=== PATIENT | female | born 1945 | race Asian ===

== ENCOUNTER 2017-06-27 14:05 | Inpatient (IN) | payer MEDICARE, OTHER ==
[~2017-06-27] VITALS: Ht 154.9 cm; Wt 59.0 kg
[2017-06-27] MEDS ORDERED: NKM (14:45)
[2017-06-27] MEDS ORDERED: PAXIL10 MG ORAL (15:28)
[2017-06-27] MEDS ORDERED: LOSARTAN-HCTZ1 EACH ORAL (15:28)
[2017-06-27] MEDS ORDERED: LOVASTATIN20 MG ORAL (15:28)
[2017-06-27] MEDS ORDERED: ZANTAC150 MG ORAL (15:28)
[2017-06-27] MEDS ORDERED: Fluorescein Strips LEFT EYE ONE (15:30)
[2017-06-27] MEDS ORDERED: Morphine Sulfate 4mg/ml Inj IVP ONE (15:30)
[2017-06-27] MEDS ORDERED: Tetracaine 0.5% Opth Soln LEFT EYE ONE (15:30)
--- NOTE | 2017-06-27 15:39 | Diagnostic Imaging Report ---
Indication: Headache Technique: Contiguous 5 mm thick transaxial imaging of the head obtained in a Siemens Sensation [address] scanner. Soft tissue and bone windows generated. Total Dose length Product (DLP): [address] Dose Index Volume (CTDIvol): 70.38, 0.15 mGy Comparison: none Findings: The size and configuration of the cortical sulci, basal cisterns, and ventricles are within normal limits for age. There is no mass effect, midline shift, or edema identified. There is no evidence of acute hemorrhage or abnormal intra-axial or extra-axial fluid collections. The bones and soft tissues are unremarkable. Impression: No mass effect, edema or acute bleed. The CT scanner at [facility] is accredited by the [employer] and the scans are performed using dose optimization techniques as appropriate to a performed exam including Automatic Exposure control.
[2017-06-27 16:02] VITALS: BP 137/83
[2017-06-27 16:03] LABS: BASOPHILS % (AUTO) 0.7 % (0.0-2.0); EOSINOPHILS % (AUTO) 0.3 % (0.0-3.0); MEAN CORPUSCULAR HEMOGLOBIN 34.2 PG (27.0-31.0); MEAN CORPUSCULAR HGB CONC 35.2 G/DL (32.0-36.0); MEAN CORPUSCULAR VOLUME 97 FL (80-99); MEAN PLATELET VOLUME 6.7 FL (6.5-10.1); MONOCYTES % (AUTO) 3.8 % (1.0-10.0); NEUTROPHILS % (AUTO) 73.3 % (45.0-75.0); PLATELET COUNT 141 K/UL (150-450); WHITE BLOOD COUNT 3.7 K/UL (4.8-10.8)
[2017-06-27 16:15] LABS: TROPONIN I < 0.30 ng/mL (<=0.30)
[2017-06-27] MEDS ORDERED: Acyclovir 750 MG in NS 110 ML IVPB ONE (16:15)
[2017-06-27 16:17] LABS: ALANINE AMINOTRANSFERASE 7 U/L (3-33); ALBUMIN/GLOBULIN RATIO 1.5 (1.0-2.7); ANION GAP 11 (5-15); ASPARTATE AMINO TRANSFERASE 18 U/L (5-40); CALCIUM 9.2 mg/dL (8.6-10.2); CARBON DIOXIDE 26 mEQ/L (20-30); CHLORIDE 100 mEQ/L (98-107); CREATININE 0.8 mg/dL (0.5-0.9); GLOMERULAR FILTRATION RATE > 60 mL/min (>60); HEMOLYSIS 8; POTASSIUM 3.9 mEQ/L (3.4-4.9); SODIUM 137 mEQ/L (135-145); TOTAL PROTEIN 6.9 g/dL (6.6-8.7)
[2017-06-27 16:27] LABS: CKMB < 1.5 ng/mL (< 3.8)
[2017-06-27] MEDS ORDERED: Acyclovir 500mg Vial IV ONE (16:38)
[2017-06-27] MEDS ORDERED: ACYCLOVIR IV ONE (17:30)
[2017-06-27] MEDS ORDERED: D5W IV ONE (17:30)
[2017-06-27] MEDS ORDERED: LORazepam Inj 2mg/ml 1ml IV PRN (17:30)
[2017-06-27] MEDS ORDERED: Miralax 17gm pkt ORAL PRN (17:30)
[2017-06-27] MEDS ORDERED: Mylanta II UD 30ml ORAL PRN (17:30)
[2017-06-27] MEDS ORDERED: Zolpidem 5mg tab ORAL PRN (17:30)
[2017-06-27] MEDS ORDERED: Morphine Sulfate 2mg/ml Inj IVP PRN (17:30)
[2017-06-27 17:54] VITALS: BP 119/73
--- NOTE | 2017-06-27 18:10 | Emergency Room Report ---
History of Present Illness General Chief Complaint: Headache Source: Patient Present Illness HPI 71-year-old female presents ED for evaluation. Patient sent in by PMD for evaluation. Patient notes to have lesion over her left eyebrow with a headache for the last 3 days. Headache as throbbing, 7/10, nonradiating. Denies any blurry vision. Denies photophobia. Denies neck stiffness. Denies fevers or chills. No other aggravating relieving factors. Denies any other associated symptoms Allergies: Coded Allergies: No Known Allergies (Unverified , 06/27/17) Patient History Past Medical History: none Past Surgical History: none Pertinent Family History: none Social History: Denies: smoking, alcohol use, drug use Now: No Immunizations: UTD Reviewed Nursing Documentation: PMH: Agreed, PSxH: Agreed Nursing Documentation-PMH Past Medical History: No Stated History Review of Systems All Other Systems: negative except mentioned in HPI Physical Exam Vital Signs Date Time Temp Pulse Resp B/P (MAP) Pulse Ox O2 Delivery O2 Flow Rate FiO2 06/27/17 14:40 97.7 56 16 120/78 96 Room Air Sp02 EP Interpretation: reviewed, normal General Appearance: no apparent distress, alert, GCS 15, non-toxic Head: normocephalic, atraumatic Eyes: left eye fluoroscene uptake - no chang sign. no dendritic lesions, bilateral eye normal inspection, bilateral eye PERRL, bilateral eye EOMI ENT: hearing grossly normal, normal pharynx, no angioedema, normal voice Neck: full range of motion, supple, no meningismus, supple/symm/no masses Respiratory: chest non-tender, lungs clear, normal breath sounds, speaking full sentences Cardiovascular #1: regular rate, rhythm, no edema Cardiovascular #2: 2+ carotid (R), 2+ carotid (L), 2+ radial (R), 2+ radial (L) , 2+ dorsalis pedis (R), 2+ dorsalis pedis (L) Gastrointestinal: normal bowel sounds, non tender, soft, non-distended, no guarding, no rebound Rectal: deferred Genitourinary: normal inspection, no CVA tenderness Musculoskeletal: back normal, gait/station normal, normal range of motion, non- tender Neurologic: alert, oriented x3, responsive, 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 tested, motor strength/tone normal, sensory intact, speech normal Psychiatric: judgement/insight normal, memory normal, mood/affect normal, no suicidal/homicidal ideation Reflexes: 3+ bicep (R), 3+ bicep (L), 3+ tricep (R), 3+ tricep (L), 3+ knee (R) , 3+ knee (L) Skin: normal color, no rash, warm/dry, well hydrated Lymphatic: no adenopathy Medical Decision Making Diagnostic Impression: Primary Impression: Zoster Qualified Codes: B02.8 - Zoster with other complications Additional Impression: Headache Qualified Codes: R51 - Headache ER Course Hospital Course 71-year-old female presents ED complaining of headache with rash over left eye Differential diagnoses include: zoster, shingles, encephalitis Clinical course Patient placed on stretcher. on playground monitor. After initial history and physical I ordered labs, EKG, IVFs, CT Brain labs reviewed- no leukocytosis, hemoglobin/hematocrit ok, electrolytes okay, troponins negative EKG-sinus bradycardia, no acute changes interpreted by me CT brain-unremarkable Patient has no fever, no leukocytosis, no nuchal rigidity. My suspicion for encephalitis/meningitis is low Patient seen by ID and agrees with assessment. saundra requires contact isolation vesicular culture obtained and sent. IV acyclovir given Case discussed with Dr. Ko and he agreed to accept the patient to his service for further care and support I. I feel this is a highly complex case requiring extensive working including EKG/Rhythm strip, Xray/CT/US, Blood/urine lab work, repeat exams while in ED, and administration of strong opiates/narcotics for pain control, admission to hospital or close patient follow up. Diagnosis - zoster, headache admitted to floor in serious condition Labs Test 06/27/17 15:40 06/27/17 16:45 White Blood Count 3.7 K/UL (4.8-10.8) Red Blood Count 3.60 M/UL (4.20-5.40) Hemoglobin 12.3 G/DL (12.0-16.0) Hematocrit 35.1 % (37.0-47.0) Mean Corpuscular Volume 97 FL (80-99) Mean Corpuscular Hemoglobin 34.2 PG (27.0-31.0) Mean Corpuscular Hemoglobin Concent 35.2 G/DL (32.0-36.0) Red Cell Distribution Width 11.0 % (11.6-14.8) Platelet Count 141 K/UL (150-450) Mean Platelet Volume 6.7 FL (6.5-10.1) Neutrophils (%) (Auto) 73.3 % (45.0-75.0) Lymphocytes (%) (Auto) 22.0 % (20.0-45.0) Monocytes (%) (Auto) 3.8 % (1.0-10.0) Eosinophils (%) (Auto) 0.3 % (0.0-3.0) Basophils (%) (Auto) 0.7 % (0.0-2.0) Sodium Level 137 mEQ/L (135-145) Potassium Level 3.9 mEQ/L (3.4-4.9) Chloride Level 100 mEQ/L (98-107) Carbon Dioxide Level 26 mEQ/L (20-30) Anion Gap 11 (5-15) Blood Urea Nitrogen 18 mg/dL (7-23) Creatinine 0.8 mg/dL (0.5-0.9) Estimat Glomerular Filtration Rate > 60 mL/min (>60) Glucose Level 177 mg/dL (74-106) Calcium Level 9.2 mg/dL (8.6-10.2) Total Bilirubin 0.3 mg/dL (0.0-1.2) Aspartate Amino Transf (AST/SGOT) 18 U/L (5-40) Alanine Aminotransferase (ALT/SGPT) 7 U/L (3-33) Alkaline Phosphatase 57 U/L (35-104) Total Creatine Kinase 76 U/L (26-140) Creatine Kinase MB < 1.5 ng/mL (< 3.8) Creatine Kinase MB Relative Index Troponin I < 0.30 ng/mL (<=0.30) Total Protein 6.9 g/dL (6.6-8.7) Albumin 4.2 g/dL (3.5-5.2) Globulin 2.7 g/dL Albumin/Globulin Ratio 1.5 (1.0-2.7) Lactic Acid Level 1.40 mmol/L (0.66-2.22) EKG Diagnostic Results Rate: normal Rhythm: NSR ST Segments: no acute changes ASA given to the pt in ED: No Rhythm Strip Diag. Results EP Interpretation: yes Rhythm: NSR, no PVC's, no ectopy CT/MRI/US Diagnostic Results CT/MRI/US Diagnostic Results : Imaging Test Ordered: CT head Impression no acute process Last Vital Signs Date Time Temp Pulse Resp B/P (MAP) Pulse Ox O2 Delivery O2 Flow Rate FiO2 06/27/17 17:54 97.1 51 16 119/73 95 Room Air Status: improved Disposition: ADMITTED INPATIENT Condition: Serious Referrals: NOT CHOSEN GAVINO/,REFERRING (PCP) LLOYD CASPER M.D. Jun 27, 2017 18:10
[2017-06-27 19:00] VITALS: BP 141/92
[2017-06-28] VITALS: BP 139/63
[2017-06-28 04:00] VITALS: BP 118/68
[2017-06-28] MEDS ORDERED: Zosyn 3.375gm inj ONE (04:46)
[2017-06-28] MEDS: Piperacillin/Tazobactam 3.375 GM in D5W 110 ML IVPB SCH ×3 (05:10→22:14)
[2017-06-28] MEDS ORDERED: Acyclovir 750 MG in NS 110 ML IV SCH (06:00)
[2017-06-28 08:13] VITALS: BP 111/65
[2017-06-28 08:16] LABS: BASOPHILS % (AUTO) 0.5 % (0.0-2.0); EOSINOPHILS % (AUTO) 0.9 % (0.0-3.0); LYMPHOCYTES % (AUTO) 32.1 % (20.0-45.0); MEAN CORPUSCULAR HEMOGLOBIN 33.1 PG (27.0-31.0); MEAN CORPUSCULAR HGB CONC 33.5 G/DL (32.0-36.0); MEAN CORPUSCULAR VOLUME 99 FL (80-99); MONOCYTES % (AUTO) 10.1 % (1.0-10.0); NEUTROPHILS % (AUTO) 56.3 % (45.0-75.0); PLATELET COUNT 152 K/UL (150-450); RED BLOOD COUNT 3.56 M/UL (4.20-5.40); RED CELL DISTRIBUTION WIDTH 10.7 % (11.6-14.8); WHITE BLOOD COUNT 4.1 K/UL (4.8-10.8)
[2017-06-28 08:35] LABS: ALANINE AMINOTRANSFERASE 6 U/L (3-33); ALBUMIN/GLOBULIN RATIO 1.3 (1.0-2.7); ANION GAP 12 (5-15); ASPARTATE AMINO TRANSFERASE 16 U/L (5-40); CALCIUM 8.6 mg/dL (8.6-10.2); CARBON DIOXIDE 25 mEQ/L (20-30); CHLORIDE 101 mEQ/L (98-107); CHOLESTEROL 216 mg/dL (< 200); CREATININE 0.8 mg/dL (0.5-0.9); GLOMERULAR FILTRATION RATE > 60 mL/min (>60); HEMOLYSIS 8; LDL CHOLESTEROL (CALC.) 85 mg/dL (60-99); POTASSIUM 3.6 mEQ/L (3.4-4.9); SODIUM 138 mEQ/L (135-145); TOTAL PROTEIN 6.4 g/dL (6.6-8.7)
[2017-06-28] MEDS ORDERED: Norco 5mg/325mg tab ORAL PRN (09:30)
[2017-06-28] MEDS: Acyclovir 750 MG in NS 110 ML IV SCH ×2 (09:31→17:54)
[2017-06-28] MEDS: Hyzaar 12.5mg/50mg tab ORAL SCH (09:32)
[2017-06-28] MEDS: PARoxetine 10mg tab ORAL SCH (09:33)
[2017-06-28] MEDS ORDERED: NS 275ml ONE (09:41)
[2017-06-28] MEDS ORDERED: Tubing IV Secondary IV ONE (09:41)
[2017-06-28 11:55] VITALS: BP 118/74
--- NOTE | 2017-06-28 15:13 | History and Physical ---
History of Present Illness General Date patient seen: Jun 28, 2017 Reason for Hospitalization: Headache Present Illness HPI 71 year old female with hx of CAD, HTN, presented to ER of [place] with CC of headache, right lid lesion with vesicular rash. Pt was diagnosed to have shingles and admitted for further work up and treatment. Allergies: Coded Allergies: No Known Allergies (Unverified , 06/27/17) Medication History Scheduled Losartan/Hydrochlorothiazide (Losartan-Hctz 100-12.5 Mg Tab), 1 TAB ORAL DAILY, (Reported) Lovastatin (Lovastatin), 20 MG ORAL BEDTIME, (Reported) No Known Medications* (NKM - No Known Medications*), 0 ., (Reported) Paroxetine Hcl* (Paxil*), 10 MG ORAL DAILY, (Reported) Ranitidine Hcl* (Zantac*), 300 MG ORAL DAILY, (Reported) Patient History Healthcare decision maker N Resuscitation status Full Code Advanced Directive on File Past Medical/Surgical History Past Medical/Surgical History: (1) CAD (coronary artery disease) (2) HTN (hypertension) Review of Systems Constitutional: Reports: malaise, weakness Eye: Reports: no symptoms ENT: Reports: no symptoms Respiratory: Reports: no symptoms Cardiovascular: Reports: no symptoms Gastrointestinal: Reports: no symptoms Skin: Reports: lesions - vesicular rash Psychiatric: Reports: no symptoms Physical Exam General Appearance: WD/WN Lines, tubes and drains: peripheral, central line HEENT: normocephalic, atraumatic Neck: non-tender, normal alignment Respiratory/Chest: chest wall non-tender, lungs clear Cardiovascular/Chest: normal peripheral pulses, regular rhythm Abdomen: normal bowel sounds, non tender Genitourinary/Rectal: normal genital exam Extremities: normal range of motion Skin Exam: normal pigmentation 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 grossly normal Last 24 Hour Vital Signs Date Time Temp Pulse Resp B/P (MAP) Pulse Ox O2 Delivery O2 Flow Rate FiO2 06/28/17 11:55 97.6 70 20 118/74 95 Room Air 06/28/17 09:32 111/65 06/28/17 08:13 97.7 60 20 111/65 96 Room Air 06/28/17 04:00 97.5 82 20 118/68 97 Room Air 06/28/17 00:00 97.9 77 18 139/63 97 Room Air 06/27/17 19:41 78 16 140/80 99 Room Air 06/27/17 19:00 76 16 141/92 99 Room Air 06/27/17 17:54 97.1 51 16 119/73 95 Room Air 06/27/17 16:20 97.1 06/27/17 16:02 97.2 59 19 137/83 96 Room Air Intake and Output 06/28/17 06/29/17 19:00 07:00 Intake Total 507.5 ml Balance 507.5 ml Intake Oral 480 ml IV Total 27.5 ml # Voids 2 Laboratory Tests Test 06/27/17 15:40 06/27/17 16:45 06/28/17 07:00 White Blood Count 3.7 K/UL (4.8-10.8) L 4.1 K/UL (4.8-10.8) L Red Blood Count 3.60 M/UL (4.20-5.40) L 3.56 M/UL (4.20-5.40) L Hemoglobin 12.3 G/DL (12.0-16.0) 11.8 G/DL (12.0-16.0) L Hematocrit 35.1 % (37.0-47.0) L 35.1 % (37.0-47.0) L Mean Corpuscular Volume 97 FL (80-99) 99 FL (80-99) Mean Corpuscular Hemoglobin 34.2 PG (27.0-31.0) H 33.1 PG (27.0-31.0) H Mean Corpuscular Hemoglobin Concent 35.2 G/DL (32.0-36.0) 33.5 G/DL (32.0-36.0) Red Cell Distribution Width 11.0 % (11.6-14.8) L 10.7 % (11.6-14.8) L Platelet Count 141 K/UL (150-450) L 152 K/UL (150-450) Mean Platelet Volume 6.7 FL (6.5-10.1) 7.0 FL (6.5-10.1) Neutrophils (%) (Auto) 73.3 % (45.0-75.0) 56.3 % (45.0-75.0) Lymphocytes (%) (Auto) 22.0 % (20.0-45.0) 32.1 % (20.0-45.0) Monocytes (%) (Auto) 3.8 % (1.0-10.0) 10.1 % (1.0-10.0) H Eosinophils (%) (Auto) 0.3 % (0.0-3.0) 0.9 % (0.0-3.0) Basophils (%) (Auto) 0.7 % (0.0-2.0) 0.5 % (0.0-2.0) Sodium Level 137 mEQ/L (135-145) 138 mEQ/L (135-145) Potassium Level 3.9 mEQ/L (3.4-4.9) 3.6 mEQ/L (3.4-4.9) Chloride Level 100 mEQ/L (98-107) 101 mEQ/L (98-107) Carbon Dioxide Level 26 mEQ/L (20-30) 25 mEQ/L (20-30) Anion Gap 11 (5-15) 12 (5-15) Blood Urea Nitrogen 18 mg/dL (7-23) 19 mg/dL (7-23) Creatinine 0.8 mg/dL (0.5-0.9) 0.8 mg/dL (0.5-0.9) Estimat Glomerular Filtration Rate > 60 mL/min (>60) > 60 mL/min (>60) Glucose Level 177 mg/dL (74-106) H 121 mg/dL (74-106) H Calcium Level 9.2 mg/dL (8.6-10.2) 8.6 mg/dL (8.6-10.2) Total Bilirubin 0.3 mg/dL (0.0-1.2) < 0.2 mg/dL (0.0-1.2) Aspartate Amino Transf (AST/SGOT) 18 U/L (5-40) 16 U/L (5-40) Alanine Aminotransferase (ALT/SGPT) 7 U/L (3-33) 6 U/L (3-33) Alkaline Phosphatase 57 U/L (35-104) 53 U/L (35-104) Total Creatine Kinase 76 U/L (26-140) Creatine Kinase MB < 1.5 ng/mL (< 3.8) Creatine Kinase MB Relative Index Troponin I < 0.30 ng/mL (<=0.30) Total Protein 6.9 g/dL (6.6-8.7) 6.4 g/dL (6.6-8.7) L Albumin 4.2 g/dL (3.5-5.2) 3.7 g/dL (3.5-5.2) Globulin 2.7 g/dL 2.7 g/dL Albumin/Globulin Ratio 1.5 (1.0-2.7) 1.3 (1.0-2.7) Lactic Acid Level 1.40 mmol/L (0.66-2.22) Hemoglobin A1c Pending Triglycerides Level 302 mg/dL (< 150) H Cholesterol Level 216 mg/dL (< 200) H LDL Cholesterol 85 mg/dL (60-99) HDL Cholesterol 71 mg/dL (> 60) H Cholesterol/HDL Ratio 3.0 (3.3-4.4) L Thyroid Stimulating Hormone (TSH) 1.120 uIU/mL (0.300-4.500) HIV (1&2) Antibody Rapid Negative (NEGATIVE) Height (Feet): 5 Height (Inches): 1.00 Weight (Pounds): 130 Medications Current Medications Medications (Trade) Dose Ordered Sig/Darrion Route PRN Reason Start Time Stop Time Status Last Admin Dose Admin Acetaminophen (Tylenol) 650 mg Q4H PRN ORAL fever 06/27/17 17:30 07/27/17 17:29 Acetaminophen/ Hydrocodone Bitart ([place] 5/325) 1 tab Q4H PRN ORAL Moderate Pain (Pain Scale 4-6) 06/28/17 09:30 07/05/17 09:29 Acyclovir 750 mg/ Sodium Chloride 110 ml @ 110 mls/hr Q8H IV 06/28/17 09:00 07/28/17 08:59 06/28/17 09:31 Al Hydroxide/Mg Hydroxide (Mylanta II) 30 ml Q6H PRN ORAL dyspepsia 06/27/17 17:30 07/27/17 17:29 Artificial Tears (Akwa-Tears) 2 drop FOUR TIMES A DAY BOTH EYES 06/28/17 18:00 07/01/17 17:59 Dextrose (Dextrose 50%) STAT PRN IV Hypoglycemia 06/27/17 17:30 07/27/17 17:29 HCTZ/Losartan Potassium (Hyzaar 50-12.5) 1 tab DAILY ORAL 06/28/17 09:00 07/28/17 08:59 06/28/17 09:32 Lorazepam (Ativan 2mg/ml 1ml) 0.5 mg Q4H PRN IV For Anxiety 06/27/17 17:30 07/04/17 17:29 Morphine Sulfate (Morphine Sulfate) 0.5 mg Q4H PRN IVP Severe Pain (Pain Scale 7-10) 06/28/17 10:00 07/05/17 09:59 Ondansetron HCl (Zofran) 4 mg Q6H PRN IVP Nausea & Vomiting 06/27/17 17:30 07/27/17 17:29 Paroxetine HCl (Paxil) 10 mg DAILY ORAL 06/28/17 09:00 07/28/17 08:59 06/28/17 09:33 Piperacillin Sod/ Tazobactam Sod 3.375 gm/Dextrose 110 ml @ 27.5 mls/hr EVERY 8 HOURS IVPB 06/28/17 06:00 07/03/17 05:59 06/28/17 13:23 Polyethylene Glycol (Miralax) 17 gm HSPRN PRN ORAL Constipation 06/27/17 17:30 07/27/17 17:29 Ranitidine HCl (Zantac) 150 mg DAILY ORAL 06/28/17 09:00 07/28/17 08:59 06/28/17 09:33 Zolpidem Tartrate (Ambien) 5 mg HSPRN PRN ORAL Insomnia 06/27/17 17:30 07/04/17 17:29 Assessment/Plan Problem List: (1) Shingles ICD Codes: B02.9 - Zoster without complications SNOMED: 8144433 (2) CAD (coronary artery disease) ICD Codes: I25.10 - Atherosclerotic heart disease of [place] coronary artery without angina pectoris SNOMED: 11623360 (3) HTN (hypertension) ICD Codes: I10 - Essential (primary) hypertension SNOMED: 62636672 Assessment/Plan iv Zovirax ID evaluation check labs minor IV abx to po in few days and dc home. MANSOOR WEBER Jun 28, 2017 15:13
--- NOTE | 2017-06-28 15:30 | Infectious Diseases Prog Note ---
Infectious Disease Consult Infectious Disease Consult Infectious Disease Consult INFECTIOUS DISEASE CONSULTATION DATE OF CONSULTATION: CONSULTING PHYSICIAN: Will Beard M.D., MTM&H, CTropMed Covering for Dr. Leon REFERRING PHYSICIAN: Ha Ko MD REASON FOR CONSULTATION: L eyelid vesicular cellulitis HISTORY OF PRESENT ILLNESS: 71 y/o Yi female with remote h/o R T6 dermatomal zoster 10 years ago now admitted with 3 days of L upper eyelid pain, swelling, and now vesicular rash. c/o throbbing h/a, 7/10, non radiating, most severe at the site. denies blurry vision, photophobia, fevers, chills, no other aggravating or alleviating factors , no other systemic symptoms other than malaise related to the localized pain. fluoroscein eye exam by ER attending negative for dendritic ulcerations. PAST MEDICAL HISTORY: HTN HLD MDD GERD R T6 level dermatomal Zoster ~10 years ago, uncomplicated cataract, OS Past Surgical History: None ALLERGIES: No known drug allergies. ANTIBIOTICS: IV zosyn 3.375gm q8hr extended infusion (06/27/17-- IV ACV 10mg/kg q8hr (06/27/17-- Home and hospitalized medications reviewed. home meds: Losartan-HCTZ Lovastatin Paroxetine SOCIAL HISTORY: retired. non smoker, denies Etoh, denies illicits. lives at home. no sick contacts. FAMILY HISTORY: Noncontributory REVIEW OF SYSTEMS: 11 point ROS negative except for that mentioned in HPI above. PHYSICAL EXAM: VITAL SIGNS: Tm 97.7, Tc 97.6 bp 118/74 hr 70 rr 18 satting 95% on Room air GEN: awake, alert, mildly toxic appearing. evaluated in the presence of Yi -speaking nurse HEENT: Mild pale conjunctiva, dry, mildly injected. oral mucosa dry, pharynx w /o exudate or effusion. No icterus. Head normocephalic, neck supple. CN's intact. L eyelid superior aspect with focal erythema, edema , warmth, with cluster of vesicular lesions externally. no involvement of bulbar conjunctiva. PERRLA. + OS cataracts. stable area of white discoloration to medial aspect of iris on the left that she says is unchanged. no photophobia. upward gaze intact with some limitation due to pain. less honey crusting overlying the vesicles today than yesterday, looks more vesicular and less impetiginous NECK: No cervical LAD CHEST: Clear to auscultation bilaterally. HEART: S1 and S2, no murmurs, no rubs. ABDOMEN: soft, non tender, non distended, normoactive bowel sounds. EXTREMITIES: No cyanosis, no clubbing, no edema. NEUROLOGIC: Awake, alert, no focal neurologic motor deficits. : unremarkable LYMPH: no LAD RECTAL: deferred LABORATORY AND DIAGNOSTIC DATA: WBC 4.1, hgb 11.8, plt 152, mcv 99, N 56%, eos 0.9% bmp 138/3.6/101/25/19/0.8/121 admission random gluc 177 LAC 1.4 Ca 8.6, bili <0.2, alk phos 53, ast 16, alt 6 trop I <0.3 prot 6.4, alb 3.7 TG 302 chol 216 LDL 85, HDL 71 TSH 1.12 Micro blood cx pending MRSA nares screen pending RADIOLOGY: Patient : JADEN CHURCHILL CHA Referring Physician: LLOYD CASPER M.D. ID Number: [id number] Service Date: 06/27/17 : 1945 Report Date: 06/27/17 Gender: F Accession No.: [id number] Location: [facility] Procedure: CT Head no Contrast Indication: Headache Technique: Contiguous 5 mm thick transaxial imaging of the head obtained in a Siemens Sensation [address] scanner. Soft tissue and bone windows generated. Total Dose length Product (DLP): [address] Dose Index Volume (CTDIvol): 70.38, 0.15 mGy Comparison: none Findings: The size and configuration of the cortical sulci, basal cisterns, and ventricles are within normal limits for age. There is no mass effect, midline shift, or edema identified. There is no evidence of acute hemorrhage or abnormal intra-axial or extra-axial fluid collections. The bones and soft tissues are unremarkable. Impression: No mass effect, edema or acute bleed. ASSESSMENT AND PLAN ASSESSMENT: L Herpes Zoster (VZV) Ophthalmicus, acute--clustered vesicles with surrounding erythema and edema in L CN V (I) distribution. isolated disease. In the absence of OCCUPATIONAL THERAPIST AIDE disease, don't consider her at any appreciable risk of delayed contralateral hemiparesis ( angiitis) w/o keratitis (neg fluoroscein performed by ER physician) negative Salinas's sign w/o clinical evidence of encephalitis not disseminated disease vision largely intact (OS 20/50 on modified Snellen's) no cranial neuropathy CT head w/o contrast: mild oedema to L superior eyelid, no abscess, mild inflammation of L upper lacrimal gland. lateral and medial rectus not inflammed. no inflammation posterior to tarsal plate. L mild reactive acute dacryoadenitis, superior eyelid OS xeropthalmia, secondary to reactive dacryoadenitis L preseptal cellulitis, secondary to above, possible bacterial superinfection non con head CT negative for periorbital cellulitis prior h/o R T6 dermatomal zoster, uncomplicated Not known to be immunosuppressed no H/o MRSA or MDRO cataracts OS fasting hyperglycemia, ? undiagnosed DM as risk factor probable vitiligo to upper chest PLAN: --Continue IV ACV 10mg/kg q8hr, D#2 --Continue IV Zosyn, D#2 --f/u blood cx --I've unroofed a L upper eyelid vesicle, swabbed the base, and sent for viral culture to microbiologically confirm VZV diagnosis --refresh tears to L eye for mild xerophthalmia --HIV screen --HGBa1c --monitor for any visual acuity loss --monitor daily SCr on ACV --maintain adequate hydration to decrease risk of ACV associated crystalluria --when pain controlled, L eyelid edema improved, perhaps in the next 24-48 hrs, plan to discharge on Valtrex 1gram PO q8hr for 7 days for VZV with augmentin 875mg po q12hr for 7 days for probable bacterial superinfection. Thank you for this consultation. Will continue to follow. Covering for Dr. Leon, please call me with questions, Will Beard M.D. Jun 28, 2017 15:30
[2017-06-28 16:11] VITALS: BP 107/72
[2017-06-28] MEDS: Artificial Tears 1.4% Op Soln BOTH EYES SCH ×2 (17:55→22:13)
[2017-06-28 20:00] VITALS: BP 102/61
[2017-06-28] MEDS: Morphine Sulfate 2mg/ml Inj IVP PRN (22:14)
[2017-06-29] VITALS: BP 125/89
[2017-06-29] MEDS: Acyclovir 750 MG in NS 110 ML IV SCH ×3 (02:57→18:49)
[2017-06-29 04:00] VITALS: BP 116/71
[2017-06-29] MEDS: Piperacillin/Tazobactam 3.375 GM in D5W 110 ML IVPB SCH ×3 (05:42→21:32)
[2017-06-29] MEDS: Morphine Sulfate 2mg/ml Inj IVP PRN (06:17)
[2017-06-29 07:52] VITALS: BP 125/78
[2017-06-29] MEDS: PARoxetine 10mg tab ORAL SCH (08:43)
[2017-06-29] MEDS: Hyzaar 12.5mg/50mg tab ORAL SCH (08:43)
[2017-06-29] MEDS: Artificial Tears 1.4% Op Soln BOTH EYES SCH ×4 (10:30→21:32)
[2017-06-29 12:00] VITALS: BP 113/83
--- NOTE | 2017-06-29 13:57 | Pulmonology Progress Note ---
Assessment/Plan Problems: (1) Shingles (2) CAD (coronary artery disease) (3) HTN (hypertension) Assessment/Plan improving continue abx a check electrolytes dvtg prophylaxis dc home when ok with ID Subjective Interval Events: still c/o right orbital pain Allergies: Coded Allergies: No Known Allergies (Unverified , 06/27/17) Objective Last 24 Hour Vital Signs Date Time Temp Pulse Resp B/P (MAP) Pulse Ox O2 Delivery O2 Flow Rate FiO2 06/29/17 12:00 97.9 68 20 113/83 98 Room Air 06/29/17 08:43 125/78 06/29/17 07:52 98.0 60 20 125/78 95 Room Air 06/29/17 06:47 97.9 06/29/17 04:00 97.9 65 20 116/71 95 Room Air 06/29/17 00:00 98.1 60 20 125/89 95 Room Air 06/28/17 20:00 97.3 76 20 102/61 96 Room Air 06/28/17 16:11 98.2 73 20 107/72 99 Room Air General Appearance: WD/WN HEENT: normocephalic, atraumatic Respiratory/Chest: chest wall non-tender, lungs clear Breasts: no masses Cardiovascular: normal peripheral pulses Abdomen: normal bowel sounds, soft, non tender Extremities: no cyanosis Skin: no lesions, no ulcers Neurologic/Psychiatric: no motor/sensory deficits, abnormal gait Microbiology Date/Time Source Procedure Growth Status 06/27/17 16:46 Blood Blood Culture - Preliminary NO GROWTH AFTER 24 HOURS Resulted 06/27/17 16:30 Blood Blood Culture - Preliminary NO GROWTH AFTER 24 HOURS Resulted 06/27/17 17:51 Nasal Nares MRSA Culture - Final Staphylococcus Aureus - Mrsa Complete Current Medications Medications (Trade) Dose Ordered Sig/Darrion Route PRN Reason Start Time Stop Time Status Last Admin Dose Admin Acetaminophen (Tylenol) 650 mg Q4H PRN ORAL fever 06/27/17 17:30 07/27/17 17:29 Acetaminophen/ Hydrocodone Bitart ([place] 5/325) 1 tab Q4H PRN ORAL Moderate Pain (Pain Scale 4-6) 06/28/17 09:30 07/05/17 09:29 Acyclovir 750 mg/ Sodium Chloride 110 ml @ 110 mls/hr Q8H IV 06/28/17 09:00 07/28/17 08:59 06/29/17 10:31 Al Hydroxide/Mg Hydroxide (Mylanta II) 30 ml Q6H PRN ORAL dyspepsia 06/27/17 17:30 07/27/17 17:29 Artificial Tears (Akwa-Tears) 2 drop FOUR TIMES A DAY BOTH EYES 06/28/17 18:00 07/01/17 17:59 06/29/17 12:24 Dextrose (Dextrose 50%) STAT PRN IV Hypoglycemia 06/27/17 17:30 07/27/17 17:29 HCTZ/Losartan Potassium (Hyzaar 50-12.5) 1 tab DAILY ORAL 06/28/17 09:00 07/28/17 08:59 06/29/17 08:43 Lorazepam (Ativan 2mg/ml 1ml) 0.5 mg Q4H PRN IV For Anxiety 06/27/17 17:30 07/04/17 17:29 Morphine Sulfate (Morphine Sulfate) 0.5 mg Q4H PRN IVP Severe Pain (Pain Scale 7-10) 06/28/17 10:00 07/05/17 09:59 06/29/17 06:17 Ondansetron HCl (Zofran) 4 mg Q6H PRN IVP Nausea & Vomiting 06/27/17 17:30 07/27/17 17:29 Paroxetine HCl (Paxil) 10 mg DAILY ORAL 06/28/17 09:00 07/28/17 08:59 06/29/17 08:43 Piperacillin Sod/ Tazobactam Sod 3.375 gm/Dextrose 110 ml @ 27.5 mls/hr EVERY 8 HOURS IVPB 06/28/17 06:00 07/03/17 05:59 06/29/17 13:30 Polyethylene Glycol (Miralax) 17 gm HSPRN PRN ORAL Constipation 06/27/17 17:30 07/27/17 17:29 Ranitidine HCl (Zantac) 150 mg DAILY ORAL 06/28/17 09:00 07/28/17 08:59 06/29/17 08:43 Zolpidem Tartrate (Ambien) 5 mg HSPRN PRN ORAL Insomnia 06/27/17 17:30 07/04/17 17:29 MANSOOR WEBER Jun 29, 2017 13:57
[2017-06-29] MEDS ORDERED: Vancomycin 1 GM in D5W 275 ML IVPB SCH (15:15)
--- NOTE | 2017-06-29 15:21 | Infectious Diseases Prog Note ---
Assessment/Plan Assessment/Plan ASSESSMENT: L Herpes Zoster (VZV) Ophthalmicus, acute--clustered vesicles with surrounding erythema and edema in L CN V (I) distribution. isolated disease. In the absence of EMPLOYEE RELATIONS DIRECTOR disease, don't consider her at any appreciable risk of delayed contralateral hemiparesis (angiitis) and she has no AMS. w/o keratitis (neg fluoroscein performed by ER physician) negative Salinas's sign w/o clinical evidence of encephalitis not disseminated disease vision largely intact (OS 20/50 on modified Snellen's) no cranial neuropathy CT head w/o contrast: mild oedema to L superior eyelid, no abscess, mild inflammation of L upper lacrimal gland. lateral and medial rectus not inflammed. no inflammation posterior to tarsal plate. L mild reactive acute dacryoadenitis, superior eyelid OS xeropthalmia, secondary to reactive dacryoadenitis OS cheimosis, mild, new 06/29/17 L preseptal cellulitis, secondary to above, possible bacterial superinfection, with new erythema and edema to inferior eyelid today. MRSA nares screen + for colonization. non con head CT negative for periorbital cellulitis prior h/o R T6 dermatomal zoster, uncomplicated Not known to be immunosuppressed HIV screen (06/28) negative HGBA1c in pre-diabetes range. no H/o MRSA or MDRO cataracts OS fasting hyperglycemia, ? undiagnosed DM as risk factor probable vitiligo to upper chest PLAN: --Continue IV ACV 10mg/kg q8hr, D#3 --Continue IV Zosyn, D#3 --Start IV vancomycin D#0, dosed per pharmacy --f/u blood cx --f/u viral culture to microbiologically confirm VZV diagnosis --refresh tears to L eye for mild xerophthalmia --monitor for any visual acuity loss --monitor daily SCr on ACV --maintain adequate hydration to decrease risk of ACV associated crystalluria --she has some worsening periocular edema today with new cheimosis, which I suspect is mostly because she's been itching/rubbing her eye quite a bit. when pain controlled, L eyelid edema improved, perhaps in the next 24-48 hrs, plan to discharge on Valtrex 1gram PO q8hr for 7 days for VZV, minocycline 100mg po BID for 7 days for probable bacterial superinfection. Subjective Constitutional: Reports: no symptoms HEENT: Reports: other - L periorbtial pain. no change in vision from yesterday. Respiratory: Reports: no symptoms Cardiovascular: Reports: no symptoms Gastrointestinal/Abdominal: Reports: no symptoms Genitourinary: Reports: no symptoms Allergies: Coded Allergies: No Known Allergies (Unverified , 06/27/17) Objective Vital Signs Last 24 Hour Vital Signs Date Time Temp Pulse Resp B/P (MAP) Pulse Ox O2 Delivery O2 Flow Rate FiO2 06/29/17 12:00 97.9 68 20 113/83 98 Room Air 06/29/17 08:43 125/78 06/29/17 07:52 98.0 60 20 125/78 95 Room Air 06/29/17 06:47 97.9 06/29/17 04:00 97.9 65 20 116/71 95 Room Air 06/29/17 00:00 98.1 60 20 125/89 95 Room Air 06/28/17 20:00 97.3 76 20 102/61 96 Room Air 06/28/17 16:11 98.2 73 20 107/72 99 Room Air Height (Feet): 5 Height (Inches): 1.00 Weight (Pounds): 130 Objective GEN: awake, alert, mildly toxic appearing secondary to L periorbital pain. HEENT: Mild pale conjunctiva, dry, mildly injected. now with new OS cheimosis. oral mucosa dry, pharynx w/o exudate or effusion. No icterus. Head normocephalic, neck supple. CN's intact. L eyelid superior aspect with focal erythema, edema , warmth, with cluster of vesicular lesions externally. new expanding erythema and edema to lower eyelid. no involvement of bulbar conjunctiva. PERRLA. + OS cataracts. stable area of white discoloration to medial aspect of iris on the left that she says is unchanged. no photophobia. upward gaze intact with some limitation due to pain. less honey crusting overlying the vesicles than from admission 06/27, looks more vesicular and less impetiginous NECK: No cervical LAD CHEST: Clear to auscultation bilaterally. HEART: S1 and S2, no murmurs, no rubs. ABDOMEN: soft, non tender, non distended, normoactive bowel sounds. EXTREMITIES: No cyanosis, no clubbing, no edema. NEUROLOGIC: Awake, alert, no focal neurologic motor deficits. : unremarkable LYMPH: no LAD RECTAL: deferred Microbiology Date/Time Source Procedure Growth Status 06/27/17 16:46 Blood Blood Culture - Preliminary NO GROWTH AFTER 24 HOURS Resulted 06/27/17 16:30 Blood Blood Culture - Preliminary NO GROWTH AFTER 24 HOURS Resulted 06/27/17 17:51 Nasal Nares MRSA Culture - Final Staphylococcus Aureus - Mrsa Complete Current Medications Medications (Trade) Dose Ordered Sig/Darrion Route PRN Reason Start Time Stop Time Status Last Admin Dose Admin Acetaminophen (Tylenol) 650 mg Q4H PRN ORAL fever 06/27/17 17:30 07/27/17 17:29 Acetaminophen/ Hydrocodone Bitart ([place] 5/325) 1 tab Q4H PRN ORAL Moderate Pain (Pain Scale 4-6) 06/28/17 09:30 07/05/17 09:29 Acyclovir 750 mg/ Sodium Chloride 110 ml @ 110 mls/hr Q8H IV 06/28/17 09:00 07/28/17 08:59 06/29/17 10:31 Al Hydroxide/Mg Hydroxide (Mylanta II) 30 ml Q6H PRN ORAL dyspepsia 06/27/17 17:30 07/27/17 17:29 Artificial Tears (Akwa-Tears) 2 drop FOUR TIMES A DAY BOTH EYES 06/28/17 18:00 07/01/17 17:59 06/29/17 12:24 Dextrose (Dextrose 50%) STAT PRN IV Hypoglycemia 06/27/17 17:30 07/27/17 17:29 HCTZ/Losartan Potassium (Hyzaar 50-12.5) 1 tab DAILY ORAL 06/28/17 09:00 07/28/17 08:59 06/29/17 08:43 Lorazepam (Ativan 2mg/ml 1ml) 0.5 mg Q4H PRN IV For Anxiety 06/27/17 17:30 07/04/17 17:29 Morphine Sulfate (Morphine Sulfate) 0.5 mg Q4H PRN IVP Severe Pain (Pain Scale 7-10) 06/28/17 10:00 07/05/17 09:59 06/29/17 06:17 Ondansetron HCl (Zofran) 4 mg Q6H PRN IVP Nausea & Vomiting 06/27/17 17:30 07/27/17 17:29 Paroxetine HCl (Paxil) 10 mg DAILY ORAL 06/28/17 09:00 07/28/17 08:59 06/29/17 08:43 Piperacillin Sod/ Tazobactam Sod 3.375 gm/Dextrose 110 ml @ 27.5 mls/hr EVERY 8 HOURS IVPB 06/28/17 06:00 07/03/17 05:59 06/29/17 13:30 Polyethylene Glycol (Miralax) 17 gm HSPRN PRN ORAL Constipation 06/27/17 17:30 07/27/17 17:29 Ranitidine HCl (Zantac) 150 mg DAILY ORAL 06/28/17 09:00 07/28/17 08:59 06/29/17 08:43 Zolpidem Tartrate (Ambien) 5 mg HSPRN PRN ORAL Insomnia 06/27/17 17:30 07/04/17 17:29 Will Beard M.D. Jun 29, 2017 15:21
[2017-06-29] MEDS ORDERED: MINOCIN100 MG PO (15:43)
[2017-06-29 16:00] VITALS: BP 116/78
[2017-06-29] MEDS ORDERED: Vancomycin 1250mg/D5W 250ml IVPB ONE (16:30)
[2017-06-29] MEDS ORDERED: Lacri-Lube Opth Oint 3.5gm LEFT EYE ONE (19:00)
[2017-06-29 20:00] VITALS: BP 120/84
[2017-06-30] VITALS (7 sets, daily range): BP systolic 117–138; BP diastolic 79–93
--- NOTE | 2017-06-30 00:30 | Consultation ---
DATE OF CONSULTATION: 06/28/2017 HEMATOLOGY/ONCOLOGY CONSULT Late entry for 06/28/2017 CONSULTING PHYSICIAN: Jasper Kohler M.D. REQUESTING PHYSICIAN: Ha Ko M.D. REASON FOR CONSULTATION: 1. Pancytopenia. 2. Herpes Zoster. CURRENT COMPLAINT AND HISTORY OF PRESENT ILLNESS: Dear Dr. Ko, Today, I had an opportunity to see one of your patients, who as you are well aware is a 71-year-old delightful female, who presented with a history of severe headache for the last several days. During evaluation, it was found that the patient developed herpes zoster in the left eyebrow area with headache. It was also found that the patient developed pancytopenia. My service was called to handle the issue of pancytopenia. PAST MEDICAL HISTORY: Coronary artery disease. Hypertension. Malnutrition. MEDICATIONS: 1. Vancomycin. 2. Morphine sulfate. 3. Tylenol. 4. Potassium. 5. Zantac. 6. Hyzaar. 7. Acyclovir. 8. Piperacillin. 9. Zolpidem. 10. Zofran. 11. Mylanta. ALLERGIES: NKDA. SOCIAL HISTORY: No history of smoking. No history of alcohol abuse. No history of illicit drug use. FAMILY HISTORY: Noncontributory. REVIEW OF SYSTEMS: General: The patient is not in any significant distress. Respiratory: Mild shortness of breath on exertion. Gastrointestinal: The patient claimed constipation. PHYSICAL EXAMINATION: VITAL SIGNS: T-max 97 degrees. Respiratory rate 20. Heart rate 80. Blood pressure 130/80. HEENT: Head, normocephalic and atraumatic. NECK: Supple. No thyroid enlargement. No lymphadenopathy. LUNGS: Decreased breath sounds bilaterally with few rhonchi in the bases. HEART: S1 and S2 regular. ABDOMEN: Soft and benign. No organomegaly present. Bowel sounds present. EXTREMITIES: No cyanosis, clubbing, or edema. LABORATORY DATA: WBC 4.1, hemoglobin 11.8, hematocrit 35.1, and platelet count of 152,000. Coagulation showed D-dimer 231. Chemistry show CEA 3.4. IMPRESSION: 1. Pancytopenia, most likely secondary to viral infection. 2. Herpes zoster, left eyelid. 3. Xerophthalmia with eyelid herpes zoster. 4. Left preseptal cellulitis secondary to bacterial superinfection. 5. Fasting hyperglycemia. 6. History of cataract. 7. Hypertension. 8. Coronary artery disease. 9. Headache. 10. Malnutrition. 11. Failure to thrive. RECOMMENDATIONS: 1. Watch count. 2. Watch coagulopathy. 3. PRBC transfusion on p.r.n. basis. 4. Platelet transfusion on p.r.n. basis. 5. Neupogen subcutaneously on p.r.n. basis. 6. Antiviral treatment. 7. Antibiotics IV. 8. Infectious Diseases followup. 9. Pulmonary followup. 10. Skin care. 11. Nutrition. 12. Close followup. 13. Continue current treatment. Jasper MD Jose F DR: NHAN JOB#: [id number] CC:
[2017-06-30] MEDS: Acyclovir 750 MG in NS 110 ML IV SCH ×2 (01:45→09:35)
[2017-06-30] MEDS: Vancomycin 750mg/NS 250ml IVPB SCH ×2 (04:35→18:01)
[2017-06-30] MEDS: Piperacillin/Tazobactam 3.375 GM in D5W 110 ML IVPB SCH ×3 (06:20→21:28)
[2017-06-30] MEDS: PARoxetine 10mg tab ORAL SCH (09:33)
[2017-06-30] MEDS: Artificial Tears 1.4% Op Soln BOTH EYES SCH ×4 (09:33→21:28)
[2017-06-30] MEDS: Hyzaar 12.5mg/50mg tab ORAL SCH (09:36)
[2017-06-30] MEDS ORDERED: VALACYCLOVIR500 MG ORAL (14:26)
--- NOTE | 2017-06-30 14:39 | Infectious Diseases Prog Note ---
Assessment/Plan Assessment/Plan ASSESSMENT: L Herpes Zoster (VZV) Ophthalmicus, acute--clustered vesicles with surrounding erythema and edema in L CN V (I) distribution. isolated disease. w/o keratitis (neg fluoroscein performed by ER physician) negative Salinas's sign w/o clinical evidence of encephalitis not disseminated disease vision largely intact (OS 20/50 on modified Snellen's) no cranial neuropathy CT head w/o contrast: mild oedema to L superior eyelid, no abscess, mild inflammation of L upper lacrimal gland. lateral and medial rectus not inflammed. no inflammation posterior to tarsal plate. L mild reactive acute dacryoadenitis, superior eyelid, resolved OS xeropthalmia, secondary to reactive dacryoadenitis, improving OS cheimosis, resolved L preseptal cellulitis, secondary to above, possible bacterial superinfection, resolved. MRSA nares screen + for colonization. non con head CT negative for periorbital cellulitis prior h/o R T6 dermatomal zoster, uncomplicated Not known to be immunosuppressed HIV screen (06/28) negative HGBA1c in pre-diabetes range. no H/o MRSA or MDRO blood cx from admission ngtd cataracts OS probable vitiligo to upper chest PLAN: --d/c IV ACV D#4 --Start Valtrex 1gm PO q8hr to complete 3 more days, in total will receive 7 days systemic antiviral --Continue IV Zosyn, D#4 and IV Vanc D#1 o/n. --f/u blood cx --f/u viral culture to microbiologically confirm VZV diagnosis --refresh tears to L eye for mild xerophthalmia and nighttime lacrilube prn looks much better today, okay from ID perspective to discharge tommorrow on Valtrex 1gm PO q8hr for 3 more days and minocycline 100mg po BID for 7 days. No IV antimicrobials indicated at hospital discharge. I have updated these as her discharge meds and placed paper script in her chart. Covering for Dr. Leon. please call me [phone] for questions. Subjective Constitutional: Reports: no symptoms HEENT: Reports: no symptoms Cardiovascular: Reports: no symptoms Gastrointestinal/Abdominal: Reports: no symptoms Genitourinary: Reports: no symptoms Neurologic: Reports: no symptoms Hematologic: Reports: no symptoms Musculoskeletal: Reports: no symptoms Allergies: Coded Allergies: No Known Allergies (Unverified , 06/27/17) Objective Vital Signs Last 24 Hour Vital Signs Date Time Temp Pulse Resp B/P (MAP) Pulse Ox O2 Delivery O2 Flow Rate FiO2 06/30/17 12:19 97.8 68 19 129/91 95 Room Air 06/30/17 09:36 128/82 06/30/17 08:30 97.7 60 17 128/82 95 Room Air 06/30/17 04:00 97.5 64 18 117/79 95 Room Air 06/30/17 00:00 98.0 68 20 134/93 95 Room Air 06/29/17 20:00 98.1 73 20 120/84 96 Room Air 06/29/17 16:00 97.6 65 19 116/78 97 Room Air Height (Feet): 5 Height (Inches): 1.00 Weight (Pounds): 130 Objective GEN: awake, alert, non toxic appearing HEENT: Mild pale conjunctiva, dry, mildly injected. the OS cheimosis seen yesterday has resolved. the L upper and lower eyelid edema and erythema has resolved from yesterday. L upper eyelid lesions has scabbed over. vision unchanged with OS 20/40 to modified Snellen's. NECK: No cervical LAD CHEST: Clear to auscultation bilaterally. HEART: S1 and S2, no murmurs, no rubs. ABDOMEN: soft, non tender, non distended, normoactive bowel sounds. EXTREMITIES: No cyanosis, no clubbing, no edema. NEUROLOGIC: Awake, alert, no focal neurologic motor deficits. : unremarkable LYMPH: no LAD RECTAL: deferred Microbiology Date/Time Source Procedure Growth Status 06/27/17 16:46 Blood Blood Culture - Preliminary NO GROWTH AFTER 48 HOURS Resulted 06/27/17 16:30 Blood Blood Culture - Preliminary NO GROWTH AFTER 48 HOURS Resulted 06/27/17 17:51 Nasal Nares MRSA Culture - Final Staphylococcus Aureus - Mrsa Complete Current Medications Medications (Trade) Dose Ordered Sig/Darrion Route PRN Reason Start Time Stop Time Status Last Admin Dose Admin Acetaminophen (Tylenol) 650 mg Q4H PRN ORAL fever 06/27/17 17:30 07/27/17 17:29 Acetaminophen/ Hydrocodone Bitart ([place] 5/325) 1 tab Q4H PRN ORAL Moderate Pain (Pain Scale 4-6) 06/28/17 09:30 07/05/17 09:29 06/30/17 09:34 Al Hydroxide/Mg Hydroxide (Mylanta II) 30 ml Q6H PRN ORAL dyspepsia 06/27/17 17:30 07/27/17 17:29 Artificial Tears (Akwa-Tears) 2 drop FOUR TIMES A DAY BOTH EYES 06/28/17 18:00 07/01/17 17:59 06/30/17 09:33 Dextrose (Dextrose 50%) STAT PRN IV Hypoglycemia 06/27/17 17:30 07/27/17 17:29 HCTZ/Losartan Potassium (Hyzaar 50-12.5) 1 tab DAILY ORAL 06/28/17 09:00 07/28/17 08:59 06/30/17 09:36 Lorazepam (Ativan 2mg/ml 1ml) 0.5 mg Q4H PRN IV For Anxiety 06/27/17 17:30 07/04/17 17:29 Morphine Sulfate (Morphine Sulfate) 0.5 mg Q4H PRN IVP Severe Pain (Pain Scale 7-10) 06/28/17 10:00 07/05/17 09:59 06/29/17 06:17 Ondansetron HCl (Zofran) 4 mg Q6H PRN IVP Nausea & Vomiting 06/27/17 17:30 07/27/17 17:29 Paroxetine HCl (Paxil) 10 mg DAILY ORAL 06/28/17 09:00 07/28/17 08:59 06/30/17 09:33 Piperacillin Sod/ Tazobactam Sod 3.375 gm/Dextrose 110 ml @ 27.5 mls/hr EVERY 8 HOURS IVPB 06/28/17 06:00 07/03/17 05:59 06/30/17 06:20 Polyethylene Glycol (Miralax) 17 gm HSPRN PRN ORAL Constipation 06/27/17 17:30 07/27/17 17:29 Ranitidine HCl (Zantac) 150 mg DAILY ORAL 06/28/17 09:00 07/28/17 08:59 06/30/17 09:37 Valacyclovir HCl (Valtrex) 1,000 mg Q8HR ORAL 06/30/17 22:00 07/04/17 10:00 UNV Vancomycin HCl (Vanco rx to dose) 1 ea DAILY PRN MISC Per rx protocol 06/29/17 15:15 07/05/17 15:14 Vancomycin/Sodium Chloride 250 ml @ 166.667 mls/hr Q12HR@0500,1700 IVPB 06/30/17 05:00 07/05/17 04:59 06/30/17 04:35 Zolpidem Tartrate (Ambien) 5 mg HSPRN PRN ORAL Insomnia 06/27/17 17:30 07/04/17 17:29 Will Beard M.D. Jun 30, 2017 14:39
--- NOTE | 2017-06-30 15:02 | Pulmonology Progress Note ---
Assessment/Plan Assessment/Plan ASSESSMENT Left VZV ophthalmicus acute L preseptal cellulitis ( possibly due to bacterial superinfection) HTN CAD OS xenophthalmia, secondary to reactive dacryoadenitis- improving OS chemosis, -resolved pancytopenia (likely due to viral infection) PLAN OF CARE [facility] floor IV abx ID follows , change to oral upon dc blood cx negative artificial tears CT head negative for evidence of periorbital cellulitis pain management BP management with ARB , stable heme follows monitor counts, remain stable HIV screen negative dc plan for tomorrow on oral abx ( scripts provided by ID specialist) case discussed and evaluated by supervising physician Subjective Allergies: Coded Allergies: No Known Allergies (Unverified , 06/27/17) Subjective feeling better less pain and itching lesions drying afebrile, Objective Last 24 Hour Vital Signs Date Time Temp Pulse Resp B/P (MAP) Pulse Ox O2 Delivery O2 Flow Rate FiO2 06/30/17 12:19 97.8 68 19 129/91 95 Room Air 06/30/17 09:36 128/82 06/30/17 08:30 97.7 60 17 128/82 95 Room Air 06/30/17 04:00 97.5 64 18 117/79 95 Room Air 06/30/17 00:00 98.0 68 20 134/93 95 Room Air 06/29/17 20:00 98.1 73 20 120/84 96 Room Air 06/29/17 16:00 97.6 65 19 116/78 97 Room Air Intake and Output 06/30/17 07/01/17 19:00 07:00 Intake Total 610.0 ml Output Total 450 ml Balance 160.0 ml Intake Oral 500 ml IV Total 110.0 ml Output Urine Total 450 ml General Appearance: WD/WN, no acute distress, other - awake, alert, responsive female HEENT: normocephalic, atraumatic, anicteric, other - Left eyelid with crusting drying lesions, mild edema amd erythema Respiratory/Chest: chest wall non-tender, lungs clear, no respiratory distress , no accessory muscle use Cardiovascular: normal peripheral pulses, normal rate, regular rhythm, no JVD Abdomen: normal bowel sounds, soft, non tender, non distended Extremities: no cyanosis, no edema, pedal pulses normal Neurologic/Psychiatric: no motor/sensory deficits, alert, oriented x 3, responsive Musculoskeletal: normal muscle bulk Microbiology Date/Time Source Procedure Growth Status 06/27/17 16:46 Blood Blood Culture - Preliminary NO GROWTH AFTER 48 HOURS Resulted 06/27/17 16:30 Blood Blood Culture - Preliminary NO GROWTH AFTER 48 HOURS Resulted 06/27/17 17:51 Nasal Nares MRSA Culture - Final Staphylococcus Aureus - Mrsa Complete Current Medications Medications (Trade) Dose Ordered Sig/Darrion Route PRN Reason Start Time Stop Time Status Last Admin Dose Admin Acetaminophen (Tylenol) 650 mg Q4H PRN ORAL fever 06/27/17 17:30 07/27/17 17:29 Acetaminophen/ Hydrocodone Bitart ([place] 5/325) 1 tab Q4H PRN ORAL Moderate Pain (Pain Scale 4-6) 06/28/17 09:30 07/05/17 09:29 06/30/17 09:34 Al Hydroxide/Mg Hydroxide (Mylanta II) 30 ml Q6H PRN ORAL dyspepsia 06/27/17 17:30 07/27/17 17:29 Artificial Tears (Akwa-Tears) 2 drop FOUR TIMES A DAY BOTH EYES 06/28/17 18:00 07/01/17 17:59 06/30/17 09:33 Dextrose (Dextrose 50%) STAT PRN IV Hypoglycemia 06/27/17 17:30 07/27/17 17:29 HCTZ/Losartan Potassium (Hyzaar 50-12.5) 1 tab DAILY ORAL 06/28/17 09:00 07/28/17 08:59 06/30/17 09:36 Lorazepam (Ativan 2mg/ml 1ml) 0.5 mg Q4H PRN IV For Anxiety 06/27/17 17:30 07/04/17 17:29 Morphine Sulfate (Morphine Sulfate) 0.5 mg Q4H PRN IVP Severe Pain (Pain Scale 7-10) 06/28/17 10:00 07/05/17 09:59 06/29/17 06:17 Ondansetron HCl (Zofran) 4 mg Q6H PRN IVP Nausea & Vomiting 06/27/17 17:30 07/27/17 17:29 Paroxetine HCl (Paxil) 10 mg DAILY ORAL 06/28/17 09:00 07/28/17 08:59 06/30/17 09:33 Piperacillin Sod/ Tazobactam Sod 3.375 gm/Dextrose 110 ml @ 27.5 mls/hr EVERY 8 HOURS IVPB 06/28/17 06:00 07/03/17 05:59 06/30/17 06:20 Polyethylene Glycol (Miralax) 17 gm HSPRN PRN ORAL Constipation 06/27/17 17:30 07/27/17 17:29 Ranitidine HCl (Zantac) 150 mg DAILY ORAL 06/28/17 09:00 07/28/17 08:59 06/30/17 09:37 Valacyclovir HCl (Valtrex) 1,000 mg Q12HR ORAL 06/30/17 21:00 07/03/17 20:59 Vancomycin HCl (Vanco rx to dose) 1 ea DAILY PRN MISC Per rx protocol 06/29/17 15:15 07/05/17 15:14 Vancomycin/Sodium Chloride 250 ml @ 166.667 mls/hr Q12HR@0500,1700 IVPB 06/30/17 05:00 07/05/17 04:59 06/30/17 04:35 Zolpidem Tartrate (Ambien) 5 mg HSPRN PRN ORAL Insomnia 06/27/17 17:30 07/04/17 17:29 Mamadou (Danielle)Simona NP Jun 30, 2017 15:02
[2017-06-30] MEDS ORDERED: NS 275ml ONE (15:56)
[2017-06-30] MEDS: valACYclovir HCL 500mg tab ORAL SCH (21:28)
[2017-07-01 04:05] VITALS: BP 135/93
[2017-07-01] MEDS: Vancomycin 750mg/NS 250ml IVPB SCH ×3 (04:25→07:22)
[2017-07-01] MEDS: Piperacillin/Tazobactam 3.375 GM in D5W 110 ML IVPB SCH (05:09)
[2017-07-01 05:13] LABS: BASOPHILS % (AUTO) 0.5 % (0.0-2.0); EOSINOPHILS % (AUTO) 1.3 % (0.0-3.0); LYMPHOCYTES % (AUTO) 38.1 % (20.0-45.0); MEAN CORPUSCULAR HEMOGLOBIN 34.4 PG (27.0-31.0); MEAN CORPUSCULAR HGB CONC 34.9 G/DL (32.0-36.0); MEAN CORPUSCULAR VOLUME 98 FL (80-99); MEAN PLATELET VOLUME 6.9 FL (6.5-10.1); NEUTROPHILS % (AUTO) 51.1 % (45.0-75.0); PLATELET COUNT 165 K/UL (150-450); RED BLOOD COUNT 3.74 M/UL (4.20-5.40); RED CELL DISTRIBUTION WIDTH 10.7 % (11.6-14.8)
[2017-07-01 08:11] VITALS: BP 135/84
[2017-07-01] MEDS: Artificial Tears 1.4% Op Soln BOTH EYES SCH (09:31)
[2017-07-01] MEDS: PARoxetine 10mg tab ORAL SCH (09:32)
[2017-07-01] MEDS: valACYclovir HCL 500mg tab ORAL SCH (09:32)
[2017-07-01] MEDS: Hyzaar 12.5mg/50mg tab ORAL SCH (09:32)
--- NOTE | 2017-07-01 10:16 | Consultation ---
DATE OF CONSULTATION: 06/28/2017 HEMATOLOGY/ONCOLOGY CONSULTATION ADMITTING PHYSICIAN: Ha Ko M.D. CONSULTING PHYSICIAN: Jasper Kohler M.D. REASON FOR CONSULTATION: Pancytopenia. CURRENT COMPLAINT AND HISTORY OF PRESENT ILLNESS: Dear Dr. Ko: Today, I had an opportunity to see one of your patients, who as you are well aware, 71 years old delightful female with a history of coronary artery disease and hypertension, who came with severe headache, left eyelid lesion, and vesicular rash. The patient was diagnosed with shingles, left eyelid area as well as headache. This is possible encephalitis versus meningitis versus CVA. The patient . The patient will be admitted to [facility]. During evaluation, it was found that the patient developed pancytopenia. My service was called to handle issue of blood dyscrasia. PAST MEDICAL HISTORY: 1. Medically stable coronary artery disease. 2. Hypertension. 3. Left eyelid vesicular rash. MEDICATIONS: Medications in the hospital: 1. Tylenol. 2. [place]. 3. Paxil. 4. Zantac. 5. Hyzaar. 6. Acyclovir. 7. Piperacillin. 8. Tylenol. 9. MiraLax. 10. Zofran. 11. Ambien. 12. Lorazepam. 13. Ativan. ALLERGIES: NKDA. SOCIAL HISTORY: No history of smoking. No history of alcohol abuse. No history of illicit drug use. FAMILY HISTORY: Noncontributory. REVIEW OF SYSTEMS: General Description: The patient is not in any significant distress, but looks chronically ill. Respiratory: Mild shortness of breath on exertion. Gastrointestinal: The patient claims constipation. Neuromuscular: The patient claims muscle aches. PHYSICAL EXAMINATION: VITAL SIGNS: T-max 97 degrees, respiratory rate 20, heart rate 80, and blood pressure 130/80. HEENT: Head: Normocephalic and atraumatic. NECK: Supple. No thyroid enlargement. No lymphadenopathy. LUNGS: Decreased breath sounds bilaterally with a few rhonchi at the bases. HEART: S1 and S2 regular. ABDOMEN: Soft and benign. No organomegaly present. Bowel sounds present. EXTREMITIES: No cyanosis, clubbing, or edema. LABORATORY AND DIAGNOSTIC DATA: WBC 4.1, hemoglobin 11.8, hematocrit 35.1, and platelets 162,000. Chemistry shows creatinine of 0.8 and hemoglobin A1c 6.3. HIV negative. IMPRESSION: 1. Pancytopenia, multifactorial, most likely secondary to medication side effects. 2. Shingles in the left eyelid area. 3. Headache, rule out meningitis versus encephalitis. 4. Hypertension. 5. Coronary artery disease. 6. Malnutrition. 7. Failure to thrive. RECOMMENDATIONS: 1. Watch count. 2. Watch coagulopathy. 3. PRBC transfusion p.r.n. base. 4. Platelets transfusion p.r.n. base. 5. Neupogen p.r.n. base. 6. Pulmonary followup. 7. Neurology followup. 8. Infectious Disease followup. 9. IV Zovirax. 10. Hydration. 11. Pain control. 12. Skin care. 13. Nutrition. 14. Close followup. 15. Discuss with staff. Jasper Kohler MD DR: Fannie JOB#: [id number] CC:
[2017-07-01] MEDS ORDERED: ARTIFICIAL TEAR15 ML BOTH EYES (10:56)
[2017-07-01 11:39] VITALS: BP 139/85
--- NOTE | 2017-07-01 15:41 | Pulmonology Progress Note ---
Assessment/Plan Problems: (1) Shingles (2) CAD (coronary artery disease) (3) HTN (hypertension) Assessment/Plan improving continue abx a dvtg prophylaxis dc home today with oral meds Subjective ROS Limited/Unobtainable: No Constitutional: Reports: no symptoms HEENT: Repors: no symptoms Cardiovascular: Reports: no symptoms Allergies: Coded Allergies: No Known Allergies (Unverified , 06/27/17) Objective Last 24 Hour Vital Signs Date Time Temp Pulse Resp B/P (MAP) Pulse Ox O2 Delivery O2 Flow Rate FiO2 07/01/17 11:39 98.2 66 19 139/85 96 Room Air 07/01/17 09:32 135/84 07/01/17 08:11 97.9 66 19 135/84 96 Room Air 07/01/17 04:05 98.1 70 19 135/93 96 Room Air 06/30/17 23:50 98.1 74 20 137/89 98 Room Air 06/30/17 20:54 97.9 73 20 138/83 96 Room Air 06/30/17 16:00 97.2 65 18 126/80 95 Room Air Intake and Output 07/01/17 07/02/17 19:00 07:00 Intake Total 860 ml Output Total 500 ml Balance 360 ml Intake Oral 500 ml IV Total 360 ml Output Urine Total 500 ml General Appearance: WD/WN, no acute distress HEENT: normocephalic Respiratory/Chest: chest wall non-tender, lungs clear Breasts: no masses Cardiovascular: normal peripheral pulses Abdomen: normal bowel sounds, soft, non tender Extremities: no cyanosis, no clubbing Skin: no lesions Laboratory Tests 07/01/17 04:30: White Blood Count 6.0, Red Blood Count 3.74L, Hemoglobin 12.8, Hematocrit 36.8L , Mean Corpuscular Volume 98, Mean Corpuscular Hemoglobin 34.4H, Mean Corpuscular Hemoglobin Concent 34.9, Red Cell Distribution Width 10.7L, Platelet Count 165, Mean Platelet Volume 6.9, Neutrophils (%) (Auto) 51.1, Lymphocytes (%) (Auto) 38.1, Monocytes (%) (Auto) 9.0, Eosinophils (%) (Auto) 1.3, Basophils (%) (Auto) 0.5, Vancomycin Level Trough 15.5H MANSOOR WEBER Jul 01, 2017 15:41
--- NOTE | 2017-07-01 17:08 | General Progress Note ---
Assessment/Plan Assessment/Plan 1. Pancytopenia, multifactorial, most likely secondary to medication side effects. --> counts improved 2. Shingles in the left eyelid area. --> on antimicrobial treatment per ID recs 3. Headache 2/2 shingles 4. Hypertension. 5. Coronary artery disease. 6. Malnutrition. 7. Failure to thrive. Subjective Date patient seen: Jun 30, 2017 Constitutional: Reports: no symptoms HEENT: Reports: no symptoms Cardiovascular: Reports: no symptoms Respiratory: Reports: no symptoms Gastrointestinal/Abdominal: Reports: no symptoms Genitourinary: Reports: no symptoms Neurologic/Psychiatric: Reports: no symptoms Endocrine: Reports: no symptoms Hematologic/Lymphatic: Reports: no symptoms Allergies: Coded Allergies: No Known Allergies (Unverified , 06/27/17) Subjective L eye pain Objective Last 24 Hour Vital Signs Date Time Temp Pulse Resp B/P (MAP) Pulse Ox O2 Delivery O2 Flow Rate FiO2 07/01/17 11:39 98.2 66 19 139/85 96 Room Air 07/01/17 09:32 135/84 07/01/17 08:11 97.9 66 19 135/84 96 Room Air 07/01/17 04:05 98.1 70 19 135/93 96 Room Air 06/30/17 23:50 98.1 74 20 137/89 98 Room Air 06/30/17 20:54 97.9 73 20 138/83 96 Room Air Intake and Output 07/01/17 07/02/17 19:00 07:00 Intake Total 860 ml Output Total 500 ml Balance 360 ml Intake Oral 500 ml IV Total 360 ml Output Urine Total 500 ml Laboratory Tests 07/01/17 04:30: White Blood Count 6.0, Red Blood Count 3.74L, Hemoglobin 12.8, Hematocrit 36.8L , Mean Corpuscular Volume 98, Mean Corpuscular Hemoglobin 34.4H, Mean Corpuscular Hemoglobin Concent 34.9, Red Cell Distribution Width 10.7L, Platelet Count 165, Mean Platelet Volume 6.9, Neutrophils (%) (Auto) 51.1, Lymphocytes (%) (Auto) 38.1, Monocytes (%) (Auto) 9.0, Eosinophils (%) (Auto) 1.3, Basophils (%) (Auto) 0.5, Vancomycin Level Trough 15.5H Height (Feet): 5 Height (Inches): 1.00 Weight (Pounds): 130 General Appearance: no apparent distress EENT: pharynx normal Neck: normal alignment Cardiovascular: normal peripheral pulses Extremities: normal range of motion Edema: no edema noted Pedal (L), no edema noted Pedal (R) 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
--- NOTE | 2017-07-02 12:05 | General Progress Note ---
Assessment/Plan Assessment/Plan 1. Pancytopenia, multifactorial, most likely secondary to viral infection and/ or medication side effects --> counts improved, monitor as outpatient with pcp 2. Elevated CEA. --> mild, recommend op followup 3. Shingles in the left eyelid area. --> on antimicrobial treatment per ID recs 4. Headache 2/2 shingles 5. Coronary artery disease. 6. Malnutrition. 7. Failure to thrive. Subjective Date patient seen: Jul 01, 2017 Constitutional: Reports: no symptoms HEENT: Reports: no symptoms Cardiovascular: Reports: no symptoms Respiratory: Reports: no symptoms Gastrointestinal/Abdominal: Reports: no symptoms Genitourinary: Reports: no symptoms Neurologic/Psychiatric: Reports: no symptoms Endocrine: Reports: no symptoms Hematologic/Lymphatic: Reports: no symptoms Allergies: Coded Allergies: No Known Allergies (Unverified , 06/27/17) Subjective feels better Objective Height (Feet): 5 Height (Inches): 1.00 Weight (Pounds): 130 General Appearance: no apparent distress EENT: normal ENT inspection Neck: normal alignment Cardiovascular: no gallop/murmur Abdomen: normal bowel sounds Neurologic: no motor/sensory deficits Skin: warm/dry Alden Kohler Jul 02, 2017 12:05
--- NOTE | 2017-07-03 12:35 | Discharge Summary ---
Discharge Summary Hospital Course Date of Admission Jun 27, 2017 at 16:54 Date of Discharge Jul 01, 2017 at 12:50 Admitting Diagnosis ocular zoster HPI Hang Hardy is a 71 year old female who was admitted on Jun 27, 2017 at 16:54 for Ocular Zoster Hospital Course [id number] Discharge Discharge Disposition Patient was discharged to Home (01) Discharge Diagnoses: Nereyda Garvin NP Jul 03, 2017 12:35
--- NOTE | 2017-07-03 14:52 | Diagnostic Imaging Report ---
APPROVED REPORT CPT Code: 71155 Present Symptoms Lower Extremity Pain: Bilateral BILATERAL: Imaging reveals a patent deep venous system bilaterally. There is no evidence of thrombus within the femoral, popliteal or tibial segments. The greater saphenous veins are also within normal limits. Doppler indicates normal spontaneous flow within these segments.
--- NOTE | 2017-07-04 04:30 | Discharge Summary 2 SIG ---
DATE OF ADMISSION: 06/27/2017 DATE OF DISCHARGE: 07/01/2017 CONSULTANTS: 1. Alden Kohler M.D. 2. Will Beard M.D. BRIEF HOSPITAL COURSE: The patient is a 71-year-old female with history of coronary artery disease and hypertension, presented to ED, complaining of headache and had a lesion on the right eyelid and a vesicular rash. There was no fever. No leukocytosis. No nuchal rigidity. CT of the brain showed no mass effect, edema, or acute bleed. Laboratory workup showed no leukocytosis. Hemoglobin and hematocrit were stable. Troponin was negative. EKG done showed sinus bradycardia with no acute changes. She was diagnosed to have shingles. Vesicular culture was sent and was started on IV acyclovir. EKG was in normal sinus rhythm. She was then admitted to medical floor for shingles, hypertension, and coronary artery disease. She was followed by Infectious Disease specialist. She had a remote history of right sixth thoracic vertebrae dermatomal zoster 10 years ago. Fluorescein eye exam done at ED was negative for dendritic ulcerations. Negative for keratitis. Negative for Salinas's sign. There was no inflammation posterior to the tarsal plate and had mild reactive acute dacryoadenitis on the superior eyelid on the left. There was left preseptal cellulitis secondary to shingles with possible bacterial super infection. She was given IV acyclovir and IV vancomycin. There was no visual acuity loss. She developed erythema and edema to inferior eyelids. MRSA nares screen was positive for colonization. She was started on IV vancomycin. HIV screen was negative. The patient had pancytopenia. WBC 4, hemoglobin 11, and platelet 152,000. Pancytopenia was attributed most likely secondary to viral infection and secondary to medication side effect. Numbers improved. She had elevated CEA and recommend outpatient follow up with PCP. Antibiotic was transitioned to p.o. She was then cleared for discharge to continue on Valtrex 1 g q.8 hours for three more days and minocycline 100 mg p.o. b.i.d. for seven days. DISPOSITION: The patient was discharged home. DISCHARGE MEDICATIONS: Refer to discharge list. FINAL DIAGNOSES: 1. Ocular shingles/left herpes zoster ophthalmicus, acute. 2. Pancytopenia. 3. Coronary artery disease. 4. Hypertension. 5. Elevated CEA. 6. Headache secondary to shingles. 7. Left preseptal cellulitis possibly with superimposed bacterial infection. 8. Acute dacryoadenitis, left eyelid. 9. Cataract OS. 10. 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 Ha Ko M.D. I have been assigned to dictate discharge summary on this account and I was not involved in the patient's management. Nereyda Garvin N.P. DR: HERBERT JOB#: [id number] CC: JULIUS
== END 2017-07-01 12:50 | disposition home or self-care (01) | DRG 125 ==
LOC: EMR 15:21 → 4E 16:54 → EDBEDREQ 18:41 → 4E 06-28 01:17
DX: B02.30 Zoster ocular disease, unspecified (principal); D61.818 Other pancytopenia; E46 Unspecified protein-calorie malnutrition; L03.213 Periorbital cellulitis; B96.89 Other specified bacterial agents as the cause of diseases classified elsewhere; R51 Headache; I25.10 Atherosclerotic heart disease of native coronary artery without angina pectoris; I10 Essential (primary) hypertension; R97.0 Elevated carcinoembryonic antigen [CEA]; H04.012 Acute dacryoadenitis, left lacrimal gland; H26.9 Unspecified cataract; L80 Vitiligo; R73.9 Hyperglycemia, unspecified; E78.5 Hyperlipidemia, unspecified; K21.9 Gastro-esophageal reflux disease without esophagitis; R62.7 Adult failure to thrive; Z22.322 Carrier or suspected carrier of Methicillin resistant Staphylococcus aureus
CPT/HCPCS: 36415; 70450; 80053; 80061; 80202; 82105; 82378; 82550; 82553; 83036; 83605; 84443; 84484; 85025; 85379; 86301; 86703; 87040; 87075; 87081; 93970; 99285

== ENCOUNTER 2019-04-24 14:55 | Inpatient (IN) | payer MEDICARE, OTHER ==
[~2019-04-24] VITALS: Ht 157.5 cm; Wt 60.4 kg
[~2019-04-24 14:55] MED LIST: ARTIFICIAL TEAR15 ML BOTH EYES; LOSARTAN-HCTZ1 EACH ORAL; LOVASTATIN20 MG ORAL; MINOCIN100 MG PO; NKM; PAXIL10 MG ORAL; VALACYCLOVIR500 MG ORAL; ZANTAC150 MG ORAL
[2019-04-24] MEDS ORDERED: UNOBMED (15:01)
--- NOTE | 2019-04-24 15:08 | NUR ---
ED Nurse Note: Patient walked into ED from home c/o pain on upper mid-chest and back on exertion, especially when inhales for 2weeks. patient reports she has been having coughing and flu-like symptom with fever about 3 weeks ago, and since then, she has been having this symtpom. patient is alert awake x4 ambulatory, skin is warm to touch.
[2019-04-24] MEDS ORDERED: Albuterol/Ipratropium 3ml neb HHN ONE (15:15)
[2019-04-24 15:27] VITALS: BP 102/65
[2019-04-24 15:41] LABS: EOSINOPHILS % (AUTO) 0.3 % (0.0-3.0); HEMATOCRIT 33.9 % (37.0-47.0); HEMOGLOBIN 11.7 G/DL (12.0-16.0); LYMPHOCYTES % (AUTO) 33.1 % (20.0-45.0); MEAN CORPUSCULAR VOLUME 95 FL (80-99); MONOCYTES % (AUTO) 9.2 % (1.0-10.0); NEUTROPHILS % (AUTO) 56.4 % (45.0-75.0); PLATELET COUNT 218 K/UL (150-450); RED BLOOD COUNT 3.57 M/UL (4.20-5.40); RED CELL DISTRIBUTION WIDTH 10.4 % (11.6-14.8); WHITE BLOOD COUNT 5.7 K/UL (4.8-10.8)
[2019-04-24 15:57] LABS: ANION GAP 12 mmol/L (5-15); BLOOD UREA NITROGEN 16 mg/dL (7-18); CALCIUM 9.4 MG/DL (8.5-10.1); CARBON DIOXIDE 26 MMOL/L (21-32); CHLORIDE 102 MMOL/L (98-107); CREATININE 0.9 MG/DL (0.55-1.30); POTASSIUM 4.3 MMOL/L (3.5-5.1); SODIUM 140 MMOL/L (136-145)
[2019-04-24 16:12] LABS: ALANINE AMINOTRANSFERASE 10 U/L (12-78); ALBUMIN 3.7 G/DL (3.4-5.0); ALBUMIN/GLOBULIN RATIO 0.9 (1.0-2.7); ALKALINE PHOSPHATASE 80 U/L (46-116); ASPARTATE AMINO TRANSFERASE 21 U/L (15-37); BILIRUBIN,TOTAL 0.6 MG/DL (0.2-1.0); CKMB < 0.5 NG/ML (0.0-3.6); CREATINE KINASE 84 U/L (26-308)
--- NOTE | 2019-04-24 16:29 | Diagnostic Imaging Report ---
EXAM: XR Chest, 1 View CLINICAL HISTORY: CP TECHNIQUE: Frontal view of the chest. COMPARISON: None FINDINGS: Hardware: None. Lungs/pleura: Mild bibasilar opacities may represent atelectasis. Component of pneumonia is not entirely excluded. Air cyst in the left midlung with mild wall thickening. No focal consolidation. No pleural effusion or pneumothorax. Heart/mediastinum: Mild enlargement of the cardiomediastinal silhouette. Soft tissues: Unremarkable. Bones: No acute fracture. Upper abdomen: Normal. IMPRESSION: Mild bibasilar opacities may represent atelectasis. Component of pneumonia is not entirely excluded. Air cyst or cavitation in the left midlung with mild wall thickening. Further evaluation could be performed with CT if clinically indicated.
[2019-04-24] MEDS ORDERED: Ketorolac 30mg Inj IV ONE (16:30)
[2019-04-24] MEDS ORDERED: Isovue-370 150ml vial INJ PRN (16:30)
--- NOTE | 2019-04-24 16:43 | Emergency Room Report ---
History of Present Illness General Chief Complaint: Upper Respiratory Illness Source: Medical Record Present Illness HPI Patient is a 73-year-old female who presents after increased chest discomfort for several weeks. Patient reports having pleuritic chest pain with associated nonproductive cough. Patient a prior history of asthma. She reports having no symptoms with movement. She reports having increased pain with deep breath. She denies any fever. She had not been coughing. She had prior history of asthma and has not been a smoker.Pain did not change with exertion. She denies any cardiac history. She denies any leg pain or swelling. She had not been having any vomiting or diarrhea. Allergies: Coded Allergies: No Known Allergies (Unverified , 06/27/17) Patient History Past Medical History: see triage record Reviewed Nursing Documentation: PMH: Agreed; PSxH: Agreed Nursing Documentation-PMH Past Medical History: No History, Except For Hx Cardiac Problems: Yes Hx Hypertension: Yes - high chol Hx Asthma: Yes Hx Diabetes: Yes Hx Cancer: No Hx Gastrointestinal Problems: Yes Hx Neurological Problems: No Review of Systems All Other Systems: negative except mentioned in HPI Physical Exam Vital Signs Date Time Temp Pulse Resp B/P (MAP) Pulse Ox O2 Delivery O2 Flow Rate FiO2 04/24/19 14:58 98.2 72 18 98/66 (77) 96 Room Air 04/24/19 15:20 21 Sp02 EP Interpretation: reviewed, normal General Appearance: normal inspection, well appearing, no apparent distress, alert, GCS 15 Head: atraumatic ENT: normal ENT inspection, hearing grossly normal, normal voice Neck: normal inspection, full range of motion, supple, no bony tend Respiratory: normal inspection, lungs clear, normal breath sounds, no respiratory distress, no retraction, no wheezing Cardiovascular #1: regular rate, rhythm, no edema Gastrointestinal: normal inspection, normal bowel sounds, non tender, soft, no guarding, no hernia Genitourinary: no CVA tenderness Musculoskeletal: normal inspection, back normal, normal range of motion Neurologic: normal inspection, alert, oriented x3, responsive, multi sensor operator III-XII nml as tested, speech normal Psychiatric: normal inspection, judgement/insight normal, mood/affect normal Medical Decision Making Diagnostic Impression: Primary Impression: Chest pain Additional Impressions: Cavitary lesion of lung Granulomatous disease ER Course Patient presented for chest pain. Differential diagnosis include was not limited to pneumonia, pericardial effusion, acute coronary syndrome, pulmonary embolism among others. Because of complexity of patient's case laboratory testing and imaging studies were ordered. Patient was noted to have prior history of reactive airway disease. Per patient's past medical history she had some prior history of tuberculosis. CT imaging of the chest was ordered which showed calcified mediastinal and hilar lymph nodes as well as mild cardiomegaly without pericardial effusion. There is some fluid impacting some of the left lower lobe bronchi posterior medially no pulmonary embolism or aortic aneurysm or dissection was seen.Patient given IV antibiotics. Patient was discussed with Dr. Alden Kohler for inpatient management due to primary care physician Labs Test 04/24/19 15:22 04/24/19 18:40 White Blood Count 5.7 K/UL (4.8-10.8) Red Blood Count 3.57 M/UL (4.20-5.40) Hemoglobin 11.7 G/DL (12.0-16.0) Hematocrit 33.9 % (37.0-47.0) Mean Corpuscular Volume 95 FL (80-99) Mean Corpuscular Hemoglobin 32.9 PG (27.0-31.0) Mean Corpuscular Hemoglobin Concent 34.5 G/DL (32.0-36.0) Red Cell Distribution Width 10.4 % (11.6-14.8) Platelet Count 218 K/UL (150-450) Mean Platelet Volume 6.8 FL (6.5-10.1) Neutrophils (%) (Auto) 56.4 % (45.0-75.0) Lymphocytes (%) (Auto) 33.1 % (20.0-45.0) Monocytes (%) (Auto) 9.2 % (1.0-10.0) Eosinophils (%) (Auto) 0.3 % (0.0-3.0) Basophils (%) (Auto) 1.0 % (0.0-2.0) Sodium Level 140 MMOL/L (136-145) Potassium Level 4.3 MMOL/L (3.5-5.1) Chloride Level 102 MMOL/L (98-107) Carbon Dioxide Level 26 MMOL/L (21-32) Anion Gap 12 mmol/L (5-15) Blood Urea Nitrogen 16 mg/dL (7-18) Creatinine 0.9 MG/DL (0.55-1.30) Estimat Glomerular Filtration Rate mL/min (>60) Glucose Level 104 MG/DL (74-106) Calcium Level 9.4 MG/DL (8.5-10.1) Total Bilirubin 0.6 MG/DL (0.2-1.0) Aspartate Amino Transf (AST/SGOT) 21 U/L (15-37) Alanine Aminotransferase (ALT/SGPT) 10 U/L (12-78) Alkaline Phosphatase 80 U/L (46-116) Total Creatine Kinase 84 U/L (26-308) Creatine Kinase MB < 0.5 NG/ML (0.0-3.6) Creatine Kinase MB Relative Index 0.5 Troponin I 0.000 ng/mL (0.000-0.056) Pro-B-Type Natriuretic Peptide 33 pg/mL (0-125) Total Protein 7.8 G/DL (6.4-8.2) Albumin 3.7 G/DL (3.4-5.0) Globulin 4.1 g/dL Albumin/Globulin Ratio 0.9 (1.0-2.7) Lipase 139 U/L (73-393) EKG Diagnostic Results Rate: normal Rhythm: NSR ST Segments: no acute changes Last Vital Signs Date Time Temp Pulse Resp B/P (MAP) Pulse Ox O2 Delivery O2 Flow Rate FiO2 04/24/19 15:32 70 14 99 Room Air 21 04/24/19 15:27 98.2 102/65 Status: unchanged Disposition: ADMITTED INPATIENT Condition: Stable Referrals: Jasper Kohler MD (PCP) Anatoliy Man MD Apr 24, 2019 16:43
--- NOTE | 2019-04-24 18:28 | Diagnostic Imaging Report ---
EXAM: CT Angiography Chest With Intravenous Contrast CLINICAL HISTORY: CP TECHNIQUE: Axial computed tomographic angiography images of the chest with intravenous contrast using pulmonary embolism protocol. CTDI is 24.3 mGy and DLP is 715.63 mGy-cm. One or more of the following dose reduction techniques were used: automated exposure control, adjustment of the mA and/or kV according to patient size, use of iterative reconstruction technique. MIP reconstructed images were created and reviewed. COMPARISON: Chest radiograph on 04/24/2019 FINDINGS: Lung parenchyma: Reticulonodular densities and patchy consolidations in the posteromedial left upper lobe. Reticulonodular densities in the right upper lobe and adjacent to the cavitation/cystic change in the left lower lobe. Cavitation/cystic changes in the left lower lobe with mild wall thickening and trace fluid in the cavitations. Findings are concerning for an infectious/inflammatory process. Dependent and bibasilar atelectasis. Small calcified granulomas in the right middle lobe. Pleural space: Normal. No pleural effusion or pneumothorax. Mediastinum/kailyn: Calcified mediastinal and hilar lymph nodes. Heart: Mild cardiomegaly. No pericardial effusion. Vasculature: Normal. No pulmonary embolus. Aorta: Mild atherosclerotic changes. No aneurysm or dissection. Airways: Fluid impacting some of the left lower lobe bronchi posteromedially. Bones: Mild degenerative changes of the spine. No bony lesion or acute fracture. Muscles: No mass. Subcutaneous tissues: Normal. Upper abdomen: Geographic hepatic steatosis. Calcified granuloma in the spleen. IMPRESSION: 1. No pulmonary embolus identified. 2. No aortic aneurysm or dissection. 3. Reticulonodular densities and patchy consolidations in the posteromedial left upper lobe. Reticulonodular densities in the right upper lobe and adjacent to the cavitation/cystic change in the left lower lobe. Cavitation/cystic changes in the left lower lobe with mild wall thickening and trace fluid in the cavitations. Findings are concerning for an infectious/inflammatory process.
[2019-04-24] MEDS ORDERED: Azithromycin 500 MG in D5W 275 ML IVPB ONE (18:45)
[2019-04-24] MEDS ORDERED: cefTRIAXone 1 GM in NS 55 ML IVPB ONE (18:45)
--- NOTE | 2019-04-24 19:11 | NUR ---
HAND-OFF: Report given to Tiara SONG. patient is stable in bed, son at bedside
--- NOTE | 2019-04-24 19:15 | NUR ---
ED Nurse Note: Patient was transfered to Trauma room just for TB precautions.
[2019-04-24 19:33] VITALS: BP 105/65
[2019-04-24 20:05] VITALS: BP 105/65
--- NOTE | 2019-04-24 20:05 | NUR ---
ED Nurse Note: Patient was admited to Tele due to pain in her chest while she is breathing. Patient was transfered to the [facility] via gurney, with all belongings and mask on by ACLS protocol. Patient was placed in room 217 with negative air flow. AAO x4, VSS at this time, skin is intact.
--- NOTE | 2019-04-24 20:30 | NUR ---
NURSE NOTES: Received pt from ER nurse, NOHEMI Chaudhari. Pt is awake and resting in bed asymptomatic, in no acute distress. Iv sites intact. monitoring tech placed on patient and vitals taken accordingly. Contacted and left a message for Dr. Donovan seeking admission orders. Awaiting call back. Bed locked in lowest position, call light within reach.
[2019-04-24 20:35] VITALS: BP 114/73
--- NOTE | 2019-04-24 22:00 | NUR ---
NURSE NOTES: Attempted to reach Dr. Kohler. Answering service answered my call and said they will attempt to page the doctor. Will follow up.
[2019-04-25] VITALS: BP 98/63
[2019-04-25 04:00] VITALS: BP 117/63
[2019-04-25] MEDS: NovoLOG Insulin Flexpen SUBQ SCH ×4 (06:18→22:44)
[2019-04-25 07:36] LABS: BASOPHILS % (AUTO) 0.4 % (0.0-2.0); HEMATOCRIT 32.8 % (37.0-47.0); HEMOGLOBIN 10.8 G/DL (12.0-16.0); LYMPHOCYTES % (AUTO) 30.4 % (20.0-45.0); MEAN CORPUSCULAR VOLUME 97 FL (80-99); NEUTROPHILS % (AUTO) 57.2 % (45.0-75.0); PLATELET COUNT 198 K/UL (150-450); RED BLOOD COUNT 3.38 M/UL (4.20-5.40); RED CELL DISTRIBUTION WIDTH 10.6 % (11.6-14.8); WHITE BLOOD COUNT 5.1 K/UL (4.8-10.8)
--- NOTE | 2019-04-25 07:58 | NUR ---
HAND-OFF: Report given to NOHEMI Bautista. Endorsed plan of care.
--- NOTE | 2019-04-25 07:59 | NUR ---
NURSE NOTES: Report received from Ashwin SONG. Pt in bed AOX4 and able to make needs known. IV line in RAC 20g SL and Left wrist 20G SL patent and symptomatic. Bed in lowest position and brake engaged. On airbone precaution due to h/o Tbc 30yeats ago. On room air. Denied SOB or cough. Call light within easy reach. Will continue to plan of care.
[2019-04-25 08:00] VITALS: BP 118/78
[2019-04-25 08:00] LABS: ANION GAP 9 mmol/L (5-15); BLOOD UREA NITROGEN 23 mg/dL (7-18); CALCIUM 8.8 MG/DL (8.5-10.1); CARBON DIOXIDE 28 MMOL/L (21-32); CHLORIDE 105 MMOL/L (98-107); POTASSIUM 3.8 MMOL/L (3.5-5.1); SODIUM 142 MMOL/L (136-145)
[2019-04-25] MEDS: Artificial Tears 1.4% Op Soln BOTH EYES SCH ×4 (08:39→22:37)
[2019-04-25] MEDS: Enoxaparin 40mg Inj SUBQ SCH (08:47)
[2019-04-25] MEDS ORDERED: PARoxetine 10mg tab ORAL SCH (09:00)
[2019-04-25] MEDS ORDERED: Hyzaar 12.5mg/50mg tab ORAL SCH (09:00)
[2019-04-25] MEDS ORDERED: valACYclovir HCL 500mg tab ORAL SCH (09:00)
[2019-04-25] MEDS ORDERED: Losartan 50mg tab ORAL SCH (09:00)
--- NOTE | 2019-04-25 09:33 | Consultation ---
History of Present Illness General Date patient seen: Apr 25, 2019 Time patient seen: 09:31 Chief Complaint: Upper Respiratory Illness Present Illness HPI Patient walked into ED from home c/o pain on upper mid-chest and back on exertion, especially when inhales for 2weeks. patient reports she has been having coughing and flu-like symptom with fever about 3 weeks ago, and since then, she has been having this symtpom. WBC normal, CXR Mild bibasilar opacities may represent atelectasis. Component of pneumonia is not entirely excluded.CT negative for PE but reticulonodular densities and patchy consolidations in the posteromedial left upper lobe. Reticulonodular densities in the right upper lobe and adjacent to the cavitation/cystic change in the left lower lobe. Cavitation/cystic changes in the left lower lobe with mild wall thickening and trace fluid in the cavitations. Findings are concerning for an infectious/ inflammatory process. Allergies: Coded Allergies: No Known Allergies (Unverified , 06/27/17) Medication History Scheduled Amlodipine Besylate (Norvasc), 5 MG ORAL DAILY, (Reported) Atorvastatin Calcium* (Lipitor*), 20 MG ORAL BEDTIME, (Reported) Dextran 70/Hypromellose (Artificial Tears Eye Drops*), 2 DROP BOTH EYES FOUR TIMES A DAY Fluoxetine Hcl* (Prozac*), 40 MG ORAL DAILY, (Reported) Glipizide (Glipizide Er), 2.5 MG PO QPM, (Reported) Icosapent Ethyl (Vascepa), 2 GM PO BID, (Reported) Losartan/Hydrochlorothiazide (Losartan-Hctz 100-12.5 Mg Tab), 1 TAB ORAL DAILY, (Reported) Metformin Hcl* (Metformin Hcl*), 500 MG ORAL TWICE A DAY, (Reported) Olopatadine HCl (Pazeo), 2.5 ML OP DAILY, (Reported) Vitamin D (Vitamin D3), 5,000 UNITS ORAL DAILY, (Reported) Scheduled PRN Terbinafine Hcl (Terbinafine), 15 GM TP DAILY PRN for To Patient Comfort, ( Reported) Miscellaneous Medications Unable to Obtain Medications (Unable To Obtain Meds), (Reported) Discontinued Medications Lovastatin (Lovastatin), 20 MG ORAL BEDTIME, (Reported) Discontinued Reason: Pt stopped taking med Paroxetine Hcl* (Paxil*), 10 MG ORAL DAILY, (Reported) Discontinued Reason: Pt stopped taking med Ranitidine Hcl* (Zantac*), 300 MG ORAL DAILY, (Reported) Discontinued Reason: Pt stopped taking med Valacyclovir Hcl* (Valtrex*), 1,000 MG ORAL THREE TIMES A DAY Discontinued Reason: Pt stopped taking med Patient History Healthcare decision maker Resuscitation status Full Code Advanced Directive on File Review of Systems Constitutional: Reports: no symptoms Eye: Reports: no symptoms ENT: Reports: no symptoms Respiratory: Reports: cough, shortness of breath, ARCHER Cardiovascular: Reports: chest pain Gastrointestinal: Reports: no symptoms Genitourinary: Reports: no symptoms Musculoskeletal: Reports: no symptoms Skin: Reports: no symptoms Psychiatric: Reports: no symptoms Neurological: Reports: no symptoms Endocrine: Reports: no symptoms Hematologic/Lymphatic: Reports: no symptoms Physical Exam General Appearance: no apparent distress, alert Lines, tubes and drains: peripheral HEENT: normocephalic, atraumatic, anicteric, mucous membranes moist Neck: non-tender, normal alignment, supple, normal inspection Respiratory/Chest: chest wall non-tender, no respiratory distress, crackles/ rales, rhonchi - bilaterally Cardiovascular/Chest: normal peripheral pulses, normal rate, regular rhythm Abdomen: normal bowel sounds, non tender, soft, no organomegaly Extremities: normal range of motion, non-tender, normal inspection Skin Exam: normal pigmentation, warm/dry 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 grossly normal, no motor/sensory deficits Last 24 Hour Vital Signs Date Time Temp Pulse Resp B/P (MAP) Pulse Ox O2 Delivery O2 Flow Rate FiO2 04/25/19 08:46 118/78 04/25/19 08:45 118/78 04/25/19 08:00 98.2 108 18 118/78 (91) 95 04/25/19 04:00 69 04/25/19 04:00 97.3 69 20 117/63 (81) 95 04/25/19 00:00 69 04/25/19 00:00 98.3 69 20 98/63 (75) 100 04/24/19 23:00 Room Air 04/24/19 22:24 Room Air 04/24/19 20:35 98.2 59 20 114/73 (87) 96 04/24/19 20:05 98.2 62 14 105/65 99 Room Air 21 04/24/19 20:05 98.4 62 16 105/65 99 Room Air 04/24/19 19:33 98.2 62 14 105/65 99 Room Air 21 04/24/19 17:34 98.2 04/24/19 17:03 70 14 Room Air 21 04/24/19 15:32 70 14 99 Room Air 21 04/24/19 15:27 98.2 60 14 102/65 99 Room Air 04/24/19 15:20 36 04/24/19 15:20 67 12 98 Room Air 21 04/24/19 15:20 67 12 97 Room Air 21 04/24/19 14:58 98.2 72 18 98/66 (77) 96 Room Air Intake and Output 04/24/19 04/25/19 19:00 07:00 # Voids 1 Laboratory Tests Test 04/24/19 15:22 04/24/19 18:40 04/25/19 06:40 White Blood Count 5.7 K/UL (4.8-10.8) 5.1 K/UL (4.8-10.8) Red Blood Count 3.57 M/UL (4.20-5.40) L 3.38 M/UL (4.20-5.40) L Hemoglobin 11.7 G/DL (12.0-16.0) L 10.8 G/DL (12.0-16.0) L Hematocrit 33.9 % (37.0-47.0) L 32.8 % (37.0-47.0) L Mean Corpuscular Volume 95 FL (80-99) 97 FL (80-99) Mean Corpuscular Hemoglobin 32.9 PG (27.0-31.0) H 32.0 PG (27.0-31.0) H Mean Corpuscular Hemoglobin Concent 34.5 G/DL (32.0-36.0) 33.0 G/DL (32.0-36.0) Red Cell Distribution Width 10.4 % (11.6-14.8) L 10.6 % (11.6-14.8) L Platelet Count 218 K/UL (150-450) 198 K/UL (150-450) Mean Platelet Volume 6.8 FL (6.5-10.1) 6.6 FL (6.5-10.1) Neutrophils (%) (Auto) 56.4 % (45.0-75.0) 57.2 % (45.0-75.0) Lymphocytes (%) (Auto) 33.1 % (20.0-45.0) 30.4 % (20.0-45.0) Monocytes (%) (Auto) 9.2 % (1.0-10.0) 11.0 % (1.0-10.0) H Eosinophils (%) (Auto) 0.3 % (0.0-3.0) 1.0 % (0.0-3.0) Basophils (%) (Auto) 1.0 % (0.0-2.0) 0.4 % (0.0-2.0) Sodium Level 140 MMOL/L (136-145) 142 MMOL/L (136-145) Potassium Level 4.3 MMOL/L (3.5-5.1) 3.8 MMOL/L (3.5-5.1) Chloride Level 102 MMOL/L (98-107) 105 MMOL/L (98-107) Carbon Dioxide Level 26 MMOL/L (21-32) 28 MMOL/L (21-32) Anion Gap 12 mmol/L (5-15) 9 mmol/L (5-15) Blood Urea Nitrogen 16 mg/dL (7-18) 23 mg/dL (7-18) H Creatinine 0.9 MG/DL (0.55-1.30) 1.0 MG/DL (0.55-1.30) Estimat Glomerular Filtration Rate mL/min (>60) mL/min (>60) Glucose Level 104 MG/DL (74-106) 129 MG/DL (74-106) H Calcium Level 9.4 MG/DL (8.5-10.1) 8.8 MG/DL (8.5-10.1) Total Bilirubin 0.6 MG/DL (0.2-1.0) Aspartate Amino Transf (AST/SGOT) 21 U/L (15-37) Alanine Aminotransferase (ALT/SGPT) 10 U/L (12-78) L Alkaline Phosphatase 80 U/L (46-116) Total Creatine Kinase 84 U/L (26-308) Creatine Kinase MB < 0.5 NG/ML (0.0-3.6) Creatine Kinase MB Relative Index 0.5 Troponin I 0.000 ng/mL (0.000-0.056) Pro-B-Type Natriuretic Peptide 33 pg/mL (0-125) Total Protein 7.8 G/DL (6.4-8.2) Albumin 3.7 G/DL (3.4-5.0) Globulin 4.1 g/dL Albumin/Globulin Ratio 0.9 (1.0-2.7) L Lipase 139 U/L (73-393) Lactic Acid Level 0.90 mmol/L (0.4-2.0) Height (Feet): 5 Height (Inches): 2.00 Weight (Pounds): 136 Medications Current Medications Medications (Trade) Dose Ordered Sig/Darrion Route PRN Reason Start Time Stop Time Status Last Admin Dose Admin Artificial Tears (Akwa-Tears) 2 drop FOUR TIMES A DAY BOTH EYES 04/25/19 09:00 05/25/19 08:59 04/25/19 08:39 Dextrose (Dextrose 50%) 25 ml Q30M PRN IV Hypoglycemia 04/25/19 00:00 05/25/19 00:00 Dextrose (Dextrose 50%) 50 ml Q30M PRN IV Hypoglycemia 04/25/19 00:00 05/25/19 00:00 Enoxaparin Sodium (Lovenox) 40 mg DAILY SUBQ 04/25/19 09:00 05/25/19 08:59 04/25/19 08:47 Famotidine (Pepcid) 40 mg ACBREAKFAST ORAL 04/25/19 06:30 05/25/19 06:29 04/25/19 06:19 HCTZ/Losartan Potassium (Hyzaar 50-12.5) 1 tab DAILY ORAL 04/25/19 09:00 05/25/19 08:59 04/25/19 08:45 Insulin Aspart (NovoLOG) BEFORE MEALS AND HS SUBQ 04/25/19 06:30 05/25/19 06:29 Losartan Potassium (Cozaar) 50 mg DAILY ORAL 04/25/19 09:00 05/25/19 08:59 Paroxetine HCl (Paxil) 10 mg DAILY ORAL 04/25/19 09:00 05/25/19 08:59 04/25/19 08:45 Assessment/Plan Status: stable Assessment/Plan: Assessment Chest pain HTN Anemia Cavitary lung lesion Plan CP is atypical Troponin EGK negative Outpatient stress test when stable nitro prn Patrick Quintero MD Apr 25, 2019 09:33
[2019-04-25 11:39] VITALS: BP 99/65
[2019-04-25 16:00] VITALS: BP 104/60
[2019-04-25] MEDS ORDERED: METFORMIN HCL500 M1 ORAL (17:40)
[2019-04-25] MEDS ORDERED: PROZAC40 MG ORAL (17:40)
[2019-04-25] MEDS ORDERED: LIPITOR20 MG ORAL (17:40)
[2019-04-25] MEDS ORDERED: VITAMIN D400 INTLU ORAL (17:40)
[2019-04-25] MEDS ORDERED: GLIPIZIDE ER2.5 MG PO (17:40)
[2019-04-25] MEDS ORDERED: VASCEPA1 GM PO (17:43)
[2019-04-25] MEDS ORDERED: NORVASC5 MG ORAL (17:43)
[2019-04-25] MEDS ORDERED: PAZEO2.5 ML OP (17:45)
[2019-04-25] MEDS ORDERED: TERBINAFINE15 GM TP (17:48)
--- NOTE | 2019-04-25 18:00 | NUR ---
NURSE NOTES: Dr. Kohler paged for updated home meds list. Awaiting for reply
--- NOTE | 2019-04-25 19:06 | NUR ---
HAND-OFF: Report given to Ashwin SONG. Pt remains stable.
--- NOTE | 2019-04-25 19:07 | NUR ---
NURSE NOTES: NURSE NOTES: Received pt from NOHEMI Bautista. Pt is awake and resting in bed in no acute distress. Iv site intact and patent. bed locked in lowest position, call light within reach. Will continue with plan of care.
[2019-04-25 20:00] VITALS: BP 106/70
--- NOTE | 2019-04-25 20:57 | History & Physical ---
History and Physical History & Physicial H&P INTERNAL MED DOS 04/25/[address] Paula Nixon RFA: Upper Respiratory Illness Source: Medical Record HPI Patient is a 73-year-old female who presents after increased chest discomfort for several weeks. Patient reports having pleuritic chest pain with associated nonproductive cough. Patient a prior history of asthma. She reports having no symptoms with movement. She reports having increased pain with deep breath. She denies any fever. She had not been coughing. She had prior history of asthma and has not been a smoker.Pain did not change with exertion. She denies any cardiac history. She denies any leg pain or swelling. She had not been having any vomiting or diarrhea. Allergies: Coded Allergies: No Known Allergies (Unverified , 06/27/17) Past Medical History: see triage record Reviewed Nursing Documentation: PMH: Agreed; PSxH: Agreed Past Medical History: No History, Except For Hx Cardiac Problems: Yes Hx Hypertension: Yes - high chol Hx Asthma: Yes Hx Diabetes: Yes Hx Cancer: No Hx Gastrointestinal Problems: Yes Hx Neurological Problems: No Review of Systems: negative except mentioned in HPI PE Vital Signs Date Time Temp Pulse Resp B/P (MAP) Pulse Ox O2 Delivery O2 Flow Rate FiO2 04/24/19 14:58 98.2 72 18 98/66 (77) 96 Room Air 04/24/19 15:20 21 Sp02 EP Interpretation: reviewed, normal General Appearance: normal inspection, well appearing, no apparent distress, alert, GCS 15 Head: atraumatic ENT: normal ENT inspection, hearing grossly normal, normal voice Neck: normal inspection, full range of motion, supple, no bony tend Respiratory: normal inspection, lungs clear, normal breath sounds, no respiratory distress, no retraction, no wheezing Cardiovascular: regular rate, rhythm, no edema Gastrointestinal: normal inspection, normal bowel sounds, non tender, soft, no guarding, no hernia Genitourinary: no CVA tenderness Musculoskeletal: normal inspection, back normal, normal range of motion Neurologic: normal inspection, alert, oriented x3, 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 There is some fluid impacting some of the left lower lobe bronchi posterior medially no pulmonary embolism or aortic aneurysm or dissection was seen.Patient given IV antibiotics. --> as per cards, Dr. Lakhani --> trop and ekg x 2 ordered --> nitrog prn # Cavitary lesion of lung on imaging --> per pulm recs --> r.o inflammatory cause # Anemia of chronic disease (or of iron deficiency) due to underlying chronic medical issues, multifactorial --> Anemia workup to be ordere if hgb less than <10 --> No evidence of hemolysis is noted, peripheral smear has been reviewed. --> Hgb goal >7. Transfuse prn. --> Epogen or iron at this time is not particularly indicated --> Medications have been reviewed # Granulomatous disease # HTn sbp goal <140 Labs Test 04/24/19 15:22 04/24/19 18:40 White Blood Count 5.7 K/UL (4.8-10.8) Red Blood Count 3.57 M/UL (4.20-5.40) Hemoglobin 11.7 G/DL (12.0-16.0) Hematocrit 33.9 % (37.0-47.0) Mean Corpuscular Volume 95 FL (80-99) Mean Corpuscular Hemoglobin 32.9 PG (27.0-31.0) Mean Corpuscular Hemoglobin Concent 34.5 G/DL (32.0-36.0) Red Cell Distribution Width 10.4 % (11.6-14.8) Platelet Count 218 K/UL (150-450) Mean Platelet Volume 6.8 FL (6.5-10.1) Neutrophils (%) (Auto) 56.4 % (45.0-75.0) Lymphocytes (%) (Auto) 33.1 % (20.0-45.0) Monocytes (%) (Auto) 9.2 % (1.0-10.0) Eosinophils (%) (Auto) 0.3 % (0.0-3.0) Basophils (%) (Auto) 1.0 % (0.0-2.0) Sodium Level 140 MMOL/L (136-145) Potassium Level 4.3 MMOL/L (3.5-5.1) Chloride Level 102 MMOL/L (98-107) Carbon Dioxide Level 26 MMOL/L (21-32) Anion Gap 12 mmol/L (5-15) Blood Urea Nitrogen 16 mg/dL (7-18) Creatinine 0.9 MG/DL (0.55-1.30) Estimat Glomerular Filtration Rate mL/min (>60) Glucose Level 104 MG/DL (74-106) Calcium Level 9.4 MG/DL (8.5-10.1) Total Bilirubin 0.6 MG/DL (0.2-1.0) Aspartate Amino Transf (AST/SGOT) 21 U/L (15-37) Alanine Aminotransferase (ALT/SGPT) 10 U/L (12-78) Alkaline Phosphatase 80 U/L (46-116) Total Creatine Kinase 84 U/L (26-308) Creatine Kinase MB < 0.5 NG/ML (0.0-3.6) Creatine Kinase MB Relative Index 0.5 Troponin I 0.000 ng/mL (0.000-0.056) Pro-B-Type Natriuretic Peptide 33 pg/mL (0-125) Total Protein 7.8 G/DL (6.4-8.2) Albumin 3.7 G/DL (3.4-5.0) Globulin 4.1 g/dL Albumin/Globulin Ratio 0.9 (1.0-2.7) Lipase 139 U/L (73-393) EKG Diagnostic Results Alden Kohler MD Apr 25, 2019 20:57
[2019-04-25 21:50] LABS: INR 0.9 (0.9-1.1)
[2019-04-25 22:08] LABS: FERRITIN 133 NG/ML (8-388); LACTATE DEHYDROGENASE 168 U/L (81-234)
[2019-04-25] MEDS: Atorvastatin 20mg tab ORAL SCH (22:37)
[2019-04-25 22:49] LABS: % IRON SATURATION 18 % (15-50); IRON 45 ug/dL (50-175); TOTAL IRON BINDING CAPACITY 248 ug/dL (250-450)
[2019-04-26] VITALS: BP 114/76
[2019-04-26 04:00] VITALS: BP 107/72
[2019-04-26] MEDS: NovoLOG Insulin Flexpen SUBQ SCH ×4 (06:49→20:34)
--- NOTE | 2019-04-26 07:10 | NUR ---
HAND-OFF: Report given to NOHEMI Bautista. Endorsed plan of care.
--- NOTE | 2019-04-26 07:11 | NUR ---
NURSE NOTES: Report received from Ashwin SONG. AOX4 and able to make needs known. Pt is sitting in bed and having breakfast. No c/o pain. IV in RAC 20G SL and L wrist 20G SL intact and asymptomatic. Bed in lowest position and locked. No acute distress noted. Call light within easy reach. Will continue to plan of care.
[2019-04-26 07:36] LABS: BASOPHILS % (AUTO) 0.6 % (0.0-2.0); HEMATOCRIT 34.6 % (37.0-47.0); HEMOGLOBIN 11.5 G/DL (12.0-16.0); LYMPHOCYTES % (AUTO) 36.3 % (20.0-45.0); MEAN CORPUSCULAR VOLUME 97 FL (80-99); MONOCYTES % (AUTO) 9.4 % (1.0-10.0); NEUTROPHILS % (AUTO) 52.7 % (45.0-75.0); PLATELET COUNT 213 K/UL (150-450); RED BLOOD COUNT 3.57 M/UL (4.20-5.40); RED CELL DISTRIBUTION WIDTH 10.6 % (11.6-14.8); WHITE BLOOD COUNT 4.4 K/UL (4.8-10.8)
[2019-04-26 08:00] VITALS: BP 100/54
[2019-04-26] MEDS ORDERED: Hyzaar 12.5mg/50mg tab ORAL SCH (09:00)
[2019-04-26] MEDS: Hyzaar 12.5mg/50mg tab ORAL SCH (09:00)
[2019-04-26] MEDS ORDERED: Losartan 50mg tab ORAL SCH (09:00)
[2019-04-26] MEDS: Losartan 50mg tab ORAL SCH (09:00)
[2019-04-26] MEDS: metFORMIN 500mg tab ORAL SCH ×3 (09:09→17:41)
[2019-04-26] MEDS: Artificial Tears 1.4% Op Soln BOTH EYES SCH ×4 (09:09→20:33)
[2019-04-26] MEDS: Vitamin D 1000 IU Tab ORAL SCH (09:09)
[2019-04-26] MEDS: Enoxaparin 40mg Inj SUBQ SCH (09:15)
--- NOTE | 2019-04-26 11:29 | Hematology/Onc Progress Note ---
Assessment/Plan Assessment/Plan Assessment and Recs: # Chest pain r/o acs v inflammatory disease of lung, bronchitis, CT imaging of the chest was ordered which showed calcified mediastinal and hilar lymph nodes as well as mild cardiomegaly without pericardial effusion. There is some fluid impacting some of the left lower lobe bronchi posterior medially no pulmonary embolism or aortic aneurysm or dissection was seen.Patient given IV antibiotics. --> as per cards, Dr. Lakhani --> trop and ekg x 2 ordered --> nitrog prn # Cavitary lesion of lung on imaging --> per pulm recs --> r.o inflammatory cause # Anemia of chronic disease due to underlying chronic medical issues, multifactorial --> Anemia workup has been reviewed. Ferritin 133 --> No evidence of hemolysis is noted, peripheral smear has been reviewed. --> Hgb goal >7. Transfuse prn. --> Epogen or iron at this time is not particularly indicated --> Medications have been reviewed --> Hgb trend: 11.5 # Granulomatous disease # HTN. sbp goal <140 Subjective Hematologic/Lymphatic: Reports: anemia Allergies: Coded Allergies: No Known Allergies (Unverified , 06/27/17) All Systems: reviewed and negative except above Subjective 04/26: Pt is sitting in bed and having breakfast. No c/o pain. Labs reviewed. Objective Objective Current Medications Medications (Trade) Dose Ordered Sig/Darrion Route PRN Reason Start Time Stop Time Status Last Admin Dose Admin Amlodipine Besylate (Norvasc) 5 mg DAILY ORAL 04/26/19 09:00 05/26/19 08:59 Artificial Tears (Akwa-Tears) 2 drop FOUR TIMES A DAY BOTH EYES 04/25/19 09:00 05/25/19 08:59 04/26/19 09:09 Atorvastatin Calcium (Lipitor) 20 mg BEDTIME ORAL 04/25/19 21:00 05/25/19 20:59 04/25/19 22:37 Dextrose (Dextrose 50%) 25 ml Q30M PRN IV Hypoglycemia 04/25/19 00:00 05/25/19 00:00 Dextrose (Dextrose 50%) 50 ml Q30M PRN IV Hypoglycemia 04/25/19 00:00 05/25/19 00:00 Enoxaparin Sodium (Lovenox) 40 mg DAILY SUBQ 04/25/19 09:00 05/25/19 08:59 04/26/19 09:15 Famotidine (Pepcid) 40 mg ACBREAKFAST ORAL 04/25/19 06:30 05/25/19 06:29 04/26/19 06:40 Fluoxetine HCl (PROzac) 40 mg DAILY ORAL 04/26/19 09:00 05/26/19 08:59 04/26/19 09:09 Glipizide (GlipiZIDE XL) 2.5 mg QPM ORAL 04/26/19 16:30 05/26/19 16:29 HCTZ/Losartan Potassium (Hyzaar 50-12.5) 1 tab DAILY ORAL 04/26/19 09:00 05/26/19 08:59 Insulin Aspart (NovoLOG) BEFORE MEALS AND HS SUBQ 04/25/19 06:30 05/25/19 06:29 04/26/19 06:49 Losartan Potassium (Cozaar) 50 mg DAILY ORAL 04/26/19 09:00 05/26/19 08:59 Metformin HCl (Glucophage) 500 mg TWICE A DAY ORAL 04/26/19 09:00 05/26/19 08:59 04/26/19 09:09 Vitamin D (Vitamin D) 5,000 intlu DAILY ORAL 04/26/19 09:00 05/26/19 08:59 04/26/19 09:09 Last 24 Hour Vital Signs Date Time Temp Pulse Resp B/P (MAP) Pulse Ox O2 Delivery O2 Flow Rate FiO2 04/26/19 09:00 Room Air 04/26/19 09:00 59 100/54 04/26/19 09:00 100/54 04/26/19 09:00 100/54 04/26/19 08:00 98.1 59 18 100/54 (69) 97 04/26/19 04:00 60 04/26/19 04:00 98.4 60 18 107/72 (84) 97 04/26/19 00:00 61 04/26/19 00:00 98.4 61 18 114/76 (89) 95 04/25/19 21:00 Room Air 04/25/19 20:00 72 04/25/19 20:00 99.1 72 18 106/70 (82) 96 04/25/19 16:00 98.4 64 18 104/60 (75) 96 04/25/19 16:00 62 04/25/19 12:00 62 04/25/19 11:39 97.5 67 20 99/65 (76) 95 04/25/19 09:00 Room Air 04/25/19 08:46 118/78 04/25/19 08:45 118/78 04/25/19 08:00 61 04/25/19 08:00 98.2 108 18 118/78 (91) 95 04/25/19 04:00 69 04/25/19 04:00 97.3 69 20 117/63 (81) 95 04/25/19 00:00 69 04/25/19 00:00 98.3 69 20 98/63 (75) 100 04/24/19 23:00 Room Air 04/24/19 22:24 Room Air 04/24/19 20:35 98.2 59 20 114/73 (87) 96 04/24/19 20:05 98.2 62 14 105/65 99 Room Air 04/24/19 20:05 98.4 62 16 105/65 99 Room Air 04/24/19 19:33 98.2 62 14 105/65 99 Room Air 21 04/24/19 17:34 98.2 04/24/19 17:03 70 14 Room Air 21 04/24/19 15:32 70 14 99 Room Air 04/24/19 15:27 98.2 60 14 102/65 99 Room Air 04/24/19 15:20 36 04/24/19 15:20 67 12 98 Room Air 04/24/19 15:20 67 12 97 Room Air 04/24/19 14:58 98.2 72 18 98/66 (77) 96 Room Air Intake and Output 04/25/19 04/26/19 19:00 07:00 Intake Total 360 ml Balance 360 ml Intake Oral 360 ml # Voids 3 2 # Bowel Movements 1 1 Labs Test 04/24/19 15:22 04/24/19 18:40 04/25/19 06:40 04/25/19 21:30 White Blood Count 5.7 K/UL (4.8-10.8) 5.1 K/UL (4.8-10.8) Red Blood Count 3.57 M/UL (4.20-5.40) 3.38 M/UL (4.20-5.40) Hemoglobin 11.7 G/DL (12.0-16.0) 10.8 G/DL (12.0-16.0) Hematocrit 33.9 % (37.0-47.0) 32.8 % (37.0-47.0) Mean Corpuscular Volume 95 FL (80-99) 97 FL (80-99) Mean Corpuscular Hemoglobin 32.9 PG (27.0-31.0) 32.0 PG (27.0-31.0) Mean Corpuscular Hemoglobin Concent 34.5 G/DL (32.0-36.0) 33.0 G/DL (32.0-36.0) Red Cell Distribution Width 10.4 % (11.6-14.8) 10.6 % (11.6-14.8) Platelet Count 218 K/UL (150-450) 198 K/UL (150-450) Mean Platelet Volume 6.8 FL (6.5-10.1) 6.6 FL (6.5-10.1) Neutrophils (%) (Auto) 56.4 % (45.0-75.0) 57.2 % (45.0-75.0) Lymphocytes (%) (Auto) 33.1 % (20.0-45.0) 30.4 % (20.0-45.0) Monocytes (%) (Auto) 9.2 % (1.0-10.0) 11.0 % (1.0-10.0) Eosinophils (%) (Auto) 0.3 % (0.0-3.0) 1.0 % (0.0-3.0) Basophils (%) (Auto) 1.0 % (0.0-2.0) 0.4 % (0.0-2.0) Sodium Level 140 MMOL/L (136-145) 142 MMOL/L (136-145) Potassium Level 4.3 MMOL/L (3.5-5.1) 3.8 MMOL/L (3.5-5.1) Chloride Level 102 MMOL/L (98-107) 105 MMOL/L (98-107) Carbon Dioxide Level 26 MMOL/L (21-32) 28 MMOL/L (21-32) Anion Gap 12 mmol/L (5-15) 9 mmol/L (5-15) Blood Urea Nitrogen 16 mg/dL (7-18) 23 mg/dL (7-18) Creatinine 0.9 MG/DL (0.55-1.30) 1.0 MG/DL (0.55-1.30) Estimat Glomerular Filtration Rate mL/min (>60) mL/min (>60) Glucose Level 104 MG/DL (74-106) 129 MG/DL (74-106) Calcium Level 9.4 MG/DL (8.5-10.1) 8.8 MG/DL (8.5-10.1) Total Bilirubin 0.6 MG/DL (0.2-1.0) Aspartate Amino Transf (AST/SGOT) 21 U/L (15-37) Alanine Aminotransferase (ALT/SGPT) 10 U/L (12-78) Alkaline Phosphatase 80 U/L (46-116) Total Creatine Kinase 84 U/L (26-308) Creatine Kinase MB < 0.5 NG/ML (0.0-3.6) Creatine Kinase MB Relative Index 0.5 Troponin I 0.000 ng/mL (0.000-0.056) Pro-B-Type Natriuretic Peptide 33 pg/mL (0-125) Total Protein 7.8 G/DL (6.4-8.2) Albumin 3.7 G/DL (3.4-5.0) Globulin 4.1 g/dL Albumin/Globulin Ratio 0.9 (1.0-2.7) Lipase 139 U/L (73-393) Lactic Acid Level 0.90 mmol/L (0.4-2.0) Differential Total Cells Counted 100 Neutrophils % (Manual) 59 % (45-75) Lymphocytes % (Manual) 27 % (20-45) Monocytes % (Manual) 9 % (1-10) Eosinophils % (Manual) 4 % (0-3) Basophils % (Manual) 1 % (0-2) Band Neutrophils 0 % (0-8) Nucleated Red Blood Cells 1 /100 WBC Other Cell Type Pathologist review Platelet Estimate Adequate Platelet Morphology Normal Red Blood Cell Morphology Normal Reticulocyte Count 1.2 % (0.5-2.0) Prothrombin Time 9.8 SEC (9.30-11.50) Prothromb Time International Ratio 0.9 (0.9-1.1) Iron Level 45 ug/dL (50-175) Total Iron Binding Capacity 248 ug/dL (250-450) Percent Iron Saturation 18 % (15-50) Unsaturated Iron Binding 203 ug/dL (112-346) Ferritin 133 NG/ML (8-388) Lactate Dehydrogenase 168 U/L (81-234) Vitamin B12 Level 590 PG/ML (193-986) Folate 7.3 NG/ML (8.6-58.9) Thyroid Stimulating Hormone (TSH) 2.748 uiU/mL (0.358-3.740) Test 04/26/19 07:08 White Blood Count 4.4 K/UL (4.8-10.8) Red Blood Count 3.57 M/UL (4.20-5.40) Hemoglobin 11.5 G/DL (12.0-16.0) Hematocrit 34.6 % (37.0-47.0) Mean Corpuscular Volume 97 FL (80-99) Mean Corpuscular Hemoglobin 32.3 PG (27.0-31.0) Mean Corpuscular Hemoglobin Concent 33.4 G/DL (32.0-36.0) Red Cell Distribution Width 10.6 % (11.6-14.8) Platelet Count 213 K/UL (150-450) Mean Platelet Volume 6.9 FL (6.5-10.1) Neutrophils (%) (Auto) 52.7 % (45.0-75.0) Lymphocytes (%) (Auto) 36.3 % (20.0-45.0) Monocytes (%) (Auto) 9.4 % (1.0-10.0) Eosinophils (%) (Auto) 1.0 % (0.0-3.0) Basophils (%) (Auto) 0.6 % (0.0-2.0) Height (Feet): 5 Height (Inches): 2.00 Weight (Pounds): 136 Objective PHYSICAL EXAM General Appearance: normal inspection, well appearing, no apparent distress, alert, GCS 15 Head: atraumatic ENT: normal ENT inspection, hearing grossly normal, normal voice Neck: normal inspection, full range of motion, supple, no bony tend Respiratory: normal inspection, lungs clear, normal breath sounds, no respiratory distress, no retraction, no wheezing Cardiovascular: regular rate, rhythm, no edema Gastrointestinal: normal inspection, normal bowel sounds, non tender, soft, no guarding, no hernia Genitourinary: no CVA tenderness Musculoskeletal: normal inspection, back normal, normal range of motion Neurologic: normal inspection, alert, oriented x3, responsive, 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
[2019-04-26 12:00] VITALS: BP 100/57
--- NOTE | 2019-04-26 13:30 | Consultation ---
Consult Note Assessment/Plan DICT # [id number] Sean Vaughn MD Apr 26, 2019 13:29
--- NOTE | 2019-04-26 14:13 | Cardiac Electrophysiology PN ---
Assessment/Plan Assessment/Plan 1. Chest pain, No IA. Due to underlying lung lesion Outpatient stress test when stable 2. HTN 3. Cavitary lung lesionin resp isolation 4. Anemia Subjective Subjective In respiratory isolation. No new events Objective Last 24 Hour Vital Signs Date Time Temp Pulse Resp B/P (MAP) Pulse Ox O2 Delivery O2 Flow Rate FiO2 04/26/19 12:00 58 04/26/19 12:00 97.9 58 18 100/57 (71) 95 04/26/19 09:00 Room Air 04/26/19 09:00 59 100/54 04/26/19 09:00 100/54 04/26/19 09:00 100/54 04/26/19 08:00 57 04/26/19 08:00 98.1 59 18 100/54 (69) 97 04/26/19 04:00 60 04/26/19 04:00 98.4 60 18 107/72 (84) 97 04/26/19 00:00 61 04/26/19 00:00 98.4 61 18 114/76 (89) 95 04/25/19 21:00 Room Air 04/25/19 20:00 72 04/25/19 20:00 99.1 72 18 106/70 (82) 96 04/25/19 16:00 98.4 64 18 104/60 (75) 96 04/25/19 16:00 62 Intake and Output 04/25/19 04/26/19 19:00 07:00 Intake Total 360 ml Balance 360 ml Intake Oral 360 ml # Voids 3 2 # Bowel Movements 1 1 Laboratory Tests Test 04/25/19 21:30 04/26/19 07:08 Reticulocyte Count 1.2 % (0.5-2.0) Prothrombin Time 9.8 SEC (9.30-11.50) Prothromb Time International Ratio 0.9 (0.9-1.1) Iron Level 45 ug/dL (50-175) L Total Iron Binding Capacity 248 ug/dL (250-450) L Percent Iron Saturation 18 % (15-50) Unsaturated Iron Binding 203 ug/dL (112-346) Ferritin 133 NG/ML (8-388) Lactate Dehydrogenase 168 U/L (81-234) Carcinoembryonic Antigen Pending Vitamin B12 Level 590 PG/ML (193-986) Folate 7.3 NG/ML (8.6-58.9) L Thyroid Stimulating Hormone (TSH) 2.748 uiU/mL (0.358-3.740) White Blood Count 4.4 K/UL (4.8-10.8) L Red Blood Count 3.57 M/UL (4.20-5.40) L Hemoglobin 11.5 G/DL (12.0-16.0) L Hematocrit 34.6 % (37.0-47.0) L Mean Corpuscular Volume 97 FL (80-99) Mean Corpuscular Hemoglobin 32.3 PG (27.0-31.0) H Mean Corpuscular Hemoglobin Concent 33.4 G/DL (32.0-36.0) Red Cell Distribution Width 10.6 % (11.6-14.8) L Platelet Count 213 K/UL (150-450) Mean Platelet Volume 6.9 FL (6.5-10.1) Neutrophils (%) (Auto) 52.7 % (45.0-75.0) Lymphocytes (%) (Auto) 36.3 % (20.0-45.0) Monocytes (%) (Auto) 9.4 % (1.0-10.0) Eosinophils (%) (Auto) 1.0 % (0.0-3.0) Basophils (%) (Auto) 0.6 % (0.0-2.0) Microbiology Date/Time Source Procedure Growth Status 04/24/19 18:40 Blood Blood Culture - Preliminary NO GROWTH AFTER 24 HOURS Resulted 04/24/19 18:40 Blood Blood Culture - Preliminary NO GROWTH AFTER 24 HOURS Resulted Objective General Appearance: no apparent distress, alert Lines, tubes and drains: peripheral HEENT: normocephalic, atraumatic, anicteric, mucous membranes moist Neck: non-tender, normal alignment, supple, normal inspection Respiratory/Chest: chest wall non-tender, no respiratory distress, crackles/ rales, rhonchi - bilaterally Cardiovascular/Chest: normal peripheral pulses, normal rate, regular rhythm Abdomen: normal bowel sounds, non tender, soft, no organomegaly Extremities: normal range of motion, non-tender, normal inspection Skin Exam: normal pigmentation, warm/dry 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
[2019-04-26 16:00] VITALS: BP 105/61
--- NOTE | 2019-04-26 16:50 | NUR ---
CASE MANAGEMENT: INITIAL REVIEW 73 YO F PRESENTED TO OUR ED FROM HOME CC: URI PMHx: HTN. HLD. ASTHMA. DM. SI:CP. ACS. T 98.2 HR 72 RR 18 B/P 98/66 SATS 96% ON RA ALT 10 IS: JULIA CARRILLO HHN X1 TORADOL IV X1 PATIENT ADMITTED TO TELE 04/24/2019 @ 3479 DCP: PATIENT TO BE DISCHARGED TO HOME ONCE MEDICALLY CLEARED. PLAN OF CARE: CARDIO EVAL Addendum: 04/26/19 at 1658 by Stephanie Haskins CM INTERQUAL
--- NOTE | 2019-04-26 19:24 | NUR ---
NURSE NOTES: Received patient from NOHEMI Bautista. Will continue plan of care.
--- NOTE | 2019-04-26 19:42 | NUR ---
HAND-OFF: Report given to Margie SONG. Pt remains stable.
[2019-04-26 20:00] VITALS: BP 120/75
[2019-04-26] MEDS: Atorvastatin 20mg tab ORAL SCH (20:33)
--- NOTE | 2019-04-26 20:45 | Consultation ---
DATE OF CONSULTATION: 04/26/2019 CONSULTING PHYSICIAN: Yamel Howard M.D. HISTORY OF PRESENT ILLNESS: This is a 73-year-old female with a history of multiple medical problems including depression, anxiety who has been admitted to the hospital for medical stabilization. The patient presents with anxiety, depressed mood, anhedonia, worthlessness, hopelessness. She also has felt shortness of breath and having increased chest pain upon breathing. The patient is not endorsing any suicidal or homicidal ideation. The patient has taken Prozac and stated that it works for her. PAST PSYCHIATRIC HISTORY: Depression, anxiety. No suicide attempt in the past. PAST MEDICAL HISTORY: Includes CAD, hypertension, shingles, granulomatous disease. ALLERGIES: No known drug allergies. SUBSTANCE ABUSE HISTORY: No known history of illicit drug or alcohol. MENTAL STATUS EXAMINATION: The patient is alert, oriented times self, place, and situation. Mood is depressed and anxious. Affect is constricted, congruent with mood. Thought process is concrete. Thought content, no suicidal or homicidal ideation. ASSESSMENT: Jemison I Major depressive disorder. Jemison II Deferred. Jemison III As above. Jemison IV Low. Jemison V 50. PLAN: 1. The patient will be started on Prozac 40 mg in the morning. 2. Provide the patient with reality orientation and supportive therapy. We will continue to follow and readjust the medications. Yamel Howard M.D. DR: MALIKA JOB#: [id number] CC:
--- NOTE | 2019-04-26 22:30 | Consultation ---
DATE OF CONSULTATION: 04/26/2019 PULMONARY CONSULTATION CONSULTING PHYSICIAN: Sean Vaughn M.D. REFERRING PHYSICIAN: Alden Kohler M.D. REASON FOR CONSULTATION: Abnormal chest radiograph. HISTORY OF PRESENT ILLNESS: The patient is a 73-year-old female, who presented with vague chest discomfort for several weeks. It is pleuritic with associated nonproductive cough. No wheezing. She does have a stated history of asthma. No fevers or chills. No headache or dizziness. No hemoptysis. No nausea, vomiting, diarrhea, or constipation. No history of tobacco use. Since presenting to the hospital, the patient's T-max is 98.2 and her vitals have been stable on room air. Laboratory workup demonstrated anemia and CTA was done to rule out PE given the pleuritic nature of the chest pain. It was negative for PE or dissection, but reticulonodular densities and patchy consolidations were seen in the left upper lobe greater than the right upper lobe with some cystic changes in the left lower lobe. The patient was admitted to the general medical floor in an isolation bed to rule out TB. PAST MEDICAL HISTORY: 1. Hypertension. 2. Hyperlipidemia. 3. Diabetes. MEDICATIONS: Prior to admission medications reviewed. Current medications reviewed. ALLERGIES: No known drug allergies. SOCIAL HISTORY: No tobacco, alcohol, or drug use. FAMILY HISTORY: Noncontributory. REVIEW OF SYSTEMS: Negative other than history of present illness. PHYSICAL EXAMINATION: VITAL SIGNS: Temperature 98.1, pulse 59, blood pressure 100/54, and respiratory rate 18. GENERAL: She is a well-developed and well-nourished female, in no acute distress. Awake, alert, and oriented x3. HEENT: Normocephalic and atraumatic. Oropharynx is clear with moist mucous membranes. NECK: Supple without lymphadenopathy or jugular venous distention. CHEST: Clear to auscultation bilaterally. HEART: Regular rate and rhythm. ABDOMEN: Soft, nontender, and nondistended. EXTREMITIES: No cyanosis, clubbing or edema. ANCILLARY DATA: Laboratories reviewed. IMAGING: CT scan of the chest reviewed by myself, negative for PE or dissection. There is bilateral reticular nodular densities and a cystic cavity in the left lower lobe with mild wall thickening. ASSESSMENT: The patient is a 73-year-old female with a history of hypertension, hyperlipidemia, and diabetes, presenting with pleuritic chest pain in the setting of a recent respiratory illness. CT of the chest demonstrates intense bilateral reticulonodular opacities and a cavitary lesion. She is being ruled out for MTB. With respect to the etiology of her lesion, it is likely infectious/inflammatory, so the cavity has to be followed to rule out a neoplastic process. PROBLEM LIST: 1. Left lower lobe cavity thin-walled, likely infectious, inflammatory. 2. Scattered bilateral reticulonodular opacities, likely an infectious bronchiolitis. 3. Pleuritic chest pain, likely secondary to above. 4. Hypertension, hyperlipidemia, diabetes. TREATMENT PLAN: 1. Optimize pulmonary hygiene/mobilize as tolerated. 2. Rule out MTB with serial AFB x3. 3. Tumor markers as ordered by Dr. Kohler. 4. We have sent off infectious and inflammatory serologies. 5. The patient will require short interval follow-up and then likely a bronchoscopy and biopsy if there is a persistent cavitary lesion. Dr. Kohler, thank you for allowing me to assist in the care of your patient. If I may be of any assistance, please do not hesitate to ask. Sean Vaughn M.D. DR: CLEO JOB#: [id number] CC:
[2019-04-27] VITALS: BP 113/76
[2019-04-27 04:00] VITALS: BP 120/73
[2019-04-27] MEDS: NovoLOG Insulin Flexpen SUBQ SCH ×4 (05:33→21:06)
[2019-04-27 06:43] LABS: BASOPHILS % (AUTO) 0.9 % (0.0-2.0); EOSINOPHILS % (AUTO) 1.1 % (0.0-3.0); HEMATOCRIT 34.4 % (37.0-47.0); HEMOGLOBIN 11.5 G/DL (12.0-16.0); LYMPHOCYTES % (AUTO) 36.1 % (20.0-45.0); MEAN CORPUSCULAR VOLUME 97 FL (80-99); MONOCYTES % (AUTO) 7.9 % (1.0-10.0); PLATELET COUNT 204 K/UL (150-450); RED BLOOD COUNT 3.54 M/UL (4.20-5.40); RED CELL DISTRIBUTION WIDTH 10.8 % (11.6-14.8); WHITE BLOOD COUNT 4.2 K/UL (4.8-10.8)
--- NOTE | 2019-04-27 07:10 | NUR ---
HAND-OFF: Report given to NOHEMI Garibay. The patient is resting on the chair without acute distress or shortness of breath. Endorsed that MTB for AFB should be done three consecutive days with sputum. The patient's bed in the lowest position, call light in reach, and fall and aspiration precaution reinforced. Endorsed plan of care. Addendum: 04/27/19 at 2001 by Bruce Hickey RN Time should be changed to 1909.
--- NOTE | 2019-04-27 07:23 | NUR ---
HAND-OFF: Report given to NOHEMI Mcfadden.
--- NOTE | 2019-04-27 07:24 | NUR ---
NURSE NOTES: Received report from NOHEMI Hasnon. The patient is having a breakfast on the bed without acute distress or shortness of breath. The patient's bed in the lowest position, call light in reach, and fall, aspiration, and airborne precaution reinforced. IV site is intact and patent. Will continue plan of care.
[2019-04-27 08:00] VITALS: BP 126/78
[2019-04-27] MEDS: Losartan 50mg tab ORAL SCH (09:26)
[2019-04-27] MEDS: Artificial Tears 1.4% Op Soln BOTH EYES SCH ×4 (09:26→21:07)
[2019-04-27] MEDS: Hyzaar 12.5mg/50mg tab ORAL SCH (09:27)
[2019-04-27] MEDS: metFORMIN 500mg tab ORAL SCH ×2 (09:27→17:44)
[2019-04-27] MEDS: Vitamin D 1000 IU Tab ORAL SCH (09:28)
[2019-04-27] MEDS: Enoxaparin 40mg Inj SUBQ SCH (09:29)
--- NOTE | 2019-04-27 11:05 | NUR ---
NURSE NOTES: Dr. Kohler called in to request change of primary physician to Dr. Nixon. Notified to charge nurse and faxed other nursing order report to admitting.
--- NOTE | 2019-04-27 11:48 | Pulmonology Progress Note ---
Assessment/Plan Problems: (1) Cavitary lesion of lung (2) Granulomatous disease (3) Chest pain (4) HTN (hypertension) (5) CAD (coronary artery disease) (6) Shingles Assessment/Plan ASSESSMENT: The patient is a 73-year-old female with a history of hypertension , hyperlipidemia, and diabetes, presenting with pleuritic chest pain in the setting of a recent respiratory illness. CT of the chest demonstrates intense bilateral reticulonodular opacities and a cavitary lesion. She is being ruled out for MTB. With respect to the etiology of her lesion, it is likely infectious/inflammatory, so the cavity has to be followed to rule out a neoplastic process. PROBLEM LIST: 1. Left lower lobe cavity thin-walled, likely infectious, inflammatory. 2. Scattered bilateral reticulonodular opacities, likely an infectious bronchiolitis. 3. Pleuritic chest pain, likely secondary to above. 4. Hypertension, hyperlipidemia, diabetes. TREATMENT PLAN: 1. Optimize pulmonary hygiene/mobilize as tolerated. 2. Rule out MTB with serial AFB x3. 3. Follow up tumor markers as ordered by Dr. Kohler. 4. Follow up off infectious and inflammatory serologies. 5. The patient will require short interval follow-up and then likely a bronchoscopy and biopsy if there is a persistent cavitary lesion. Subjective Allergies: Coded Allergies: No Known Allergies (Unverified , 06/27/17) Subjective AFVSS on RA No cough no CP No FC Objective Last 24 Hour Vital Signs Date Time Temp Pulse Resp B/P (MAP) Pulse Ox O2 Delivery O2 Flow Rate FiO2 04/27/19 09:27 65 126/78 04/27/19 09:27 126/78 04/27/19 09:26 126/78 04/27/19 08:00 97.7 65 18 126/78 (94) 96 04/27/19 08:00 76 04/27/19 04:00 98.1 68 16 120/73 (89) 97 04/27/19 03:24 62 04/27/19 00:00 97.6 69 18 113/76 (88) 95 04/26/19 23:29 68 04/26/19 21:00 Room Air 04/26/19 20:00 98.5 75 18 120/75 (90) 96 04/26/19 19:45 75 04/26/19 19:45 75 04/26/19 16:00 73 04/26/19 16:00 97.7 68 18 105/61 (76) 97 04/26/19 12:00 58 04/26/19 12:00 97.9 58 18 100/57 (71) 95 Intake and Output 04/26/19 04/27/19 19:00 07:00 Intake Total 400 ml 500 ml Balance 400 ml 500 ml Intake Oral 400 ml 500 ml # Voids 3 2 General Appearance: WD/WN, no acute distress HEENT: normocephalic, atraumatic, anicteric, mucous membranes moist Respiratory/Chest: chest wall non-tender, lungs clear, normal breath sounds, no respiratory distress, no accessory muscle use Cardiovascular: normal peripheral pulses, normal rate, regular rhythm Abdomen: normal bowel sounds, soft, non tender, no organomegaly, non distended , no mass Extremities: no cyanosis, no clubbing, no edema Microbiology Date/Time Source Procedure Growth Status 04/24/19 18:40 Blood Blood Culture - Preliminary NO GROWTH AFTER 48 HOURS Resulted 04/24/19 18:40 Blood Blood Culture - Preliminary NO GROWTH AFTER 48 HOURS Resulted Laboratory Tests 04/26/19 19:00: Histoplasma Antigen [Pending] 04/27/19 05:45: White Blood Count 4.2L, Red Blood Count 3.54L, Hemoglobin 11.5L, Hematocrit 34.4L, Mean Corpuscular Volume 97, Mean Corpuscular Hemoglobin 32.4H, Mean Corpuscular Hemoglobin Concent 33.4, Red Cell Distribution Width 10.8L, Platelet Count 204, Mean Platelet Volume 6.4L, Neutrophils (%) (Auto) 54.0, Lymphocytes (%) (Auto) 36.1, Monocytes (%) (Auto) 7.9, Eosinophils (%) (Auto) 1.1, Basophils (%) (Auto) 0.9, Hepatitis A IgM Antibody [Pending], Hepatitis B Surface Antigen [Pending], Hepatitis B Core IgM Antibody [Pending], Hepatitis C Antibody [Pending], HIV (1&2) Antibody Rapid Negative, TB Test (T-Spot) [Pending ], TB Test Nil Control (T-Spot) [Pending], TB Test Panel A (T-Spot) [Pending], TB Test Panel B (T-Spot) [Pending], TB Test Positive Control (T-Spot) [Pending] Current Medications Medications (Trade) Dose Ordered Sig/Darrion Route PRN Reason Start Time Stop Time Status Last Admin Dose Admin Amlodipine Besylate (Norvasc) 5 mg DAILY ORAL 04/26/19 09:00 05/26/19 08:59 04/27/19 09:27 Artificial Tears (Akwa-Tears) 2 drop FOUR TIMES A DAY BOTH EYES 04/25/19 09:00 05/25/19 08:59 04/27/19 09:26 Atorvastatin Calcium (Lipitor) 20 mg BEDTIME ORAL 04/25/19 21:00 05/25/19 20:59 04/26/19 20:33 Dextrose (Dextrose 50%) 25 ml Q30M PRN IV Hypoglycemia 04/25/19 00:00 05/25/19 00:00 Dextrose (Dextrose 50%) 50 ml Q30M PRN IV Hypoglycemia 04/25/19 00:00 05/25/19 00:00 Enoxaparin Sodium (Lovenox) 40 mg DAILY SUBQ 04/25/19 09:00 05/25/19 08:59 04/27/19 09:29 Famotidine (Pepcid) 40 mg ACBREAKFAST ORAL 04/25/19 06:30 05/25/19 06:29 04/27/19 05:44 Fluoxetine HCl (PROzac) 40 mg DAILY ORAL 04/26/19 09:00 05/26/19 08:59 04/27/19 09:27 Glipizide (GlipiZIDE XL) 2.5 mg QPM ORAL 04/26/19 16:30 05/26/19 16:29 04/26/19 17:41 HCTZ/Losartan Potassium (Hyzaar 50-12.5) 1 tab DAILY ORAL 04/26/19 09:00 05/26/19 08:59 04/27/19 09:27 Insulin Aspart (NovoLOG) BEFORE MEALS AND HS SUBQ 04/25/19 06:30 05/25/19 06:29 04/26/19 20:34 Losartan Potassium (Cozaar) 50 mg DAILY ORAL 04/26/19 09:00 05/26/19 08:59 04/27/19 09:26 Metformin HCl (Glucophage) 500 mg TWICE A DAY ORAL 04/26/19 09:00 05/26/19 08:59 04/27/19 09:27 Vitamin D (Vitamin D) 5,000 intlu DAILY ORAL 04/26/19 09:00 05/26/19 08:59 04/27/19 09:28 Sean Vaughn MD Apr 27, 2019 11:48
[2019-04-27 12:00] VITALS: BP 97/62
--- NOTE | 2019-04-27 14:58 | NUR ---
CASE MANAGEMENT:REVIEW 04/27/19 SI: LLL CAVITY. PLEURITIC CHEST PAIN R/O Tb 97.7 55 18 97/62 95% ON RA H/H-11.5/34.4 IS: HYZAAR PO QD COZAAR PO QD NORVASC PO QD PROZAC PO QD LOVENOX SQ QD :TELEMETRY STATUS DCP: FROM HOME
--- NOTE | 2019-04-27 15:52 | NUR ---
NURSE NOTES: Per laboratory person, MTB and AFB should be done with sputum. Will carry out the order and will follow up the result. Will continue to monitor the patient.
[2019-04-27 16:00] VITALS: BP 98/65
--- NOTE | 2019-04-27 18:15 | Progress Note ---
DATE: 04/27/2019 SUBJECTIVE: The patient is calm, less anxious today. No behavior issues. Participated in treatment and takes her medications. Has depressed mood, low energy. MENTAL STATUS EXAMINATION: Alert, oriented times self, place, and situation. Mood is depressed. Affect is constricted, congruent with mood. Thought process is concrete. Thought content, no suicidal or homicidal ideation. ASSESSMENT: Depression. PLAN: 1. The patient will be continued on Prozac. 2. Provide the patient with reality orientation and supportive therapy. Yamel Howard M.D. DR: MALIKA JOB#: [id number] CC:
--- NOTE | 2019-04-27 18:58 | Cardiac Electrophysiology PN ---
Assessment/Plan Assessment/Plan 1. Chest pain, No [place]. Due to underlying lung lesion Outpatient stress test when stable 2. HTN 3. Cavitary lung lesion, on resp isolation 4. Anemia Subjective Subjective In respiratory isolation. Remains in SR. Objective Last 24 Hour Vital Signs Date Time Temp Pulse Resp B/P (MAP) Pulse Ox O2 Delivery O2 Flow Rate FiO2 04/27/19 16:00 62 04/27/19 16:00 98.2 64 18 98/65 (76) 96 04/27/19 12:00 97.7 55 18 97/62 (74) 95 04/27/19 12:00 64 04/27/19 09:27 65 126/78 04/27/19 09:27 126/78 04/27/19 09:26 126/78 04/27/19 09:00 Room Air 04/27/19 08:00 97.7 65 18 126/78 (94) 96 04/27/19 08:00 76 04/27/19 04:00 98.1 68 16 120/73 (89) 97 04/27/19 03:24 62 04/27/19 00:00 97.6 69 18 113/76 (88) 95 04/26/19 23:29 68 04/26/19 21:00 Room Air 04/26/19 20:00 98.5 75 18 120/75 (90) 96 04/26/19 19:45 75 04/26/19 19:45 75 Intake and Output 04/26/19 04/27/19 19:00 07:00 Intake Total 400 ml 500 ml Balance 400 ml 500 ml Intake Oral 400 ml 500 ml # Voids 3 2 Laboratory Tests Test 04/26/19 19:00 04/27/19 05:45 Histoplasma Antigen Pending White Blood Count 4.2 K/UL (4.8-10.8) L Red Blood Count 3.54 M/UL (4.20-5.40) L Hemoglobin 11.5 G/DL (12.0-16.0) L Hematocrit 34.4 % (37.0-47.0) L Mean Corpuscular Volume 97 FL (80-99) Mean Corpuscular Hemoglobin 32.4 PG (27.0-31.0) H Mean Corpuscular Hemoglobin Concent 33.4 G/DL (32.0-36.0) Red Cell Distribution Width 10.8 % (11.6-14.8) L Platelet Count 204 K/UL (150-450) Mean Platelet Volume 6.4 FL (6.5-10.1) L Neutrophils (%) (Auto) 54.0 % (45.0-75.0) Lymphocytes (%) (Auto) 36.1 % (20.0-45.0) Monocytes (%) (Auto) 7.9 % (1.0-10.0) Eosinophils (%) (Auto) 1.1 % (0.0-3.0) Basophils (%) (Auto) 0.9 % (0.0-2.0) Hepatitis A IgM Antibody Pending Hepatitis B Surface Antigen Pending Hepatitis B Core IgM Antibody Pending Hepatitis C Antibody Pending HIV (1&2) Antibody Rapid Negative (NEGATIVE) TB Test (T-Spot) Pending TB Test Nil Control (T-Spot) Pending TB Test Panel A (T-Spot) Pending TB Test Panel B (T-Spot) Pending TB Test Positive Control (T-Spot) Pending Objective General Appearance: no apparent distress HEENT: No JVD Respiratory/Chest: Coarse rhonchi Cardiovascular/Chest: normal peripheral pulses, normal rate, regular rhythm Abdomen: normal bowel sounds, non tender, soft, no organomegaly Extremities: normal range of motion, non-tender, normal inspection 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
--- NOTE | 2019-04-27 19:10 | NUR ---
HAND-OFF: Report given to NOHEMI Garibay. The patient is resting on the chair without acute distress or shortness of breath. Endorsed that MTB for AFB should be done three consecutive days with sputum. The patient's bed in the lowest position, call light in reach, and fall and aspiration precaution reinforced. Endorsed plan of care.
--- NOTE | 2019-04-27 19:15 | NUR ---
NURSE NOTES: Received patient from NOHEMI Mcfadden. patient is sitting on chair at bedside, able to follow commands. denies pain at this time. patient is on room air; no s/sx of respiratory distress noted at this time. IV sites are patent and intact. bed in lowest position, call light within reach. will continue to monitor.
[2019-04-27 20:00] VITALS: BP 108/66
--- NOTE | 2019-04-27 20:27 | General Progress Note ---
Assessment/Plan Status: stable Assessment/Plan: Assessment and Recs: # Chest pain r/o acs v inflammatory disease of lung, bronchitis, CT imaging of the chest was ordered which showed calcified mediastinal and hilar lymph nodes as well as mild cardiomegaly without pericardial effusion. There is some fluid impacting some of the left lower lobe bronchi posterior medially no pulmonary embolism or aortic aneurysm or dissection was seen.Patient given IV antibiotics. --> as per cards recs --> trop and ekg x 2 ordered --> nitrog prn --> tumor markers negative # Cavitary lesion of lung on imaging --> per pulm recs --> r.o inflammatory cause # Anemia of chronic disease due to underlying chronic medical issues, multifactorial --> Anemia workup has been reviewed. Ferritin 133 --> No evidence of hemolysis is noted, peripheral smear has been reviewed. --> Hgb goal >7. Transfuse prn. --> Epogen or iron at this time is not particularly indicated --> Medications have been reviewed --> Hgb trend: 11.5 # Granulomatous disease # HTN. sbp goal <140 Subjective Constitutional: Denies: no symptoms, chills, diaphoresis, fever, malaise, weakness, other HEENT: Denies: no symptoms, eye pain, blurred vision, tearing, double vision, ear pain, ear discharge, nose pain, nose congestion, throat pain, throat swelling, mouth pain, mouth swelling, other Cardiovascular: Denies: no symptoms, chest pain, edema, irregular heart rate, lightheadedness, palpitations, syncope, other Respiratory: Denies: no symptoms, cough, orthopnea, shortness of breath, SOB with excertion, SOB at rest, sputum, stridor, wheezing, other Gastrointestinal/Abdominal: Denies: no symptoms, abdomen distended, abdominal pain, black stools, tarry stools, blood in stool, constipated, diarrhea, difficulty swallowing, nausea, poor appetite, poor fluid intake, rectal bleeding , vomiting, other Genitourinary: Denies: no symptoms, burning, discharge, frequency, flank pain, hematuria, incontinence, pain, urgency, other Neurologic/Psychiatric: Denies: no symptoms, anxiety, depressed, emotional problems, headache, numbness, paresthesia, pre-existing deficit, seizure, tingling, tremors, weakness, other Endocrine: Denies: no symptoms, excessive sweating, flushing, intolerance to cold, intolerance to heat, increased hunger, increased thirst, increased urine, unexplained weight gain, unexplained weight loss, other Allergies: Coded Allergies: No Known Allergies (Unverified , 06/27/17) Subjective 04/26: Pt is sitting in bed and having breakfast. No c/o pain. Labs reviewed. 04/27: no events, cp is better, seen by pulm, cards Objective Last 24 Hour Vital Signs Date Time Temp Pulse Resp B/P (MAP) Pulse Ox O2 Delivery O2 Flow Rate FiO2 04/27/19 16:00 62 04/27/19 16:00 98.2 64 18 98/65 (76) 96 04/27/19 12:00 97.7 55 18 97/62 (74) 95 04/27/19 12:00 64 04/27/19 09:27 65 126/78 04/27/19 09:27 126/78 04/27/19 09:26 126/78 04/27/19 09:00 Room Air 04/27/19 08:00 97.7 65 18 126/78 (94) 96 04/27/19 08:00 76 04/27/19 04:00 98.1 68 16 120/73 (89) 97 04/27/19 03:24 62 04/27/19 00:00 97.6 69 18 113/76 (88) 95 04/26/19 23:29 68 04/26/19 21:00 Room Air Intake and Output 04/26/19 04/27/19 19:00 07:00 Intake Total 400 ml 500 ml Balance 400 ml 500 ml Intake Oral 400 ml 500 ml # Voids 3 2 Laboratory Tests 04/27/19 05:45: White Blood Count 4.2L, Red Blood Count 3.54L, Hemoglobin 11.5L, Hematocrit 34.4L, Mean Corpuscular Volume 97, Mean Corpuscular Hemoglobin 32.4H, Mean Corpuscular Hemoglobin Concent 33.4, Red Cell Distribution Width 10.8L, Platelet Count 204, Mean Platelet Volume 6.4L, Neutrophils (%) (Auto) 54.0, Lymphocytes (%) (Auto) 36.1, Monocytes (%) (Auto) 7.9, Eosinophils (%) (Auto) 1.1, Basophils (%) (Auto) 0.9, Hepatitis A IgM Antibody [Pending], Hepatitis B Surface Antigen [Pending], Hepatitis B Core IgM Antibody [Pending], Hepatitis C Antibody [Pending], HIV (1&2) Antibody Rapid Negative, TB Test (T-Spot) [Pending ], TB Test Nil Control (T-Spot) [Pending], TB Test Panel A (T-Spot) [Pending], TB Test Panel B (T-Spot) [Pending], TB Test Positive Control (T-Spot) [Pending] Height (Feet): 5 Height (Inches): 2.00 Weight (Pounds): 136 Objective PHYSICAL EXAM General Appearance: normal inspection, well appearing, no apparent distress, alert, GCS 15 Head: atraumatic ENT: normal ENT inspection, hearing grossly normal, normal voice Neck: normal inspection, full range of motion, supple, no bony tend Respiratory: normal inspection, lungs clear, normal breath sounds, no respiratory distress, no retraction, no wheezing Cardiovascular: regular rate, rhythm, no edema Gastrointestinal: normal inspection, normal bowel sounds, non tender, soft, no guarding, no hernia Genitourinary: no CVA tenderness Musculoskeletal: normal inspection, back normal, normal range of motion Neurologic: normal inspection, alert, oriented x3, responsive, steward/stewardess dining room III-XII nml as tested, speech normal Psychiatric: normal inspection, judgement/insight normal, mood/affect normal Alden Kohler MD Apr 27, 2019 20:27
[2019-04-27] MEDS: Atorvastatin 20mg tab ORAL SCH (21:08)
[2019-04-28] VITALS: BP 118/73
--- NOTE | 2019-04-28 01:59 | NUR ---
NURSE NOTES: patient is resting in bed. no s/sx of pain nor respiratory distress noted at this time. will continue to monitor.
[2019-04-28 04:00] VITALS: BP 114/70
[2019-04-28 05:01] LABS: BASOPHILS % (AUTO) 1.2 % (0.0-2.0); EOSINOPHILS % (AUTO) 1.4 % (0.0-3.0); HEMATOCRIT 34.2 % (37.0-47.0); HEMOGLOBIN 11.6 G/DL (12.0-16.0); LYMPHOCYTES % (AUTO) 37.1 % (20.0-45.0); MEAN CORPUSCULAR VOLUME 96 FL (80-99); MONOCYTES % (AUTO) 7.8 % (1.0-10.0); NEUTROPHILS % (AUTO) 52.4 % (45.0-75.0); PLATELET COUNT 197 K/UL (150-450); RED BLOOD COUNT 3.57 M/UL (4.20-5.40); RED CELL DISTRIBUTION WIDTH 10.5 % (11.6-14.8); WHITE BLOOD COUNT 4.3 K/UL (4.8-10.8)
[2019-04-28] MEDS: NovoLOG Insulin Flexpen SUBQ SCH ×4 (06:18→20:54)
--- NOTE | 2019-04-28 07:06 | NUR ---
HAND-OFF: Report given to NOHEMI Mcfadden. patient is in stable condition.
--- NOTE | 2019-04-28 07:07 | NUR ---
NURSE NOTES: Received report from NOHEMI Garibay. The patient is resting on the bed without acute distress or shortness of breath. The patient's bed in the lowest position, call light in reach, and fall and aspiration precaution reinforced. Per Lani, she collected AFB sputum for 04/28/2019 and gave to the lab. Will continue plan of care.
[2019-04-28 08:00] VITALS: BP 108/67
[2019-04-28] MEDS: Losartan 50mg tab ORAL SCH (09:00)
[2019-04-28] MEDS: Hyzaar 12.5mg/50mg tab ORAL SCH (09:00)
[2019-04-28] MEDS ORDERED: Azithromycin 250mg tab ORAL SCH (09:30)
[2019-04-28] MEDS: Enoxaparin 40mg Inj SUBQ SCH (09:37)
[2019-04-28] MEDS: Artificial Tears 1.4% Op Soln BOTH EYES SCH ×4 (09:38→20:53)
[2019-04-28] MEDS: metFORMIN 500mg tab ORAL SCH ×2 (09:39→17:26)
[2019-04-28] MEDS: Vitamin D 1000 IU Tab ORAL SCH (09:41)
[2019-04-28] MEDS: cefTRIAXone 1 GM in D5W 55 ML IVPB SCH (11:20)
--- NOTE | 2019-04-28 11:41 | Pulmonology Progress Note ---
Assessment/Plan Problems: (1) Cavitary lesion of lung (2) Granulomatous disease (3) Chest pain (4) HTN (hypertension) (5) CAD (coronary artery disease) (6) Shingles Assessment/Plan ASSESSMENT: The patient is a 73-year-old female with a history of hypertension , hyperlipidemia, and diabetes, presenting with pleuritic chest pain in the setting of a recent respiratory illness. CT of the chest demonstrates intense bilateral reticulonodular opacities and a cavitary lesion. She is being ruled out for MTB. With respect to the etiology of her lesion, it is likely infectious/inflammatory, so the cavity has to be followed to rule out a neoplastic process. PROBLEM LIST: 1. Left lower lobe cavity thin-walled, likely infectious, inflammatory. 2. Scattered bilateral reticulonodular opacities, likely an infectious bronchiolitis. 3. Pleuritic chest pain, likely secondary to above. 4. Hypertension, hyperlipidemia, diabetes. TREATMENT PLAN: 1. Optimize pulmonary hygiene/mobilize as tolerated. 2. Rule out MTB with serial AFB x3. 3. Follow up tumor markers as ordered by Dr. Kohler. 4. Follow up off infectious and inflammatory serologies. 5. The patient will require short interval follow-up and then likely a bronchoscopy and biopsy if there is a persistent cavitary lesion. Subjective Allergies: Coded Allergies: No Known Allergies (Unverified , 06/27/17) Subjective AFVSS on RA No cough no CP No FC Objective Last 24 Hour Vital Signs Date Time Temp Pulse Resp B/P (MAP) Pulse Ox O2 Delivery O2 Flow Rate FiO2 04/28/19 09:00 Room Air 04/28/19 09:00 57 108/67 04/28/19 09:00 108/67 04/28/19 09:00 108/67 04/28/19 08:00 56 04/28/19 08:00 98.2 57 18 108/67 (81) 96 04/28/19 04:00 54 04/28/19 04:00 97.6 54 16 114/70 (85) 98 04/28/19 00:00 98.3 58 16 118/73 (88) 95 04/28/19 00:00 60 04/27/19 21:00 Room Air 04/27/19 20:00 98.1 65 18 108/66 (80) 97 04/27/19 20:00 65 7/2/19 16:00 62 04/27/19 16:00 98.2 64 18 98/65 (76) 96 04/27/19 12:00 97.7 55 18 97/62 (74) 95 04/27/19 12:00 64 Intake and Output 04/27/19 04/28/19 19:00 07:00 Intake Total 720 ml 240 ml Balance 720 ml 240 ml Intake Oral 720 ml 240 ml # Voids 3 1 General Appearance: WD/WN, no acute distress HEENT: normocephalic, atraumatic, anicteric, mucous membranes moist Respiratory/Chest: chest wall non-tender, lungs clear, normal breath sounds, no respiratory distress, no accessory muscle use Cardiovascular: normal peripheral pulses, normal rate, regular rhythm Abdomen: normal bowel sounds, soft, non tender, no organomegaly, non distended , no mass Extremities: no cyanosis, no clubbing, no edema Laboratory Tests 04/27/19 20:00: M. tuberculosis Complex DNA (PCR) [Pending] 04/28/19 04:35: White Blood Count 4.3L, Red Blood Count 3.57L, Hemoglobin 11.6L, Hematocrit 34.2L, Mean Corpuscular Volume 96, Mean Corpuscular Hemoglobin 32.4H, Mean Corpuscular Hemoglobin Concent 33.9, Red Cell Distribution Width 10.5L, Platelet Count 197, Mean Platelet Volume 7.4, Neutrophils (%) (Auto) 52.4, Lymphocytes (%) (Auto) 37.1, Monocytes (%) (Auto) 7.8, Eosinophils (%) (Auto) 1.4, Basophils (%) (Auto) 1.2 Current Medications Medications (Trade) Dose Ordered Sig/Darrion Route PRN Reason Start Time Stop Time Status Last Admin Dose Admin Amlodipine Besylate (Norvasc) 5 mg DAILY ORAL 04/26/19 09:00 05/26/19 08:59 04/27/19 09:27 Artificial Tears (Akwa-Tears) 2 drop FOUR TIMES A DAY BOTH EYES 04/25/19 09:00 05/25/19 08:59 04/28/19 09:38 Atorvastatin Calcium (Lipitor) 20 mg BEDTIME ORAL 04/25/19 21:00 05/25/19 20:59 04/27/19 21:08 Azithromycin (Zithromax) 250 mg DAILY ORAL 04/29/19 09:00 05/06/19 08:59 Ceftriaxone Sodium 1 gm/ Dextrose 55 ml @ 110 mls/hr Q24H IVPB 04/28/19 11:00 05/05/19 10:59 04/28/19 11:20 Dextrose (Dextrose 50%) 25 ml Q30M PRN IV Hypoglycemia 04/25/19 00:00 05/25/19 00:00 Dextrose (Dextrose 50%) 50 ml Q30M PRN IV Hypoglycemia 04/25/19 00:00 05/25/19 00:00 Enoxaparin Sodium (Lovenox) 40 mg DAILY SUBQ 04/25/19 09:00 05/25/19 08:59 04/28/19 09:37 Famotidine (Pepcid) 40 mg ACBREAKFAST ORAL 04/25/19 06:30 05/25/19 06:29 04/28/19 06:19 Fluoxetine HCl (PROzac) 40 mg DAILY ORAL 04/26/19 09:00 05/26/19 08:59 04/28/19 09:40 Glipizide (GlipiZIDE XL) 2.5 mg QPM ORAL 04/26/19 16:30 05/26/19 16:29 04/27/19 17:15 HCTZ/Losartan Potassium (Hyzaar 50-12.5) 1 tab DAILY ORAL 04/26/19 09:00 05/26/19 08:59 04/27/19 09:27 Insulin Aspart (NovoLOG) BEFORE MEALS AND HS SUBQ 04/25/19 06:30 05/25/19 06:29 04/27/19 21:06 Losartan Potassium (Cozaar) 50 mg DAILY ORAL 04/26/19 09:00 05/26/19 08:59 04/27/19 09:26 Metformin HCl (Glucophage) 500 mg TWICE A DAY ORAL 04/26/19 09:00 05/26/19 08:59 04/28/19 09:39 Vitamin D (Vitamin D) 5,000 intlu DAILY ORAL 04/26/19 09:00 05/26/19 08:59 04/28/19 09:41 Sean Vaughn MD Apr 28, 2019 11:41
[2019-04-28 12:00] VITALS: BP 97/71
--- NOTE | 2019-04-28 12:03 | NUR ---
CASE MANAGEMENT:REVIEW 04/28/19 SI: LLL CAVITY. PLEURITIC CHEST PAIN R/O Tb 98.2 57 18 108/67 96% ON RA H/H-11.6/34.2 IS: AZITHROMYCIN PO QD IV ROCEPHIN Q24 HYZAAR PO QD COZAAR PO QD NORVASC PO QD PROZAC PO QD LOVENOX SQ QD :TELEMETRY STATUS DCP: FROM HOME PLAN: AFB X1 SENT AFB 2 AND 3 PENDING MTB PCR PENDING
--- NOTE | 2019-04-28 12:07 | NUR ---
SPUTUM COLLECTION AFB SENT YESTERDAY AFB FOR TODAY HAS NOT YET BEEN COLLECTED ~ DISCUSSED WITH CHARGE NURSE SOUTH
--- NOTE | 2019-04-28 12:35 | Cardiac Electrophysiology PN ---
Assessment/Plan Assessment/Plan 1. Chest pain, No [place]. Due to underlying lung lesion Outpatient stress test when stable 2. HTN 3. NIDDM 4. HLPD 5. Cavitary lung lesion, on resp isolation 6. Anemia Subjective Subjective In respiratory isolation in SR. No CP. Objective Last 24 Hour Vital Signs Date Time Temp Pulse Resp B/P (MAP) Pulse Ox O2 Delivery O2 Flow Rate FiO2 04/28/19 12:00 98.2 69 18 97/71 (80) 98 04/28/19 09:00 Room Air 04/28/19 09:00 57 108/67 04/28/19 09:00 108/67 04/28/19 09:00 108/67 04/28/19 08:00 56 04/28/19 08:00 98.2 57 18 108/67 (81) 96 04/28/19 04:00 54 04/28/19 04:00 97.6 54 16 114/70 (85) 98 04/28/19 00:00 98.3 58 16 118/73 (88) 95 04/28/19 00:00 60 04/27/19 21:00 Room Air 04/27/19 20:00 98.1 65 18 108/66 (80) 97 04/27/19 20:00 65 04/27/19 16:00 62 04/27/19 16:00 98.2 64 18 98/65 (76) 96 Intake and Output 04/27/19 04/28/19 19:00 07:00 Intake Total 720 ml 240 ml Balance 720 ml 240 ml Intake Oral 720 ml 240 ml # Voids 3 1 Laboratory Tests Test 04/27/19 20:00 04/28/19 04:35 M. tuberculosis Complex DNA (PCR) Pending White Blood Count 4.3 K/UL (4.8-10.8) L Red Blood Count 3.57 M/UL (4.20-5.40) L Hemoglobin 11.6 G/DL (12.0-16.0) L Hematocrit 34.2 % (37.0-47.0) L Mean Corpuscular Volume 96 FL (80-99) Mean Corpuscular Hemoglobin 32.4 PG (27.0-31.0) H Mean Corpuscular Hemoglobin Concent 33.9 G/DL (32.0-36.0) Red Cell Distribution Width 10.5 % (11.6-14.8) L Platelet Count 197 K/UL (150-450) Mean Platelet Volume 7.4 FL (6.5-10.1) Neutrophils (%) (Auto) 52.4 % (45.0-75.0) Lymphocytes (%) (Auto) 37.1 % (20.0-45.0) Monocytes (%) (Auto) 7.8 % (1.0-10.0) Eosinophils (%) (Auto) 1.4 % (0.0-3.0) Basophils (%) (Auto) 1.2 % (0.0-2.0) Objective General Appearance: no apparent distress HEENT: No JVD Respiratory/Chest: Coarse rhonchi Cardiovascular/Chest: normal peripheral pulses, normal rate, regular rhythm Abdomen: normal bowel sounds, non tender, soft, no organomegaly Extremities: normal range of motion, non-tender, normal inspection Neurologic: tailercpa II-XII grossly normal, no motor/sensory deficits Matti Lakhani MD Apr 28, 2019 12:35
--- NOTE | 2019-04-28 15:39 | Hematology/Onc Progress Note ---
Assessment/Plan Assessment/Plan Assessment and Recs: # Cavitary lesion of lung on imaging --> per pulm recs --> r.o inflammatory cause --> montior for resolution # Anemia of chronic disease due to underlying chronic medical issues, multifactorial --> Anemia workup has been reviewed. Ferritin 133 --> No evidence of hemolysis is noted, peripheral smear has been reviewed. --> Hgb goal >7. Transfuse prn. --> Epogen or iron at this time is not particularly indicated --> Medications have been reviewed --> Hgb trend: 11.5 # Chest pain r/o acs v inflammatory disease of lung, bronchitis, CT imaging of the chest was ordered which showed calcified mediastinal and hilar lymph nodes as well as mild cardiomegaly without pericardial effusion. There is some fluid impacting some of the left lower lobe bronchi posterior medially no pulmonary embolism or aortic aneurysm or dissection was seen.Patient given IV antibiotics. --> as per cards recs --> trop and ekg x 2 ordered --> nitrog prn --> tumor markers negative --> outpatient stress test # Granulomatous disease # HTN. sbp goal <140 Subjective HEENT: Denies: no symptoms, eye pain, blurred vision, tearing, double vision, ear pain, ear discharge, nose pain, nose congestion, throat pain, throat swelling, mouth pain, mouth swelling, other Cardiovascular: Denies: no symptoms, chest pain, edema, irregular heart rate, lightheadedness, palpitations, syncope, other Gastrointestinal/Abdominal: Denies: no symptoms, abdomen distended, abdominal pain, black stools, tarry stools, blood in stool, constipated, diarrhea, difficulty swallowing, nausea, poor appetite, poor fluid intake, rectal bleeding , vomiting, other Genitourinary: Denies: no symptoms, burning, discharge, frequency, flank pain, hematuria, incontinence, pain, urgency, other Neurologic/Psychiatric: Denies: no symptoms, anxiety, depressed, emotional problems, headache, numbness, paresthesia, pre-existing deficit, seizure, tingling, tremors, weakness, other Endocrine: Denies: no symptoms, excessive sweating, flushing, intolerance to cold, intolerance to heat, increased hunger, increased thirst, increased urine, unexplained weight gain, unexplained weight loss, other Hematologic/Lymphatic: Denies: no symptoms, anemia, easy bleeding, easy bruising, adenopathy, other Allergies: Coded Allergies: No Known Allergies (Unverified , 06/27/17) Subjective 04/26: Pt is sitting in bed and having breakfast. No c/o pain. Labs reviewed. 04/27: no events, cp is better, seen by pulm, cards 04/28: no fevers or chills, no night sweats noted Objective Objective Current Medications Medications (Trade) Dose Ordered Sig/Darrion Route PRN Reason Start Time Stop Time Status Last Admin Dose Admin Amlodipine Besylate (Norvasc) 5 mg DAILY ORAL 04/26/19 09:00 05/26/19 08:59 04/27/19 09:27 Artificial Tears (Akwa-Tears) 2 drop FOUR TIMES A DAY BOTH EYES 04/25/19 09:00 05/25/19 08:59 04/28/19 12:23 Atorvastatin Calcium (Lipitor) 20 mg BEDTIME ORAL 04/25/19 21:00 05/25/19 20:59 04/27/19 21:08 Azithromycin (Zithromax) 250 mg DAILY ORAL 04/29/19 09:00 05/06/19 08:59 Ceftriaxone Sodium 1 gm/ Dextrose 55 ml @ 110 mls/hr Q24H IVPB 04/28/19 11:00 05/05/19 10:59 04/28/19 11:20 Dextrose (Dextrose 50%) 25 ml Q30M PRN IV Hypoglycemia 04/25/19 00:00 05/25/19 00:00 Dextrose (Dextrose 50%) 50 ml Q30M PRN IV Hypoglycemia 04/25/19 00:00 05/25/19 00:00 Enoxaparin Sodium (Lovenox) 40 mg DAILY SUBQ 04/25/19 09:00 05/25/19 08:59 04/28/19 09:37 Famotidine (Pepcid) 40 mg ACBREAKFAST ORAL 04/25/19 06:30 05/25/19 06:29 04/28/19 06:19 Fluoxetine HCl (PROzac) 40 mg DAILY ORAL 04/26/19 09:00 05/26/19 08:59 04/28/19 09:40 Glipizide (GlipiZIDE XL) 2.5 mg QPM ORAL 04/26/19 16:30 05/26/19 16:29 04/27/19 17:15 HCTZ/Losartan Potassium (Hyzaar 50-12.5) 1 tab DAILY ORAL 04/26/19 09:00 05/26/19 08:59 04/27/19 09:27 Insulin Aspart (NovoLOG) BEFORE MEALS AND HS SUBQ 04/25/19 06:30 05/25/19 06:29 04/27/19 21:06 Losartan Potassium (Cozaar) 50 mg DAILY ORAL 04/26/19 09:00 05/26/19 08:59 04/27/19 09:26 Metformin HCl (Glucophage) 500 mg TWICE A DAY ORAL 04/26/19 09:00 05/26/19 08:59 04/28/19 09:39 Vitamin D (Vitamin D) 5,000 intlu DAILY ORAL 04/26/19 09:00 05/26/19 08:59 04/28/19 09:41 Last 24 Hour Vital Signs Date Time Temp Pulse Resp B/P (MAP) Pulse Ox O2 Delivery O2 Flow Rate FiO2 04/28/19 12:00 58 04/28/19 12:00 98.2 69 18 97/71 (80) 98 04/28/19 09:00 Room Air 04/28/19 09:00 57 108/67 04/28/19 09:00 108/67 04/28/19 09:00 108/67 04/28/19 08:00 56 04/28/19 08:00 98.2 57 18 108/67 (81) 96 04/28/19 04:00 54 04/28/19 04:00 97.6 54 16 114/70 (85) 98 04/28/19 00:00 98.3 58 16 118/73 (88) 95 04/28/19 00:00 60 04/27/19 21:00 Room Air 04/27/19 20:00 98.1 65 18 108/66 (80) 97 04/27/19 20:00 65 04/27/19 16:00 62 04/27/19 16:00 98.2 64 18 98/65 (76) 96 04/27/19 12:00 97.7 55 18 97/62 (74) 95 04/27/19 12:00 64 04/27/19 09:27 65 126/78 7/2/19 09:27 126/78 04/27/19 09:26 126/78 04/27/19 09:00 Room Air 04/27/19 08:00 97.7 65 18 126/78 (94) 96 04/27/19 08:00 76 04/27/19 04:00 98.1 68 16 120/73 (89) 97 04/27/19 03:24 62 04/27/19 00:00 97.6 69 18 113/76 (88) 95 04/26/19 23:29 68 04/26/19 21:00 Room Air 04/26/19 20:00 98.5 75 18 120/75 (90) 96 04/26/19 19:45 75 04/26/19 19:45 75 04/26/19 16:00 73 04/26/19 16:00 97.7 68 18 105/61 (76) 97 Intake and Output 04/27/19 04/28/19 19:00 07:00 Intake Total 720 ml 240 ml Balance 720 ml 240 ml Intake Oral 720 ml 240 ml # Voids 3 1 Labs Test 04/25/19 21:30 04/26/19 07:08 04/26/19 19:00 04/27/19 05:45 Reticulocyte Count 1.2 % (0.5-2.0) Prothrombin Time 9.8 SEC (9.30-11.50) Prothromb Time International Ratio 0.9 (0.9-1.1) Iron Level 45 ug/dL (50-175) Total Iron Binding Capacity 248 ug/dL (250-450) Percent Iron Saturation 18 % (15-50) Unsaturated Iron Binding 203 ug/dL (112-346) Ferritin 133 NG/ML (8-388) Lactate Dehydrogenase 168 U/L (81-234) Carcinoembryonic Antigen 2.5 ng/mL (0.0-4.7) Vitamin B12 Level 590 PG/ML (193-986) Folate 7.3 NG/ML (8.6-58.9) Thyroid Stimulating Hormone (TSH) 2.748 uiU/mL (0.358-3.740) White Blood Count 4.4 K/UL (4.8-10.8) 4.2 K/UL (4.8-10.8) Red Blood Count 3.57 M/UL (4.20-5.40) 3.54 M/UL (4.20-5.40) Hemoglobin 11.5 G/DL (12.0-16.0) 11.5 G/DL (12.0-16.0) Hematocrit 34.6 % (37.0-47.0) 34.4 % (37.0-47.0) Mean Corpuscular Volume 97 FL (80-99) 97 FL (80-99) Mean Corpuscular Hemoglobin 32.3 PG (27.0-31.0) 32.4 PG (27.0-31.0) Mean Corpuscular Hemoglobin Concent 33.4 G/DL (32.0-36.0) 33.4 G/DL (32.0-36.0) Red Cell Distribution Width 10.6 % (11.6-14.8) 10.8 % (11.6-14.8) Platelet Count 213 K/UL (150-450) 204 K/UL (150-450) Mean Platelet Volume 6.9 FL (6.5-10.1) 6.4 FL (6.5-10.1) Neutrophils (%) (Auto) 52.7 % (45.0-75.0) 54.0 % (45.0-75.0) Lymphocytes (%) (Auto) 36.3 % (20.0-45.0) 36.1 % (20.0-45.0) Monocytes (%) (Auto) 9.4 % (1.0-10.0) 7.9 % (1.0-10.0) Eosinophils (%) (Auto) 1.0 % (0.0-3.0) 1.1 % (0.0-3.0) Basophils (%) (Auto) 0.6 % (0.0-2.0) 0.9 % (0.0-2.0) Erythrocyte Sedimentation Rate 110 MM/HR (0-30) C-Reactive Protein, Quantitative < 0.4 mg/dL (0.00-0.90) Rheumatoid Factor Screen <10.0 IU/mL (0.0-13.9) Anti-Nuclear Antibody Screen Negative (Negative) c-ANCA Titer <1:20 titer (Neg:<1:20) p-ANCA Titer <1:20 titer (Neg:<1:20) Atypical p-ANCA <1:20 titer (Neg:<1:20) HIV (1&2) Antibody Rapid Negative (NEGATIVE) Test 04/27/19 20:00 04/28/19 04:35 White Blood Count 4.3 K/UL (4.8-10.8) Red Blood Count 3.57 M/UL (4.20-5.40) Hemoglobin 11.6 G/DL (12.0-16.0) Hematocrit 34.2 % (37.0-47.0) Mean Corpuscular Volume 96 FL (80-99) Mean Corpuscular Hemoglobin 32.4 PG (27.0-31.0) Mean Corpuscular Hemoglobin Concent 33.9 G/DL (32.0-36.0) Red Cell Distribution Width 10.5 % (11.6-14.8) Platelet Count 197 K/UL (150-450) Mean Platelet Volume 7.4 FL (6.5-10.1) Neutrophils (%) (Auto) 52.4 % (45.0-75.0) Lymphocytes (%) (Auto) 37.1 % (20.0-45.0) Monocytes (%) (Auto) 7.8 % (1.0-10.0) Eosinophils (%) (Auto) 1.4 % (0.0-3.0) Basophils (%) (Auto) 1.2 % (0.0-2.0) Height (Feet): 5 Height (Inches): 2.00 Weight (Pounds): 136 Objective PHYSICAL EXAM General Appearance: normal inspection, well appearing, no apparent distress, alert, GCS 15 Head: atraumatic ENT: normal ENT inspection, hearing grossly normal, normal voice Neck: normal inspection, full range of motion, supple, no bony tend Respiratory: normal inspection, lungs clear, normal breath sounds, no respiratory distress, no retraction, no wheezing Cardiovascular: regular rate, rhythm, no edema Gastrointestinal: normal inspection, normal bowel sounds, non tender, soft, no guarding, no hernia Genitourinary: no CVA tenderness Musculoskeletal: normal inspection, back normal, normal range of motion Neurologic: normal inspection, alert, oriented x3, responsive, bilingual speech language pathologist III-XII nml as tested, speech normal Psychiatric: normal inspection, judgement/insight normal, mood/affect normal Kleynberg,Alden L. MD Apr 28, 2019 15:39
[2019-04-28 16:00] VITALS: BP 114/70
--- NOTE | 2019-04-28 16:10 | NUR ---
NURSE NOTES: Noticed that the patient had medication inside her bag. Sent the medication to pharmacy. Receipt # is [id number].
--- NOTE | 2019-04-28 16:12 | NUR ---
NURSE NOTES: Spoke with laboratory, MTB sputum collection that was done on 04/27/2019 is in process. AFB sputum collection also sent to lab at the same time on 04/27/2019 but cancelled from the system due to unknown error. AFB sputum collection done 04/28/2019 maintenance technician 2nd shift was received and in process. Put other nursing order that consecutive AFB sputum collection needs to be done on 04/29 and 04/30/2019. Also notified to charge nurse for the case.
--- NOTE | 2019-04-28 16:15 | Consultation ---
DATE OF CONSULTATION: 04/28/2019 INFECTIOUS DISEASE CONSULTATION CONSULTING PHYSICIAN: Carlos Kwan M.D. PRIMARY ATTENDING PHYSICIAN: Paula Nixon M.D. and Alden Kohler M.D. REASON FOR CONSULT: Pneumonia, cavitary lung lesions. HISTORY OF PRESENT ILLNESS: This 73-year-old female admitted on 04/24/2019 from home complaining of chest pain with deep breathing and nonproductive cough, had abnormal chest x-ray with cavitary lesion and consolidation. The patient says that she has history of tuberculosis 40 years ago and was treated in [facility]. She was not doing well in the past few weeks. She had upper respiratory symptoms and got antibiotic, that was amoxicillin. PAST MEDICAL HISTORY: Significant for diabetes mellitus, asthma, history of tuberculosis, history of herpes zoster, and major depression. ALLERGIES: No known drug allergies. MEDICATIONS: Glipizide, Hyzaar, amlodipine, fluoxetine, metformin, atorvastatin, enoxaparin,, famotidine, and sliding scale insulin. PAST SURGICAL HISTORY: Left eye cataract surgery. SOCIAL HISTORY: , originally from [facility], lives in [facility] since . Lives alone. She has grownup children. Denies smoking and drug abuse. Drinks occasionally. REVIEW OF SYSTEMS: No fever, but had weight loss of 20 pounds in a month, nonproductive cough, and chest pain. No dysuria. No significant shortness of breath. PHYSICAL EXAMINATION: VITAL SIGNS: Temperature 98.2, pulse 72, and blood pressure 108/67. GENERAL APPEARANCE: No acute distress. HEAD AND NECK: [place] conjunctivae. HEART: Normal rate. LUNGS: Clear. ABDOMEN: Soft and nontender. EXTREMITIES: No edema. SKIN: Some areas of vitiligo. NEUROLOGIC: Awake, alert, and oriented x3. LABORATORY AND DIAGNOSTIC DATA: WBC 4.3, hemoglobin 11.6, hematocrit 34.2, and platelets 197. Sodium 142, potassium 3.8, chloride 105, bicarb 28, BUN 23, and creatinine 1. HIV test is negative. BEBETO screen negative. Rheumatoid factor also was negative. RADIOLOGY: CT scan of the chest was done to rule out pulmonary emboli that was not present, but there was reticular nodular densities, patchy consolidation in left upper lobe and right upper lobe. Cavitation in the left lower lobe. IMPRESSION: Pneumonia. We will try to rule out TB of lung. The patient has history of TB before and according to her it was treated many years ago. The patient has diabetes mellitus, hypertension, major depression, and history of asthma. RECOMMENDATION: Start on Zithromax and Rocephin. We will try to talk with Department of Health. At the end of my exam, I thank Dr. Nixon for involving me in the care of this patient. Carlos Kwan M.D. DR: KARIE JOB#: [id number] CC: JULIUS
--- NOTE | 2019-04-28 16:38 | Cardiology Report ---
APPROVED REPORT EKG Measurement Heart [id number] Normal sinus rhythm Normal ECG
--- NOTE | 2019-04-28 19:15 | NUR ---
NURSE NOTES: Received patient from Lesa SONG. Patient is on TB precaution, awake and oriented x4. Patient is on room air, showing no signs of respiratory distress. Patient is ambulatory and has a steady gait. IV site is Right AC 20g patent and intact, other IV site is Left Wrist 20g patent and asymptomatic. Bed is locked, placed in lowest position, side rails up x2, call light within reach. Will continue to monitor.
--- NOTE | 2019-04-28 19:42 | NUR ---
HAND-OFF: Report given to NOHEMI Victoria. The patient is resting on the bed without acute distress or shortness of breath. The patient's bed in the lowest position, call light in reach, and fall and aspiration precaution reinforced. Endorsed plan of care.
--- NOTE | 2019-04-28 19:45 | Progress Note ---
DATE: 04/28/2019 SUBJECTIVE: The patient continues to have episodes of anxiety. Dysphoric. Takes her medication. No behavior issues. No violent behaviors. MENTAL STATUS EXAMINATION: The patient is alert, oriented x3. Mood is anxious. Affect is constricted, congruent with mood. Thought process is linear to circumstantial. Thought content, no suicidal or homicidal ideations. ASSESSMENT: 1. Anxiety disorder. 2. Major depressive disorder. PLAN: 1. The patient will be continued on Prozac. 2. Provide the patient with reality orientation and supportive therapy. Yamel Howard M.D. DR: MALIKA JOB#: [id number] CC:
[2019-04-28 20:00] VITALS: BP 110/70
[2019-04-28] MEDS: Atorvastatin 20mg tab ORAL SCH (20:53)
--- NOTE | 2019-04-28 21:42 | General Progress Note ---
Assessment/Plan Problem List: (1) Cavitary lesion of lung ICD Codes: J98.4 - Other disorders of lung SNOMED: 415277014 (2) Granulomatous disease ICD Codes: D71 - Functional disorders of polymorphonuclear neutrophils SNOMED: 922173268 (3) HTN (hypertension) ICD Codes: I10 - Essential (primary) hypertension SNOMED: 12242121 (4) CAD (coronary artery disease) ICD Codes: I25.10 - Atherosclerotic heart disease of [place] coronary artery without angina pectoris SNOMED: 67983989 Status: stable Assessment/Plan: h/o of Tb on isolation needs 3 neg AFB HTN check vitals Subjective ROS Limited/Unobtainable: Yes Allergies: Coded Allergies: No Known Allergies (Unverified , 06/27/17) Objective Last 24 Hour Vital Signs Date Time Temp Pulse Resp B/P (MAP) Pulse Ox O2 Delivery O2 Flow Rate FiO2 04/28/19 21:00 Room Air 04/28/19 20:00 98.3 60 16 110/70 (83) 96 04/28/19 16:00 97.6 64 16 114/70 (85) 98 04/28/19 16:00 62 04/28/19 12:00 58 04/28/19 12:00 98.2 69 18 97/71 (80) 98 04/28/19 09:00 Room Air 04/28/19 09:00 57 108/67 04/28/19 09:00 108/67 04/28/19 09:00 108/67 04/28/19 08:00 56 04/28/19 08:00 98.2 57 18 108/67 (81) 96 04/28/19 04:00 54 04/28/19 04:00 97.6 54 16 114/70 (85) 98 04/28/19 00:00 98.3 58 16 118/73 (88) 95 04/28/19 00:00 60 Intake and Output 04/27/19 04/28/19 19:00 07:00 Intake Total 720 ml 240 ml Balance 720 ml 240 ml Intake Oral 720 ml 240 ml # Voids 3 1 Laboratory Tests 04/28/19 04:35: White Blood Count 4.3L, Red Blood Count 3.57L, Hemoglobin 11.6L, Hematocrit 34.2L, Mean Corpuscular Volume 96, Mean Corpuscular Hemoglobin 32.4H, Mean Corpuscular Hemoglobin Concent 33.9, Red Cell Distribution Width 10.5L, Platelet Count 197, Mean Platelet Volume 7.4, Neutrophils (%) (Auto) 52.4, Lymphocytes (%) (Auto) 37.1, Monocytes (%) (Auto) 7.8, Eosinophils (%) (Auto) 1.4, Basophils (%) (Auto) 1.2 Height (Feet): 5 Height (Inches): 2.00 Weight (Pounds): 136 Cardiovascular: normal rate Respiratory/Chest: lungs clear Paula Nixon MD Apr 28, 2019 21:42
[2019-04-29] VITALS: BP 105/71
[2019-04-29 04:00] VITALS: BP 111/67
[2019-04-29] MEDS: NovoLOG Insulin Flexpen SUBQ SCH ×4 (06:13→21:00)
--- NOTE | 2019-04-29 07:24 | NUR ---
HAND-OFF: Report given to Zak SONG. Patient in stable condition.
[2019-04-29 08:30] VITALS: BP 114/69
[2019-04-29] MEDS: Artificial Tears 1.4% Op Soln BOTH EYES SCH ×4 (09:00→21:11)
[2019-04-29] MEDS: Azithromycin 250mg tab ORAL SCH (09:29)
[2019-04-29] MEDS: metFORMIN 500mg tab ORAL SCH ×2 (09:30→16:56)
[2019-04-29] MEDS: Vitamin D 1000 IU Tab ORAL SCH (09:30)
[2019-04-29] MEDS: Enoxaparin 40mg Inj SUBQ SCH (09:31)
[2019-04-29] MEDS: Hyzaar 12.5mg/50mg tab ORAL SCH (09:38)
[2019-04-29] MEDS: Losartan 50mg tab ORAL SCH (09:38)
--- NOTE | 2019-04-29 10:29 | Infectious Diseases Prog Note ---
Assessment/Plan Assessment/Plan IMPRESSION: Pneumonia. Lung cavity, will try to rule out TB of lung. Diabetes mellitus, Hypertension, Major depression, History of asthma. RECOMMENDATION: Continue Zithromax and Rocephin. talked with Department of Health, no history of TB treatment in [facility] Will f/u AFB smears Subjective ROS Limited/Unobtainable: Yes Constitutional: Reports: no symptoms Respiratory: Reports: dry cough Allergies: Coded Allergies: No Known Allergies (Unverified , 06/27/17) Objective Vital Signs Last 24 Hour Vital Signs Date Time Temp Pulse Resp B/P (MAP) Pulse Ox O2 Delivery O2 Flow Rate FiO2 04/29/19 10:04 Room Air 04/29/19 09:39 60 114/69 04/29/19 09:38 114/69 04/29/19 09:38 114/69 04/29/19 08:30 98.0 60 18 114/69 (84) 98 04/29/19 04:00 98.3 60 16 111/67 (82) 97 04/29/19 03:44 54 04/29/19 00:00 98.1 64 16 105/71 (82) 96 04/28/19 23:57 65 04/28/19 21:00 Room Air 04/28/19 20:00 98.3 60 16 110/70 (83) 96 04/28/19 19:06 67 04/28/19 16:00 97.6 64 16 114/70 (85) 98 04/28/19 16:00 62 04/28/19 12:00 58 04/28/19 12:00 98.2 69 18 97/71 (80) 98 Height (Feet): 5 Height (Inches): 2.00 Weight (Pounds): 136 General Appearance: no acute distress HEENT: mucous membranes moist Respiratory/Chest: lungs clear Cardiovascular: normal rate Abdomen: soft, non tender Extremities: no edema Neurologic/Psychiatric: alert, oriented x 3, responsive Current Medications Medications (Trade) Dose Ordered Sig/Darrion Route PRN Reason Start Time Stop Time Status Last Admin Dose Admin Amlodipine Besylate (Norvasc) 5 mg DAILY ORAL 04/26/19 09:00 05/26/19 08:59 04/29/19 09:39 Artificial Tears (Akwa-Tears) 2 drop FOUR TIMES A DAY BOTH EYES 04/25/19 09:00 05/25/19 08:59 04/29/19 09:00 Atorvastatin Calcium (Lipitor) 20 mg BEDTIME ORAL 04/25/19 21:00 05/25/19 20:59 04/28/19 20:53 Azithromycin (Zithromax) 250 mg DAILY ORAL 04/29/19 09:00 05/06/19 08:59 04/29/19 09:29 Ceftriaxone Sodium 1 gm/ Dextrose 55 ml @ 110 mls/hr Q24H IVPB 04/28/19 11:00 05/05/19 10:59 04/28/19 11:20 Dextrose (Dextrose 50%) 25 ml Q30M PRN IV Hypoglycemia 04/25/19 00:00 05/25/19 00:00 Dextrose (Dextrose 50%) 50 ml Q30M PRN IV Hypoglycemia 04/25/19 00:00 05/25/19 00:00 Enoxaparin Sodium (Lovenox) 40 mg DAILY SUBQ 04/25/19 09:00 05/25/19 08:59 04/29/19 09:31 Famotidine (Pepcid) 40 mg ACBREAKFAST ORAL 04/25/19 06:30 05/25/19 06:29 04/29/19 06:10 Fluoxetine HCl (PROzac) 40 mg DAILY ORAL 04/26/19 09:00 05/26/19 08:59 04/29/19 09:29 Glipizide (GlipiZIDE XL) 2.5 mg QPM ORAL 04/26/19 16:30 05/26/19 16:29 04/28/19 17:25 HCTZ/Losartan Potassium (Hyzaar 50-12.5) 1 tab DAILY ORAL 04/26/19 09:00 05/26/19 08:59 04/29/19 09:38 Insulin Aspart (NovoLOG) BEFORE MEALS AND HS SUBQ 04/25/19 06:30 05/25/19 06:29 04/28/19 20:54 Losartan Potassium (Cozaar) 50 mg DAILY ORAL 04/26/19 09:00 05/26/19 08:59 04/29/19 09:38 Metformin HCl (Glucophage) 500 mg TWICE A DAY ORAL 04/26/19 09:00 05/26/19 08:59 04/29/19 09:30 Vitamin D (Vitamin D) 5,000 intlu DAILY ORAL 04/26/19 09:00 05/26/19 08:59 04/29/19 09:30 Carlos Kwan MD Apr 29, 2019 10:29
--- NOTE | 2019-04-29 10:30 | General Progress Note ---
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 - Functional disorders of polymorphonuclear neutrophils SNOMED: 491348712 (3) HTN (hypertension) ICD Codes: I10 - Essential (primary) hypertension SNOMED: 44088414 (4) CAD (coronary artery disease) ICD Codes: I25.10 - Atherosclerotic heart disease of [place] coronary artery without angina pectoris SNOMED: 26365148 Status: stable, progressing Assessment/Plan: h/o of Tb on isolation needs 3 neg AFB HTN might need to induce sputum for afb vitals stable Subjective ROS Limited/Unobtainable: Yes Allergies: Coded Allergies: No Known Allergies (Unverified , 06/27/17) Objective Last 24 Hour Vital Signs Date Time Temp Pulse Resp B/P (MAP) Pulse Ox O2 Delivery O2 Flow Rate FiO2 04/29/19 10:04 Room Air 04/29/19 09:39 60 114/69 04/29/19 09:38 114/69 04/29/19 09:38 114/69 04/29/19 08:30 98.0 60 18 114/69 (84) 98 04/29/19 04:00 98.3 60 16 111/67 (82) 97 04/29/19 03:44 54 04/29/19 00:00 98.1 64 16 105/71 (82) 96 04/28/19 23:57 65 04/28/19 21:00 Room Air 04/28/19 20:00 98.3 60 16 110/70 (83) 96 04/28/19 19:06 67 04/28/19 16:00 97.6 64 16 114/70 (85) 98 04/28/19 16:00 62 04/28/19 12:00 58 04/28/19 12:00 98.2 69 18 97/71 (80) 98 Intake and Output 04/28/19 04/29/19 19:00 07:00 Intake Total 360 ml 240 ml Balance 360 ml 240 ml Intake Oral 360 ml 240 ml # Voids 3 1 Height (Feet): 5 Height (Inches): 2.00 Weight (Pounds): 136 Neck: supple Cardiovascular: normal rate Respiratory/Chest: lungs clear Paula Nixon MD Apr 29, 2019 10:30
[2019-04-29] MEDS: cefTRIAXone 1 GM in D5W 55 ML IVPB SCH (11:44)
[2019-04-29 12:00] VITALS: BP 116/68
--- NOTE | 2019-04-29 13:52 | Cardiac Electrophysiology PN ---
Assessment/Plan Assessment/Plan 1. Chest pain, No ID. Due to underlying lung lesion Outpatient stress test when stable 2. HTN on Hyzaar and Amlodipine. Change Hyzaar to Cozaar 100 daily and HCTZ 25 daily 3. NIDDM 4. HLPD 5. Cavitary lung lesion, on resp isolation. on iv Abx 6. Anemia DW RN Subjective Subjective In respiratory isolation in NAD Objective Last 24 Hour Vital Signs Date Time Temp Pulse Resp B/P (MAP) Pulse Ox O2 Delivery O2 Flow Rate FiO2 04/29/19 12:00 48 04/29/19 12:00 98.0 56 20 116/68 (84) 98 04/29/19 10:04 Room Air 04/29/19 09:39 60 114/69 04/29/19 09:38 114/69 04/29/19 09:38 114/69 04/29/19 08:30 98.0 60 18 114/69 (84) 98 04/29/19 08:00 59 04/29/19 04:00 98.3 60 16 111/67 (82) 97 04/29/19 03:44 54 04/29/19 00:00 98.1 64 16 105/71 (82) 96 04/28/19 23:57 65 04/28/19 21:00 Room Air 04/28/19 20:00 98.3 60 16 110/70 (83) 96 04/28/19 19:06 67 04/28/19 16:00 97.6 64 16 114/70 (85) 98 04/28/19 16:00 62 Intake and Output 04/28/19 04/29/19 19:00 07:00 Intake Total 360 ml 240 ml Balance 360 ml 240 ml Intake Oral 360 ml 240 ml # Voids 3 1 Microbiology Date/Time Source Procedure Growth Status 04/28/19 06:30 Sputum AFB Specimen Processing Tissue - Final Resulted 04/28/19 06:30 Sputum Acid Fast Bacilli Smear - Final Resulted 04/28/19 06:30 Sputum Acid Fast Bacilli Culture Pending Resulted Objective General Appearance: no apparent distress HEENT: No JVD Respiratory/Chest: Coarse rhonchi Cardiovascular/Chest: normal peripheral pulses, normal rate, regular rhythm Abdomen: normal bowel sounds, non tender, soft, no organomegaly Extremities: normal range of motion, non-tender, normal inspection Matti Lakhani MD Apr 29, 2019 13:52
[2019-04-29 16:00] VITALS: BP 132/60
--- NOTE | 2019-04-29 19:17 | NUR ---
HAND-OFF: Report given to Zahida SONG.
--- NOTE | 2019-04-29 19:30 | NUR ---
NURSE NOTES: Received pt from NOHEMI Crespo. Pt asleep. Bed in lowest position. Call light within reach. Will continue to monitor.
[2019-04-29 20:00] VITALS: BP 106/73
[2019-04-29] MEDS: Atorvastatin 20mg tab ORAL SCH (21:11)
--- NOTE | 2019-04-29 22:47 | Pulmonology Progress Note ---
Assessment/Plan Assessment/Plan Pulmonary Progress Note Assessment/Plan Problems: (1) Cavitary lesion of lung (2) Granulomatous disease (3) Chest pain (4) HTN (hypertension) (5) CAD (coronary artery disease) (6) Shingles Assessment/Plan ASSESSMENT: The patient is a 73-year-old female with a history of hypertension , hyperlipidemia, and diabetes, presenting with pleuritic chest pain in the setting of a recent respiratory illness. CT of the chest demonstrates intense bilateral reticulonodular opacities and a cavitary lesion. She is being ruled out for MTB. With respect to the etiology of her lesion, it is likely infectious/inflammatory, so the cavity has to be followed to rule out a neoplastic process. PROBLEM LIST: 1. Left lower lobe cavity thin-walled, likely infectious, inflammatory. 2. Scattered bilateral reticulonodular opacities, likely an infectious bronchiolitis. 3. Pleuritic chest pain, likely secondary to above. 4. Hypertension, hyperlipidemia, diabetes. TREATMENT PLAN: 1. Optimize pulmonary hygiene/mobilize as tolerated. 2. Rule out MTB with serial AFB x3. 3. Follow up tumor markers as ordered by Dr. Kohler. 4. Follow up off infectious and inflammatory serologies. 5. The patient will require short interval follow-up and then likely a bronchoscopy and biopsy if there is a persistent cavitary lesion. Subjective Allergies: Coded Allergies: No Known Allergies (Unverified , 06/27/17) Subjective AFVSS on RA No cough no CP No FC Objective Vital Signs Noted General Appearance: WD/WN, no acute distress HEENT: normocephalic, atraumatic, anicteric, mucous membranes moist Respiratory/Chest: chest wall non-tender, lungs clear, normal breath sounds, no respiratory distress, no accessory muscle use Cardiovascular: normal peripheral pulses, normal rate, regular rhythm Abdomen: normal bowel sounds, soft, non tender, no organomegaly, non distended , no mass Extremities: no cyanosis, no clubbing, no edema Laboratory Tests 04/27/19 20:00: M. tuberculosis Complex DNA (PCR) [Pending] 04/28/19 04:35: White Blood Count 4.3L, Red Blood Count 3.57L, Hemoglobin 11.6L, Hematocrit 34.2L, Mean Corpuscular Volume 96, Mean Corpuscular Hemoglobin 32.4H, Mean Corpuscular Hemoglobin Concent 33.9, Red Cell Distribution Width 10.5L, Platelet Count 197, Mean Platelet Volume 7.4, Neutrophils (%) (Auto) 52.4, Lymphocytes (%) (Auto) 37.1, Monocytes (%) (Auto) 7.8, Eosinophils (%) (Auto) 1.4, Basophils (%) (Auto) 1.2 Current Medications Medications (Trade) Dose Ordered Sig/Darrion Route PRN Reason Start Time Stop Time Status Last Admin Dose Admin Amlodipine Besylate (Norvasc) 5 mg DAILY ORAL 04/26/19 09:00 05/26/19 08:59 04/27/19 09:27 Artificial Tears (Akwa-Tears) 2 drop FOUR TIMES A DAY BOTH EYES 04/25/19 09:00 05/25/19 08:59 04/28/19 09:38 Atorvastatin Calcium (Lipitor) 20 mg BEDTIME ORAL 04/25/19 21:00 05/25/19 20:59 04/27/19 21:08 Azithromycin (Zithromax) 250 mg DAILY ORAL 04/29/19 09:00 05/06/19 08:59 Ceftriaxone Sodium 1 gm/ Dextrose 55 ml @ 110 mls/hr Q24H IVPB 04/28/19 11:00 05/05/19 10:59 04/28/19 11:20 Dextrose (Dextrose 50%) 25 ml Q30M PRN IV Hypoglycemia 04/25/19 00:00 05/25/19 00:00 Dextrose (Dextrose 50%) 50 ml Q30M PRN IV Hypoglycemia 04/25/19 00:00 05/25/19 00:00 Enoxaparin Sodium (Lovenox) 40 mg DAILY SUBQ 04/25/19 09:00 05/25/19 08:59 04/28/19 09:37 Famotidine (Pepcid) 40 mg ACBREAKFAST ORAL 04/25/19 06:30 05/25/19 06:29 04/28/19 06:19 Fluoxetine HCl (PROzac) 40 mg DAILY ORAL 04/26/19 09:00 05/26/19 08:59 04/28/19 09:40 Glipizide (GlipiZIDE XL) 2.5 mg QPM ORAL 04/26/19 16:30 05/26/19 16:29 04/27/19 17:15 HCTZ/Losartan Potassium (Hyzaar 50-12.5) 1 tab DAILY ORAL 04/26/19 09:00 05/26/19 08:59 04/27/19 09:27 Insulin Aspart (NovoLOG) BEFORE MEALS AND HS SUBQ 04/25/19 06:30 05/25/19 06:29 04/27/19 21:06 Losartan Potassium (Cozaar) 50 mg DAILY ORAL 04/26/19 09:00 05/26/19 08:59 04/27/19 09:26 Metformin HCl (Glucophage) 500 mg TWICE A DAY ORAL 04/26/19 09:00 05/26/19 08:59 04/28/19 09:39 Vitamin D (Vitamin D) 5,000 intlu DAILY ORAL 04/26/19 09:00 05/26/19 08:59 04/28/19 09:41 Subjective ROS Limited/Unobtainable: No Allergies: Coded Allergies: No Known Allergies (Unverified , 06/27/17) Objective Last 24 Hour Vital Signs Date Time Temp Pulse Resp B/P (MAP) Pulse Ox O2 Delivery O2 Flow Rate FiO2 04/29/19 20:00 98.5 61 18 106/73 (84) 96 04/29/19 16:00 64 04/29/19 16:00 98.4 64 20 132/60 (84) 95 04/29/19 12:00 48 04/29/19 12:00 98.0 56 20 116/68 (84) 98 04/29/19 10:04 Room Air 04/29/19 09:39 60 114/69 04/29/19 09:38 114/69 04/29/19 09:38 114/69 04/29/19 08:30 98.0 60 18 114/69 (84) 98 04/29/19 08:00 59 04/29/19 04:00 98.3 60 16 111/67 (82) 97 04/29/19 03:44 54 04/29/19 00:00 98.1 64 16 105/71 (82) 96 04/28/19 23:57 65 Intake and Output 04/28/19 04/29/19 19:00 07:00 Intake Total 360 ml 240 ml Balance 360 ml 240 ml Intake Oral 360 ml 240 ml # Voids 3 1 Microbiology Date/Time Source Procedure Growth Status 04/28/19 06:30 Sputum AFB Specimen Processing Tissue - Final Resulted 04/28/19 06:30 Sputum Acid Fast Bacilli Smear - Final Resulted 04/28/19 06:30 Sputum Acid Fast Bacilli Culture Pending Resulted Current Medications Medications (Trade) Dose Ordered Sig/Darrion Route PRN Reason Start Time Stop Time Status Last Admin Dose Admin Amlodipine Besylate (Norvasc) 5 mg DAILY ORAL 04/26/19 09:00 05/26/19 08:59 04/29/19 09:39 Artificial Tears (Akwa-Tears) 2 drop FOUR TIMES A DAY BOTH EYES 04/25/19 09:00 05/25/19 08:59 04/29/19 21:11 Atorvastatin Calcium (Lipitor) 20 mg BEDTIME ORAL 04/25/19 21:00 05/25/19 20:59 04/29/19 21:11 Azithromycin (Zithromax) 250 mg DAILY ORAL 04/29/19 09:00 05/06/19 08:59 04/29/19 09:29 Ceftriaxone Sodium 1 gm/ Dextrose 55 ml @ 110 mls/hr Q24H IVPB 04/28/19 11:00 05/05/19 10:59 04/29/19 11:44 Dextrose (Dextrose 50%) 25 ml Q30M PRN IV Hypoglycemia 04/25/19 00:00 05/25/19 00:00 Dextrose (Dextrose 50%) 50 ml Q30M PRN IV Hypoglycemia 04/25/19 00:00 05/25/19 00:00 Enoxaparin Sodium (Lovenox) 40 mg DAILY SUBQ 04/25/19 09:00 05/25/19 08:59 04/29/19 09:31 Famotidine (Pepcid) 40 mg ACBREAKFAST ORAL 04/25/19 06:30 05/25/19 06:29 04/29/19 06:10 Fluoxetine HCl (PROzac) 40 mg DAILY ORAL 04/26/19 09:00 05/26/19 08:59 04/29/19 09:29 Glipizide (GlipiZIDE XL) 2.5 mg QPM ORAL 04/26/19 16:30 05/26/19 16:29 04/29/19 16:50 Hydrochlorothiazide (Hydrodiuril) 25 mg DAILY ORAL 04/30/19 09:00 05/30/19 08:59 Insulin Aspart (NovoLOG) BEFORE MEALS AND HS SUBQ 04/25/19 06:30 05/25/19 06:29 04/29/19 17:00 Losartan Potassium (Cozaar) 100 mg DAILY ORAL 04/30/19 09:00 05/30/19 08:59 Metformin HCl (Glucophage) 500 mg TWICE A DAY ORAL 04/26/19 09:00 05/26/19 08:59 04/29/19 16:56 Vitamin D (Vitamin D) 5,000 intlu DAILY ORAL 04/26/19 09:00 05/26/19 08:59 04/29/19 09:30 Patrick Armas MD Apr 29, 2019 22:47
--- NOTE | 2019-04-29 23:12 | NUR ---
NURSE NOTES: Called and left a message with Dr. Nixon and Dr. Kwan regarding pts request for cough syrup. Awaiting call back.
--- NOTE | 2019-04-29 23:45 | Progress Note ---
DATE: 04/29/2019 SUBJECTIVE: The patient is doing well. Participating evaluation. The patient takes medication. No behavior issues. Cooperative and pleasant. Withdrawn. Depressed. MENTAL STATUS EXAMINATION: The patient is alert and oriented to time, self, place, and situation. Mood is dysphoric. Affect is ____. Congruent with mood. Thought process is linear. Thought content, no suicidal or homicidal ideation. ASSESSMENT: Stable. PLAN: We will continue current medications. Provide the patient with reality orientation and supportive therapy. Yamel Howard M.D. DR: ZENAIDA JOB#: [id number] CC:
[2019-04-30] VITALS: BP 110/77
[2019-04-30 04:00] VITALS: BP 101/66
[2019-04-30] MEDS: NovoLOG Insulin Flexpen SUBQ SCH ×4 (05:42→20:36)
--- NOTE | 2019-04-30 07:29 | NUR ---
HAND-OFF: Report given to NOHEMI Crespo. Pt stable.
--- NOTE | 2019-04-30 07:36 | NUR ---
Received pt from NOHEMI Teague. pt in bed, no acute distress noted, bed locked and lowest position, side rail up x2, call light and personal belonging within reach. will continue to monitor for any change in condition.
[2019-04-30 08:12] VITALS: BP 110/71
[2019-04-30] MEDS: Vitamin D 1000 IU Tab ORAL SCH (08:27)
[2019-04-30] MEDS: metFORMIN 500mg tab ORAL SCH ×2 (08:27→16:09)
[2019-04-30] MEDS: Losartan 50mg tab ORAL SCH (08:27)
[2019-04-30] MEDS: Azithromycin 250mg tab ORAL SCH (08:27)
[2019-04-30] MEDS: Enoxaparin 40mg Inj SUBQ SCH (08:30)
--- NOTE | 2019-04-30 10:08 | NUR ---
CASE MANAGEMENT:REVIEW 04/30/19 SI: CHEST PAIN D/T UNDERLYING LESION CAVITARY LUNG LESION 98.3 79 17 110/71 96% ON RA IS: IV ROCEPHIN Q24 COZAAR PO QD HCTZ PO QD AZITHROMYCIN PO QD NORVASC PO QD LOVENOX SQ QD : TELEMETRY STATUS DCP; FROM HOME PLAN: RESPIRATORY ISOLATION AFB'S X3 ~ 2 IN PROCESS, 1 UNCOLLECTED
--- NOTE | 2019-04-30 10:15 | Infectious Diseases Prog Note ---
Assessment/Plan Assessment/Plan IMPRESSION: Pneumonia. Lung cavity, will try to rule out TB of lung. Diabetes mellitus, Hypertension, Major depression, History of asthma. RECOMMENDATION: Continue Zithromax and Rocephin. AFB smear X 1: negative TST: negative Subjective ROS Limited/Unobtainable: Yes Respiratory: Reports: productive cough Allergies: Coded Allergies: No Known Allergies (Unverified , 06/27/17) Objective Vital Signs Last 24 Hour Vital Signs Date Time Temp Pulse Resp B/P (MAP) Pulse Ox O2 Delivery O2 Flow Rate FiO2 04/30/19 09:13 Room Air 04/30/19 08:27 110/71 04/30/19 08:26 79 110/71 04/30/19 08:12 98.3 79 17 110/71 (84) 96 04/30/19 04:00 54 04/30/19 04:00 97.7 56 16 101/66 (78) 95 04/30/19 00:00 98.5 62 18 110/77 (88) 98 04/30/19 00:00 55 04/29/19 21:00 Room Air 04/29/19 20:00 98.5 61 18 106/73 (84) 96 04/29/19 20:00 57 04/29/19 16:00 64 04/29/19 16:00 98.4 64 20 132/60 (84) 95 04/29/19 12:00 48 04/29/19 12:00 98.0 56 20 116/68 (84) 98 Height (Feet): 5 Height (Inches): 2.00 Weight (Pounds): 136 HEENT: mucous membranes moist Respiratory/Chest: normal breath sounds Cardiovascular: normal rate Abdomen: soft, non tender Extremities: no edema Neurologic/Psychiatric: alert, oriented x 3, responsive Microbiology Date/Time Source Procedure Growth Status 04/28/19 06:30 Sputum AFB Specimen Processing Tissue - Final Resulted 04/28/19 06:30 Sputum Acid Fast Bacilli Smear - Final Resulted 04/28/19 06:30 Sputum Acid Fast Bacilli Culture Pending Resulted Current Medications Medications (Trade) Dose Ordered Sig/Darrion Route PRN Reason Start Time Stop Time Status Last Admin Dose Admin Amlodipine Besylate (Norvasc) 5 mg DAILY ORAL 04/26/19 09:00 05/26/19 08:59 04/30/19 08:26 Artificial Tears (Akwa-Tears) 2 drop FOUR TIMES A DAY BOTH EYES 04/25/19 09:00 05/25/19 08:59 04/29/19 21:11 Atorvastatin Calcium (Lipitor) 20 mg BEDTIME ORAL 04/25/19 21:00 05/25/19 20:59 04/29/19 21:11 Azithromycin (Zithromax) 250 mg DAILY ORAL 04/29/19 09:00 05/06/19 08:59 04/30/19 08:27 Ceftriaxone Sodium 1 gm/ Dextrose 55 ml @ 110 mls/hr Q24H IVPB 04/28/19 11:00 05/05/19 10:59 04/29/19 11:44 Dextrose (Dextrose 50%) 25 ml Q30M PRN IV Hypoglycemia 04/25/19 00:00 05/25/19 00:00 Dextrose (Dextrose 50%) 50 ml Q30M PRN IV Hypoglycemia 04/25/19 00:00 05/25/19 00:00 Enoxaparin Sodium (Lovenox) 40 mg DAILY SUBQ 04/25/19 09:00 05/25/19 08:59 04/30/19 08:30 Famotidine (Pepcid) 40 mg ACBREAKFAST ORAL 04/25/19 06:30 05/25/19 06:29 04/30/19 05:42 Fluoxetine HCl (PROzac) 40 mg DAILY ORAL 04/26/19 09:00 05/26/19 08:59 04/30/19 08:27 Glipizide (GlipiZIDE XL) 2.5 mg QPM ORAL 04/26/19 16:30 05/26/19 16:29 04/29/19 16:50 Hydrochlorothiazide (Hydrodiuril) 25 mg DAILY ORAL 04/30/19 09:00 05/30/19 08:59 04/30/19 08:27 Insulin Aspart (NovoLOG) BEFORE MEALS AND HS SUBQ 04/25/19 06:30 05/25/19 06:29 04/29/19 17:00 Losartan Potassium (Cozaar) 100 mg DAILY ORAL 04/30/19 09:00 05/30/19 08:59 04/30/19 08:27 Metformin HCl (Glucophage) 500 mg TWICE A DAY ORAL 7/1/19 09:00 05/26/19 08:59 04/30/19 08:27 Vitamin D (Vitamin D) 5,000 intlu DAILY ORAL 04/26/19 09:00 05/26/19 08:59 04/30/19 08:27 Carlos Kwan MD Apr 30, 2019 10:15
[2019-04-30] MEDS: cefTRIAXone 1 GM in D5W 55 ML IVPB SCH (11:01)
[2019-04-30] MEDS: Artificial Tears 1.4% Op Soln BOTH EYES SCH ×4 (11:01→20:32)
--- NOTE | 2019-04-30 11:12 | Cardiac Electrophysiology PN ---
Assessment/Plan Assessment/Plan 1. Chest pain, No ID. Due to underlying lung lesion Outpatient stress test when stable 2. HTN on Amlodipine, Cozaar 100 daily and HCTZ 25 daily 3. NIDDM 4. HLPD 5. Cavitary lung lesion, on resp isolation. on iv Abx 6. Anemia DW RN Subjective Subjective In respiratory isolation in NAD. Awaiting 3rd sputum. RN at bedside Objective Last 24 Hour Vital Signs Date Time Temp Pulse Resp B/P (MAP) Pulse Ox O2 Delivery O2 Flow Rate FiO2 04/30/19 09:13 Room Air 04/30/19 08:27 110/71 04/30/19 08:26 79 110/71 04/30/19 08:12 98.3 79 17 110/71 (84) 96 04/30/19 04:00 54 04/30/19 04:00 97.7 56 16 101/66 (78) 95 04/30/19 00:00 98.5 62 18 110/77 (88) 98 04/30/19 00:00 55 04/29/19 21:00 Room Air 04/29/19 20:00 98.5 61 18 106/73 (84) 96 04/29/19 20:00 57 04/29/19 16:00 64 04/29/19 16:00 98.4 64 20 132/60 (84) 95 04/29/19 12:00 48 04/29/19 12:00 98.0 56 20 116/68 (84) 98 Intake and Output 04/29/19 04/30/19 18:59 06:59 # Voids 4 Microbiology Date/Time Source Procedure Growth Status 04/28/19 06:30 Sputum AFB Specimen Processing Tissue - Final Resulted 04/28/19 06:30 Sputum Acid Fast Bacilli Smear - Final Resulted 04/28/19 06:30 Sputum Acid Fast Bacilli Culture Pending Resulted Objective General Appearance: no apparent distress HEENT: No JVD Respiratory/Chest: Coarse rhonchi Cardiovascular/Chest: normal peripheral pulses, normal rate, regular rhythm Abdomen: normal bowel sounds, non tender, soft, no organomegaly Extremities: normal range of motion, non-tender, normal inspection Matti Lakhani MD Apr 30, 2019 11:12
[2019-04-30 11:36] VITALS: BP 116/79
--- NOTE | 2019-04-30 13:28 | NUR ---
RD ASSESSMENT & RECOMMENDATIONS SEE CARE ACTIVITY FOR COMPLETE ASSESSMENT DAILY ESTIMATED NEEDS: Needs based on DM, cardiac 61.7kg 25-30 kcals/kg 9789-8931 total kcals 1-1.5 g protein/kg 62-93 g total protein Fluid per MD, on diuretics NUTRITION DIAGNOSIS: Altered nutrition related lab values r/t diabetes as evidenced by elev fasting BG (129) and POC (144, 111), pt on oral and IM hypoglycemics. CURRENT DIET: Regular PO DIET RECOMMENDATIONS-->> CCHO LOW ADDITIONAL RECOMMENDATIONS: 1) Obtain an A1C as able for eval 2) Calibrated bed scale wt 3) On diuretics, monitor lytes, need for repletion
--- NOTE | 2019-04-30 14:27 | Pulmonology Progress Note ---
Assessment/Plan Assessment/Plan Pulmonary Progress Note Assessment/Plan Problems: (1) Cavitary lesion of lung (2) Granulomatous disease (3) Chest pain (4) HTN (hypertension) (5) CAD (coronary artery disease) (6) Shingles Assessment/Plan ASSESSMENT: The patient is a 73-year-old female with a history of hypertension , hyperlipidemia, and diabetes, presenting with pleuritic chest pain in the setting of a recent respiratory illness. CT of the chest demonstrates intense bilateral reticulonodular opacities and a cavitary lesion. She is being ruled out for MTB. With respect to the etiology of her lesion, it is likely infectious/inflammatory, so the cavity has to be followed to rule out a neoplastic process. Awaiting 3rd AFB sputum PROBLEM LIST: 1. Left lower lobe cavity thin-walled, likely infectious, inflammatory. 2. Scattered bilateral reticulonodular opacities, likely an infectious bronchiolitis. 3. Pleuritic chest pain, likely secondary to above. 4. Hypertension, hyperlipidemia, diabetes. TREATMENT PLAN: 1. Optimize pulmonary hygiene/mobilize as tolerated. 2. Rule out MTB with serial AFB x3. 3. Follow up tumor markers as ordered by Dr. Kohler. 4. Follow up off infectious and inflammatory serologies. 5. The patient will require short interval follow-up and then likely a bronchoscopy and biopsy if there is a persistent cavitary lesion. Subjective Allergies: Coded Allergies: No Known Allergies (Unverified , 06/27/17) Subjective AFVSS on RA No cough no CP No FC Objective Vital Signs Noted General Appearance: WD/WN, no acute distress HEENT: normocephalic, atraumatic, anicteric, mucous membranes moist Respiratory/Chest: chest wall non-tender, lungs clear, normal breath sounds, no respiratory distress, no accessory muscle use Cardiovascular: normal peripheral pulses, normal rate, regular rhythm Abdomen: normal bowel sounds, soft, non tender, no organomegaly, non distended , no mass Extremities: no cyanosis, no clubbing, no edema Laboratory Tests 04/27/19 20:00: M. tuberculosis Complex DNA (PCR) [Pending] 04/28/19 04:35: White Blood Count 4.3L, Red Blood Count 3.57L, Hemoglobin 11.6L, Hematocrit 34.2L, Mean Corpuscular Volume 96, Mean Corpuscular Hemoglobin 32.4H, Mean Corpuscular Hemoglobin Concent 33.9, Red Cell Distribution Width 10.5L, Platelet Count 197, Mean Platelet Volume 7.4, Neutrophils (%) (Auto) 52.4, Lymphocytes (%) (Auto) 37.1, Monocytes (%) (Auto) 7.8, Eosinophils (%) (Auto) 1.4, Basophils (%) (Auto) 1.2 Current Medications Medications (Trade) Dose Ordered Sig/Darrion Route PRN Reason Start Time Stop Time Status Last Admin Dose Admin Amlodipine Besylate (Norvasc) 5 mg DAILY ORAL 04/26/19 09:00 05/26/19 08:59 04/27/19 09:27 Artificial Tears (Akwa-Tears) 2 drop FOUR TIMES A DAY BOTH EYES 04/25/19 09:00 05/25/19 08:59 04/28/19 09:38 Atorvastatin Calcium (Lipitor) 20 mg BEDTIME ORAL 04/25/19 21:00 05/25/19 20:59 04/27/19 21:08 Azithromycin (Zithromax) 250 mg DAILY ORAL 04/29/19 09:00 05/06/19 08:59 Ceftriaxone Sodium 1 gm/ Dextrose 55 ml @ 110 mls/hr Q24H IVPB 04/28/19 11:00 05/05/19 10:59 04/28/19 11:20 Dextrose (Dextrose 50%) 25 ml Q30M PRN IV Hypoglycemia 04/25/19 00:00 05/25/19 00:00 Dextrose (Dextrose 50%) 50 ml Q30M PRN IV Hypoglycemia 04/25/19 00:00 05/25/19 00:00 Enoxaparin Sodium (Lovenox) 40 mg DAILY SUBQ 04/25/19 09:00 05/25/19 08:59 04/28/19 09:37 Famotidine (Pepcid) 40 mg ACBREAKFAST ORAL 04/25/19 06:30 05/25/19 06:29 04/28/19 06:19 Fluoxetine HCl (PROzac) 40 mg DAILY ORAL 04/26/19 09:00 05/26/19 08:59 04/28/19 09:40 Glipizide (GlipiZIDE XL) 2.5 mg QPM ORAL 04/26/19 16:30 05/26/19 16:29 04/27/19 17:15 HCTZ/Losartan Potassium (Hyzaar 50-12.5) 1 tab DAILY ORAL 04/26/19 09:00 05/26/19 08:59 04/27/19 09:27 Insulin Aspart (NovoLOG) BEFORE MEALS AND HS SUBQ 04/25/19 06:30 05/25/19 06:29 04/27/19 21:06 Losartan Potassium (Cozaar) 50 mg DAILY ORAL 04/26/19 09:00 05/26/19 08:59 04/27/19 09:26 Metformin HCl (Glucophage) 500 mg TWICE A DAY ORAL 04/26/19 09:00 05/26/19 08:59 04/28/19 09:39 Vitamin D (Vitamin D) 5,000 intlu DAILY ORAL 04/26/19 09:00 05/26/19 08:59 04/28/19 09:41 Subjective ROS Limited/Unobtainable: No Allergies: Coded Allergies: No Known Allergies (Unverified , 06/27/17) Objective Last 24 Hour Vital Signs Date Time Temp Pulse Resp B/P (MAP) Pulse Ox O2 Delivery O2 Flow Rate FiO2 04/30/19 11:36 98.1 59 18 116/79 (91) 96 04/30/19 09:13 Room Air 04/30/19 08:27 110/71 04/30/19 08:26 79 110/71 04/30/19 08:12 98.3 79 17 110/71 (84) 96 04/30/19 08:00 61 04/30/19 04:00 54 04/30/19 04:00 97.7 56 16 101/66 (78) 95 04/30/19 00:00 98.5 62 18 110/77 (88) 98 04/30/19 00:00 55 04/29/19 21:00 Room Air 04/29/19 20:00 98.5 61 18 106/73 (84) 96 04/29/19 20:00 57 04/29/19 16:00 64 04/29/19 16:00 98.4 64 20 132/60 (84) 95 Intake and Output 04/29/19 04/30/19 19:00 07:00 # Voids 4 Microbiology Date/Time Source Procedure Growth Status 04/29/19 07:20 Sputum AFB Specimen Processing Tissue - Final Resulted 04/29/19 07:20 Sputum Acid Fast Bacilli Smear - Final Resulted 04/29/19 07:20 Sputum Acid Fast Bacilli Culture Pending Resulted 04/28/19 06:30 Sputum AFB Specimen Processing Tissue - Final Resulted 04/28/19 06:30 Sputum Acid Fast Bacilli Smear - Final Resulted 04/28/19 06:30 Sputum Acid Fast Bacilli Culture Pending Resulted Current Medications Medications (Trade) Dose Ordered Sig/Darrion Route PRN Reason Start Time Stop Time Status Last Admin Dose Admin Amlodipine Besylate (Norvasc) 5 mg DAILY ORAL 04/26/19 09:00 05/26/19 08:59 04/30/19 08:26 Artificial Tears (Akwa-Tears) 2 drop FOUR TIMES A DAY BOTH EYES 04/25/19 09:00 05/25/19 08:59 04/30/19 11:01 Atorvastatin Calcium (Lipitor) 20 mg BEDTIME ORAL 04/25/19 21:00 05/25/19 20:59 04/29/19 21:11 Azithromycin (Zithromax) 250 mg DAILY ORAL 04/29/19 09:00 05/06/19 08:59 04/30/19 08:27 Ceftriaxone Sodium 1 gm/ Dextrose 55 ml @ 110 mls/hr Q24H IVPB 04/28/19 11:00 05/05/19 10:59 04/30/19 11:01 Dextrose (Dextrose 50%) 25 ml Q30M PRN IV Hypoglycemia 04/25/19 00:00 05/25/19 00:00 Dextrose (Dextrose 50%) 50 ml Q30M PRN IV Hypoglycemia 04/25/19 00:00 05/25/19 00:00 Enoxaparin Sodium (Lovenox) 40 mg DAILY SUBQ 04/25/19 09:00 05/25/19 08:59 04/30/19 08:30 Famotidine (Pepcid) 40 mg ACBREAKFAST ORAL 04/25/19 06:30 05/25/19 06:29 04/30/19 05:42 Fluoxetine HCl (PROzac) 40 mg DAILY ORAL 04/26/19 09:00 05/26/19 08:59 04/30/19 08:27 Glipizide (GlipiZIDE XL) 2.5 mg QPM ORAL 04/26/19 16:30 05/26/19 16:29 04/29/19 16:50 Hydrochlorothiazide (Hydrodiuril) 25 mg DAILY ORAL 04/30/19 09:00 05/30/19 08:59 04/30/19 08:27 Insulin Aspart (NovoLOG) BEFORE MEALS AND HS SUBQ 04/25/19 06:30 05/25/19 06:29 04/30/19 11:09 Losartan Potassium (Cozaar) 100 mg DAILY ORAL 04/30/19 09:00 05/30/19 08:59 04/30/19 08:27 Metformin HCl (Glucophage) 500 mg TWICE A DAY ORAL 04/26/19 09:00 05/26/19 08:59 04/30/19 08:27 Vitamin D (Vitamin D) 5,000 intlu DAILY ORAL 04/26/19 09:00 05/26/19 08:59 04/30/19 08:27 Patrick Armas MD Apr 30, 2019 14:27
[2019-04-30 16:26] VITALS: BP 110/81
--- NOTE | 2019-04-30 19:09 | NUR ---
HAND-OFF: Report given to [place] SONG.
--- NOTE | 2019-04-30 19:15 | NUR ---
NURSE NOTES: Pt received from NOHEMI Crespo alert and oriented x4, primarily Danish-speaking with no acute s/s of distress noted. Sitting up in bed, watching TV calm and comfortable. IV site on R ac 20g and L wrist 20g, saline lock, asymptomatic and patent, dressing dry and intact. Bed in lowest position, call light and belongings within reach. quality assurance monitor chassis on - Sinus Rhythm (61).
[2019-04-30 20:00] VITALS: BP 113/70
[2019-04-30] MEDS: Atorvastatin 20mg tab ORAL SCH (20:33)
--- NOTE | 2019-04-30 22:45 | General Progress Note ---
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 SNOMED: 032564106 (3) HTN (hypertension) ICD Codes: I10 - Essential (primary) hypertension SNOMED: 41826419 (4) CAD (coronary artery disease) ICD Codes: I25.10 - Atherosclerotic heart disease of [place] coronary artery without angina pectoris SNOMED: 79004439 Status: stable, progressing Assessment/Plan: h/o of Tb still coughing no wheezing no fever on isolation needs 3 neg AFB HTN might need to induce sputum for afb Subjective Allergies: Coded Allergies: No Known Allergies (Unverified , 06/27/17) Subjective cough Objective Last 24 Hour Vital Signs Date Time Temp Pulse Resp B/P (MAP) Pulse Ox O2 Delivery O2 Flow Rate FiO2 04/30/19 21:00 Room Air 04/30/19 20:00 98.6 92 19 113/70 (84) 100 04/30/19 20:00 92 04/30/19 16:26 97.5 59 18 110/81 (91) 96 04/30/19 11:36 98.1 59 18 116/79 (91) 96 04/30/19 09:13 Room Air 04/30/19 08:27 110/71 04/30/19 08:26 79 110/71 04/30/19 08:12 98.3 79 17 110/71 (84) 96 04/30/19 08:00 61 04/30/19 04:00 54 04/30/19 04:00 97.7 56 16 101/66 (78) 95 04/30/19 00:00 98.5 62 18 110/77 (88) 98 04/30/19 00:00 55 Intake and Output 04/29/19 04/30/19 19:00 07:00 # Voids 4 Height (Feet): 5 Height (Inches): 2.00 Weight (Pounds): 136 General Appearance: confused Cardiovascular: normal rate Respiratory/Chest: normal breath sounds Paula Nixon MD Apr 30, 2019 22:45
[2019-05-01] VITALS: BP 108/73
--- NOTE | 2019-05-01 00:15 | Progress Note ---
DATE: 04/30/2019 SUBJECTIVE: The patient is presented with depressed mood, anhedonia, low energy, and worthlessness. The patient is concerned about her current medical condition. MENTAL STATUS EXAMINATION: The patient is alert and oriented times self, place, and situation. Mood is dysphoric. Affect is constricted. Congruent with mood. Thought process is concrete. Thought content, no suicidal or homicidal ideation. ASSESSMENT: Stable. PLAN: 1. We will continue current medications. 2. Provide the patient with reality orientation and supportive therapy. Yamel Howard M.D. DR: NAYELY JOB#: [id number] CC:
[2019-05-01 04:00] VITALS: BP 103/63
[2019-05-01] MEDS: NovoLOG Insulin Flexpen SUBQ SCH ×4 (06:09→21:00)
--- NOTE | 2019-05-01 07:15 | NUR ---
HAND-OFF: Report given to NOHEMI Yuan. No acute s/s of distress noted.
--- NOTE | 2019-05-01 07:46 | NUR ---
NURSE NOTES: Report received from NOHEMI Calvin. Pt is lying comfortably in semi-fowlers with no signs of distress. A+Ox4, denies pain/SOB. Respirations are even and unlabored on room air. IV sites are patent, intact, and saline locked. Airborne precautions in place. Bed is at lowest position, brakes engaged, siderails x2, bed alarm on, and call light within reach. Pt is in stable condition; will continue to monitor.
[2019-05-01 08:00] VITALS: BP 104/74
[2019-05-01] MEDS: Losartan 50mg tab ORAL SCH (08:19)
[2019-05-01] MEDS: Azithromycin 250mg tab ORAL SCH (08:24)
[2019-05-01] MEDS: Vitamin D 1000 IU Tab ORAL SCH (08:24)
[2019-05-01] MEDS: metFORMIN 500mg tab ORAL SCH ×2 (08:25→18:25)
[2019-05-01] MEDS: Enoxaparin 40mg Inj SUBQ SCH (08:26)
[2019-05-01] MEDS: Artificial Tears 1.4% Op Soln BOTH EYES SCH ×4 (08:26→21:16)
--- NOTE | 2019-05-01 10:49 | Hematology/Onc Progress Note ---
Assessment/Plan Assessment/Plan LATE ENTRY 04/30/2019 Assessment and Recs: # Cavitary lesion of lung on imaging --> per pulm recs --> r.o inflammatory cause --> montior for resolution # Anemia of chronic disease due to underlying chronic medical issues, multifactorial --> Anemia workup has been reviewed. Ferritin 133 --> No evidence of hemolysis is noted, peripheral smear has been reviewed. --> Hgb goal >7. Transfuse prn. --> Epogen or iron at this time is not particularly indicated --> Medications have been reviewed --> Hgb trend: 11.5 # Chest pain r/o acs v inflammatory disease of lung, bronchitis, CT imaging of the chest was ordered which showed calcified mediastinal and hilar lymph nodes as well as mild cardiomegaly without pericardial effusion. There is some fluid impacting some of the left lower lobe bronchi posterior medially no pulmonary embolism or aortic aneurysm or dissection was seen.Patient given IV antibiotics. --> as per cards recs --> trop and ekg x 2 ordered --> nitrog prn --> tumor markers negative --> outpatient stress test # Granulomatous disease # HTN. sbp goal <140 The time the noted was written does not necessarily correspond to the time the patient was seen,. Subjective Allergies: Coded Allergies: No Known Allergies (Unverified , 06/27/17) Subjective Subjective 04/26: Pt is sitting in bed and having breakfast. No c/o pain. Labs reviewed. 04/27: no events, cp is better, seen by pulm, cards 04/28: no fevers or chills, no night sweats noted 04/30: Pt on [place] isolation, cough better with cough syrup. Objective Objective Current Medications Medications (Trade) Dose Ordered Sig/Darrion Route PRN Reason Start Time Stop Time Status Last Admin Dose Admin Amlodipine Besylate (Norvasc) 5 mg DAILY ORAL 04/26/19 09:00 05/26/19 08:59 04/30/19 08:26 Artificial Tears (Akwa-Tears) 2 drop FOUR TIMES A DAY BOTH EYES 04/25/19 09:00 05/25/19 08:59 05/01/19 08:26 Atorvastatin Calcium (Lipitor) 20 mg BEDTIME ORAL 04/25/19 21:00 05/25/19 20:59 04/30/19 20:33 Azithromycin (Zithromax) 250 mg DAILY ORAL 04/29/19 09:00 05/06/19 08:59 05/01/19 08:24 Ceftriaxone Sodium 1 gm/ Dextrose 55 ml @ 110 mls/hr Q24H IVPB 04/28/19 11:00 05/05/19 10:59 04/30/19 11:01 Dextrose (Dextrose 50%) 25 ml Q30M PRN IV Hypoglycemia 04/25/19 00:00 05/25/19 00:00 Dextrose (Dextrose 50%) 50 ml Q30M PRN IV Hypoglycemia 04/25/19 00:00 05/25/19 00:00 Enoxaparin Sodium (Lovenox) 40 mg DAILY SUBQ 04/25/19 09:00 05/25/19 08:59 05/01/19 08:26 Famotidine (Pepcid) 40 mg ACBREAKFAST ORAL 04/25/19 06:30 05/25/19 06:29 05/01/19 06:07 Fluoxetine HCl (PROzac) 40 mg DAILY ORAL 04/26/19 09:00 05/26/19 08:59 05/01/19 08:24 Glipizide (GlipiZIDE XL) 2.5 mg QPM ORAL 04/26/19 16:30 05/26/19 16:29 04/30/19 16:08 Hydrochlorothiazide (Hydrodiuril) 25 mg DAILY ORAL 04/30/19 09:00 05/30/19 08:59 04/30/19 08:27 Insulin Aspart (NovoLOG) BEFORE MEALS AND HS SUBQ 04/25/19 06:30 05/25/19 06:29 04/30/19 20:36 Losartan Potassium (Cozaar) 100 mg DAILY ORAL 04/30/19 09:00 05/30/19 08:59 04/30/19 08:27 Metformin HCl (Glucophage) 500 mg TWICE A DAY ORAL 04/26/19 09:00 05/26/19 08:59 05/01/19 08:25 Vitamin D (Vitamin D) 5,000 intlu DAILY ORAL 04/26/19 09:00 05/26/19 08:59 05/01/19 08:24 Last 24 Hour Vital Signs Date Time Temp Pulse Resp B/P (MAP) Pulse Ox O2 Delivery O2 Flow Rate FiO2 05/01/19 09:00 Room Air 05/01/19 08:21 63 104/74 05/01/19 08:19 104/74 05/01/19 08:00 98.8 63 18 104/74 (84) 99 05/01/19 08:00 60 05/01/19 04:00 98.0 68 19 103/63 (76) 97 05/01/19 04:00 57 05/01/19 00:00 59 05/01/19 00:00 98.5 59 20 108/73 (85) 95 04/30/19 21:00 Room Air 04/30/19 20:00 98.6 92 19 113/70 (84) 100 04/30/19 20:00 92 04/30/19 16:26 97.5 59 18 110/81 (91) 96 04/30/19 11:36 98.1 59 18 116/79 (91) 96 04/30/19 09:13 Room Air 04/30/19 08:27 110/71 04/30/19 08:26 79 110/71 04/30/19 08:12 98.3 79 17 110/71 (84) 96 04/30/19 08:00 61 04/30/19 04:00 54 04/30/19 04:00 97.7 56 16 101/66 (78) 95 04/30/19 00:00 98.5 62 18 110/77 (88) 98 04/30/19 00:00 55 04/29/19 21:00 Room Air 04/29/19 20:00 98.5 61 18 106/73 (84) 96 04/29/19 20:00 57 04/29/19 16:00 64 04/29/19 16:00 98.4 64 20 132/60 (84) 95 04/29/19 12:00 48 04/29/19 12:00 98.0 56 20 116/68 (84) 98 Intake and Output 04/30/19 05/01/19 19:00 07:00 Intake Total 590 ml Balance 590 ml Other 590 ml # Voids 3 # Bowel Movements 1 Height (Feet): 5 Height (Inches): 2.00 Weight (Pounds): 136 Objective Objective PHYSICAL EXAM General Appearance: normal inspection, well appearing, no apparent distress, alert, GCS 15 Head: atraumatic ENT: normal ENT inspection, hearing grossly normal, normal voice Neck: normal inspection, full range of motion, supple, no bony tend Respiratory: normal inspection, lungs clear, normal breath sounds, no respiratory distress, no retraction, no wheezing Cardiovascular: regular rate, rhythm, no edema Gastrointestinal: normal inspection, normal bowel sounds, non tender, soft, no guarding, no hernia Genitourinary: no CVA tenderness Musculoskeletal: normal inspection, back normal, normal range of motion Neurologic: normal inspection, alert, oriented x3, responsive, master at arms III-XII nml as tested, speech normal Psychiatric: normal inspection, judgement/insight normal, mood/affect normal Melania Boyd NP May 01, 2019 10:49
[2019-05-01] MEDS: cefTRIAXone 1 GM in D5W 55 ML IVPB SCH (11:04)
[2019-05-01 12:00] VITALS: BP 99/60
--- NOTE | 2019-05-01 12:13 | Infectious Diseases Prog Note ---
Assessment/Plan Assessment/Plan IMPRESSION: Pneumonia. Lung cavity, will try to rule out TB of lung. Diabetes mellitus, Hypertension, Major depression, History of asthma. RECOMMENDATION: Continue Zithromax and Rocephin. AFB smear X 2: negative TST: negative Subjective ROS Limited/Unobtainable: Yes Constitutional: Reports: no symptoms Respiratory: Reports: no symptoms Allergies: Coded Allergies: No Known Allergies (Unverified , 06/27/17) Objective Vital Signs Last 24 Hour Vital Signs Date Time Temp Pulse Resp B/P (MAP) Pulse Ox O2 Delivery O2 Flow Rate FiO2 05/01/19 09:00 Room Air 05/01/19 08:21 63 104/74 05/01/19 08:19 104/74 05/01/19 08:00 98.8 63 18 104/74 (84) 99 05/01/19 08:00 60 05/01/19 04:00 98.0 68 19 103/63 (76) 97 05/01/19 04:00 57 05/01/19 00:00 59 05/01/19 00:00 98.5 59 20 108/73 (85) 95 04/30/19 21:00 Room Air 04/30/19 20:00 98.6 92 19 113/70 (84) 100 04/30/19 20:00 92 04/30/19 16:26 97.5 59 18 110/81 (91) 96 Height (Feet): 5 Height (Inches): 2.00 Weight (Pounds): 136 General Appearance: no acute distress HEENT: mucous membranes moist Respiratory/Chest: lungs clear Cardiovascular: normal rate Abdomen: soft, non tender Extremities: no edema Neurologic/Psychiatric: alert, oriented x 3, responsive Microbiology Date/Time Source Procedure Growth Status 04/29/19 07:20 Sputum AFB Specimen Processing Tissue - Final Resulted 04/29/19 07:20 Sputum Acid Fast Bacilli Smear - Final Resulted 04/29/19 07:20 Sputum Acid Fast Bacilli Culture Pending Resulted Current Medications Medications (Trade) Dose Ordered Sig/Darrion Route PRN Reason Start Time Stop Time Status Last Admin Dose Admin Amlodipine Besylate (Norvasc) 5 mg DAILY ORAL 04/26/19 09:00 05/26/19 08:59 04/30/19 08:26 Artificial Tears (Akwa-Tears) 2 drop FOUR TIMES A DAY BOTH EYES 04/25/19 09:00 05/25/19 08:59 05/01/19 08:26 Atorvastatin Calcium (Lipitor) 20 mg BEDTIME ORAL 04/25/19 21:00 05/25/19 20:59 04/30/19 20:33 Azithromycin (Zithromax) 250 mg DAILY ORAL 04/29/19 09:00 05/06/19 08:59 05/01/19 08:24 Ceftriaxone Sodium 1 gm/ Dextrose 55 ml @ 110 mls/hr Q24H IVPB 04/28/19 11:00 05/05/19 10:59 05/01/19 11:04 Dextrose (Dextrose 50%) 25 ml Q30M PRN IV Hypoglycemia 04/25/19 00:00 05/25/19 00:00 Dextrose (Dextrose 50%) 50 ml Q30M PRN IV Hypoglycemia 04/25/19 00:00 05/25/19 00:00 Enoxaparin Sodium (Lovenox) 40 mg DAILY SUBQ 04/25/19 09:00 05/25/19 08:59 05/01/19 08:26 Famotidine (Pepcid) 40 mg ACBREAKFAST ORAL 04/25/19 06:30 05/25/19 06:29 05/01/19 06:07 Fluoxetine HCl (PROzac) 40 mg DAILY ORAL 04/26/19 09:00 05/26/19 08:59 05/01/19 08:24 Glipizide (GlipiZIDE XL) 2.5 mg QPM ORAL 04/26/19 16:30 05/26/19 16:29 04/30/19 16:08 Hydrochlorothiazide (Hydrodiuril) 25 mg DAILY ORAL 04/30/19 09:00 05/30/19 08:59 04/30/19 08:27 Insulin Aspart (NovoLOG) BEFORE MEALS AND HS SUBQ 04/25/19 06:30 05/25/19 06:29 04/30/19 20:36 Losartan Potassium (Cozaar) 100 mg DAILY ORAL 04/30/19 09:00 05/30/19 08:59 04/30/19 08:27 Metformin HCl (Glucophage) 500 mg TWICE A DAY ORAL 04/26/19 09:00 05/26/19 08:59 05/01/19 08:25 Vitamin D (Vitamin D) 5,000 intlu DAILY ORAL 04/26/19 09:00 05/26/19 08:59 05/01/19 08:24 Carlos Kwan MD May 01, 2019 12:13
--- NOTE | 2019-05-01 14:18 | NUR ---
NURSE NOTES: Acid fast TB test came back positive abnormal. Left message with Dr. Nixon; awaiting response.
--- NOTE | 2019-05-01 14:36 | Cardiac Electrophysiology PN ---
Assessment/Plan Assessment/Plan 1. Chest pain, No KS. Due to underlying lung lesion Outpatient stress test when stable 2. HTN on Amlodipine, Cozaar 100 daily and HCTZ 25 daily 3. NIDDM 4. HLPD 5. Cavitary lung lesion, on resp isolation. AFB came back positive today! on iv Abx. Anti TB meds per Dr Kwan 6. Anemia DW RN Subjective Subjective In respiratory isolation in NAD.AFB just came back positive . RN at bedside Objective Last 24 Hour Vital Signs Date Time Temp Pulse Resp B/P (MAP) Pulse Ox O2 Delivery O2 Flow Rate FiO2 05/01/19 12:00 98.0 60 18 99/60 (73) 99 05/01/19 12:00 59 05/01/19 09:00 Room Air 05/01/19 08:21 63 104/74 05/01/19 08:19 104/74 05/01/19 08:00 98.8 63 18 104/74 (84) 99 05/01/19 08:00 60 05/01/19 04:00 98.0 68 19 103/63 (76) 97 05/01/19 04:00 57 05/01/19 00:00 59 05/01/19 00:00 98.5 59 20 108/73 (85) 95 04/30/19 21:00 Room Air 04/30/19 20:00 98.6 92 19 113/70 (84) 100 04/30/19 20:00 92 04/30/19 16:26 97.5 59 18 110/81 (91) 96 Intake and Output 04/30/19 05/01/19 18:59 06:59 Intake Total 590 ml Balance 590 ml Other 590 ml # Voids 3 # Bowel Movements 1 Microbiology Date/Time Source Procedure Growth Status 04/30/19 10:00 Sputum AFB Specimen Processing Tissue - Final Resulted 04/30/19 10:00 Sputum Acid Fast Bacilli Smear - Final Resulted 04/30/19 10:00 Sputum Acid Fast Bacilli Culture Pending Resulted 04/29/19 07:20 Sputum AFB Specimen Processing Tissue - Final Resulted 04/29/19 07:20 Sputum Acid Fast Bacilli Smear - Final Resulted 04/29/19 07:20 Sputum Acid Fast Bacilli Culture Pending Resulted Objective General Appearance: no apparent distress HEENT: No JVD Respiratory/Chest: Coarse rhonchi Cardiovascular/Chest: normal peripheral pulses, normal rate, regular rhythm Abdomen: normal bowel sounds, non tender, soft, no organomegaly Extremities: normal range of motion, non-tender, normal inspection Matti Lakhani MD May 01, 2019 14:36
--- NOTE | 2019-05-01 15:10 | NUR ---
NURSE NOTES: Made Dr. Marcio Kwan aware of TB acid fast results. He ordered TB regimen: Isoniazid, Rifampin, Ethambutol, Pyrazinamide. He said to speak with the pharmacist regarding dosage of each. Spoke with pharmacist and will order doses per pharmacist recommendation.
--- NOTE | 2019-05-01 15:43 | General Progress Note ---
Assessment/Plan Problem List: (1) Cavitary lesion of lung ICD Codes: J98.4 - Other disorders of lung SNOMED: 219339347 (2) Granulomatous disease ICD Codes: D71 - Functional disorders of polymorphonuclear neutrophils SNOMED: 377389332 (3) HTN (hypertension) ICD Codes: I10 - Essential (primary) hypertension SNOMED: 01710020 (4) CAD (coronary artery disease) ICD Codes: I25.10 - Atherosclerotic heart disease of [place] coronary artery without angina pectoris SNOMED: 14090532 Status: stable, progressing Assessment/Plan: h/o of Tb reviewed chart and labs no fever on isolation needs 3 neg AFB Subjective ROS Limited/Unobtainable: Yes Allergies: Coded Allergies: No Known Allergies (Unverified , 06/27/17) Subjective cough Objective Last 24 Hour Vital Signs Date Time Temp Pulse Resp B/P (MAP) Pulse Ox O2 Delivery O2 Flow Rate FiO2 05/01/19 12:00 98.0 60 18 99/60 (73) 99 05/01/19 12:00 59 05/01/19 09:00 Room Air 05/01/19 08:21 63 104/74 05/01/19 08:19 104/74 05/01/19 08:00 98.8 63 18 104/74 (84) 99 05/01/19 08:00 60 05/01/19 04:00 98.0 68 19 103/63 (76) 97 05/01/19 04:00 57 05/01/19 00:00 59 05/01/19 00:00 98.5 59 20 108/73 (85) 95 04/30/19 21:00 Room Air 04/30/19 20:00 98.6 92 19 113/70 (84) 100 04/30/19 20:00 92 04/30/19 16:26 97.5 59 18 110/81 (91) 96 Intake and Output 04/30/19 05/01/19 18:59 06:59 Intake Total 590 ml Balance 590 ml Other 590 ml # Voids 3 # Bowel Movements 1 Height (Feet): 5 Height (Inches): 2.00 Weight (Pounds): 136 Cardiovascular: normal rate Respiratory/Chest: lungs clear Abdomen: soft Paula Nixon MD May 01, 2019 15:43
[2019-05-01 16:00] VITALS: BP 104/63
[2019-05-01] MEDS: Isoniazid 300mg tab ORAL SCH (16:10)
--- NOTE | 2019-05-01 18:06 | Pulmonology Progress Note ---
Assessment/Plan Assessment/Plan Pulmonary Progress Note Assessment/Plan Problems: (1) Cavitary lesion of lung (2) Granulomatous disease (3) Chest pain (4) HTN (hypertension) (5) CAD (coronary artery disease) (6) Shingles Assessment/Plan ASSESSMENT: The patient is a 73-year-old female with a history of hypertension , hyperlipidemia, and diabetes, presenting with pleuritic chest pain in the setting of a recent respiratory illness. CT of the chest demonstrates intense bilateral reticulonodular opacities and a cavitary lesion. She is being ruled out for MTB. With respect to the etiology of her lesion, it is likely infectious/inflammatory, so the cavity has to be followed to rule out a neoplastic process. Awaiting 3rd AFB sputum PROBLEM LIST: 1. Left lower lobe cavity thin-walled, likely infectious, inflammatory. 2. Scattered bilateral reticulonodular opacities, likely an infectious bronchiolitis. 3. Pleuritic chest pain, likely secondary to above. 4. Hypertension, hyperlipidemia, diabetes. TREATMENT PLAN: 1. Optimize pulmonary hygiene/mobilize as tolerated. 2. Rule out MTB with serial AFB x3. 3. Follow up tumor markers as ordered by Dr. Kohler. 4. Follow up off infectious and inflammatory serologies. 5. The patient will require short interval follow-up and then likely a bronchoscopy and biopsy if there is a persistent cavitary lesion. Subjective Allergies: Coded Allergies: No Known Allergies (Unverified , 06/27/17) Subjective AFVSS on RA No cough no CP No FC Objective Vital Signs Noted General Appearance: WD/WN, no acute distress HEENT: normocephalic, atraumatic, anicteric, mucous membranes moist Respiratory/Chest: chest wall non-tender, lungs clear, normal breath sounds, no respiratory distress, no accessory muscle use Cardiovascular: normal peripheral pulses, normal rate, regular rhythm Abdomen: normal bowel sounds, soft, non tender, no organomegaly, non distended , no mass Extremities: no cyanosis, no clubbing, no edema Laboratory Tests 04/27/19 20:00: M. tuberculosis Complex DNA (PCR) [Pending] 04/28/19 04:35: White Blood Count 4.3L, Red Blood Count 3.57L, Hemoglobin 11.6L, Hematocrit 34.2L, Mean Corpuscular Volume 96, Mean Corpuscular Hemoglobin 32.4H, Mean Corpuscular Hemoglobin Concent 33.9, Red Cell Distribution Width 10.5L, Platelet Count 197, Mean Platelet Volume 7.4, Neutrophils (%) (Auto) 52.4, Lymphocytes (%) (Auto) 37.1, Monocytes (%) (Auto) 7.8, Eosinophils (%) (Auto) 1.4, Basophils (%) (Auto) 1.2 Current Medications Medications (Trade) Dose Ordered Sig/Darrion Route PRN Reason Start Time Stop Time Status Last Admin Dose Admin Amlodipine Besylate (Norvasc) 5 mg DAILY ORAL 04/26/19 09:00 05/26/19 08:59 04/27/19 09:27 Artificial Tears (Akwa-Tears) 2 drop FOUR TIMES A DAY BOTH EYES 04/25/19 09:00 05/25/19 08:59 04/28/19 09:38 Atorvastatin Calcium (Lipitor) 20 mg BEDTIME ORAL 04/25/19 21:00 05/25/19 20:59 04/27/19 21:08 Azithromycin (Zithromax) 250 mg DAILY ORAL 04/29/19 09:00 05/06/19 08:59 Ceftriaxone Sodium 1 gm/ Dextrose 55 ml @ 110 mls/hr Q24H IVPB 04/28/19 11:00 05/05/19 10:59 04/28/19 11:20 Dextrose (Dextrose 50%) 25 ml Q30M PRN IV Hypoglycemia 04/25/19 00:00 05/25/19 00:00 Dextrose (Dextrose 50%) 50 ml Q30M PRN IV Hypoglycemia 04/25/19 00:00 05/25/19 00:00 Enoxaparin Sodium (Lovenox) 40 mg DAILY SUBQ 04/25/19 09:00 05/25/19 08:59 04/28/19 09:37 Famotidine (Pepcid) 40 mg ACBREAKFAST ORAL 04/25/19 06:30 05/25/19 06:29 04/28/19 06:19 Fluoxetine HCl (PROzac) 40 mg DAILY ORAL 04/26/19 09:00 05/26/19 08:59 04/28/19 09:40 Glipizide (GlipiZIDE XL) 2.5 mg QPM ORAL 04/26/19 16:30 05/26/19 16:29 04/27/19 17:15 HCTZ/Losartan Potassium (Hyzaar 50-12.5) 1 tab DAILY ORAL 04/26/19 09:00 05/26/19 08:59 04/27/19 09:27 Insulin Aspart (NovoLOG) BEFORE MEALS AND HS SUBQ 04/25/19 06:30 05/25/19 06:29 04/27/19 21:06 Losartan Potassium (Cozaar) 50 mg DAILY ORAL 04/26/19 09:00 05/26/19 08:59 04/27/19 09:26 Metformin HCl (Glucophage) 500 mg TWICE A DAY ORAL 04/26/19 09:00 05/26/19 08:59 04/28/19 09:39 Vitamin D (Vitamin D) 5,000 intlu DAILY ORAL 04/26/19 09:00 05/26/19 08:59 04/28/19 09:41 CT Chest: IMPRESSION: 1. No pulmonary embolus identified. 2. No aortic aneurysm or dissection. 3. Reticulonodular densities and patchy consolidations in the posteromedial left upper lobe. Reticulonodular densities in the right upper lobe and adjacent to the cavitation/cystic change in the left lower lobe. Cavitation/cystic changes in the left lower lobe with mild wall thickening and trace fluid in the cavitations. Findings are concerning for an infectious/inflammatory process. Subjective ROS Limited/Unobtainable: No Allergies: Coded Allergies: No Known Allergies (Unverified , 06/27/17) Objective Last 24 Hour Vital Signs Date Time Temp Pulse Resp B/P (MAP) Pulse Ox O2 Delivery O2 Flow Rate FiO2 05/01/19 16:00 98.1 66 18 104/63 (77) 99 05/01/19 16:00 65 05/01/19 12:00 98.0 60 18 99/60 (73) 99 05/01/19 12:00 59 05/01/19 09:00 Room Air 05/01/19 08:21 63 104/74 05/01/19 08:19 104/74 05/01/19 08:00 98.8 63 18 104/74 (84) 99 05/01/19 08:00 60 05/01/19 04:00 98.0 68 19 103/63 (76) 97 05/01/19 04:00 57 05/01/19 00:00 59 05/01/19 00:00 98.5 59 20 108/73 (85) 95 04/30/19 21:00 Room Air 04/30/19 20:00 98.6 92 19 113/70 (84) 100 04/30/19 20:00 92 Intake and Output 04/30/19 05/01/19 19:00 07:00 Intake Total 590 ml Balance 590 ml Other 590 ml # Voids 3 # Bowel Movements 1 Microbiology Date/Time Source Procedure Growth Status 04/30/19 10:00 Sputum AFB Specimen Processing Tissue - Final Resulted 04/30/19 10:00 Sputum Acid Fast Bacilli Smear - Final Resulted 04/30/19 10:00 Sputum Acid Fast Bacilli Culture Pending Resulted 04/29/19 07:20 Sputum AFB Specimen Processing Tissue - Final Resulted 04/29/19 07:20 Sputum Acid Fast Bacilli Smear - Final Resulted 04/29/19 07:20 Sputum Acid Fast Bacilli Culture Pending Resulted Current Medications Medications (Trade) Dose Ordered Sig/Darrion Route PRN Reason Start Time Stop Time Status Last Admin Dose Admin Amlodipine Besylate (Norvasc) 5 mg DAILY ORAL 04/26/19 09:00 05/26/19 08:59 04/30/19 08:26 Artificial Tears (Akwa-Tears) 2 drop FOUR TIMES A DAY BOTH EYES 04/25/19 09:00 05/25/19 08:59 05/01/19 08:26 Atorvastatin Calcium (Lipitor) 20 mg BEDTIME ORAL 04/25/19 21:00 05/25/19 20:59 04/30/19 20:33 Azithromycin (Zithromax) 250 mg DAILY ORAL 04/29/19 09:00 05/06/19 08:59 05/01/19 08:24 Ceftriaxone Sodium 1 gm/ Dextrose 55 ml @ 110 mls/hr Q24H IVPB 04/28/19 11:00 05/05/19 10:59 05/01/19 11:04 Dextrose (Dextrose 50%) 25 ml Q30M PRN IV Hypoglycemia 04/25/19 00:00 05/25/19 00:00 Dextrose (Dextrose 50%) 50 ml Q30M PRN IV Hypoglycemia 04/25/19 00:00 05/25/19 00:00 Enoxaparin Sodium (Lovenox) 40 mg DAILY SUBQ 04/25/19 09:00 05/25/19 08:59 05/01/19 08:26 Ethambutol HCl (Myambutol) 800 mg DAILY ORAL 05/01/19 15:30 05/31/19 15:29 05/01/19 16:10 Famotidine (Pepcid) 40 mg ACBREAKFAST ORAL 04/25/19 06:30 05/25/19 06:29 05/01/19 06:07 Fluoxetine HCl (PROzac) 40 mg DAILY ORAL 04/26/19 09:00 05/26/19 08:59 05/01/19 08:24 Glipizide (GlipiZIDE XL) 2.5 mg QPM ORAL 04/26/19 16:30 05/26/19 16:29 05/01/19 16:09 Hydrochlorothiazide (Hydrodiuril) 25 mg DAILY ORAL 04/30/19 09:00 05/30/19 08:59 04/30/19 08:27 Insulin Aspart (NovoLOG) BEFORE MEALS AND HS SUBQ 04/25/19 06:30 05/25/19 06:29 05/01/19 16:11 Isoniazid (Inh) 300 mg DAILY ORAL 05/01/19 15:30 05/31/19 15:29 05/01/19 16:10 Losartan Potassium (Cozaar) 100 mg DAILY ORAL 04/30/19 09:00 05/30/19 08:59 04/30/19 08:27 Metformin HCl (Glucophage) 500 mg TWICE A DAY ORAL 04/26/19 09:00 05/26/19 08:59 05/01/19 08:25 Pyrazinamide (Pza) 1,000 mg DAILY ORAL 05/01/19 15:30 05/31/19 15:29 05/01/19 16:10 Rifampin (Rifadin) 600 mg DAILY ORAL 05/01/19 15:30 05/31/19 15:29 05/01/19 16:10 Vitamin D (Vitamin D) 5,000 intlu DAILY ORAL 04/26/19 09:00 05/26/19 08:59 05/01/19 08:24 Patrick Armas MD May 01, 2019 18:06
--- NOTE | 2019-05-01 19:11 | NUR ---
HAND-OFF: Report given to My, RN. Patient is in stable condition, no sign of SOB or distress.
--- NOTE | 2019-05-01 19:15 | NUR ---
NURSE NOTES: Received pt and report from NOHEMI Yuan. Observed pt resting in bed with both eyes open. Pt is A/Ox4. Pt is on airborne precaution. fleet mechanic is in placed, IV site intact, asymptomatic, and patent. Bed is in the lowest position and locked. Call light within reach. No signs/symptoms of acute distress noted at this time. Will continue of plan of care.
--- NOTE | 2019-05-01 19:41 | Hematology/Onc Progress Note ---
Assessment/Plan Assessment/Plan Assessment and Recs: # Cavitary lesion of lung on imaging --> per pulm recs --> r.o inflammatory cause --> montior for resolution # Anemia of chronic disease due to underlying chronic medical issues, multifactorial --> Anemia workup has been reviewed. Ferritin 133 --> No evidence of hemolysis is noted, peripheral smear has been reviewed. --> Hgb goal >7. Transfuse prn. --> Epogen or iron at this time is not particularly indicated --> Medications have been reviewed --> Hgb trend: 11.5 # Chest pain r/o acs v inflammatory disease of lung, bronchitis, CT imaging of the chest was ordered which showed calcified mediastinal and hilar lymph nodes as well as mild cardiomegaly without pericardial effusion. There is some fluid impacting some of the left lower lobe bronchi posterior medially no pulmonary embolism or aortic aneurysm or dissection was seen.Patient given IV antibiotics. --> as per cards recs --> trop and ekg x 2 ordered --> nitrog prn --> tumor markers negative --> outpatient stress test # Granulomatous disease # HTN. sbp goal <140 The time the noted was written does not necessarily correspond to the time the patient was seen,. Subjective Allergies: Coded Allergies: No Known Allergies (Unverified , 06/27/17) Subjective Subjective 04/26: Pt is sitting in bed and having breakfast. No c/o pain. Labs reviewed. 04/27: no events, cp is better, seen by pulm, cards 04/28: no fevers or chills, no night sweats noted 04/30: Pt on airbourne isolation, cough better with cough syrup. 05/01: no acute events, no bleeding reported. Objective Objective Current Medications Medications (Trade) Dose Ordered Sig/Darrion Route PRN Reason Start Time Stop Time Status Last Admin Dose Admin Amlodipine Besylate (Norvasc) 5 mg DAILY ORAL 04/26/19 09:00 05/26/19 08:59 04/30/19 08:26 Artificial Tears (Akwa-Tears) 2 drop FOUR TIMES A DAY BOTH EYES 04/25/19 09:00 05/25/19 08:59 05/01/19 18:25 Atorvastatin Calcium (Lipitor) 20 mg BEDTIME ORAL 04/25/19 21:00 05/25/19 20:59 04/30/19 20:33 Azithromycin (Zithromax) 250 mg DAILY ORAL 04/29/19 09:00 05/06/19 08:59 05/01/19 08:24 Ceftriaxone Sodium 1 gm/ Dextrose 55 ml @ 110 mls/hr Q24H IVPB 04/28/19 11:00 05/05/19 10:59 05/01/19 11:04 Dextrose (Dextrose 50%) 25 ml Q30M PRN IV Hypoglycemia 04/25/19 00:00 05/25/19 00:00 Dextrose (Dextrose 50%) 50 ml Q30M PRN IV Hypoglycemia 04/25/19 00:00 05/25/19 00:00 Enoxaparin Sodium (Lovenox) 40 mg DAILY SUBQ 04/25/19 09:00 05/25/19 08:59 05/01/19 08:26 Ethambutol HCl (Myambutol) 800 mg DAILY ORAL 05/01/19 15:30 05/31/19 15:29 05/01/19 16:10 Famotidine (Pepcid) 40 mg ACBREAKFAST ORAL 04/25/19 06:30 05/25/19 06:29 05/01/19 06:07 Fluoxetine HCl (PROzac) 40 mg DAILY ORAL 04/26/19 09:00 05/26/19 08:59 05/01/19 08:24 Glipizide (GlipiZIDE XL) 2.5 mg QPM ORAL 04/26/19 16:30 05/26/19 16:29 05/01/19 16:09 Hydrochlorothiazide (Hydrodiuril) 25 mg DAILY ORAL 04/30/19 09:00 05/30/19 08:59 04/30/19 08:27 Insulin Aspart (NovoLOG) BEFORE MEALS AND HS SUBQ 04/25/19 06:30 05/25/19 06:29 05/01/19 16:11 Isoniazid (Inh) 300 mg DAILY ORAL 05/01/19 15:30 05/31/19 15:29 05/01/19 16:10 Losartan Potassium (Cozaar) 100 mg DAILY ORAL 04/30/19 09:00 05/30/19 08:59 04/30/19 08:27 Metformin HCl (Glucophage) 500 mg TWICE A DAY ORAL 04/26/19 09:00 05/26/19 08:59 05/01/19 18:25 Pyrazinamide (Pza) 1,000 mg DAILY ORAL 05/01/19 15:30 05/31/19 15:29 05/01/19 16:10 Rifampin (Rifadin) 600 mg DAILY ORAL 05/01/19 15:30 05/31/19 15:29 05/01/19 16:10 Vitamin D (Vitamin D) 5,000 intlu DAILY ORAL 04/26/19 09:00 05/26/19 08:59 05/01/19 08:24 Last 24 Hour Vital Signs Date Time Temp Pulse Resp B/P (MAP) Pulse Ox O2 Delivery O2 Flow Rate FiO2 05/01/19 16:00 98.1 66 18 104/63 (77) 99 05/01/19 16:00 65 05/01/19 12:00 98.0 60 18 99/60 (73) 99 05/01/19 12:00 59 05/01/19 09:00 Room Air 05/01/19 08:21 63 104/74 05/01/19 08:19 104/74 05/01/19 08:00 98.8 63 18 104/74 (84) 99 05/01/19 08:00 60 05/01/19 04:00 98.0 68 19 103/63 (76) 97 05/01/19 04:00 57 05/01/19 00:00 59 05/01/19 00:00 98.5 59 20 108/73 (85) 95 04/30/19 21:00 Room Air 04/30/19 20:00 98.6 92 19 113/70 (84) 100 04/30/19 20:00 92 04/30/19 16:26 97.5 59 18 110/81 (91) 96 04/30/19 11:36 98.1 59 18 116/79 (91) 96 04/30/19 09:13 Room Air 04/30/19 08:27 110/71 04/30/19 08:26 79 110/71 04/30/19 08:12 98.3 79 17 110/71 (84) 96 04/30/19 08:00 61 04/30/19 04:00 54 04/30/19 04:00 97.7 56 16 101/66 (78) 95 04/30/19 00:00 98.5 62 18 110/77 (88) 98 04/30/19 00:00 55 04/29/19 21:00 Room Air 04/29/19 20:00 98.5 61 18 106/73 (84) 96 04/29/19 20:00 57 Intake and Output 04/30/19 05/01/19 19:00 07:00 Intake Total 590 ml Balance 590 ml Other 590 ml # Voids 3 # Bowel Movements 1 Height (Feet): 5 Height (Inches): 2.00 Weight (Pounds): 136 Objective Objective PHYSICAL EXAM General Appearance: normal inspection, well appearing, no apparent distress, alert, GCS 15 Head: atraumatic ENT: normal ENT inspection, hearing grossly normal, normal voice Neck: normal inspection, full range of motion, supple, no bony tend Respiratory: normal inspection, lungs clear, normal breath sounds, no respiratory distress, no retraction, no wheezing Cardiovascular: regular rate, rhythm, no edema Gastrointestinal: normal inspection, normal bowel sounds, non tender, soft, no guarding, no hernia Genitourinary: no CVA tenderness Musculoskeletal: normal inspection, back normal, normal range of motion Neurologic: normal inspection, alert, oriented x3, responsive, manager client support III-XII nml as tested, speech normal Psychiatric: normal inspection, judgement/insight normal, mood/affect normal Melania Boyd NP May 01, 2019 19:41
[2019-05-01 20:00] VITALS: BP 101/67
[2019-05-01] MEDS: Atorvastatin 20mg tab ORAL SCH (21:16)
[2019-05-02] VITALS (7 sets, daily range): BP systolic 96–125; BP diastolic 58–85
--- NOTE | 2019-05-02 03:30 | Progress Note ---
DATE: 05/01/2019 SUBJECTIVE: The patient was seen yesterday. The patient is doing well. Participates in physical therapy. Continues to complain of depression. MENTAL STATUS EXAMINATION: The patient is alert and oriented times self, place, and situation. Mood is depressed. Affect is constricted. Congruent with mood. Thought process is concrete. Thought content, no suicidal or homicidal ideations. ASSESSMENT: Stable. PLAN: 1. We will continue current medications. 2. Provide the patient with reality orientation and supportive therapy. Yamel Howard M.D. DR: CHAN JOB#: [id number] CC:
[2019-05-02] MEDS: NovoLOG Insulin Flexpen SUBQ SCH ×4 (06:30→21:00)
--- NOTE | 2019-05-02 07:20 | NUR ---
NURSE NOTES: Received report from NOHEMI Herron. The patient is resting on the bed without acute distress or shortness of breath. The patient's bed in the lowest position, call light in reach, and fall and aspiration precaution reinforced. The patient's IV is intact and patent. Will continue plan of care.
--- NOTE | 2019-05-02 08:10 | NUR ---
HAND-OFF: Report given to NOHEMI Mcfadden.
[2019-05-02 08:19] LABS: BASOPHILS % (AUTO) 0.7 % (0.0-2.0); EOSINOPHILS % (AUTO) 1.3 % (0.0-3.0); HEMATOCRIT 36.7 % (37.0-47.0); HEMOGLOBIN 12.1 G/DL (12.0-16.0); LYMPHOCYTES % (AUTO) 29.7 % (20.0-45.0); MEAN CORPUSCULAR VOLUME 96 FL (80-99); MONOCYTES % (AUTO) 7.3 % (1.0-10.0); NEUTROPHILS % (AUTO) 61.1 % (45.0-75.0); PLATELET COUNT 189 K/UL (150-450); RED BLOOD COUNT 3.81 M/UL (4.20-5.40); RED CELL DISTRIBUTION WIDTH 10.7 % (11.6-14.8); WHITE BLOOD COUNT 5.3 K/UL (4.8-10.8)
[2019-05-02 08:37] LABS: ANION GAP 9 mmol/L (5-15); BLOOD UREA NITROGEN 18 mg/dL (7-18); CALCIUM 8.8 MG/DL (8.5-10.1); CARBON DIOXIDE 30 MMOL/L (21-32); CHLORIDE 100 MMOL/L (98-107); POTASSIUM 3.8 MMOL/L (3.5-5.1); SODIUM 139 MMOL/L (136-145)
[2019-05-02] MEDS: Losartan 50mg tab ORAL SCH (08:39)
[2019-05-02] MEDS: Isoniazid 300mg tab ORAL SCH (08:39)
[2019-05-02] MEDS: Artificial Tears 1.4% Op Soln BOTH EYES SCH ×4 (08:39→21:24)
[2019-05-02] MEDS: metFORMIN 500mg tab ORAL SCH ×2 (08:39→17:17)
[2019-05-02] MEDS: Azithromycin 250mg tab ORAL SCH (08:41)
[2019-05-02] MEDS: Vitamin D 1000 IU Tab ORAL SCH (08:41)
[2019-05-02 08:42] LABS: ALANINE AMINOTRANSFERASE 27 U/L (12-78); ALBUMIN 3.5 G/DL (3.4-5.0); ALBUMIN/GLOBULIN RATIO 0.9 (1.0-2.7); ALKALINE PHOSPHATASE 71 U/L (46-116); ASPARTATE AMINO TRANSFERASE 54 U/L (15-37); BILIRUBIN,TOTAL 0.8 MG/DL (0.2-1.0)
[2019-05-02] MEDS: Enoxaparin 40mg Inj SUBQ SCH (08:42)
[2019-05-02] MEDS: cefTRIAXone 1 GM in D5W 55 ML IVPB SCH (11:05)
--- NOTE | 2019-05-02 13:22 | Cardiac Electrophysiology PN ---
Assessment/Plan Assessment/Plan 1. Chest pain, No IL. Due to underlying lung lesion Outpatient stress test after TB treatment is completed 2. HTN on Amlodipine, Cozaar 100 daily and HCTZ 25 daily 3. NIDDM 4. HLPD 5. Cavitary lung lesion, on resp isolation. AFB came back positive today! on iv Abx. INH.RIF,ETB,PZA started per Dr Kwan 6. Anemia DW RN and Dr Kwan Subjective Subjective In respiratory isolation in NAD. AFB came back positive and started on anti TB meds . RN at bedside Objective Last 24 Hour Vital Signs Date Time Temp Pulse Resp B/P (MAP) Pulse Ox O2 Delivery O2 Flow Rate FiO2 05/02/19 12:00 98.3 59 18 111/73 (86) 100 05/02/19 12:00 63 05/02/19 09:00 Room Air 05/02/19 08:40 63 107/61 05/02/19 08:39 107/61 05/02/19 08:37 98.0 63 18 107/61 (76) 99 05/02/19 08:00 98.0 63 18 125/85 (98) 99 05/02/19 08:00 61 05/02/19 04:00 97.9 77 18 96/72 (80) 98 05/02/19 04:00 67 05/02/19 00:00 98.2 75 19 99/68 (78) 99 05/02/19 00:00 63 05/01/19 21:00 Room Air 05/01/19 20:00 86 05/01/19 20:00 98.1 74 18 101/67 (78) 98 05/01/19 16:00 98.1 66 18 104/63 (77) 99 05/01/19 16:00 65 Intake and Output 05/01/19 05/02/19 18:59 06:59 Intake Total 1015 ml Balance 1015 ml Intake Oral 960 ml IV Total 55 ml # Voids 2 2 # Bowel Movements 1 1 Laboratory Tests Test 05/02/19 08:08 White Blood Count 5.3 K/UL (4.8-10.8) Red Blood Count 3.81 M/UL (4.20-5.40) L Hemoglobin 12.1 G/DL (12.0-16.0) Hematocrit 36.7 % (37.0-47.0) L Mean Corpuscular Volume 96 FL (80-99) Mean Corpuscular Hemoglobin 31.7 PG (27.0-31.0) H Mean Corpuscular Hemoglobin Concent 32.9 G/DL (32.0-36.0) Red Cell Distribution Width 10.7 % (11.6-14.8) L Platelet Count 189 K/UL (150-450) Mean Platelet Volume 5.4 FL (6.5-10.1) L Neutrophils (%) (Auto) 61.1 % (45.0-75.0) Lymphocytes (%) (Auto) 29.7 % (20.0-45.0) Monocytes (%) (Auto) 7.3 % (1.0-10.0) Eosinophils (%) (Auto) 1.3 % (0.0-3.0) Basophils (%) (Auto) 0.7 % (0.0-2.0) Sodium Level 139 MMOL/L (136-145) Potassium Level 3.8 MMOL/L (3.5-5.1) Chloride Level 100 MMOL/L (98-107) Carbon Dioxide Level 30 MMOL/L (21-32) Anion Gap 9 mmol/L (5-15) Blood Urea Nitrogen 18 mg/dL (7-18) Creatinine 1.0 MG/DL (0.55-1.30) Estimat Glomerular Filtration Rate mL/min (>60) Glucose Level 115 MG/DL (74-106) H Calcium Level 8.8 MG/DL (8.5-10.1) Total Bilirubin 0.8 MG/DL (0.2-1.0) Aspartate Amino Transf (AST/SGOT) 54 U/L (15-37) H Alanine Aminotransferase (ALT/SGPT) 27 U/L (12-78) Alkaline Phosphatase 71 U/L (46-116) Total Protein 7.3 G/DL (6.4-8.2) Albumin 3.5 G/DL (3.4-5.0) Globulin 3.8 g/dL Albumin/Globulin Ratio 0.9 (1.0-2.7) L Microbiology Date/Time Source Procedure Growth Status 04/30/19 10:00 Sputum AFB Specimen Processing Tissue - Final Resulted 04/30/19 10:00 Sputum Acid Fast Bacilli Smear - Final Resulted 04/30/19 10:00 Sputum Acid Fast Bacilli Culture Pending Resulted Objective HEENT: No JVD Respiratory/Chest: Coarse rhonchi bilaterally Cardiovascular/Chest: normal peripheral pulses, normal rate, regular rhythm Abdomen: normal bowel sounds, non tender, soft, no organomegaly Extremities: normal range of motion, non-tender, normal inspection Matti Lakhani MD May 02, 2019 13:21
--- NOTE | 2019-05-02 13:27 | General Progress Note ---
Assessment/Plan Problem List: (1) Cavitary lesion of lung ICD Codes: J98.4 - Other disorders of lung SNOMED: 910855782 (2) Granulomatous disease ICD Codes: D71 - Functional disorders of polymorphonuclear neutrophils SNOMED: 316766935 (3) HTN (hypertension) ICD Codes: I10 - Essential (primary) hypertension SNOMED: 91574340 (4) CAD (coronary artery disease) ICD Codes: I25.10 - Atherosclerotic heart disease of [place] coronary artery without angina pectoris SNOMED: 71455187 Status: stable, progressing Assessment/Plan: on isolation to r/o tb no acute change no fever abx per id needs 3 neg AFB Subjective ROS Limited/Unobtainable: Yes Allergies: Coded Allergies: No Known Allergies (Unverified , 06/27/17) Subjective cough Objective Last 24 Hour Vital Signs Date Time Temp Pulse Resp B/P (MAP) Pulse Ox O2 Delivery O2 Flow Rate FiO2 05/02/19 12:00 98.3 59 18 111/73 (86) 100 05/02/19 12:00 63 05/02/19 09:00 Room Air 05/02/19 08:40 63 107/61 05/02/19 08:39 107/61 05/02/19 08:37 98.0 63 18 107/61 (76) 99 05/02/19 08:00 98.0 63 18 125/85 (98) 99 05/02/19 08:00 61 05/02/19 04:00 97.9 77 18 96/72 (80) 98 05/02/19 04:00 67 05/02/19 00:00 98.2 75 19 99/68 (78) 99 05/02/19 00:00 63 05/01/19 21:00 Room Air 05/01/19 20:00 86 05/01/19 20:00 98.1 74 18 101/67 (78) 98 05/01/19 16:00 98.1 66 18 104/63 (77) 99 05/01/19 16:00 65 Intake and Output 05/01/19 05/02/19 19:00 07:00 Intake Total 1015 ml Balance 1015 ml Intake Oral 960 ml IV Total 55 ml # Voids 2 2 # Bowel Movements 1 1 Laboratory Tests 05/02/19 08:08: White Blood Count 5.3, Red Blood Count 3.81L, Hemoglobin 12.1, Hematocrit 36.7L , Mean Corpuscular Volume 96, Mean Corpuscular Hemoglobin 31.7H, Mean Corpuscular Hemoglobin Concent 32.9, Red Cell Distribution Width 10.7L, Platelet Count 189, Mean Platelet Volume 5.4L, Neutrophils (%) (Auto) 61.1, Lymphocytes (%) (Auto) 29.7, Monocytes (%) (Auto) 7.3, Eosinophils (%) (Auto) 1.3, Basophils (%) (Auto) 0.7, Sodium Level 139, Potassium Level 3.8, Chloride Level 100, Carbon Dioxide Level 30, Anion Gap 9, Blood Urea Nitrogen 18, Creatinine 1.0, Estimat Glomerular Filtration Rate , Glucose Level 115H, Calcium Level 8.8, Total Bilirubin 0.8, Aspartate Amino Transf (AST/SGOT) 54H, Alanine Aminotransferase (ALT/SGPT) 27, Alkaline Phosphatase 71, Total Protein 7.3, Albumin 3.5, Globulin 3.8, Albumin/Globulin Ratio 0.9L Height (Feet): 5 Height (Inches): 2.00 Weight (Pounds): 136 Neck: supple Cardiovascular: normal rate Respiratory/Chest: lungs clear Paula Nixon MD May 02, 2019 13:27
--- NOTE | 2019-05-02 18:31 | Pulmonology Progress Note ---
Assessment/Plan Assessment/Plan Pulmonary Progress Note Assessment/Plan Problems: (1) Cavitary lesion of lung (2) Granulomatous disease (3) Chest pain (4) HTN (hypertension) (5) CAD (coronary artery disease) (6) Shingles Assessment/Plan ASSESSMENT: The patient is a 73-year-old female with a history of hypertension , hyperlipidemia, and diabetes, presenting with pleuritic chest pain in the setting of a recent respiratory illness. CT of the chest demonstrates intense bilateral reticulonodular opacities and a cavitary lesion. She is being ruled out for MTB. With respect to the etiology of her lesion, it is likely infectious/inflammatory, so the cavity has to be followed to rule out a neoplastic process. Awaiting 3rd AFB sputum PROBLEM LIST: 1. Left lower lobe cavity thin-walled, likely infectious, inflammatory. 2. Scattered bilateral reticulonodular opacities, likely an infectious bronchiolitis. 3. Pleuritic chest pain, likely secondary to above. 4. Hypertension, hyperlipidemia, diabetes. TREATMENT PLAN: 1. Optimize pulmonary hygiene/mobilize as tolerated. 2. Rule out MTB with serial AFB x3. 3. Follow up tumor markers as ordered by Dr. Kohler. 4. Follow up off infectious and inflammatory serologies. 5. The patient will require short interval follow-up and then likely a bronchoscopy and biopsy if there is a persistent cavitary lesion. Subjective Allergies: Coded Allergies: No Known Allergies (Unverified , 06/27/17) Subjective AFVSS on RA No cough no CP No FC Objective Vital Signs Noted General Appearance: WD/WN, no acute distress HEENT: normocephalic, atraumatic, anicteric, mucous membranes moist Respiratory/Chest: chest wall non-tender, lungs clear, normal breath sounds, no respiratory distress, no accessory muscle use Cardiovascular: normal peripheral pulses, normal rate, regular rhythm Abdomen: normal bowel sounds, soft, non tender, no organomegaly, non distended , no mass Extremities: no cyanosis, no clubbing, no edema Laboratory Tests 04/27/19 20:00: M. tuberculosis Complex DNA (PCR) [Pending] 04/28/19 04:35: White Blood Count 4.3L, Red Blood Count 3.57L, Hemoglobin 11.6L, Hematocrit 34.2L, Mean Corpuscular Volume 96, Mean Corpuscular Hemoglobin 32.4H, Mean Corpuscular Hemoglobin Concent 33.9, Red Cell Distribution Width 10.5L, Platelet Count 197, Mean Platelet Volume 7.4, Neutrophils (%) (Auto) 52.4, Lymphocytes (%) (Auto) 37.1, Monocytes (%) (Auto) 7.8, Eosinophils (%) (Auto) 1.4, Basophils (%) (Auto) 1.2 Current Medications Medications (Trade) Dose Ordered Sig/Darrion Route PRN Reason Start Time Stop Time Status Last Admin Dose Admin Amlodipine Besylate (Norvasc) 5 mg DAILY ORAL 04/26/19 09:00 05/26/19 08:59 04/27/19 09:27 Artificial Tears (Akwa-Tears) 2 drop FOUR TIMES A DAY BOTH EYES 04/25/19 09:00 05/25/19 08:59 04/28/19 09:38 Atorvastatin Calcium (Lipitor) 20 mg BEDTIME ORAL 04/25/19 21:00 05/25/19 20:59 04/27/19 21:08 Azithromycin (Zithromax) 250 mg DAILY ORAL 04/29/19 09:00 05/06/19 08:59 Ceftriaxone Sodium 1 gm/ Dextrose 55 ml @ 110 mls/hr Q24H IVPB 04/28/19 11:00 05/05/19 10:59 04/28/19 11:20 Dextrose (Dextrose 50%) 25 ml Q30M PRN IV Hypoglycemia 04/25/19 00:00 05/25/19 00:00 Dextrose (Dextrose 50%) 50 ml Q30M PRN IV Hypoglycemia 04/25/19 00:00 05/25/19 00:00 Enoxaparin Sodium (Lovenox) 40 mg DAILY SUBQ 04/25/19 09:00 05/25/19 08:59 04/28/19 09:37 Famotidine (Pepcid) 40 mg ACBREAKFAST ORAL 04/25/19 06:30 05/25/19 06:29 04/28/19 06:19 Fluoxetine HCl (PROzac) 40 mg DAILY ORAL 04/26/19 09:00 05/26/19 08:59 04/28/19 09:40 Glipizide (GlipiZIDE XL) 2.5 mg QPM ORAL 04/26/19 16:30 05/26/19 16:29 04/27/19 17:15 HCTZ/Losartan Potassium (Hyzaar 50-12.5) 1 tab DAILY ORAL 04/26/19 09:00 05/26/19 08:59 04/27/19 09:27 Insulin Aspart (NovoLOG) BEFORE MEALS AND HS SUBQ 04/25/19 06:30 05/25/19 06:29 04/27/19 21:06 Losartan Potassium (Cozaar) 50 mg DAILY ORAL 04/26/19 09:00 05/26/19 08:59 04/27/19 09:26 Metformin HCl (Glucophage) 500 mg TWICE A DAY ORAL 04/26/19 09:00 05/26/19 08:59 04/28/19 09:39 Vitamin D (Vitamin D) 5,000 intlu DAILY ORAL 04/26/19 09:00 05/26/19 08:59 04/28/19 09:41 CT Chest: IMPRESSION: 1. No pulmonary embolus identified. 2. No aortic aneurysm or dissection. 3. Reticulonodular densities and patchy consolidations in the posteromedial left upper lobe. Reticulonodular densities in the right upper lobe and adjacent to the cavitation/cystic change in the left lower lobe. Cavitation/cystic changes in the left lower lobe with mild wall thickening and trace fluid in the cavitations. Findings are concerning for an infectious/inflammatory process. Subjective ROS Limited/Unobtainable: No Allergies: Coded Allergies: No Known Allergies (Unverified , 06/27/17) Objective Last 24 Hour Vital Signs Date Time Temp Pulse Resp B/P (MAP) Pulse Ox O2 Delivery O2 Flow Rate FiO2 05/02/19 16:00 68 05/02/19 16:00 98.4 71 18 109/58 (75) 98 05/02/19 12:00 98.3 59 18 111/73 (86) 100 05/02/19 12:00 63 05/02/19 09:00 Room Air 05/02/19 08:40 63 107/61 05/02/19 08:39 107/61 05/02/19 08:37 98.0 63 18 107/61 (76) 99 05/02/19 08:00 98.0 63 18 125/85 (98) 99 05/02/19 08:00 61 05/02/19 04:00 97.9 77 18 96/72 (80) 98 05/02/19 04:00 67 05/02/19 00:00 98.2 75 19 99/68 (78) 99 05/02/19 00:00 63 05/01/19 21:00 Room Air 05/01/19 20:00 86 05/01/19 20:00 98.1 74 18 101/67 (78) 98 Intake and Output 05/01/19 05/02/19 18:59 06:59 Intake Total 1015 ml Balance 1015 ml Intake Oral 960 ml IV Total 55 ml # Voids 2 2 # Bowel Movements 1 1 Microbiology Date/Time Source Procedure Growth Status 04/30/19 10:00 Sputum AFB Specimen Processing Tissue - Final Resulted 04/30/19 10:00 Sputum Acid Fast Bacilli Smear - Final Resulted 04/30/19 10:00 Sputum Acid Fast Bacilli Culture Pending Resulted Laboratory Tests 05/02/19 08:08: White Blood Count 5.3, Red Blood Count 3.81L, Hemoglobin 12.1, Hematocrit 36.7L , Mean Corpuscular Volume 96, Mean Corpuscular Hemoglobin 31.7H, Mean Corpuscular Hemoglobin Concent 32.9, Red Cell Distribution Width 10.7L, Platelet Count 189, Mean Platelet Volume 5.4L, Neutrophils (%) (Auto) 61.1, Lymphocytes (%) (Auto) 29.7, Monocytes (%) (Auto) 7.3, Eosinophils (%) (Auto) 1.3, Basophils (%) (Auto) 0.7, Sodium Level 139, Potassium Level 3.8, Chloride Level 100, Carbon Dioxide Level 30, Anion Gap 9, Blood Urea Nitrogen 18, Creatinine 1.0, Estimat Glomerular Filtration Rate , Glucose Level 115H, Calcium Level 8.8, Total Bilirubin 0.8, Aspartate Amino Transf (AST/SGOT) 54H, Alanine Aminotransferase (ALT/SGPT) 27, Alkaline Phosphatase 71, Total Protein 7.3, Albumin 3.5, Globulin 3.8, Albumin/Globulin Ratio 0.9L Current Medications Medications (Trade) Dose Ordered Sig/Darrion Route PRN Reason Start Time Stop Time Status Last Admin Dose Admin Amlodipine Besylate (Norvasc) 5 mg DAILY ORAL 04/26/19 09:00 05/26/19 08:59 04/30/19 08:26 Artificial Tears (Akwa-Tears) 2 drop FOUR TIMES A DAY BOTH EYES 04/25/19 09:00 05/25/19 08:59 05/02/19 17:17 Atorvastatin Calcium (Lipitor) 20 mg BEDTIME ORAL 04/25/19 21:00 05/25/19 20:59 05/01/19 21:16 Azithromycin (Zithromax) 250 mg DAILY ORAL 04/29/19 09:00 05/06/19 08:59 05/02/19 08:41 Ceftriaxone Sodium 1 gm/ Dextrose 55 ml @ 110 mls/hr Q24H IVPB 04/28/19 11:00 05/05/19 10:59 05/02/19 11:05 Dextrose (Dextrose 50%) 25 ml Q30M PRN IV Hypoglycemia 04/25/19 00:00 05/25/19 00:00 Dextrose (Dextrose 50%) 50 ml Q30M PRN IV Hypoglycemia 04/25/19 00:00 05/25/19 00:00 Enoxaparin Sodium (Lovenox) 40 mg DAILY SUBQ 04/25/19 09:00 05/25/19 08:59 05/01/19 08:26 Ethambutol HCl (Myambutol) 800 mg DAILY ORAL 05/01/19 15:30 05/31/19 15:29 05/02/19 08:40 Famotidine (Pepcid) 40 mg ACBREAKFAST ORAL 04/25/19 06:30 05/25/19 06:29 05/02/19 06:52 Fluoxetine HCl (PROzac) 40 mg DAILY ORAL 04/26/19 09:00 05/26/19 08:59 05/02/19 08:40 Glipizide (GlipiZIDE XL) 2.5 mg QPM ORAL 04/26/19 16:30 05/26/19 16:29 05/02/19 16:45 Hydrochlorothiazide (Hydrodiuril) 25 mg DAILY ORAL 04/30/19 09:00 05/30/19 08:59 04/30/19 08:27 Insulin Aspart (NovoLOG) BEFORE MEALS AND HS SUBQ 04/25/19 06:30 05/25/19 06:29 05/02/19 17:15 Isoniazid (Inh) 300 mg DAILY ORAL 05/01/19 15:30 05/31/19 15:29 05/02/19 08:39 Losartan Potassium (Cozaar) 100 mg DAILY ORAL 04/30/19 09:00 05/30/19 08:59 04/30/19 08:27 Metformin HCl (Glucophage) 500 mg TWICE A DAY ORAL 04/26/19 09:00 05/26/19 08:59 05/02/19 17:17 Pyrazinamide (Pza) 1,000 mg DAILY ORAL 05/01/19 15:30 05/31/19 15:29 05/02/19 08:41 Rifampin (Rifadin) 600 mg DAILY ORAL 05/01/19 15:30 05/31/19 15:29 05/02/19 08:41 Vitamin D (Vitamin D) 5,000 intlu DAILY ORAL 04/26/19 09:00 05/26/19 08:59 05/02/19 08:41 Patrick Armas MD May 02, 2019 18:31
--- NOTE | 2019-05-02 19:15 | NUR ---
NURSE NOTES: Received pt and report from NOHEMI Mcfadden. Observed pt resting in bed with both eyes open and watching television. Pt is A/Ox4. Pt is on airborne precaution for TB. shelter monitor is in placed, IV site intact, asymptomatic, and patent. Bed is in the lowest position and locked. Call light within reach. No signs/symptoms of acute distress noted at this time. Will continue of plan of care.
--- NOTE | 2019-05-02 20:48 | Hematology/Onc Progress Note ---
Assessment/Plan Assessment/Plan Assessment and Recs: # Cavitary lesion of lung on imaging --> per pulm recs --> r.o inflammatory cause --> montior for resolution # Anemia of chronic disease due to underlying chronic medical issues, multifactorial --> Anemia workup has been reviewed. Ferritin 133 --> No evidence of hemolysis is noted, peripheral smear has been reviewed. --> Hgb goal >7. Transfuse prn. --> Epogen or iron at this time is not particularly indicated --> Medications have been reviewed --> Hgb trend: 11.5 # Chest pain r/o acs v inflammatory disease of lung, bronchitis, CT imaging of the chest was ordered which showed calcified mediastinal and hilar lymph nodes as well as mild cardiomegaly without pericardial effusion. There is some fluid impacting some of the left lower lobe bronchi posterior medially no pulmonary embolism or aortic aneurysm or dissection was seen.Patient given IV antibiotics. --> as per cards recs --> trop and ekg x 2 ordered --> nitrog prn --> tumor markers negative --> outpatient stress test # Granulomatous disease # HTN. sbp goal <140 The time the noted was written does not necessarily correspond to the time the patient was seen,. Subjective Allergies: Coded Allergies: No Known Allergies (Unverified , 06/27/17) Subjective Subjective 04/26: Pt is sitting in bed and having breakfast. No c/o pain. Labs reviewed. 04/27: no events, cp is better, seen by pulm, cards 04/28: no fevers or chills, no night sweats noted 04/30: Pt on airbourne isolation, cough better with cough syrup. 05/01: no acute events, no bleeding reported. 05/02:no distress, VS reviewed, afebrile. Objective Objective Current Medications Medications (Trade) Dose Ordered Sig/Darrion Route PRN Reason Start Time Stop Time Status Last Admin Dose Admin Amlodipine Besylate (Norvasc) 5 mg DAILY ORAL 04/26/19 09:00 05/26/19 08:59 04/30/19 08:26 Artificial Tears (Akwa-Tears) 2 drop FOUR TIMES A DAY BOTH EYES 04/25/19 09:00 05/25/19 08:59 05/02/19 17:17 Atorvastatin Calcium (Lipitor) 20 mg BEDTIME ORAL 04/25/19 21:00 05/25/19 20:59 05/01/19 21:16 Azithromycin (Zithromax) 250 mg DAILY ORAL 04/29/19 09:00 05/06/19 08:59 05/02/19 08:41 Ceftriaxone Sodium 1 gm/ Dextrose 55 ml @ 110 mls/hr Q24H IVPB 04/28/19 11:00 05/05/19 10:59 05/02/19 11:05 Dextrose (Dextrose 50%) 25 ml Q30M PRN IV Hypoglycemia 04/25/19 00:00 05/25/19 00:00 Dextrose (Dextrose 50%) 50 ml Q30M PRN IV Hypoglycemia 04/25/19 00:00 05/25/19 00:00 Enoxaparin Sodium (Lovenox) 40 mg DAILY SUBQ 04/25/19 09:00 05/25/19 08:59 05/01/19 08:26 Ethambutol HCl (Myambutol) 800 mg DAILY ORAL 05/01/19 15:30 05/31/19 15:29 05/02/19 08:40 Famotidine (Pepcid) 40 mg ACBREAKFAST ORAL 04/25/19 06:30 05/25/19 06:29 05/02/19 06:52 Fluoxetine HCl (PROzac) 40 mg DAILY ORAL 04/26/19 09:00 05/26/19 08:59 05/02/19 08:40 Glipizide (GlipiZIDE XL) 2.5 mg QPM ORAL 04/26/19 16:30 05/26/19 16:29 05/02/19 16:45 Hydrochlorothiazide (Hydrodiuril) 25 mg DAILY ORAL 04/30/19 09:00 05/30/19 08:59 04/30/19 08:27 Insulin Aspart (NovoLOG) BEFORE MEALS AND HS SUBQ 04/25/19 06:30 05/25/19 06:29 05/02/19 17:15 Isoniazid (Inh) 300 mg DAILY ORAL 05/01/19 15:30 05/31/19 15:29 05/02/19 08:39 Losartan Potassium (Cozaar) 100 mg DAILY ORAL 04/30/19 09:00 05/30/19 08:59 04/30/19 08:27 Metformin HCl (Glucophage) 500 mg TWICE A DAY ORAL 04/26/19 09:00 05/26/19 08:59 05/02/19 17:17 Pyrazinamide (Pza) 1,000 mg DAILY ORAL 05/01/19 15:30 05/31/19 15:29 05/02/19 08:41 Rifampin (Rifadin) 600 mg DAILY ORAL 05/01/19 15:30 05/31/19 15:29 05/02/19 08:41 Vitamin D (Vitamin D) 5,000 intlu DAILY ORAL 04/26/19 09:00 05/26/19 08:59 05/02/19 08:41 Last 24 Hour Vital Signs Date Time Temp Pulse Resp B/P (MAP) Pulse Ox O2 Delivery O2 Flow Rate FiO2 05/02/19 20:00 98.0 68 17 117/81 (93) 96 05/02/19 16:00 68 05/02/19 16:00 98.4 71 18 109/58 (75) 98 05/02/19 12:00 98.3 59 18 111/73 (86) 100 05/02/19 12:00 63 05/02/19 09:00 Room Air 05/02/19 08:40 63 107/61 05/02/19 08:39 107/61 05/02/19 08:37 98.0 63 18 107/61 (76) 99 05/02/19 08:00 98.0 63 18 125/85 (98) 99 05/02/19 08:00 61 05/02/19 04:00 97.9 77 18 96/72 (80) 98 05/02/19 04:00 67 05/02/19 00:00 98.2 75 19 99/68 (78) 99 05/02/19 00:00 63 05/01/19 21:00 Room Air 05/01/19 20:00 86 05/01/19 20:00 98.1 74 18 101/67 (78) 98 05/01/19 16:00 98.1 66 18 104/63 (77) 99 05/01/19 16:00 65 05/01/19 12:00 98.0 60 18 99/60 (73) 99 05/01/19 12:00 59 05/01/19 09:00 Room Air 05/01/19 08:21 63 104/74 05/01/19 08:19 104/74 05/01/19 08:00 98.8 63 18 104/74 (84) 99 05/01/19 08:00 60 05/01/19 04:00 98.0 68 19 103/63 (76) 97 05/01/19 04:00 57 05/01/19 00:00 59 05/01/19 00:00 98.5 59 20 108/73 (85) 95 04/30/19 21:00 Room Air Intake and Output 05/01/19 05/02/19 19:00 07:00 Intake Total 1015 ml Balance 1015 ml Intake Oral 960 ml IV Total 55 ml # Voids 2 2 # Bowel Movements 1 1 Labs Test 05/02/19 08:08 White Blood Count 5.3 K/UL (4.8-10.8) Red Blood Count 3.81 M/UL (4.20-5.40) Hemoglobin 12.1 G/DL (12.0-16.0) Hematocrit 36.7 % (37.0-47.0) Mean Corpuscular Volume 96 FL (80-99) Mean Corpuscular Hemoglobin 31.7 PG (27.0-31.0) Mean Corpuscular Hemoglobin Concent 32.9 G/DL (32.0-36.0) Red Cell Distribution Width 10.7 % (11.6-14.8) Platelet Count 189 K/UL (150-450) Mean Platelet Volume 5.4 FL (6.5-10.1) Neutrophils (%) (Auto) 61.1 % (45.0-75.0) Lymphocytes (%) (Auto) 29.7 % (20.0-45.0) Monocytes (%) (Auto) 7.3 % (1.0-10.0) Eosinophils (%) (Auto) 1.3 % (0.0-3.0) Basophils (%) (Auto) 0.7 % (0.0-2.0) Sodium Level 139 MMOL/L (136-145) Potassium Level 3.8 MMOL/L (3.5-5.1) Chloride Level 100 MMOL/L (98-107) Carbon Dioxide Level 30 MMOL/L (21-32) Anion Gap 9 mmol/L (5-15) Blood Urea Nitrogen 18 mg/dL (7-18) Creatinine 1.0 MG/DL (0.55-1.30) Estimat Glomerular Filtration Rate mL/min (>60) Glucose Level 115 MG/DL (74-106) Calcium Level 8.8 MG/DL (8.5-10.1) Total Bilirubin 0.8 MG/DL (0.2-1.0) Aspartate Amino Transf (AST/SGOT) 54 U/L (15-37) Alanine Aminotransferase (ALT/SGPT) 27 U/L (12-78) Alkaline Phosphatase 71 U/L (46-116) Total Protein 7.3 G/DL (6.4-8.2) Albumin 3.5 G/DL (3.4-5.0) Globulin 3.8 g/dL Albumin/Globulin Ratio 0.9 (1.0-2.7) Height (Feet): 5 Height (Inches): 2.00 Weight (Pounds): 136 Objective Objective PHYSICAL EXAM General Appearance: normal inspection, well appearing, no apparent distress, alert, GCS 15 Head: atraumatic ENT: normal ENT inspection, hearing grossly normal, normal voice Neck: normal inspection, full range of motion, supple, no bony tend Respiratory: normal inspection, lungs clear, normal breath sounds, no respiratory distress, no retraction, no wheezing Cardiovascular: regular rate, rhythm, no edema Gastrointestinal: normal inspection, normal bowel sounds, non tender, soft, no guarding, no hernia Genitourinary: no CVA tenderness Musculoskeletal: normal inspection, back normal, normal range of motion Neurologic: normal inspection, alert, oriented x3, responsive, workplace trainer and assessor III-XII nml as tested, speech normal Psychiatric: normal inspection, judgement/insight normal, mood/affect normal Melania Boyd NP May 02, 2019 20:48
[2019-05-02] MEDS: Atorvastatin 20mg tab ORAL SCH (21:24)
[2019-05-03] VITALS: BP 119/76
[2019-05-03 04:00] VITALS: BP 105/69
[2019-05-03] MEDS: NovoLOG Insulin Flexpen SUBQ SCH ×4 (06:15→20:12)
--- NOTE | 2019-05-03 07:28 | NUR ---
HAND-OFF: Report given to NOHEMI Snell.
--- NOTE | 2019-05-03 07:43 | NUR ---
NURSE NOTES: Received report from NOHEMI Freeman. Patient in bed resting, no active s/s cardiac, respiratory distress noticed at this time. Patient on room air, SR with HR 73, AOx4, denies pain at this time. IV on right AC 20G, asymptomatic, patent, intact. Bed in lowest position, side rails upx2, call light within reach. Will continue to monitor.
[2019-05-03 08:00] VITALS: BP 119/77
[2019-05-03] MEDS: Azithromycin 250mg tab ORAL SCH (08:55)
[2019-05-03] MEDS: metFORMIN 500mg tab ORAL SCH ×2 (08:55→17:54)
[2019-05-03] MEDS: Vitamin D 1000 IU Tab ORAL SCH (08:55)
[2019-05-03] MEDS: Isoniazid 300mg tab ORAL SCH (08:56)
[2019-05-03] MEDS: Artificial Tears 1.4% Op Soln BOTH EYES SCH ×4 (08:56→20:12)
[2019-05-03] MEDS: Enoxaparin 40mg Inj SUBQ SCH (08:58)
[2019-05-03] MEDS: Losartan 50mg tab ORAL SCH (09:00)
--- NOTE | 2019-05-03 10:00 | NUR ---
NURSE NOTES: Dr. Kwan at the nursing station made aware patient c/o n/v after administering ceftriaxone. No order given at this time will continue to monitor.
[2019-05-03] MEDS: cefTRIAXone 1 GM in D5W 55 ML IVPB SCH (11:05)
[2019-05-03 12:00] VITALS: BP 103/63
--- NOTE | 2019-05-03 12:56 | Infectious Diseases Prog Note ---
Assessment/Plan Assessment/Plan IMPRESSION: Pneumonia. Lung cavity, will try to rule out TB of lung. Diabetes mellitus, Hypertension, Major depression, History of asthma. RECOMMENDATION: Discontinue Zithromax and Rocephin. AFB smear X 1: 1+ positive Started on TB treatment with RIPE TST: negative Subjective ROS Limited/Unobtainable: Yes Constitutional: Reports: no symptoms Respiratory: Reports: no symptoms Gastrointestinal/Abdominal: Reports: nausea Allergies: Coded Allergies: No Known Allergies (Unverified , 06/27/17) Objective Vital Signs Last 24 Hour Vital Signs Date Time Temp Pulse Resp B/P (MAP) Pulse Ox O2 Delivery O2 Flow Rate FiO2 05/03/19 12:00 97.6 60 20 103/63 (76) 97 05/03/19 12:00 62 05/03/19 09:00 Room Air 05/03/19 09:00 119/77 05/03/19 08:55 65 119/77 05/03/19 08:00 63 05/03/19 08:00 98.5 65 18 119/77 (91) 96 05/03/19 04:00 97.7 73 16 105/69 (81) 95 05/03/19 04:00 59 05/03/19 00:00 63 05/03/19 00:00 98.3 65 18 119/76 (90) 96 05/02/19 21:00 Room Air 05/02/19 20:00 67 05/02/19 20:00 98.0 68 17 117/81 (93) 96 05/02/19 16:00 68 05/02/19 16:00 98.4 71 18 109/58 (75) 98 Height (Feet): 5 Height (Inches): 2.00 Weight (Pounds): 136 General Appearance: no acute distress HEENT: mucous membranes moist Respiratory/Chest: lungs clear Cardiovascular: normal rate Abdomen: soft, non tender Extremities: no edema Neurologic/Psychiatric: alert, oriented x 3, responsive Current Medications Medications (Trade) Dose Ordered Sig/Darrion Route PRN Reason Start Time Stop Time Status Last Admin Dose Admin Amlodipine Besylate (Norvasc) 5 mg DAILY ORAL 04/26/19 09:00 05/26/19 08:59 05/03/19 08:55 Artificial Tears (Akwa-Tears) 2 drop FOUR TIMES A DAY BOTH EYES 04/25/19 09:00 05/25/19 08:59 05/03/19 08:56 Atorvastatin Calcium (Lipitor) 20 mg BEDTIME ORAL 04/25/19 21:00 05/25/19 20:59 05/02/19 21:24 Dextrose (Dextrose 50%) 25 ml Q30M PRN IV Hypoglycemia 04/25/19 00:00 05/25/19 00:00 Dextrose (Dextrose 50%) 50 ml Q30M PRN IV Hypoglycemia 04/25/19 00:00 05/25/19 00:00 Enoxaparin Sodium (Lovenox) 40 mg DAILY SUBQ 04/25/19 09:00 05/25/19 08:59 05/03/19 08:58 Ethambutol HCl (Myambutol) 800 mg DAILY ORAL 05/01/19 15:30 05/31/19 15:29 05/03/19 08:56 Famotidine (Pepcid) 40 mg ACBREAKFAST ORAL 04/25/19 06:30 05/25/19 06:29 05/03/19 06:14 Fluoxetine HCl (PROzac) 40 mg DAILY ORAL 04/26/19 09:00 05/26/19 08:59 05/03/19 08:56 Glipizide (GlipiZIDE XL) 2.5 mg QPM ORAL 04/26/19 16:30 05/26/19 16:29 05/02/19 16:45 Hydrochlorothiazide (Hydrodiuril) 25 mg DAILY ORAL 04/30/19 09:00 05/30/19 08:59 05/03/19 08:55 Insulin Aspart (NovoLOG) BEFORE MEALS AND HS SUBQ 04/25/19 06:30 05/25/19 06:29 05/02/19 17:15 Isoniazid (Inh) 300 mg DAILY ORAL 05/01/19 15:30 05/31/19 15:29 05/03/19 08:56 Losartan Potassium (Cozaar) 100 mg DAILY ORAL 04/30/19 09:00 05/30/19 08:59 04/30/19 08:27 Metformin HCl (Glucophage) 500 mg TWICE A DAY ORAL 04/26/19 09:00 05/26/19 08:59 05/03/19 08:55 Pyrazinamide (Pza) 1,000 mg DAILY ORAL 05/01/19 15:30 05/31/19 15:29 05/03/19 08:56 Rifampin (Rifadin) 600 mg DAILY ORAL 05/01/19 15:30 05/31/19 15:29 05/03/19 08:56 Vitamin D (Vitamin D) 5,000 intlu DAILY ORAL 04/26/19 09:00 05/26/19 08:59 05/03/19 08:55 Carlos Kwan MD May 03, 2019 12:56
--- NOTE | 2019-05-03 13:19 | Pulmonology Progress Note ---
Assessment/Plan Problems: (1) Cavitary lesion of lung (2) Granulomatous disease (3) Chest pain (4) HTN (hypertension) (5) CAD (coronary artery disease) (6) Shingles Assessment/Plan ASSESSMENT: The patient is a 73-year-old female with a history of hypertension , hyperlipidemia, and diabetes, presenting with pleuritic chest pain in the setting of a recent respiratory illness. CT of the chest demonstrates intense bilateral reticulonodular opacities and a cavitary lesion. She is being ruled out for MTB. With respect to the etiology of her lesion, it is likely infectious/inflammatory, so the cavity has to be followed to rule out a neoplastic process. PROBLEM LIST: 1. Left lower lobe cavity thin-walled, likely infectious, inflammatory, ? MTB, 1 /3 AFB +, started on RIPE 05/03 2. Scattered bilateral reticulonodular opacities, likely an infectious bronchiolitis. 3. Pleuritic chest pain, likely secondary to above. 4. Hypertension, hyperlipidemia, diabetes. TREATMENT PLAN: 1. Optimize pulmonary hygiene/mobilize as tolerated. 2. F/U final AFBs 3. RIPE per ID 4. Continue isolation 5. The patient will require short interval follow-up and then likely a bronchoscopy and biopsy if there is a persistent cavitary lesion. Subjective Allergies: Coded Allergies: No Known Allergies (Unverified , 06/27/17) Subjective AFVSS on RA No cough no CP No FC Started on RIPE Objective Last 24 Hour Vital Signs Date Time Temp Pulse Resp B/P (MAP) Pulse Ox O2 Delivery O2 Flow Rate FiO2 05/03/19 12:00 97.6 60 20 103/63 (76) 97 05/03/19 12:00 62 05/03/19 09:00 Room Air 05/03/19 09:00 119/77 05/03/19 08:55 65 119/77 05/03/19 08:00 63 05/03/19 08:00 98.5 65 18 119/77 (91) 96 05/03/19 04:00 97.7 73 16 105/69 (81) 95 05/03/19 04:00 59 05/03/19 00:00 63 05/03/19 00:00 98.3 65 18 119/76 (90) 96 05/02/19 21:00 Room Air 05/02/19 20:00 67 05/02/19 20:00 98.0 68 17 117/81 (93) 96 05/02/19 16:00 68 05/02/19 16:00 98.4 71 18 109/58 (75) 98 Intake and Output 05/02/19 05/03/19 19:00 07:00 Intake Total 840 ml 360 ml Balance 840 ml 360 ml Intake Oral 840 ml 360 ml # Voids 3 2 # Bowel Movements 1 1 General Appearance: WD/WN, no acute distress HEENT: normocephalic, atraumatic, anicteric, mucous membranes moist Respiratory/Chest: chest wall non-tender, lungs clear, normal breath sounds, no respiratory distress Cardiovascular: normal peripheral pulses, normal rate, regular rhythm Abdomen: normal bowel sounds, soft, non tender, no organomegaly, non distended , no mass Extremities: no cyanosis, no clubbing, no edema Current Medications Medications (Trade) Dose Ordered Sig/Darrion Route PRN Reason Start Time Stop Time Status Last Admin Dose Admin Amlodipine Besylate (Norvasc) 5 mg DAILY ORAL 04/26/19 09:00 05/26/19 08:59 05/03/19 08:55 Artificial Tears (Akwa-Tears) 2 drop FOUR TIMES A DAY BOTH EYES 04/25/19 09:00 05/25/19 08:59 05/03/19 13:05 Atorvastatin Calcium (Lipitor) 20 mg BEDTIME ORAL 04/25/19 21:00 05/25/19 20:59 05/02/19 21:24 Dextrose (Dextrose 50%) 25 ml Q30M PRN IV Hypoglycemia 04/25/19 00:00 05/25/19 00:00 Dextrose (Dextrose 50%) 50 ml Q30M PRN IV Hypoglycemia 04/25/19 00:00 05/25/19 00:00 Enoxaparin Sodium (Lovenox) 40 mg DAILY SUBQ 04/25/19 09:00 05/25/19 08:59 05/03/19 08:58 Ethambutol HCl (Myambutol) 800 mg DAILY ORAL 05/01/19 15:30 05/31/19 15:29 05/03/19 08:56 Famotidine (Pepcid) 40 mg ACBREAKFAST ORAL 04/25/19 06:30 05/25/19 06:29 05/03/19 06:14 Fluoxetine HCl (PROzac) 40 mg DAILY ORAL 04/26/19 09:00 05/26/19 08:59 05/03/19 08:56 Glipizide (GlipiZIDE XL) 2.5 mg QPM ORAL 04/26/19 16:30 05/26/19 16:29 05/02/19 16:45 Hydrochlorothiazide (Hydrodiuril) 25 mg DAILY ORAL 04/30/19 09:00 05/30/19 08:59 05/03/19 08:55 Insulin Aspart (NovoLOG) BEFORE MEALS AND HS SUBQ 04/25/19 06:30 05/25/19 06:29 05/02/19 17:15 Isoniazid (Inh) 300 mg DAILY ORAL 05/01/19 15:30 05/31/19 15:29 05/03/19 08:56 Losartan Potassium (Cozaar) 100 mg DAILY ORAL 04/30/19 09:00 05/30/19 08:59 04/30/19 08:27 Metformin HCl (Glucophage) 500 mg TWICE A DAY ORAL 04/26/19 09:00 05/26/19 08:59 05/03/19 08:55 Pyrazinamide (Pza) 1,000 mg DAILY ORAL 05/01/19 15:30 05/31/19 15:29 05/03/19 08:56 Pyridoxine HCl (Vitamin B6) 50 mg DAILY ORAL 05/04/19 09:00 06/03/19 08:59 Rifampin (Rifadin) 600 mg DAILY ORAL 05/01/19 15:30 05/31/19 15:29 05/03/19 08:56 Vitamin D (Vitamin D) 5,000 intlu DAILY ORAL 04/26/19 09:00 05/26/19 08:59 05/03/19 08:55 Sean Vaughn MD May 03, 2019 13:19
--- NOTE | 2019-05-03 13:27 | NUR ---
CASE MANAGEMENT:REVIEW 05/03/19 SI: CHEST PAIN D/T UNDERLYING LESION CAVITARY LUNG LESION 98.3 79 17 110/71 96% ON RA IS: PYRIDOXINE 50MG PO QD RIFAMPIN 600MG PO QD INH 300MG PO QD MYAMBUTOL 800MG PO QD PZA 1,000MG PO QD COZAAR PO QD HCTZ PO QD NORVASC PO QD PROZAC PO QD LOVENOX SQ QD : TELEMETRY STATUS DCP; FROM HOME PLAN: RESPIRATORY ISOLATION 1 OF 3 AFB'S ARE POSITIVE.....ADDITIONAL AFB ORDERED T-SPOT ~ NEGATIVE MTB PCR ~ PENDING HISTOPLASMA ANTIGEN ~ PENDING Tb MEDS STARTED ON FridayMAY 01
--- NOTE | 2019-05-03 14:50 | Hematology/Onc Progress Note ---
Assessment/Plan Assessment/Plan Assessment and Recs: # Cavitary lesion of lung on imaging --> per pulm recs --> r.o inflammatory cause --> montior for resolution --> if persists may need biopsy/bronch # Anemia of chronic disease due to underlying chronic medical issues, multifactorial --> Anemia workup has been reviewed. Ferritin 133 --> No evidence of hemolysis is noted, peripheral smear has been reviewed. --> Hgb goal >7. Transfuse prn. --> Epogen or iron at this time is not particularly indicated --> Medications have been reviewed --> Hgb trend: 11.5 # Chest pain r/o acs v inflammatory disease of lung, bronchitis, CT imaging of the chest was ordered which showed calcified mediastinal and hilar lymph nodes as well as mild cardiomegaly without pericardial effusion. There is some fluid impacting some of the left lower lobe bronchi posterior medially no pulmonary embolism or aortic aneurysm or dissection was seen.Patient given IV antibiotics. --> as per cards recs --> trop and ekg x 2 ordered --> nitrog prn --> tumor markers negative --> outpatient stress test # Granulomatous disease # HTN. sbp goal <140 The time the noted was written does not necessarily correspond to the time the patient was seen,. Subjective Constitutional: Denies: no symptoms, chills, fever, malaise, weakness, other HEENT: Denies: no symptoms, eye pain, blurred vision, tearing, double vision, ear pain, ear discharge, nose pain, nose congestion, throat pain, throat swelling, mouth pain, mouth swelling, other Cardiovascular: Denies: no symptoms, chest pain, edema, irregular heart rate, lightheadedness, palpitations, syncope, other Respiratory: Denies: no symptoms, cough, shortness of breath, SOB with excertion, SOB at rest, sputum, wheezing, other Gastrointestinal/Abdominal: Denies: no symptoms, abdomen distended, abdominal pain, black stools, tarry stools, blood in stool, constipated, diarrhea, difficulty swallowing, nausea, poor appetite, poor fluid intake, rectal bleeding , vomiting, other Genitourinary: Denies: no symptoms, burning, discharge, frequency, flank pain, hematuria, incontinence, pain, urgency, other Neurologic/Psychiatric: Denies: no symptoms, anxiety, depressed, emotional problems, headache, numbness, paresthesia, pre-existing deficit, seizure, tingling, tremors, weakness, other Allergies: Coded Allergies: No Known Allergies (Unverified , 06/27/17) Subjective 04/26: Pt is sitting in bed and having breakfast. No c/o pain. Labs reviewed. 04/27: no events, cp is better, seen by pulm, cards 04/28: no fevers or chills, no night sweats noted 04/30: Pt on airbourne isolation, cough better with cough syrup. 05/01: no acute events, no bleeding reported. 05/02:no distress, VS reviewed, afebrile. 05/03: no events, oimaging reviewed, seen by pulm and id Objective Objective Current Medications Medications (Trade) Dose Ordered Sig/Darrion Route PRN Reason Start Time Stop Time Status Last Admin Dose Admin Amlodipine Besylate (Norvasc) 5 mg DAILY ORAL 04/26/19 09:00 05/26/19 08:59 05/03/19 08:55 Artificial Tears (Akwa-Tears) 2 drop FOUR TIMES A DAY BOTH EYES 04/25/19 09:00 05/25/19 08:59 05/03/19 13:05 Atorvastatin Calcium (Lipitor) 20 mg BEDTIME ORAL 04/25/19 21:00 05/25/19 20:59 05/02/19 21:24 Dextrose (Dextrose 50%) 25 ml Q30M PRN IV Hypoglycemia 04/25/19 00:00 05/25/19 00:00 Dextrose (Dextrose 50%) 50 ml Q30M PRN IV Hypoglycemia 04/25/19 00:00 05/25/19 00:00 Enoxaparin Sodium (Lovenox) 40 mg DAILY SUBQ 04/25/19 09:00 05/25/19 08:59 05/03/19 08:58 Ethambutol HCl (Myambutol) 800 mg DAILY ORAL 05/01/19 15:30 05/31/19 15:29 05/03/19 08:56 Famotidine (Pepcid) 40 mg ACBREAKFAST ORAL 04/25/19 06:30 05/25/19 06:29 05/03/19 06:14 Fluoxetine HCl (PROzac) 40 mg DAILY ORAL 04/26/19 09:00 05/26/19 08:59 05/03/19 08:56 Glipizide (GlipiZIDE XL) 2.5 mg QPM ORAL 04/26/19 16:30 05/26/19 16:29 05/02/19 16:45 Hydrochlorothiazide (Hydrodiuril) 25 mg DAILY ORAL 04/30/19 09:00 05/30/19 08:59 05/03/19 08:55 Insulin Aspart (NovoLOG) BEFORE MEALS AND HS SUBQ 04/25/19 06:30 05/25/19 06:29 05/02/19 17:15 Isoniazid (Inh) 300 mg DAILY ORAL 05/01/19 15:30 05/31/19 15:29 05/03/19 08:56 Losartan Potassium (Cozaar) 100 mg DAILY ORAL 04/30/19 09:00 05/30/19 08:59 04/30/19 08:27 Metformin HCl (Glucophage) 500 mg TWICE A DAY ORAL 04/26/19 09:00 05/26/19 08:59 05/03/19 08:55 Pyrazinamide (Pza) 1,000 mg DAILY ORAL 05/01/19 15:30 05/31/19 15:29 05/03/19 08:56 Pyridoxine HCl (Vitamin B6) 50 mg DAILY ORAL 05/04/19 09:00 06/03/19 08:59 Rifampin (Rifadin) 600 mg DAILY ORAL 05/01/19 15:30 05/31/19 15:29 05/03/19 08:56 Vitamin D (Vitamin D) 5,000 intlu DAILY ORAL 04/26/19 09:00 05/26/19 08:59 05/03/19 08:55 Last 24 Hour Vital Signs Date Time Temp Pulse Resp B/P (MAP) Pulse Ox O2 Delivery O2 Flow Rate FiO2 05/03/19 12:00 97.6 60 20 103/63 (76) 97 05/03/19 12:00 62 05/03/19 09:00 Room Air 05/03/19 09:00 119/77 05/03/19 08:55 65 119/77 05/03/19 08:00 63 05/03/19 08:00 98.5 65 18 119/77 (91) 96 05/03/19 04:00 97.7 73 16 105/69 (81) 95 05/03/19 04:00 59 05/03/19 00:00 63 05/03/19 00:00 98.3 65 18 119/76 (90) 96 05/02/19 21:00 Room Air 05/02/19 20:00 67 05/02/19 20:00 98.0 68 17 117/81 (93) 96 05/02/19 16:00 68 05/02/19 16:00 98.4 71 18 109/58 (75) 98 05/02/19 12:00 98.3 59 18 111/73 (86) 100 05/02/19 12:00 63 05/02/19 09:00 Room Air 05/02/19 08:40 63 107/61 05/02/19 08:39 107/61 05/02/19 08:37 98.0 63 18 107/61 (76) 99 05/02/19 08:00 98.0 63 18 125/85 (98) 99 05/02/19 08:00 61 05/02/19 04:00 97.9 77 18 96/72 (80) 98 05/02/19 04:00 67 05/02/19 00:00 98.2 75 19 99/68 (78) 99 05/02/19 00:00 63 05/01/19 21:00 Room Air 05/01/19 20:00 86 05/01/19 20:00 98.1 74 18 101/67 (78) 98 05/01/19 16:00 98.1 66 18 104/63 (77) 99 05/01/19 16:00 65 Intake and Output 05/02/19 05/03/19 19:00 07:00 Intake Total 840 ml 360 ml Balance 840 ml 360 ml Intake Oral 840 ml 360 ml # Voids 3 2 # Bowel Movements 1 1 Labs Test 05/02/19 08:08 White Blood Count 5.3 K/UL (4.8-10.8) Red Blood Count 3.81 M/UL (4.20-5.40) Hemoglobin 12.1 G/DL (12.0-16.0) Hematocrit 36.7 % (37.0-47.0) Mean Corpuscular Volume 96 FL (80-99) Mean Corpuscular Hemoglobin 31.7 PG (27.0-31.0) Mean Corpuscular Hemoglobin Concent 32.9 G/DL (32.0-36.0) Red Cell Distribution Width 10.7 % (11.6-14.8) Platelet Count 189 K/UL (150-450) Mean Platelet Volume 5.4 FL (6.5-10.1) Neutrophils (%) (Auto) 61.1 % (45.0-75.0) Lymphocytes (%) (Auto) 29.7 % (20.0-45.0) Monocytes (%) (Auto) 7.3 % (1.0-10.0) Eosinophils (%) (Auto) 1.3 % (0.0-3.0) Basophils (%) (Auto) 0.7 % (0.0-2.0) Sodium Level 139 MMOL/L (136-145) Potassium Level 3.8 MMOL/L (3.5-5.1) Chloride Level 100 MMOL/L (98-107) Carbon Dioxide Level 30 MMOL/L (21-32) Anion Gap 9 mmol/L (5-15) Blood Urea Nitrogen 18 mg/dL (7-18) Creatinine 1.0 MG/DL (0.55-1.30) Estimat Glomerular Filtration Rate mL/min (>60) Glucose Level 115 MG/DL (74-106) Calcium Level 8.8 MG/DL (8.5-10.1) Total Bilirubin 0.8 MG/DL (0.2-1.0) Aspartate Amino Transf (AST/SGOT) 54 U/L (15-37) Alanine Aminotransferase (ALT/SGPT) 27 U/L (12-78) Alkaline Phosphatase 71 U/L (46-116) Total Protein 7.3 G/DL (6.4-8.2) Albumin 3.5 G/DL (3.4-5.0) Globulin 3.8 g/dL Albumin/Globulin Ratio 0.9 (1.0-2.7) Height (Feet): 5 Height (Inches): 2.00 Weight (Pounds): 136 Objective PHYSICAL EXAM General Appearance: normal inspection, well appearing, no apparent distress, alert, GCS 15 Head: atraumatic ENT: normal ENT inspection, hearing grossly normal, normal voice Neck: normal inspection, full range of motion, supple, no bony tend Respiratory: normal inspection, lungs clear, normal breath sounds, no respiratory distress, no retraction, no wheezing Cardiovascular: regular rate, rhythm, no edema Gastrointestinal: normal inspection, normal bowel sounds, non tender, soft, no guarding, no hernia Genitourinary: no CVA tenderness Musculoskeletal: normal inspection, back normal, normal range of motion Neurologic: normal inspection, alert, oriented x3, responsive, tire stripper III-XII nml as tested, speech normal Psychiatric: normal inspection, judgement/insight normal, mood/affect normal Alden Kohler MD May 03, 2019 14:50
[2019-05-03 16:00] VITALS: BP 105/71
--- NOTE | 2019-05-03 17:43 | Cardiac Electrophysiology PN ---
Assessment/Plan Assessment/Plan 1. Chest pain, No [place]. Due to underlying lung lesion Outpatient stress test after TB treatment is completed 2. HTN on Amlodipine, Cozaar 100 daily and HCTZ 25 daily 3. NIDDM 4. HLPD 5. Cavitary lung lesion, on resp isolation. AFB came back positive! on INH.RIF,ETB,PZA per Dr Kwan. iv Abx DCed 6. Anemia DW RN Subjective Subjective In respiratory isolation in NSR. AFB positive and on anti TB meds . Objective Last 24 Hour Vital Signs Date Time Temp Pulse Resp B/P (MAP) Pulse Ox O2 Delivery O2 Flow Rate FiO2 05/03/19 12:00 97.6 60 20 103/63 (76) 97 05/03/19 12:00 62 05/03/19 09:00 Room Air 05/03/19 09:00 119/77 05/03/19 08:55 65 119/77 05/03/19 08:00 63 05/03/19 08:00 98.5 65 18 119/77 (91) 96 05/03/19 04:00 97.7 73 16 105/69 (81) 95 05/03/19 04:00 59 05/03/19 00:00 63 05/03/19 00:00 98.3 65 18 119/76 (90) 96 05/02/19 21:00 Room Air 05/02/19 20:00 67 05/02/19 20:00 98.0 68 17 117/81 (93) 96 Intake and Output 05/02/19 05/03/19 18:59 06:59 Intake Total 840 ml 360 ml Balance 840 ml 360 ml Intake Oral 840 ml 360 ml # Voids 3 2 # Bowel Movements 1 1 Objective HEENT: No JVD Respiratory/Chest: Coarse rhonchi bilaterally Cardiovascular/Chest: normal peripheral pulses, normal rate, regular rhythm Abdomen: normal bowel sounds, non tender, soft, no organomegaly Extremities: normal range of motion, non-tender, normal inspection Matti Lakhani MD May 03, 2019 17:43
--- NOTE | 2019-05-03 19:30 | NUR ---
NURSE NOTES: received pt from NOHEMI Snell. pt with airborne precaution for TB. AOx4 no acute distress noted, no c/o pain noted. fall precaution in place: bed locked and lowest position, bedside rail up x2. call light and belongings within reach. will continue to monitor for any change in condition.
--- NOTE | 2019-05-03 19:52 | NUR ---
HAND-OFF: Report given to NOHEMI Luna.
[2019-05-03 20:00] VITALS: BP 120/79
[2019-05-03] MEDS: Atorvastatin 20mg tab ORAL SCH (20:12)
--- NOTE | 2019-05-03 20:56 | General Progress Note ---
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 SNOMED: 052849286 (3) HTN (hypertension) ICD Codes: I10 - Essential (primary) hypertension SNOMED: 99310752 (4) CAD (coronary artery disease) ICD Codes: I25.10 - Atherosclerotic heart disease of [place] coronary artery without angina pectoris SNOMED: 55103760 Status: stable, progressing Assessment/Plan: cavitary lesion htn revewed chart and labs on isolation to r/o tb abx per id needs 3 neg AFB Subjective ROS Limited/Unobtainable: Yes HEENT: Reports: no symptoms Allergies: Coded Allergies: No Known Allergies (Unverified , 06/27/17) Subjective cough Objective Last 24 Hour Vital Signs Date Time Temp Pulse Resp B/P (MAP) Pulse Ox O2 Delivery O2 Flow Rate FiO2 05/03/19 16:00 98.2 74 18 105/71 (82) 98 05/03/19 16:00 67 05/03/19 12:00 97.6 60 20 103/63 (76) 97 05/03/19 12:00 62 05/03/19 09:00 Room Air 05/03/19 09:00 119/77 05/03/19 08:55 65 119/77 05/03/19 08:00 63 05/03/19 08:00 98.5 65 18 119/77 (91) 96 05/03/19 04:00 97.7 73 16 105/69 (81) 95 05/03/19 04:00 59 05/03/19 00:00 63 05/03/19 00:00 98.3 65 18 119/76 (90) 96 05/02/19 21:00 Room Air Intake and Output 05/02/19 05/03/19 18:59 06:59 Intake Total 840 ml 360 ml Balance 840 ml 360 ml Intake Oral 840 ml 360 ml # Voids 3 2 # Bowel Movements 1 1 Height (Feet): 5 Height (Inches): 2.00 Weight (Pounds): 136 Cardiovascular: normal rate Respiratory/Chest: lungs clear Abdomen: non tender Paula Nixon MD May 03, 2019 20:56
[2019-05-04] VITALS (7 sets, daily range): BP systolic 97–132; BP diastolic 75–86
--- NOTE | 2019-05-04 | NUR ---
NURSE NOTES: pt in bed sleeping. no change in condition. will continue to monitor, for any change in condition.
--- NOTE | 2019-05-04 00:15 | Progress Note ---
DATE: 05/03/2019 SUBJECTIVE: The patient is in bed, in no acute distress. She has low energy, depression and anxiety. MENTAL STATUS EXAMINATION: The patient is alert and oriented times to self, place, and situation. Mood is depressed. Affect is constricted, congruent with mood. Thought process is linear. Thought content, no suicidal or homicidal ideation. ASSESSMENT: Depression and anxiety. PLAN: We will continue current medication. Provide the patient with reality orientation and supportive therapy. Yamel Howard M.D. DR: CONSUELO JOB#: [id number] CC:
--- NOTE | 2019-05-04 04:00 | NUR ---
NURSE NOTES: no change in condition. will continue to monitor for any change in condition.
[2019-05-04] MEDS: NovoLOG Insulin Flexpen SUBQ SCH ×4 (06:30→20:47)
--- NOTE | 2019-05-04 06:42 | NUR ---
NURSE NOTES: pt remains stable. no change in condition. pt BS 76, pt drunk two apple juices. will make aware the incoming nurse. all needs met during my shift. fall precaution in place: bed locked and lowest position, bedside rail up x2. call light and personal belongings within reach. will endorse plan of care to incoming nurse.
--- NOTE | 2019-05-04 06:48 | NUR ---
NURSE NOTES: NURSE NOTES: pt was unable to provide sputum for AFS and culture. pt has no sputum. she tried twice beginning of shift and midnight and could be obtained nothing. will make the incoming nurse aware.
--- NOTE | 2019-05-04 07:36 | NUR ---
NURSE NOTES: pt able to provide sputum, specimen sent to lab.
--- NOTE | 2019-05-04 07:37 | NUR ---
HAND-OFF: Report given to micheal.
--- NOTE | 2019-05-04 07:38 | NUR ---
NURSE NOTES: Received patient from NOHEMI Luna in bed resting. Patient is AOx4. Denies any pain. No acute distress noted, fall precaution in place. Bed is in lowest position and brakes engaged for safety. Bedside rail up x2, call light is within reach. Will continue with the plan of care.
--- NOTE | 2019-05-04 08:26 | Hematology/Onc Progress Note ---
Assessment/Plan Assessment/Plan Assessment and Recs: # Cavitary lesion of lung on imaging seen on CT --> per pulm recs --> r.o inflammatory cause --> montior for resolution --> if persists may need biopsy/bronch --> tumor markers are neg # Anemia of chronic disease due to underlying chronic medical issues, multifactorial --> Anemia workup has been reviewed. Ferritin 133 --> No evidence of hemolysis is noted, peripheral smear has been reviewed. --> Hgb goal >7. Transfuse prn. --> Epogen or iron at this time is not particularly indicated --> Medications have been reviewed --> Hgb trend: 11.5-->12.1 # Chest pain r/o acs v inflammatory disease of lung, bronchitis --> CT imaging of the chest was ordered which showed calcified mediastinal and hilar lymph nodes as well as mild cardiomegaly without pericardial effusion. There is some fluid impacting some of the left lower lobe bronchi posterior medially no pulmonary embolism or aortic aneurysm or dissection was seen --> Patient given IV antibiotics. --> as per cards recs --> trop and ekg x 2 ordered --> nitrog prn --> outpatient stress test # Granulomatous disease # HTN. sbp goal <140 The time the noted was written does not necessarily correspond to the time the patient was seen,. Subjective Cardiovascular: Denies: no symptoms, chest pain, edema, irregular heart rate, lightheadedness, palpitations, syncope, other Respiratory: Denies: no symptoms, cough, shortness of breath, SOB with excertion, SOB at rest, sputum, wheezing, other Gastrointestinal/Abdominal: Denies: no symptoms, abdomen distended, abdominal pain, black stools, tarry stools, blood in stool, constipated, diarrhea, difficulty swallowing, nausea, poor appetite, poor fluid intake, rectal bleeding , vomiting, other Neurologic/Psychiatric: Denies: no symptoms, anxiety, depressed, emotional problems, headache, numbness, paresthesia, pre-existing deficit, seizure, tingling, tremors, weakness, other Endocrine: Denies: no symptoms, excessive sweating, flushing, intolerance to cold, intolerance to heat, increased hunger, increased thirst, increased urine, unexplained weight gain, unexplained weight loss, other Hematologic/Lymphatic: Denies: no symptoms, anemia, easy bleeding, easy bruising, adenopathy, other Allergies: Coded Allergies: No Known Allergies (Unverified , 06/27/17) Subjective 04/26: Pt is sitting in bed and having breakfast. No c/o pain. Labs reviewed. 04/27: no events, cp is better, seen by pulm, cards 04/28: no fevers or chills, no night sweats noted 04/30: Pt on air[place] isolation, cough better with cough syrup. 05/01: no acute events, no bleeding reported. 05/02:no distress, VS reviewed, afebrile. 05/03: no events, oimaging reviewed, seen by pulm and id 05/04, unable to provide sputum, seen by psych, otherwise no changes Objective Objective Current Medications Medications (Trade) Dose Ordered Sig/Darrion Route PRN Reason Start Time Stop Time Status Last Admin Dose Admin Amlodipine Besylate (Norvasc) 5 mg DAILY ORAL 04/26/19 09:00 05/26/19 08:59 05/03/19 08:55 Artificial Tears (Akwa-Tears) 2 drop FOUR TIMES A DAY BOTH EYES 04/25/19 09:00 05/25/19 08:59 05/03/19 20:12 Atorvastatin Calcium (Lipitor) 20 mg BEDTIME ORAL 04/25/19 21:00 05/25/19 20:59 05/03/19 20:12 Dextrose (Dextrose 50%) 25 ml Q30M PRN IV Hypoglycemia 04/25/19 00:00 05/25/19 00:00 Dextrose (Dextrose 50%) 50 ml Q30M PRN IV Hypoglycemia 04/25/19 00:00 05/25/19 00:00 Enoxaparin Sodium (Lovenox) 40 mg DAILY SUBQ 04/25/19 09:00 05/25/19 08:59 05/03/19 08:58 Ethambutol HCl (Myambutol) 800 mg DAILY ORAL 05/01/19 15:30 05/31/19 15:29 05/03/19 08:56 Famotidine (Pepcid) 40 mg ACBREAKFAST ORAL 04/25/19 06:30 05/25/19 06:29 05/04/19 05:39 Fluoxetine HCl (PROzac) 40 mg DAILY ORAL 04/26/19 09:00 05/26/19 08:59 7/8/19 08:56 Glipizide (GlipiZIDE XL) 2.5 mg QPM ORAL 04/26/19 16:30 05/26/19 16:29 05/03/19 17:54 Hydrochlorothiazide (Hydrodiuril) 25 mg DAILY ORAL 04/30/19 09:00 05/30/19 08:59 05/03/19 08:55 Insulin Aspart (NovoLOG) BEFORE MEALS AND HS SUBQ 04/25/19 06:30 05/25/19 06:29 05/02/19 17:15 Isoniazid (Inh) 300 mg DAILY ORAL 05/01/19 15:30 05/31/19 15:29 05/03/19 08:56 Losartan Potassium (Cozaar) 100 mg DAILY ORAL 04/30/19 09:00 05/30/19 08:59 04/30/19 08:27 Metformin HCl (Glucophage) 500 mg TWICE A DAY ORAL 04/26/19 09:00 05/26/19 08:59 05/03/19 17:54 Pyrazinamide (Pza) 1,000 mg DAILY ORAL 05/01/19 15:30 05/31/19 15:29 05/03/19 08:56 Pyridoxine HCl (Vitamin B6) 50 mg DAILY ORAL 05/04/19 09:00 06/03/19 08:59 Rifampin (Rifadin) 600 mg DAILY ORAL 05/01/19 15:30 05/31/19 15:29 05/03/19 08:56 Vitamin D (Vitamin D) 5,000 intlu DAILY ORAL 04/26/19 09:00 05/26/19 08:59 05/03/19 08:55 Last 24 Hour Vital Signs Date Time Temp Pulse Resp B/P (MAP) Pulse Ox O2 Delivery O2 Flow Rate FiO2 05/04/19 04:00 98.0 72 18 97/75 (82) 97 05/04/19 04:00 75 05/04/19 00:00 67 05/04/19 00:00 98.0 77 18 132/86 (101) 96 05/03/19 21:00 Room Air 05/03/19 20:00 98.1 73 18 120/79 (93) 96 05/03/19 16:00 98.2 74 18 105/71 (82) 98 05/03/19 16:00 67 05/03/19 12:00 97.6 60 20 103/63 (76) 97 05/03/19 12:00 62 05/03/19 09:00 Room Air 05/03/19 09:00 119/77 05/03/19 08:55 65 119/77 05/03/19 08:00 63 05/03/19 08:00 98.5 65 18 119/77 (91) 96 05/03/19 04:00 97.7 73 16 105/69 (81) 95 05/03/19 04:00 59 05/03/19 00:00 63 05/03/19 00:00 98.3 65 18 119/76 (90) 96 05/02/19 21:00 Room Air 05/02/19 20:00 67 05/02/19 20:00 98.0 68 17 117/81 (93) 96 05/02/19 16:00 68 05/02/19 16:00 98.4 71 18 109/58 (75) 98 05/02/19 12:00 98.3 59 18 111/73 (86) 100 05/02/19 12:00 63 05/02/19 09:00 Room Air 05/02/19 08:40 63 107/61 05/02/19 08:39 107/61 05/02/19 08:37 98.0 63 18 107/61 (76) 99 Intake and Output 05/03/19 05/04/19 19:00 07:00 Intake Total 360 ml 300 ml Balance 360 ml 300 ml Intake Oral 360 ml 300 ml # Voids 2 2 Labs Test 05/02/19 08:08 White Blood Count 5.3 K/UL (4.8-10.8) Red Blood Count 3.81 M/UL (4.20-5.40) Hemoglobin 12.1 G/DL (12.0-16.0) Hematocrit 36.7 % (37.0-47.0) Mean Corpuscular Volume 96 FL (80-99) Mean Corpuscular Hemoglobin 31.7 PG (27.0-31.0) Mean Corpuscular Hemoglobin Concent 32.9 G/DL (32.0-36.0) Red Cell Distribution Width 10.7 % (11.6-14.8) Platelet Count 189 K/UL (150-450) Mean Platelet Volume 5.4 FL (6.5-10.1) Neutrophils (%) (Auto) 61.1 % (45.0-75.0) Lymphocytes (%) (Auto) 29.7 % (20.0-45.0) Monocytes (%) (Auto) 7.3 % (1.0-10.0) Eosinophils (%) (Auto) 1.3 % (0.0-3.0) Basophils (%) (Auto) 0.7 % (0.0-2.0) Sodium Level 139 MMOL/L (136-145) Potassium Level 3.8 MMOL/L (3.5-5.1) Chloride Level 100 MMOL/L (98-107) Carbon Dioxide Level 30 MMOL/L (21-32) Anion Gap 9 mmol/L (5-15) Blood Urea Nitrogen 18 mg/dL (7-18) Creatinine 1.0 MG/DL (0.55-1.30) Estimat Glomerular Filtration Rate mL/min (>60) Glucose Level 115 MG/DL (74-106) Calcium Level 8.8 MG/DL (8.5-10.1) Total Bilirubin 0.8 MG/DL (0.2-1.0) Aspartate Amino Transf (AST/SGOT) 54 U/L (15-37) Alanine Aminotransferase (ALT/SGPT) 27 U/L (12-78) Alkaline Phosphatase 71 U/L (46-116) Total Protein 7.3 G/DL (6.4-8.2) Albumin 3.5 G/DL (3.4-5.0) Globulin 3.8 g/dL Albumin/Globulin Ratio 0.9 (1.0-2.7) Height (Feet): 5 Height (Inches): 2.00 Weight (Pounds): 136 Objective PHYSICAL EXAM General Appearance: normal inspection, well appearing, no apparent distress, alert, GCS 15 Head: atraumatic ENT: normal ENT inspection, hearing grossly normal, normal voice Neck: normal inspection, full range of motion, supple, no bony tend Respiratory: normal inspection, lungs clear, normal breath sounds, no respiratory distress, no retraction, no wheezing Cardiovascular: regular rate, rhythm, no edema Gastrointestinal: normal inspection, normal bowel sounds, non tender, soft, no guarding, no hernia Genitourinary: no CVA tenderness Musculoskeletal: normal inspection, back normal, normal range of motion Neurologic: normal inspection, alert, oriented x3, responsive, quality control representative III-XII nml as tested, speech normal Psychiatric: normal inspection, judgement/insight normal, mood/affect normal Alden Kohler MD May 04, 2019 08:26
--- NOTE | 2019-05-04 09:06 | Pulmonology Progress Note ---
Assessment/Plan Problems: (1) Cavitary lesion of lung (2) Granulomatous disease (3) Chest pain (4) HTN (hypertension) (5) CAD (coronary artery disease) (6) Shingles Assessment/Plan ASSESSMENT: The patient is a 73-year-old female with a history of hypertension , hyperlipidemia, and diabetes, presenting with pleuritic chest pain in the setting of a recent respiratory illness. CT of the chest demonstrates intense bilateral reticulonodular opacities and a cavitary lesion. She is being ruled out for MTB. With respect to the etiology of her lesion, it is likely infectious/inflammatory, so the cavity has to be followed to rule out a neoplastic process. PROBLEM LIST: 1. Left lower lobe cavity thin-walled, likely infectious, inflammatory, ? MTB, /3 AFB +, started on RIPE 05/03 2. Scattered bilateral reticulonodular opacities, likely an infectious bronchiolitis. 3. Pleuritic chest pain, likely secondary to above. 4. Hypertension, hyperlipidemia, diabetes. TREATMENT PLAN: 1. Optimize pulmonary hygiene/mobilize as tolerated. 2. F/U final AFBs 3. RIPE per ID 4. Continue isolation 5. The patient will require short interval follow-up and then likely a bronchoscopy and biopsy if there is a persistent cavitary lesion. Subjective Allergies: Coded Allergies: No Known Allergies (Unverified , 06/27/17) Subjective AFVSS on RA No cough no CP No FC Halima RIPE Objective Last 24 Hour Vital Signs Date Time Temp Pulse Resp B/P (MAP) Pulse Ox O2 Delivery O2 Flow Rate FiO2 05/04/19 04:00 98.0 72 18 97/75 (82) 97 05/04/19 04:00 75 05/04/19 00:00 67 05/04/19 00:00 98.0 77 18 132/86 (101) 96 05/03/19 21:00 Room Air 05/03/19 20:00 98.1 73 18 120/79 (93) 96 05/03/19 16:00 98.2 74 18 105/71 (82) 98 05/03/19 16:00 67 05/03/19 12:00 97.6 60 20 103/63 (76) 97 05/03/19 12:00 62 Intake and Output 05/03/19 05/04/19 18:59 06:59 Intake Total 360 ml 300 ml Balance 360 ml 300 ml Intake Oral 360 ml 300 ml # Voids 2 2 General Appearance: WD/WN, no acute distress HEENT: normocephalic, atraumatic, anicteric, mucous membranes moist Respiratory/Chest: chest wall non-tender, lungs clear, normal breath sounds, no respiratory distress, no accessory muscle use Cardiovascular: normal peripheral pulses, normal rate, regular rhythm Abdomen: normal bowel sounds, soft, non tender, no organomegaly, non distended , no mass Extremities: no cyanosis, no clubbing, no edema Current Medications Medications (Trade) Dose Ordered Sig/Darrion Route PRN Reason Start Time Stop Time Status Last Admin Dose Admin Amlodipine Besylate (Norvasc) 5 mg DAILY ORAL 04/26/19 09:00 05/26/19 08:59 05/03/19 08:55 Artificial Tears (Akwa-Tears) 2 drop FOUR TIMES A DAY BOTH EYES 04/25/19 09:00 05/25/19 08:59 05/03/19 20:12 Atorvastatin Calcium (Lipitor) 20 mg BEDTIME ORAL 04/25/19 21:00 05/25/19 20:59 05/03/19 20:12 Dextrose (Dextrose 50%) 25 ml Q30M PRN IV Hypoglycemia 04/25/19 00:00 05/25/19 00:00 Dextrose (Dextrose 50%) 50 ml Q30M PRN IV Hypoglycemia 04/25/19 00:00 05/25/19 00:00 Enoxaparin Sodium (Lovenox) 40 mg DAILY SUBQ 04/25/19 09:00 05/25/19 08:59 05/03/19 08:58 Ethambutol HCl (Myambutol) 800 mg DAILY ORAL 05/01/19 15:30 05/31/19 15:29 05/03/19 08:56 Famotidine (Pepcid) 40 mg ACBREAKFAST ORAL 04/25/19 06:30 05/25/19 06:29 05/04/19 05:39 Fluoxetine HCl (PROzac) 40 mg DAILY ORAL 04/26/19 09:00 05/26/19 08:59 05/03/19 08:56 Glipizide (GlipiZIDE XL) 2.5 mg QPM ORAL 04/26/19 16:30 05/26/19 16:29 05/03/19 17:54 Hydrochlorothiazide (Hydrodiuril) 25 mg DAILY ORAL 04/30/19 09:00 05/30/19 08:59 05/03/19 08:55 Insulin Aspart (NovoLOG) BEFORE MEALS AND HS SUBQ 04/25/19 06:30 05/25/19 06:29 05/02/19 17:15 Isoniazid (Inh) 300 mg DAILY ORAL 05/01/19 15:30 05/31/19 15:29 05/03/19 08:56 Losartan Potassium (Cozaar) 100 mg DAILY ORAL 04/30/19 09:00 05/30/19 08:59 04/30/19 08:27 Metformin HCl (Glucophage) 500 mg TWICE A DAY ORAL 04/26/19 09:00 05/26/19 08:59 05/03/19 17:54 Pyrazinamide (Pza) 1,000 mg DAILY ORAL 05/01/19 15:30 05/31/19 15:29 05/03/19 08:56 Pyridoxine HCl (Vitamin B6) 50 mg DAILY ORAL 05/04/19 09:00 06/03/19 08:59 Rifampin (Rifadin) 600 mg DAILY ORAL 05/01/19 15:30 05/31/19 15:29 05/03/19 08:56 Vitamin D (Vitamin D) 5,000 intlu DAILY ORAL 04/26/19 09:00 05/26/19 08:59 05/03/19 08:55 Sean Vaughn MD May 04, 2019 09:06
[2019-05-04] MEDS: Pyridoxine 50mg tab ORAL SCH (09:28)
[2019-05-04] MEDS: Vitamin D 1000 IU Tab ORAL SCH (09:28)
[2019-05-04] MEDS: Losartan 50mg tab ORAL SCH (09:29)
[2019-05-04] MEDS: metFORMIN 500mg tab ORAL SCH ×2 (09:29→17:33)
[2019-05-04] MEDS: Isoniazid 300mg tab ORAL SCH (09:30)
[2019-05-04] MEDS: Artificial Tears 1.4% Op Soln BOTH EYES SCH ×4 (09:32→20:44)
[2019-05-04] MEDS: Enoxaparin 40mg Inj SUBQ SCH (09:36)
--- NOTE | 2019-05-04 10:48 | Infectious Diseases Prog Note ---
Assessment/Plan Assessment/Plan IMPRESSION: Pneumonia. Lung cavity, likely mycobacterial disease Diabetes mellitus, Hypertension, Major depression, History of asthma. RECOMMENDATION: Waiting for TB PCR test in sputum AFB smear X 1: 1+ positive Continue TB treatment with RIPE TST: negative Subjective ROS Limited/Unobtainable: Yes Respiratory: Reports: no symptoms Gastrointestinal/Abdominal: Reports: no symptoms Allergies: Coded Allergies: No Known Allergies (Unverified , 06/27/17) Objective Vital Signs Last 24 Hour Vital Signs Date Time Temp Pulse Resp B/P (MAP) Pulse Ox O2 Delivery O2 Flow Rate FiO2 05/04/19 09:31 74 111/78 05/04/19 09:29 111/78 05/04/19 09:00 Room Air 05/04/19 08:00 73 05/04/19 08:00 98.1 73 18 111/78 (89) 96 05/04/19 04:00 98.0 72 18 97/75 (82) 97 05/04/19 04:00 75 05/04/19 00:00 67 05/04/19 00:00 98.0 77 18 132/86 (101) 96 05/03/19 21:00 Room Air 05/03/19 20:00 98.1 73 18 120/79 (93) 96 05/03/19 16:00 98.2 74 18 105/71 (82) 98 05/03/19 16:00 67 05/03/19 12:00 97.6 60 20 103/63 (76) 97 05/03/19 12:00 62 Height (Feet): 5 Height (Inches): 2.00 Weight (Pounds): 136 General Appearance: no acute distress HEENT: mucous membranes moist Respiratory/Chest: lungs clear Cardiovascular: normal rate Abdomen: soft, non tender Extremities: no edema Neurologic/Psychiatric: alert, oriented x 3, responsive Current Medications Medications (Trade) Dose Ordered Sig/Darrion Route PRN Reason Start Time Stop Time Status Last Admin Dose Admin Amlodipine Besylate (Norvasc) 5 mg DAILY ORAL 04/26/19 09:00 05/26/19 08:59 05/04/19 09:31 Artificial Tears (Akwa-Tears) 2 drop FOUR TIMES A DAY BOTH EYES 04/25/19 09:00 05/25/19 08:59 05/04/19 09:32 Atorvastatin Calcium (Lipitor) 20 mg BEDTIME ORAL 04/25/19 21:00 05/25/19 20:59 05/03/19 20:12 Dextrose (Dextrose 50%) 25 ml Q30M PRN IV Hypoglycemia 04/25/19 00:00 05/25/19 00:00 Dextrose (Dextrose 50%) 50 ml Q30M PRN IV Hypoglycemia 04/25/19 00:00 05/25/19 00:00 Enoxaparin Sodium (Lovenox) 40 mg DAILY SUBQ 04/25/19 09:00 05/25/19 08:59 05/04/19 09:36 Ethambutol HCl (Myambutol) 800 mg DAILY ORAL 05/01/19 15:30 05/31/19 15:29 05/04/19 09:34 Famotidine (Pepcid) 40 mg ACBREAKFAST ORAL 04/25/19 06:30 05/25/19 06:29 05/04/19 05:39 Fluoxetine HCl (PROzac) 40 mg DAILY ORAL 04/26/19 09:00 05/26/19 08:59 05/04/19 09:30 Glipizide (GlipiZIDE XL) 2.5 mg QPM ORAL 04/26/19 16:30 05/26/19 16:29 05/03/19 17:54 Hydrochlorothiazide (Hydrodiuril) 25 mg DAILY ORAL 04/30/19 09:00 05/30/19 08:59 05/04/19 09:29 Insulin Aspart (NovoLOG) BEFORE MEALS AND HS SUBQ 04/25/19 06:30 05/25/19 06:29 05/02/19 17:15 Isoniazid (Inh) 300 mg DAILY ORAL 05/01/19 15:30 05/31/19 15:29 05/04/19 09:30 Losartan Potassium (Cozaar) 100 mg DAILY ORAL 04/30/19 09:00 05/30/19 08:59 05/04/19 09:29 Metformin HCl (Glucophage) 500 mg TWICE A DAY ORAL 04/26/19 09:00 05/26/19 08:59 05/04/19 09:29 Pyrazinamide (Pza) 1,000 mg DAILY ORAL 05/01/19 15:30 05/31/19 15:29 7/9/19 09:31 Pyridoxine HCl (Vitamin B6) 50 mg DAILY ORAL 05/04/19 09:00 06/03/19 08:59 05/04/19 09:28 Rifampin (Rifadin) 600 mg DAILY ORAL 05/01/19 15:30 05/31/19 15:29 05/04/19 09:32 Vitamin D (Vitamin D) 5,000 intlu DAILY ORAL 04/26/19 09:00 05/26/19 08:59 05/04/19 09:28 Carlos Kwan MD May 04, 2019 10:48
--- NOTE | 2019-05-04 11:42 | Cardiac Electrophysiology PN ---
Assessment/Plan Assessment/Plan 1. Chest pain, No MA. Due to underlying lung lesion Outpatient stress test after TB treatment is completed 2. HTN on Amlodipine, Cozaar 100 daily and HCTZ 25 daily 3. NIDDM 4. HLPD 5. Cavitary lung lesion, on resp isolation. AFB came back positive! on INH.RIF,ETB,PZA per Dr Kwan. Off iv Abx 6. Anemia DW RN DC tele Subjective Subjective In respiratory isolation in NSR on anti TB meds in NAD. Objective Last 24 Hour Vital Signs Date Time Temp Pulse Resp B/P (MAP) Pulse Ox O2 Delivery O2 Flow Rate FiO2 05/04/19 09:31 74 111/78 05/04/19 09:29 111/78 05/04/19 09:00 Room Air 05/04/19 08:00 73 05/04/19 08:00 98.1 73 18 111/78 (89) 96 05/04/19 04:00 98.0 72 18 97/75 (82) 97 05/04/19 04:00 75 05/04/19 00:00 67 05/04/19 00:00 98.0 77 18 132/86 (101) 96 05/03/19 21:00 Room Air 05/03/19 20:00 98.1 73 18 120/79 (93) 96 05/03/19 16:00 98.2 74 18 105/71 (82) 98 05/03/19 16:00 67 05/03/19 12:00 97.6 60 20 103/63 (76) 97 05/03/19 12:00 62 Intake and Output 05/03/19 05/04/19 19:00 07:00 Intake Total 360 ml 300 ml Balance 360 ml 300 ml Intake Oral 360 ml 300 ml # Voids 2 2 Objective HEENT: No JVD Respiratory/Chest: Coarse rhonchi bilaterally Cardiovascular/Chest: normal peripheral pulses, normal rate, regular rhythm Abdomen: normal bowel sounds, non tender, soft, no organomegaly Extremities: normal range of motion, non-tender, normal inspection Matti Lakhani MD May 04, 2019 11:42
--- NOTE | 2019-05-04 18:30 | Progress Note ---
DATE: 05/04/2019 SUBJECTIVE: The patient is doing well. Compliant with medication. Complaining of fatigue and anxiety. No behavior issues. MENTAL STATUS EXAMINATION: The patient is alert and oriented times self, place, and situation. Mood is dysphoric. Affect is constricted. Congruent with mood. Thought process is concrete. Thought content, no suicidal or homicidal ideation. ASSESSMENT: Stable. PLAN: We will continue current medications. Yamel Howard M.D. DR: KEVIN JOB#: [id number] CC:
--- NOTE | 2019-05-04 18:42 | General Progress Note ---
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 SNOMED: 297931045 (3) HTN (hypertension) ICD Codes: I10 - Essential (primary) hypertension SNOMED: 27176367 (4) CAD (coronary artery disease) ICD Codes: I25.10 - Atherosclerotic heart disease of [place] coronary artery without angina pectoris SNOMED: 62482061 Status: stable, progressing Assessment/Plan: cavitary lesion htn no wheezing reviewed chart and labs Subjective ROS Limited/Unobtainable: Yes Allergies: Coded Allergies: No Known Allergies (Unverified , 06/27/17) Subjective cough Objective Last 24 Hour Vital Signs Date Time Temp Pulse Resp B/P (MAP) Pulse Ox O2 Delivery O2 Flow Rate FiO2 05/04/19 16:00 97.3 76 18 129/86 (100) 98 05/04/19 16:00 77 05/04/19 12:00 84 05/04/19 12:00 97.2 78 18 128/84 (99) 97 05/04/19 09:31 74 111/78 05/04/19 09:29 111/78 05/04/19 09:00 Room Air 05/04/19 08:00 73 05/04/19 08:00 98.1 73 18 111/78 (89) 96 05/04/19 04:00 98.0 72 18 97/75 (82) 97 05/04/19 04:00 75 05/04/19 00:00 67 05/04/19 00:00 98.0 77 18 132/86 (101) 96 05/03/19 21:00 Room Air 05/03/19 20:00 98.1 73 18 120/79 (93) 96 Intake and Output 05/03/19 05/04/19 19:00 07:00 Intake Total 360 ml 300 ml Balance 360 ml 300 ml Intake Oral 360 ml 300 ml # Voids 2 2 Height (Feet): 5 Height (Inches): 2.00 Weight (Pounds): 136 Neck: supple Cardiovascular: regular rhythm Respiratory/Chest: lungs clear Paula Nixon MD May 04, 2019 18:42
--- NOTE | 2019-05-04 19:32 | NUR ---
HAND-OFF: Report given to NOHEMI Christopher.Patient is in stable condition.
--- NOTE | 2019-05-04 19:33 | NUR ---
NURSE NOTES: Received pt from NOHEMI Coon. Pt is awake and resting in bed. Call light within reach will continue with plan of care.
[2019-05-04] MEDS: Atorvastatin 20mg tab ORAL SCH (20:44)
[2019-05-05] VITALS (7 sets, daily range): BP systolic 92–114; BP diastolic 60–71
[2019-05-05] MEDS: NovoLOG Insulin Flexpen SUBQ SCH ×4 (06:30→20:19)
--- NOTE | 2019-05-05 07:15 | NUR ---
HAND-OFF: Report given to NOHEMI Peralta. Endorsed plan of care.
--- NOTE | 2019-05-05 08:00 | NUR ---
NURSE NOTES: Received patient from Ashwin Lopez. Patient awake and alert able to makes needs known. VS WNL patient on airborne precatutions. will continue to monitor.
--- NOTE | 2019-05-05 08:38 | NUR ---
NURSE NOTES: Asked the patient if she was able to provide sputum sample. She said "nothing in chest". Informed pt of the importance of collecting the sample. Will continue to ask for the sample.
[2019-05-05] MEDS: Vitamin D 1000 IU Tab ORAL SCH (09:05)
[2019-05-05] MEDS: Artificial Tears 1.4% Op Soln BOTH EYES SCH ×4 (09:05→20:21)
[2019-05-05] MEDS: Isoniazid 300mg tab ORAL SCH (09:06)
[2019-05-05] MEDS: Losartan 50mg tab ORAL SCH (09:07)
[2019-05-05] MEDS: metFORMIN 500mg tab ORAL SCH ×2 (09:07→17:39)
[2019-05-05] MEDS: Pyridoxine 50mg tab ORAL SCH (09:07)
[2019-05-05] MEDS: Enoxaparin 40mg Inj SUBQ SCH (09:09)
--- NOTE | 2019-05-05 11:22 | NUR ---
NURSE NOTES:Received order from Dr. Hussain queen for patient to be transfered to med-surg floor.
--- NOTE | 2019-05-05 11:58 | Infectious Diseases Prog Note ---
Assessment/Plan Assessment/Plan IMPRESSION: Pneumonia. Lung cavity, likely mycobacterial disease Diabetes mellitus, Hypertension, Major depression, History of asthma. RECOMMENDATION: TB PCR test in sputum is negative AFB smear X 1: 1+ positive Continue TB treatment with RIPE TST: negative Case was D/W infectious control Subjective ROS Limited/Unobtainable: Yes Respiratory: Reports: no symptoms Gastrointestinal/Abdominal: Reports: no symptoms Allergies: Coded Allergies: No Known Allergies (Unverified , 06/27/17) Objective Vital Signs Last 24 Hour Vital Signs Date Time Temp Pulse Resp B/P (MAP) Pulse Ox O2 Delivery O2 Flow Rate FiO2 05/05/19 09:08 77 114/71 05/05/19 09:07 114/71 05/05/19 09:00 Room Air 05/05/19 08:00 74 05/05/19 08:00 98.0 72 18 114/71 (85) 96 05/05/19 04:00 98.0 74 18 102/60 (74) 96 05/05/19 04:00 74 05/05/19 00:00 79 05/05/19 00:00 98.3 79 18 103/68 (80) 96 05/04/19 21:00 Room Air 05/04/19 20:00 81 05/04/19 20:00 98.5 81 18 114/80 (91) 97 05/04/19 16:00 97.3 76 18 129/86 (100) 98 05/04/19 16:00 77 05/04/19 12:00 84 05/04/19 12:00 97.2 78 18 128/84 (99) 97 Height (Feet): 5 Height (Inches): 2.00 Weight (Pounds): 134 General Appearance: no acute distress HEENT: mucous membranes moist Respiratory/Chest: lungs clear Cardiovascular: normal rate Abdomen: soft, non tender Extremities: no edema Neurologic/Psychiatric: alert, oriented x 3, responsive Current Medications Medications (Trade) Dose Ordered Sig/Darrion Route PRN Reason Start Time Stop Time Status Last Admin Dose Admin Amlodipine Besylate (Norvasc) 5 mg DAILY ORAL 04/26/19 09:00 05/26/19 08:59 05/05/19 09:08 Artificial Tears (Akwa-Tears) 2 drop FOUR TIMES A DAY BOTH EYES 04/25/19 09:00 05/25/19 08:59 7/10/19 09:05 Atorvastatin Calcium (Lipitor) 20 mg BEDTIME ORAL 04/25/19 21:00 05/25/19 20:59 05/04/19 20:44 Dextrose (Dextrose 50%) 25 ml Q30M PRN IV Hypoglycemia 04/25/19 00:00 05/25/19 00:00 Dextrose (Dextrose 50%) 50 ml Q30M PRN IV Hypoglycemia 04/25/19 00:00 05/25/19 00:00 Enoxaparin Sodium (Lovenox) 40 mg DAILY SUBQ 04/25/19 09:00 05/25/19 08:59 05/05/19 09:09 Ethambutol HCl (Myambutol) 800 mg DAILY ORAL 05/01/19 15:30 05/31/19 15:29 05/05/19 09:08 Famotidine (Pepcid) 40 mg ACBREAKFAST ORAL 04/25/19 06:30 05/25/19 06:29 05/05/19 06:53 Fluoxetine HCl (PROzac) 40 mg DAILY ORAL 04/26/19 09:00 05/26/19 08:59 05/05/19 09:07 Glipizide (GlipiZIDE XL) 2.5 mg QPM ORAL 04/26/19 16:30 05/26/19 16:29 05/04/19 16:55 Hydrochlorothiazide (Hydrodiuril) 25 mg DAILY ORAL 04/30/19 09:00 05/30/19 08:59 05/05/19 09:08 Insulin Aspart (NovoLOG) BEFORE MEALS AND HS SUBQ 04/25/19 06:30 05/25/19 06:29 05/04/19 16:58 Isoniazid (Inh) 300 mg DAILY ORAL 05/01/19 15:30 05/31/19 15:29 05/05/19 09:06 Losartan Potassium (Cozaar) 100 mg DAILY ORAL 04/30/19 09:00 05/30/19 08:59 05/05/19 09:07 Metformin HCl (Glucophage) 500 mg TWICE A DAY ORAL 04/26/19 09:00 05/26/19 08:59 05/05/19 09:07 Ondansetron HCl (Zofran) 4 mg Q6H PRN IVP Nausea & Vomiting 05/05/19 09:45 06/04/19 09:44 05/05/19 09:57 Pyrazinamide (Pza) 1,000 mg DAILY ORAL 05/01/19 15:30 05/31/19 15:29 05/05/19 09:08 Pyridoxine HCl (Vitamin B6) 50 mg DAILY ORAL 05/04/19 09:00 06/03/19 08:59 05/05/19 09:07 Rifampin (Rifadin) 600 mg DAILY ORAL 05/01/19 15:30 05/31/19 15:29 05/05/19 09:08 Vitamin D (Vitamin D) 5,000 intlu DAILY ORAL 04/26/19 09:00 05/26/19 08:59 05/05/19 09:05 Carlos Kwan MD May 05, 2019 11:58
--- NOTE | 2019-05-05 13:29 | Pulmonology Progress Note ---
Assessment/Plan Problems: (1) Cavitary lesion of lung (2) Granulomatous disease (3) Chest pain (4) HTN (hypertension) (5) CAD (coronary artery disease) (6) Shingles Assessment/Plan ASSESSMENT: The patient is a 73-year-old female with a history of hypertension , hyperlipidemia, and diabetes, presenting with pleuritic chest pain in the setting of a recent respiratory illness. CT of the chest demonstrates intense bilateral reticulonodular opacities and a cavitary lesion. She is being ruled out for MTB. With respect to the etiology of her lesion, it is likely infectious/inflammatory, so the cavity has to be followed to rule out a neoplastic process. PROBLEM LIST: 1. Left lower lobe cavity thin-walled, likely infectious, inflammatory, ? doubt MTB, 1/3 AFB + but TST and CPR neg, ? ALIDA, started on RIPE 05/03 2. Scattered bilateral reticulonodular opacities, likely an infectious bronchiolitis. 3. Pleuritic chest pain, likely secondary to above. 4. Hypertension, hyperlipidemia, diabetes. TREATMENT PLAN: 1. Optimize pulmonary hygiene/mobilize as tolerated. 2. F/U final AFBs 3. RIPE per ID - would strongly consider discontinuing, doubt MTB, neg TST and PCR, maybe ALIDA? 4. Continue isolation 5. The patient will require short interval follow-up and then likely a bronchoscopy and biopsy if there is a persistent cavitary lesion. Message sent to ID Subjective Allergies: Coded Allergies: No Known Allergies (Unverified , 06/27/17) Subjective AFVSS on RA No cough no CP No FC Objective Last 24 Hour Vital Signs Date Time Temp Pulse Resp B/P (MAP) Pulse Ox O2 Delivery O2 Flow Rate FiO2 05/05/19 12:00 70 05/05/19 12:00 98.4 70 18 114/71 (85) 95 05/05/19 09:08 77 114/71 05/05/19 09:07 114/71 05/05/19 09:00 Room Air 05/05/19 08:00 74 05/05/19 08:00 98.0 72 18 114/71 (85) 96 05/05/19 04:00 98.0 74 18 102/60 (74) 96 05/05/19 04:00 74 05/05/19 00:00 79 05/05/19 00:00 98.3 79 18 103/68 (80) 96 05/04/19 21:00 Room Air 05/04/19 20:00 81 05/04/19 20:00 98.5 81 18 114/80 (91) 97 05/04/19 16:00 97.3 76 18 129/86 (100) 98 05/04/19 16:00 77 Intake and Output 05/04/19 05/05/19 19:00 07:00 Intake Total 120 ml 400 ml Balance 120 ml 400 ml Intake Oral 120 ml 400 ml # Voids 3 3 # Bowel Movements 1 General Appearance: WD/WN, no acute distress HEENT: normocephalic, atraumatic, anicteric, mucous membranes moist Respiratory/Chest: chest wall non-tender, lungs clear, normal breath sounds, no respiratory distress, no accessory muscle use Cardiovascular: normal peripheral pulses, normal rate, regular rhythm Abdomen: normal bowel sounds, soft, non tender, no organomegaly, non distended , no mass Extremities: no cyanosis, no clubbing, no edema Current Medications Medications (Trade) Dose Ordered Sig/Darrion Route PRN Reason Start Time Stop Time Status Last Admin Dose Admin Amlodipine Besylate (Norvasc) 5 mg DAILY ORAL 04/26/19 09:00 05/26/19 08:59 05/05/19 09:08 Artificial Tears (Akwa-Tears) 2 drop FOUR TIMES A DAY BOTH EYES 04/25/19 09:00 05/25/19 08:59 05/05/19 12:51 Atorvastatin Calcium (Lipitor) 20 mg BEDTIME ORAL 04/25/19 21:00 05/25/19 20:59 05/04/19 20:44 Dextrose (Dextrose 50%) 25 ml Q30M PRN IV Hypoglycemia 04/25/19 00:00 05/25/19 00:00 Dextrose (Dextrose 50%) 50 ml Q30M PRN IV Hypoglycemia 04/25/19 00:00 05/25/19 00:00 Enoxaparin Sodium (Lovenox) 40 mg DAILY SUBQ 04/25/19 09:00 05/25/19 08:59 05/05/19 09:09 Ethambutol HCl (Myambutol) 800 mg DAILY ORAL 05/01/19 15:30 05/31/19 15:29 05/05/19 09:08 Famotidine (Pepcid) 40 mg ACBREAKFAST ORAL 04/25/19 06:30 05/25/19 06:29 05/05/19 06:53 Fluoxetine HCl (PROzac) 40 mg DAILY ORAL 04/26/19 09:00 05/26/19 08:59 05/05/19 09:07 Glipizide (GlipiZIDE XL) 2.5 mg QPM ORAL 04/26/19 16:30 05/26/19 16:29 05/04/19 16:55 Hydrochlorothiazide (Hydrodiuril) 25 mg DAILY ORAL 04/30/19 09:00 05/30/19 08:59 05/05/19 09:08 Insulin Aspart (NovoLOG) BEFORE MEALS AND HS SUBQ 04/25/19 06:30 05/25/19 06:29 05/04/19 16:58 Isoniazid (Inh) 300 mg DAILY ORAL 05/01/19 15:30 05/31/19 15:29 05/05/19 09:06 Losartan Potassium (Cozaar) 100 mg DAILY ORAL 04/30/19 09:00 05/30/19 08:59 05/05/19 09:07 Metformin HCl (Glucophage) 500 mg TWICE A DAY ORAL 04/26/19 09:00 05/26/19 08:59 05/05/19 09:07 Ondansetron HCl (Zofran) 4 mg Q6H PRN IVP Nausea & Vomiting 05/05/19 09:45 06/04/19 09:44 05/05/19 09:57 Pyrazinamide (Pza) 1,000 mg DAILY ORAL 05/01/19 15:30 05/31/19 15:29 05/05/19 09:08 Pyridoxine HCl (Vitamin B6) 50 mg DAILY ORAL 05/04/19 09:00 06/03/19 08:59 05/05/19 09:07 Rifampin (Rifadin) 600 mg DAILY ORAL 05/01/19 15:30 05/31/19 15:29 05/05/19 09:08 Vitamin D (Vitamin D) 5,000 intlu DAILY ORAL 04/26/19 09:00 05/26/19 08:59 05/05/19 09:05 Sean Vaughn MD May 05, 2019 13:29
--- NOTE | 2019-05-05 13:40 | Cardiac Electrophysiology PN ---
Assessment/Plan Assessment/Plan 1. Chest pain, No TX. Due to underlying lung lesion Outpatient stress test after TB treatment is completed 2. HTN on Amlodipine, Cozaar 100 daily and HCTZ 25 daily BP dropped to 8-0s. DC HCTZ and Amlodipine 3. NIDDM 4. HLPD 5. Cavitary lung lesion, on resp isolation. AFB came back positive! on INH.RIF,ETB,PZA per Dr Kwan. Off iv Abx 6. Anemia DW RN DC tele Subjective Subjective In respiratory isolation in NSR on anti TB meds in NAD. BP 82/53 repeated several times and all SBPs less than 90. Mildly dizzy Objective Last 24 Hour Vital Signs Date Time Temp Pulse Resp B/P (MAP) Pulse Ox O2 Delivery O2 Flow Rate FiO2 05/05/19 12:00 70 05/05/19 12:00 98.4 70 18 114/71 (85) 95 05/05/19 09:08 77 114/71 05/05/19 09:07 114/71 05/05/19 09:00 Room Air 05/05/19 08:00 74 05/05/19 08:00 98.0 72 18 114/71 (85) 96 05/05/19 04:00 98.0 74 18 102/60 (74) 96 05/05/19 04:00 74 05/05/19 00:00 79 05/05/19 00:00 98.3 79 18 103/68 (80) 96 05/04/19 21:00 Room Air 05/04/19 20:00 81 05/04/19 20:00 98.5 81 18 114/80 (91) 97 05/04/19 16:00 97.3 76 18 129/86 (100) 98 05/04/19 16:00 77 Intake and Output 05/04/19 05/05/19 19:00 07:00 Intake Total 120 ml 400 ml Balance 120 ml 400 ml Intake Oral 120 ml 400 ml # Voids 3 3 # Bowel Movements 1 Objective HEENT: No JVD Respiratory/Chest: Coarse rhonchi bilaterally Cardiovascular/Chest: normal peripheral pulses, normal rate, regular rhythm Abdomen: normal bowel sounds, non tender, soft, no organomegaly Extremities: normal range of motion, non-tender, normal inspection Matti Lakhani MD May 05, 2019 13:40
--- NOTE | 2019-05-05 14:30 | NUR ---
NURSE NOTES: Patients SBP 80's after checking it four times on both arms. patient c/o of slight dizziness. Dr Marsh made aware and ordered to give 09 Addendum: 05/05/19 at 1523 by Zulema Kauffman RN cont. of above... 250 ML NS bolus X 1. Patients B/P recheck = 100/66 with HR of 64. will continue to follow.
--- NOTE | 2019-05-05 15:14 | Consultation ---
Consult Note Consult Note I was called by the RN at the request of Dr Egan for Low BP Patient in house for past 11 days- On TB Isolation room current conditions: 1. Chest pain, No ND. Due to underlying lung lesion 2. HTN on Amlodipine, Cozaar 100 daily and HCTZ 25 daily BP dropped to 8-0s. 3. NIDDM 4. HLPD 5. Cavitary lung lesion, on resp isolation. AFB came back positive! Pneumonia / Asthma 6. Anemia 7. Depression record reviewed discussed with RN . Assessment/Plan Hypotension: ? due to antihypertensives TB Plan: Adjust BP meds continue anti TB meds per orders Anirudh Garcia MD May 05, 2019 15:14
--- NOTE | 2019-05-05 15:43 | NUR ---
CASE MANAGEMENT:REVIEW 05/03/19 SI: CHEST PAIN D/T UNDERLYING LESION CAVITARY LUNG LESION....R/O Tb 98.3 79 17 110/71 96% ON RA 98.4 70 18 114/71 95% ON RA IS: PYRIDOXINE 50MG PO QD RIFAMPIN 600MG PO QD INH 300MG PO QD MYAMBUTOL 800MG PO QD PZA 1,000MG PO QD COZAAR PO QD HCTZ PO QD NORVASC PO QD PROZAC PO QD LOVENOX SQ QD : TELEMETRY STATUS DCP; FROM HOME PLAN: RESPIRATORY ISOLATION 1 OF 4 AFB'S ARE POSITIVE T-SPOT ~ NEGATIVE MTB PCR ~ NEGATIVE HISTOPLASMA ANTIGEN ~ PENDING Tb MEDS STARTED ON FridayMAY 01
--- NOTE | 2019-05-05 16:10 | Hematology/Onc Progress Note ---
Assessment/Plan Assessment/Plan Assessment and Recs: # Cavitary lesion of lung on imaging seen on CT, ++ Olive afb as per pulm, at this time on ripe ---> CONTINUE RIPE as per pulm --> per pulm recs --> r.o inflammatory cause --> montior for resolution --> if persists may need biopsy/bronch --> tumor markers are neg --> consider reimage in several months # Anemia of chronic disease due to underlying chronic medical issues, multifactorial --> Anemia workup has been reviewed. Ferritin 133 --> No evidence of hemolysis is noted, peripheral smear has been reviewed. --> Hgb goal >7. Transfuse prn. --> Epogen or iron at this time is not particularly indicated --> Medications have been reviewed --> Hgb trend: 11.5-->12.1 # Chest pain r/o acs v inflammatory disease of lung, bronchitis --> CT imaging of the chest was ordered which showed calcified mediastinal and hilar lymph nodes as well as mild cardiomegaly without pericardial effusion. There is some fluid impacting some of the left lower lobe bronchi posterior medially no pulmonary embolism or aortic aneurysm or dissection was seen --> Patient given IV antibiotics. --> as per cards recs --> trop and ekg x 2 ordered --> nitrog prn --> outpatient stress test # Granulomatous disease # HTN. sbp goal <140 The time the noted was written does not necessarily correspond to the time the patient was seen,. Subjective Constitutional: Denies: no symptoms, chills, fever, malaise, weakness, other HEENT: Denies: no symptoms, eye pain, blurred vision, tearing, double vision, ear pain, ear discharge, nose pain, nose congestion, throat pain, throat swelling, mouth pain, mouth swelling, other Cardiovascular: Denies: no symptoms, chest pain, edema, irregular heart rate, lightheadedness, palpitations, syncope, other Respiratory: Denies: no symptoms, cough, shortness of breath, SOB with excertion, SOB at rest, sputum, wheezing, other Gastrointestinal/Abdominal: Denies: no symptoms, abdomen distended, abdominal pain, black stools, tarry stools, blood in stool, constipated, diarrhea, difficulty swallowing, nausea, poor appetite, poor fluid intake, rectal bleeding , vomiting, other Neurologic/Psychiatric: Denies: no symptoms, anxiety, depressed, emotional problems, headache, numbness, paresthesia, pre-existing deficit, seizure, tingling, tremors, weakness, other Endocrine: Denies: no symptoms, excessive sweating, flushing, intolerance to cold, intolerance to heat, increased hunger, increased thirst, increased urine, unexplained weight gain, unexplained weight loss, other Allergies: Coded Allergies: No Known Allergies (Unverified , 06/27/17) Subjective 04/26: Pt is sitting in bed and having breakfast. No c/o pain. Labs reviewed. 04/27: no events, cp is better, seen by pulm, cards 04/28: no fevers or chills, no night sweats noted 04/30: Pt on [place] isolation, cough better with cough syrup. 05/01: no acute events, no bleeding reported. 05/02:no distress, VS reviewed, afebrile. 05/03: no events, oimaging reviewed, seen by pulm and id 05/04, unable to provide sputum, seen by psych, otherwise no changes 05/05: no events to report, tolerating ripe Objective Objective Current Medications Medications (Trade) Dose Ordered Sig/Darrion Route PRN Reason Start Time Stop Time Status Last Admin Dose Admin Artificial Tears (Akwa-Tears) 2 drop FOUR TIMES A DAY BOTH EYES 04/25/19 09:00 05/25/19 08:59 05/05/19 12:51 Dextrose (Dextrose 50%) 25 ml Q30M PRN IV Hypoglycemia 04/25/19 00:00 05/25/19 00:00 Dextrose (Dextrose 50%) 50 ml Q30M PRN IV Hypoglycemia 04/25/19 00:00 05/25/19 00:00 Enoxaparin Sodium (Lovenox) 40 mg DAILY SUBQ 04/25/19 09:00 05/25/19 08:59 05/05/19 09:09 Ethambutol HCl (Myambutol) 800 mg DAILY ORAL 05/01/19 15:30 05/31/19 15:29 05/05/19 09:08 Famotidine (Pepcid) 40 mg ACBREAKFAST ORAL 04/25/19 06:30 05/25/19 06:29 05/05/19 06:53 Fluoxetine HCl (PROzac) 40 mg DAILY ORAL 04/26/19 09:00 05/26/19 08:59 05/05/19 09:07 Folic Acid (Folate) 2 mg DAILY ORAL 05/05/19 15:30 06/04/19 15:29 Glipizide (GlipiZIDE XL) 2.5 mg QPM ORAL 04/26/19 16:30 05/26/19 16:29 05/04/19 16:55 Insulin Aspart (NovoLOG) BEFORE MEALS AND HS SUBQ 04/25/19 06:30 05/25/19 06:29 05/04/19 16:58 Isoniazid (Inh) 300 mg DAILY ORAL 05/01/19 15:30 05/31/19 15:29 05/05/19 09:06 Losartan Potassium (Cozaar) 100 mg DAILY ORAL 05/06/19 09:00 05/30/19 08:59 Metformin HCl (Glucophage) 500 mg TWICE A DAY ORAL 04/26/19 09:00 05/26/19 08:59 05/05/19 09:07 Ondansetron HCl (Zofran) 4 mg Q6H PRN IVP Nausea & Vomiting 05/05/19 09:45 06/04/19 09:44 05/05/19 09:57 Pyrazinamide (Pza) 1,000 mg DAILY ORAL 05/01/19 15:30 05/31/19 15:29 05/05/19 09:08 Pyridoxine HCl (Vitamin B6) 50 mg DAILY ORAL 05/04/19 09:00 06/03/19 08:59 05/05/19 09:07 Rifampin (Rifadin) 600 mg DAILY ORAL 05/01/19 15:30 05/31/19 15:29 05/05/19 09:08 Vitamin D (Vitamin D) 5,000 intlu DAILY ORAL 04/26/19 09:00 05/26/19 08:59 05/05/19 09:05 Last 24 Hour Vital Signs Date Time Temp Pulse Resp B/P (MAP) Pulse Ox O2 Delivery O2 Flow Rate FiO2 05/05/19 12:00 70 05/05/19 12:00 98.4 70 18 114/71 (85) 95 05/05/19 09:08 77 114/71 7/10/19 09:07 114/71 05/05/19 09:00 Room Air 05/05/19 08:00 74 05/05/19 08:00 98.0 72 18 114/71 (85) 96 05/05/19 04:00 98.0 74 18 102/60 (74) 96 05/05/19 04:00 74 05/05/19 00:00 79 05/05/19 00:00 98.3 79 18 103/68 (80) 96 05/04/19 21:00 Room Air 05/04/19 20:00 81 05/04/19 20:00 98.5 81 18 114/80 (91) 97 05/04/19 16:00 97.3 76 18 129/86 (100) 98 05/04/19 16:00 77 05/04/19 12:00 84 05/04/19 12:00 97.2 78 18 128/84 (99) 97 05/04/19 09:31 74 111/78 05/04/19 09:29 111/78 05/04/19 09:00 Room Air 05/04/19 08:00 73 05/04/19 08:00 98.1 73 18 111/78 (89) 96 05/04/19 04:00 98.0 72 18 97/75 (82) 97 05/04/19 04:00 75 05/04/19 00:00 67 05/04/19 00:00 98.0 77 18 132/86 (101) 96 05/03/19 21:00 Room Air 05/03/19 20:00 98.1 73 18 120/79 (93) 96 Intake and Output 05/04/19 05/05/19 19:00 07:00 Intake Total 120 ml 400 ml Balance 120 ml 400 ml Intake Oral 120 ml 400 ml # Voids 3 3 # Bowel Movements 1 Height (Feet): 5 Height (Inches): 2.00 Weight (Pounds): 134 Objective PHYSICAL EXAM General Appearance: normal inspection, well appearing, no apparent distress, alert, GCS 15 Head: atraumatic ENT: normal ENT inspection, hearing grossly normal, normal voice Neck: normal inspection, full range of motion, supple, no bony tend Respiratory: normal inspection, lungs clear, normal breath sounds, no respiratory distress, no retraction, no wheezing Cardiovascular: regular rate, rhythm, no edema Gastrointestinal: normal inspection, normal bowel sounds, non tender, soft, no guarding, no hernia Genitourinary: no CVA tenderness Musculoskeletal: normal inspection, back normal, normal range of motion Neurologic: normal inspection, alert, oriented x3, responsive, spring up supervisor III-XII nml as tested, speech normal Psychiatric: normal inspection, judgement/insight normal, mood/affect normal Alden Kohler MD May 05, 2019 16:10
--- NOTE | 2019-05-05 18:00 | Progress Note ---
DATE: 05/05/2019 SUBJECTIVE: The patient is in bed, in no acute distress. Continues to be anxious. Compliant with medication. Low energy, weak. MENTAL STATUS EXAMINATION: Alert and oriented times to self, place, and situation. Mood is depressed. Affect is constricted, congruent with mood. Thought process is concrete. Thought content, no suicidal or homicidal ideation. ASSESSMENT: Depression. PLAN: We will continue current medication. Provide the patient with reality orientation and supportive therapy. Yamel Howard M.D. DR: CONSUELO JOB#: [id number] CC:
--- NOTE | 2019-05-05 19:25 | NUR ---
NURSE NOTES: Received report from Kathryn RN, pt. in bed awake, A/O x's3-4- Nepali speaking, able to make needs known, desk monitor on, no signs or symptoms of acute cardiac or respiratory distress noted, bed in lowest position and call light within easy reach, pt. aware to ask for assist if ambulating, bed alarm on, side rails up x's 3 and safety brakes engaged, pt. appears to be sating well on room air at 98%- no distress noted, pt. appears to be clean and dry, comfort measures provided, Left wrist 20G IV intact and patent, pt. is on TB precautions, safety measures continued, will continue with plan of care.
--- NOTE | 2019-05-05 19:33 | NUR ---
HAND-OFF: Report given to NOHEMI Mcarthur. Plan of care endorsed.
[2019-05-05 20:31] LABS: APPEARANCE,URINE CLEAR; BILIRUBIN, URINE NEGATIVE (NEGATIVE); COLOR,URINE BROWN; GLUCOSE, URINE (UA) NEGATIVE (NEGATIVE); KETONES,URINE 1+ (NEGATIVE); LEUKOCYTE ESTERASE ,URINE 2+ (NEGATIVE); NITRITE,URINE NEGATIVE (NEGATIVE); PH,URINE 5 (4.5-8.0); PROTEIN,URINE NEGATIVE (NEGATIVE); UROBILINOGEN,URINE NORMAL MG/DL (0.0-1.0)
--- NOTE | 2019-05-05 22:42 | General Progress Note ---
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 SNOMED: 277589242 (3) HTN (hypertension) ICD Codes: I10 - Essential (primary) hypertension SNOMED: 66543088 (4) CAD (coronary artery disease) ICD Codes: I25.10 - Atherosclerotic heart disease of [place] coronary artery without angina pectoris SNOMED: 15782475 Status: stable, progressing Assessment/Plan: cavitary lesion hypotensive so needs to stay in tele nausea r/o tb afebrile Subjective ROS Limited/Unobtainable: Yes Allergies: Coded Allergies: No Known Allergies (Unverified , 06/27/17) Subjective cough Objective Last 24 Hour Vital Signs Date Time Temp Pulse Resp B/P (MAP) Pulse Ox O2 Delivery O2 Flow Rate FiO2 05/05/19 21:00 Room Air 05/05/19 20:00 98.0 64 18 101/65 (77) 98 05/05/19 20:00 74 05/05/19 16:00 66 05/05/19 16:00 97.7 70 18 92/62 (72) 96 05/05/19 12:00 70 05/05/19 12:00 98.4 70 18 114/71 (85) 95 05/05/19 09:08 77 114/71 05/05/19 09:07 114/71 05/05/19 09:00 Room Air 05/05/19 08:00 74 05/05/19 08:00 98.0 72 18 114/71 (85) 96 05/05/19 04:00 98.0 74 18 102/60 (74) 96 05/05/19 04:00 74 05/05/19 00:00 79 05/05/19 00:00 98.3 79 18 103/68 (80) 96 Intake and Output 05/04/19 05/05/19 19:00 07:00 Intake Total 120 ml 400 ml Balance 120 ml 400 ml Intake Oral 120 ml 400 ml # Voids 3 3 # Bowel Movements 1 Laboratory Tests 05/05/19 19:00: Urine Color Brown, Urine Appearance Clear, Urine pH 5, Urine Specific [place] 1.010, Urine Protein Negative, Urine Glucose (UA) Negative, Urine Ketones 1+H, Urine Blood 1+H, Urine Nitrite Negative, Urine Bilirubin Negative, Urine Urobilinogen Normal, Urine Leukocyte Esterase 2+H, Urine RBC 0-2, Urine WBC 2-4 , Urine Squamous Epithelial Cells Occasional, Urine Bacteria Occasional, Urine Mucus Occasional Height (Feet): 5 Height (Inches): 2.00 Weight (Pounds): 134 Neck: supple Cardiovascular: normal rate Abdomen: non tender Paula Nixon MD May 05, 2019 22:42
[2019-05-06 04:00] VITALS: BP 119/71
[2019-05-06] MEDS: NovoLOG Insulin Flexpen SUBQ SCH ×4 (05:41→21:00)
[2019-05-06 06:56] LABS: BASOPHILS % (AUTO) 0.9 % (0.0-2.0); HEMATOCRIT 35.1 % (37.0-47.0); HEMOGLOBIN 11.8 G/DL (12.0-16.0); LYMPHOCYTES % (AUTO) 33.6 % (20.0-45.0); MEAN CORPUSCULAR VOLUME 96 FL (80-99); MONOCYTES % (AUTO) 7.9 % (1.0-10.0); NEUTROPHILS % (AUTO) 55.6 % (45.0-75.0); PLATELET COUNT 182 K/UL (150-450); RED BLOOD COUNT 3.67 M/UL (4.20-5.40); RED CELL DISTRIBUTION WIDTH 10.7 % (11.6-14.8)
--- NOTE | 2019-05-06 06:59 | NUR ---
HAND-OFF: Report given to Dax RN/ Daly RN, pt. remains stable and no signs of distress noted. Nurse aware to collect sputum culture for MTB PCR as patient was refusing during pm. shift.
--- NOTE | 2019-05-06 07:39 | NUR ---
NURSE NOTES Received report from Rebecca Lopez., Patient resting comfortably in bed awake and alert. denies pain or discomfort., VS taken. safety precautions in place. will monitor throughout shift.
[2019-05-06 07:46] LABS: ALANINE AMINOTRANSFERASE 16 U/L (12-78); ALBUMIN 3.6 G/DL (3.4-5.0); ALKALINE PHOSPHATASE 73 U/L (46-116); ANION GAP 7 mmol/L (5-15); ASPARTATE AMINO TRANSFERASE 25 U/L (15-37); BILIRUBIN,TOTAL 0.5 MG/DL (0.2-1.0); BLOOD UREA NITROGEN 22 mg/dL (7-18); CALCIUM 8.8 MG/DL (8.5-10.1); CARBON DIOXIDE 29 MMOL/L (21-32); CHLORIDE 98 MMOL/L (98-107); CHOLESTEROL 107 MG/DL (< 200); CREATININE 1.1 MG/DL (0.55-1.30); GAMMA GLUTAMYL TRANSPEPTIDASE 29 U/L (5-85); HDL CHOLESTEROL 47 MG/DL (40-60); PHOSPHORUS 3.2 MG/DL (2.5-4.9); POTASSIUM 3.8 MMOL/L (3.5-5.1); SODIUM 133 MMOL/L (136-145); TRIGLYCERIDES 89 MG/DL (30-150)
[2019-05-06 08:00] VITALS: BP 96/62
[2019-05-06] MEDS: Vitamin D 1000 IU Tab ORAL SCH (09:00)
[2019-05-06] MEDS: metFORMIN 500mg tab ORAL SCH ×2 (09:00→17:13)
[2019-05-06] MEDS ORDERED: Losartan 50mg tab ORAL SCH ×2 (09:00)
[2019-05-06] MEDS: Artificial Tears 1.4% Op Soln BOTH EYES SCH ×4 (09:00→21:00)
[2019-05-06] MEDS: Losartan 50mg tab ORAL SCH (09:00)
--- NOTE | 2019-05-06 09:43 | Hematology/Onc Progress Note ---
Assessment/Plan Assessment/Plan Assessment and Recs: # Cavitary lesion of lung on imaging seen on CT, ++ Olive afb as per pulm, at this time on ripe ---> CONTINUE RIPE as per pulm --> per pulm recs --> r.o inflammatory cause/issues --> montior for resolution --> if persists may need biopsy/bronch --> tumor markers are neg --> consider reimage in several months # Anemia of chronic disease due to underlying chronic medical issues, multifactorial --> Anemia workup has been reviewed. Ferritin 133 --> No evidence of hemolysis is noted, peripheral smear has been reviewed. --> Hgb goal >7. Transfuse prn. --> Epogen or iron at this time is not particularly indicated --> Medications have been reviewed --> Hgb trend: 11.5-->12.1-->11.8 # Chest pain r/o acs v inflammatory disease of lung, bronchitis --> CT imaging of the chest was ordered which showed calcified mediastinal and hilar lymph nodes as well as mild cardiomegaly without pericardial effusion. There is some fluid impacting some of the left lower lobe bronchi posterior medially no pulmonary embolism or aortic aneurysm or dissection was seen --> Patient given IV antibiotics. --> as per cards recs --> trop and ekg x 2 ordered --> nitrog prn --> outpatient stress test # Granulomatous disease # HTN. sbp goal <140 The time the noted was written does not necessarily correspond to the time the patient was seen,. Subjective Constitutional: Denies: no symptoms, chills, fever, malaise, weakness, other HEENT: Denies: no symptoms, eye pain, blurred vision, tearing, double vision, ear pain, ear discharge, nose pain, nose congestion, throat pain, throat swelling, mouth pain, mouth swelling, other Cardiovascular: Denies: no symptoms, chest pain, edema, irregular heart rate, lightheadedness, palpitations, syncope, other Respiratory: Denies: no symptoms, cough, shortness of breath, SOB with excertion, SOB at rest, sputum, wheezing, other Gastrointestinal/Abdominal: Denies: no symptoms, abdomen distended, abdominal pain, black stools, tarry stools, blood in stool, constipated, diarrhea, difficulty swallowing, nausea, poor appetite, poor fluid intake, rectal bleeding , vomiting, other Neurologic/Psychiatric: Denies: no symptoms, anxiety, depressed, emotional problems, headache, numbness, paresthesia, pre-existing deficit, seizure, tingling, tremors, weakness, other Endocrine: Denies: no symptoms, excessive sweating, flushing, intolerance to cold, intolerance to heat, increased hunger, increased thirst, increased urine, unexplained weight gain, unexplained weight loss, other Hematologic/Lymphatic: Denies: no symptoms, anemia, easy bleeding, easy bruising, adenopathy, other Allergies: Coded Allergies: No Known Allergies (Unverified , 06/27/17) Subjective 04/26: Pt is sitting in bed and having breakfast. No c/o pain. Labs reviewed. 04/27: no events, cp is better, seen by pulm, cards 04/28: no fevers or chills, no night sweats noted 04/30: Pt on [place] isolation, cough better with cough syrup. 05/01: no acute events, no bleeding reported. 05/02:no distress, VS reviewed, afebrile. 05/03: no events, oimaging reviewed, seen by pulm and id 05/04, unable to provide sputum, seen by psych, otherwise no changes 05/05: no events to report, tolerating ripe 05/06: no events, no fevers, ripe has been started Objective Objective Current Medications Medications (Trade) Dose Ordered Sig/Darrion Route PRN Reason Start Time Stop Time Status Last Admin Dose Admin Artificial Tears (Akwa-Tears) 2 drop FOUR TIMES A DAY BOTH EYES 04/25/19 09:00 05/25/19 08:59 05/05/19 17:39 Dextrose (Dextrose 50%) 25 ml Q30M PRN IV Hypoglycemia 04/25/19 00:00 05/25/19 00:00 Dextrose (Dextrose 50%) 50 ml Q30M PRN IV Hypoglycemia 04/25/19 00:00 05/25/19 00:00 Enoxaparin Sodium (Lovenox) 40 mg DAILY SUBQ 04/25/19 09:00 05/25/19 08:59 05/05/19 09:09 Ethambutol HCl (Myambutol) 800 mg DAILY ORAL 05/01/19 15:30 05/31/19 15:29 05/05/19 09:08 Famotidine (Pepcid) 40 mg ACBREAKFAST ORAL 04/25/19 06:30 05/25/19 06:29 05/05/19 06:53 Fluoxetine HCl (PROzac) 40 mg DAILY ORAL 04/26/19 09:00 05/26/19 08:59 05/05/19 09:07 Folic Acid (Folate) 2 mg DAILY ORAL 05/05/19 15:30 06/04/19 15:29 Glipizide (GlipiZIDE XL) 2.5 mg QPM ORAL 04/26/19 16:30 05/26/19 16:29 05/04/19 16:55 Insulin Aspart (NovoLOG) BEFORE MEALS AND HS SUBQ 04/25/19 06:30 05/25/19 06:29 05/05/19 20:19 Isoniazid (Inh) 300 mg DAILY ORAL 05/01/19 15:30 05/31/19 15:29 05/05/19 09:06 Losartan Potassium (Cozaar) 25 mg DAILY ORAL 05/06/19 09:00 05/30/19 08:59 Metformin HCl (Glucophage) 500 mg TWICE A DAY ORAL 04/26/19 09:00 05/26/19 08:59 05/05/19 09:07 Ondansetron HCl (Zofran) 4 mg Q6H PRN IVP Nausea & Vomiting 05/05/19 09:45 06/04/19 09:44 05/06/19 09:24 Pyrazinamide (Pza) 1,000 mg DAILY ORAL 05/01/19 15:30 05/31/19 15:29 05/05/19 09:08 Pyridoxine HCl (Vitamin B6) 50 mg DAILY ORAL 05/04/19 09:00 06/03/19 08:59 05/05/19 09:07 Rifampin (Rifadin) 600 mg DAILY ORAL 05/01/19 15:30 05/31/19 15:29 05/05/19 09:08 Vitamin D (Vitamin D) 5,000 intlu DAILY ORAL 04/26/19 09:00 05/26/19 08:59 05/05/19 09:05 Last 24 Hour Vital Signs Date Time Temp Pulse Resp B/P (MAP) Pulse Ox O2 Delivery O2 Flow Rate FiO2 05/06/19 08:00 97.7 68 18 96/62 (73) 96 05/06/19 04:00 97.9 72 18 119/71 (87) 96 05/06/19 03:52 71 05/06/19 00:00 66 05/05/19 23:56 98.1 65 18 100/60 (73) 97 05/05/19 21:00 Room Air 05/05/19 20:00 98.0 64 18 101/65 (77) 98 05/05/19 20:00 74 05/05/19 16:00 66 05/05/19 16:00 97.7 70 18 92/62 (72) 96 05/05/19 12:00 70 05/05/19 12:00 98.4 70 18 114/71 (85) 95 05/05/19 09:08 77 114/71 05/05/19 09:07 114/71 05/05/19 09:00 Room Air 05/05/19 08:00 74 05/05/19 08:00 98.0 72 18 114/71 (85) 96 05/05/19 04:00 98.0 74 18 102/60 (74) 96 05/05/19 04:00 74 05/05/19 00:00 79 05/05/19 00:00 98.3 79 18 103/68 (80) 96 05/04/19 21:00 Room Air 05/04/19 20:00 81 05/04/19 20:00 98.5 81 18 114/80 (91) 97 05/04/19 16:00 97.3 76 18 129/86 (100) 98 05/04/19 16:00 77 05/04/19 12:00 84 05/04/19 12:00 97.2 78 18 128/84 (99) 97 Intake and Output 05/05/19 05/06/19 19:00 07:00 Intake Total 640 ml Balance 640 ml Intake Oral 640 ml # Voids 2 2 Labs Test 05/05/19 19:00 05/06/19 06:35 Urine Color Brown Urine Appearance Clear Urine pH 5 (4.5-8.0) Urine Specific [place] 1.010 (1.005-1.035) Urine Protein Negative (NEGATIVE) Urine Glucose (UA) Negative (NEGATIVE) Urine Ketones 1+ (NEGATIVE) Urine Blood 1+ (NEGATIVE) Urine Nitrite Negative (NEGATIVE) Urine Bilirubin Negative (NEGATIVE) Urine Urobilinogen Normal MG/DL (0.0-1.0) Urine Leukocyte Esterase 2+ (NEGATIVE) Urine RBC 0-2 /HPF (0 - 2) Urine WBC 2-4 /HPF (0 - 2) Urine Squamous Epithelial Cells Occasional /LPF Urine Bacteria Occasional /HPF (NONE) Urine Mucus Occasional /LPF White Blood Count 5.0 K/UL (4.8-10.8) Red Blood Count 3.67 M/UL (4.20-5.40) Hemoglobin 11.8 G/DL (12.0-16.0) Hematocrit 35.1 % (37.0-47.0) Mean Corpuscular Volume 96 FL (80-99) Mean Corpuscular Hemoglobin 32.2 PG (27.0-31.0) Mean Corpuscular Hemoglobin Concent 33.7 G/DL (32.0-36.0) Red Cell Distribution Width 10.7 % (11.6-14.8) Platelet Count 182 K/UL (150-450) Mean Platelet Volume 6.8 FL (6.5-10.1) Neutrophils (%) (Auto) 55.6 % (45.0-75.0) Lymphocytes (%) (Auto) 33.6 % (20.0-45.0) Monocytes (%) (Auto) 7.9 % (1.0-10.0) Eosinophils (%) (Auto) 2.0 % (0.0-3.0) Basophils (%) (Auto) 0.9 % (0.0-2.0) Sodium Level 133 MMOL/L (136-145) Potassium Level 3.8 MMOL/L (3.5-5.1) Chloride Level 98 MMOL/L (98-107) Carbon Dioxide Level 29 MMOL/L (21-32) Anion Gap 7 mmol/L (5-15) Blood Urea Nitrogen 22 mg/dL (7-18) Creatinine 1.1 MG/DL (0.55-1.30) Estimat Glomerular Filtration Rate mL/min (>60) Glucose Level 108 MG/DL (74-106) Hemoglobin A1c 6.0 % (4.3-6.0) Uric Acid 15.3 MG/DL (2.6-7.2) Calcium Level 8.8 MG/DL (8.5-10.1) Phosphorus Level 3.2 MG/DL (2.5-4.9) Magnesium Level 2.3 MG/DL (1.8-2.4) Total Bilirubin 0.5 MG/DL (0.2-1.0) Gamma Glutamyl Transpeptidase 29 U/L (5-85) Aspartate Amino Transf (AST/SGOT) 25 U/L (15-37) Alanine Aminotransferase (ALT/SGPT) 16 U/L (12-78) Alkaline Phosphatase 73 U/L (46-116) C-Reactive Protein, Quantitative < 0.4 mg/dL (0.00-0.90) Pro-B-Type Natriuretic Peptide 16 pg/mL (0-125) Total Protein 7.2 G/DL (6.4-8.2) Albumin 3.6 G/DL (3.4-5.0) Globulin 3.6 g/dL Albumin/Globulin Ratio 1.0 (1.0-2.7) Triglycerides Level 89 MG/DL (30-150) Cholesterol Level 107 MG/DL (< 200) LDL Cholesterol 51 mg/dL (<100) HDL Cholesterol 47 MG/DL (40-60) Cholesterol/HDL Ratio 2.3 (3.3-4.4) Height (Feet): 5 Height (Inches): 2.00 Weight (Pounds): 134 Objective PHYSICAL EXAM General Appearance: normal inspection, well appearing, no apparent distress, alert, GCS 15 Head: atraumatic ENT: normal ENT inspection, hearing grossly normal, normal voice Neck: normal inspection, full range of motion, supple, no bony tend Respiratory: normal inspection, lungs clear, normal breath sounds, no respiratory distress, no retraction, no wheezing Cardiovascular: regular rate, rhythm, no edema Gastrointestinal: normal inspection, normal bowel sounds, non tender, soft, no guarding, no hernia Genitourinary: no CVA tenderness Musculoskeletal: normal inspection, back normal, normal range of motion Neurologic: normal inspection, alert, oriented x3, responsive, employment officer III-XII nml as tested, speech normal Psychiatric: normal inspection, judgement/insight normal, mood/affect normal Alden Kohler MD May 06, 2019 09:43
[2019-05-06] MEDS: Pyridoxine 50mg tab ORAL SCH (10:08)
[2019-05-06] MEDS: Enoxaparin 40mg Inj SUBQ SCH (10:08)
[2019-05-06] MEDS: Isoniazid 300mg tab ORAL SCH (10:08)
--- NOTE | 2019-05-06 11:36 | Infectious Diseases Prog Note ---
Assessment/Plan Assessment/Plan IMPRESSION: Pneumonia. Lung cavity, likely mycobacterial disease Diabetes mellitus, Hypertension, Major depression, History of asthma. RECOMMENDATION: TB PCR test in sputum is negative AFB smear X 1: 1+ positive Continue TB treatment with RIPE TST: negative Case was D/W infectious control Subjective ROS Limited/Unobtainable: Yes Constitutional: Reports: no symptoms Respiratory: Reports: no symptoms Gastrointestinal/Abdominal: Reports: no symptoms Allergies: Coded Allergies: No Known Allergies (Unverified , 06/27/17) Objective Vital Signs Last 24 Hour Vital Signs Date Time Temp Pulse Resp B/P (MAP) Pulse Ox O2 Delivery O2 Flow Rate FiO2 05/06/19 09:00 96/62 05/06/19 09:00 Room Air 05/06/19 08:00 97.7 68 18 96/62 (73) 96 05/06/19 08:00 70 05/06/19 04:00 97.9 72 18 119/71 (87) 96 05/06/19 03:52 71 05/06/19 00:00 66 05/05/19 23:56 98.1 65 18 100/60 (73) 97 05/05/19 21:00 Room Air 05/05/19 20:00 98.0 64 18 101/65 (77) 98 05/05/19 20:00 74 05/05/19 16:00 66 05/05/19 16:00 97.7 70 18 92/62 (72) 96 05/05/19 12:00 70 05/05/19 12:00 98.4 70 18 114/71 (85) 95 Height (Feet): 5 Height (Inches): 2.00 Weight (Pounds): 134 General Appearance: no acute distress HEENT: mucous membranes moist Respiratory/Chest: lungs clear Cardiovascular: normal rate Abdomen: normal bowel sounds, soft, non tender Extremities: no edema Neurologic/Psychiatric: alert, oriented x 3, responsive Microbiology Date/Time Source Procedure Growth Status 05/04/19 07:00 Sputum AFB Specimen Processing Tissue - Final Resulted 05/04/19 07:00 Sputum Acid Fast Bacilli Smear - Final Resulted 05/04/19 07:00 Sputum Acid Fast Bacilli Culture Pending Resulted Laboratory Tests Test 05/05/19 19:00 05/06/19 06:35 Urine Color Brown Urine Appearance Clear Urine pH 5 (4.5-8.0) Urine Specific [place] 1.010 (1.005-1.035) Urine Protein Negative (NEGATIVE) Urine Glucose (UA) Negative (NEGATIVE) Urine Ketones 1+ (NEGATIVE) H Urine Blood 1+ (NEGATIVE) H Urine Nitrite Negative (NEGATIVE) Urine Bilirubin Negative (NEGATIVE) Urine Urobilinogen Normal MG/DL (0.0-1.0) Urine Leukocyte Esterase 2+ (NEGATIVE) H Urine RBC 0-2 /HPF (0 - 2) Urine WBC 2-4 /HPF (0 - 2) Urine Squamous Epithelial Cells Occasional /LPF Urine Bacteria Occasional /HPF (NONE) Urine Mucus Occasional /LPF White Blood Count 5.0 K/UL (4.8-10.8) Red Blood Count 3.67 M/UL (4.20-5.40) L Hemoglobin 11.8 G/DL (12.0-16.0) L Hematocrit 35.1 % (37.0-47.0) L Mean Corpuscular Volume 96 FL (80-99) Mean Corpuscular Hemoglobin 32.2 PG (27.0-31.0) H Mean Corpuscular Hemoglobin Concent 33.7 G/DL (32.0-36.0) Red Cell Distribution Width 10.7 % (11.6-14.8) L Platelet Count 182 K/UL (150-450) Mean Platelet Volume 6.8 FL (6.5-10.1) Neutrophils (%) (Auto) 55.6 % (45.0-75.0) Lymphocytes (%) (Auto) 33.6 % (20.0-45.0) Monocytes (%) (Auto) 7.9 % (1.0-10.0) Eosinophils (%) (Auto) 2.0 % (0.0-3.0) Basophils (%) (Auto) 0.9 % (0.0-2.0) Sodium Level 133 MMOL/L (136-145) L Potassium Level 3.8 MMOL/L (3.5-5.1) Chloride Level 98 MMOL/L (98-107) Carbon Dioxide Level 29 MMOL/L (21-32) Anion Gap 7 mmol/L (5-15) Blood Urea Nitrogen 22 mg/dL (7-18) H Creatinine 1.1 MG/DL (0.55-1.30) Estimat Glomerular Filtration Rate mL/min (>60) Glucose Level 108 MG/DL (74-106) H Hemoglobin A1c 6.0 % (4.3-6.0) Uric Acid 15.3 MG/DL (2.6-7.2) H Calcium Level 8.8 MG/DL (8.5-10.1) Phosphorus Level 3.2 MG/DL (2.5-4.9) Magnesium Level 2.3 MG/DL (1.8-2.4) Total Bilirubin 0.5 MG/DL (0.2-1.0) Gamma Glutamyl Transpeptidase 29 U/L (5-85) Aspartate Amino Transf (AST/SGOT) 25 U/L (15-37) Alanine Aminotransferase (ALT/SGPT) 16 U/L (12-78) Alkaline Phosphatase 73 U/L (46-116) C-Reactive Protein, Quantitative < 0.4 mg/dL (0.00-0.90) Pro-B-Type Natriuretic Peptide 16 pg/mL (0-125) Total Protein 7.2 G/DL (6.4-8.2) Albumin 3.6 G/DL (3.4-5.0) Globulin 3.6 g/dL Albumin/Globulin Ratio 1.0 (1.0-2.7) Triglycerides Level 89 MG/DL (30-150) Cholesterol Level 107 MG/DL (< 200) LDL Cholesterol 51 mg/dL (<100) HDL Cholesterol 47 MG/DL (40-60) Cholesterol/HDL Ratio 2.3 (3.3-4.4) L Current Medications Medications (Trade) Dose Ordered Sig/Darrion Route PRN Reason Start Time Stop Time Status Last Admin Dose Admin Artificial Tears (Akwa-Tears) 2 drop FOUR TIMES A DAY BOTH EYES 04/25/19 09:00 05/25/19 08:59 05/05/19 17:39 Dextrose (Dextrose 50%) 25 ml Q30M PRN IV Hypoglycemia 04/25/19 00:00 05/25/19 00:00 Dextrose (Dextrose 50%) 50 ml Q30M PRN IV Hypoglycemia 04/25/19 00:00 05/25/19 00:00 Enoxaparin Sodium (Lovenox) 40 mg DAILY SUBQ 04/25/19 09:00 05/25/19 08:59 05/06/19 10:08 Ethambutol HCl (Myambutol) 800 mg DAILY ORAL 05/01/19 15:30 05/31/19 15:29 05/06/19 10:08 Famotidine (Pepcid) 40 mg ACBREAKFAST ORAL 04/25/19 06:30 05/25/19 06:29 05/05/19 06:53 Fluoxetine HCl (PROzac) 40 mg DAILY ORAL 04/26/19 09:00 05/26/19 08:59 05/05/19 09:07 Folic Acid (Folate) 2 mg DAILY ORAL 05/05/19 15:30 06/04/19 15:29 Glipizide (GlipiZIDE XL) 2.5 mg QPM ORAL 04/26/19 16:30 05/26/19 16:29 05/04/19 16:55 Insulin Aspart (NovoLOG) BEFORE MEALS AND HS SUBQ 04/25/19 06:30 05/25/19 06:29 05/05/19 20:19 Isoniazid (Inh) 300 mg DAILY ORAL 05/01/19 15:30 05/31/19 15:29 05/06/19 10:08 Losartan Potassium (Cozaar) 25 mg DAILY ORAL 05/06/19 09:00 05/30/19 08:59 Metformin HCl (Glucophage) 500 mg TWICE A DAY ORAL 04/26/19 09:00 05/26/19 08:59 05/05/19 09:07 Ondansetron HCl (Zofran) 4 mg Q6H PRN IVP Nausea & Vomiting 05/05/19 09:45 06/04/19 09:44 05/06/19 09:24 Pyrazinamide (Pza) 1,000 mg DAILY ORAL 05/01/19 15:30 05/31/19 15:29 05/06/19 10:09 Pyridoxine HCl (Vitamin B6) 50 mg DAILY ORAL 05/04/19 09:00 06/03/19 08:59 05/06/19 10:08 Rifampin (Rifadin) 600 mg DAILY ORAL 05/01/19 15:30 05/31/19 15:29 05/06/19 10:08 Vitamin D (Vitamin D) 5,000 intlu DAILY ORAL 04/26/19 09:00 05/26/19 08:59 05/05/19 09:05 Carlos Kwan MD May 06, 2019 11:36
--- NOTE | 2019-05-06 11:42 | NUR ---
RD ASSESSMENT & RECOMMENDATIONS SEE CARE ACTIVITY FOR COMPLETE ASSESSMENT DAILY ESTIMATED NEEDS: Needs based on DM, cardiac 61.7kg 25-30 kcals/kg 6532-8292 total kcals 1-1.5 g protein/kg 62-93 g total protein Fluid per MD, on diuretics mL/kg total fluid mLs NUTRITION DIAGNOSIS: Altered nutrition related lab values r/t diabetes as evidenced by elev fasting BG (108 115) and POC (91 143 120 90), pt on oral and IM hypoglycemics. CURRENT DIET:Regular PO DIET RECOMMENDATIONS: CCHO LOW ADDITIONAL RECOMMENDATIONS: 1) Obtain an A1C as able for eval 2) Calibrated bed scale wt .
[2019-05-06 12:00] VITALS: BP 114/62
--- NOTE | 2019-05-06 15:18 | Pulmonology Progress Note ---
Assessment/Plan Problems: (1) Cavitary lesion of lung (2) Granulomatous disease (3) Chest pain (4) HTN (hypertension) (5) CAD (coronary artery disease) (6) Shingles Assessment/Plan ASSESSMENT: The patient is a 73-year-old female with a history of hypertension , hyperlipidemia, and diabetes, presenting with pleuritic chest pain in the setting of a recent respiratory illness. CT of the chest demonstrates intense bilateral reticulonodular opacities and a cavitary lesion. She is being ruled out for MTB. With respect to the etiology of her lesion, it is likely infectious/inflammatory, so the cavity has to be followed to rule out a neoplastic process. PROBLEM LIST: 1. Left lower lobe cavity thin-walled, likely infectious, inflammatory, ? doubt MTB, 1/3 AFB + but TST and CPR neg, ? ALIDA, started on RIPE 05/03 2. Scattered bilateral reticulonodular opacities, likely an infectious bronchiolitis. 3. Pleuritic chest pain, likely secondary to above. 4. Hypertension, hyperlipidemia, diabetes. TREATMENT PLAN: 1. Optimize pulmonary hygiene/mobilize as tolerated. 2. F/U final AFBs 3. RIPE per ID - would strongly consider discontinuing, doubt MTB, neg TST and PCR, maybe ALIDA? 4. Continue isolation 5. The patient will require short interval follow-up and then likely a bronchoscopy and biopsy if there is a persistent cavitary lesion. D/W Dr. Kwan, he is awaiting LAC TB control to remove isolation prior to D/C' ing RIPE Subjective Allergies: Coded Allergies: No Known Allergies (Unverified , 06/27/17) Subjective AFVSS on RA No cough no CP No FC Objective Last 24 Hour Vital Signs Date Time Temp Pulse Resp B/P (MAP) Pulse Ox O2 Delivery O2 Flow Rate FiO2 05/06/19 12:00 60 05/06/19 12:00 98.5 63 19 114/62 (79) 94 05/06/19 09:00 96/62 05/06/19 09:00 Room Air 05/06/19 08:00 97.7 68 18 96/62 (73) 96 05/06/19 08:00 70 05/06/19 04:00 97.9 72 18 119/71 (87) 96 05/06/19 03:52 71 05/06/19 00:00 66 05/05/19 23:56 98.1 65 18 100/60 (73) 97 05/05/19 21:00 Room Air 05/05/19 20:00 98.0 64 18 101/65 (77) 98 05/05/19 20:00 74 05/05/19 16:00 66 05/05/19 16:00 97.7 70 18 92/62 (72) 96 Intake and Output 05/05/19 05/06/19 19:00 07:00 Intake Total 640 ml Balance 640 ml Intake Oral 640 ml # Voids 2 2 General Appearance: WD/WN, no acute distress HEENT: normocephalic, atraumatic, anicteric, mucous membranes moist Respiratory/Chest: chest wall non-tender, lungs clear, normal breath sounds, no respiratory distress Cardiovascular: normal peripheral pulses, normal rate, regular rhythm Abdomen: normal bowel sounds, soft, non tender, no organomegaly, non distended , no mass Extremities: no cyanosis, no clubbing, no edema Microbiology Date/Time Source Procedure Growth Status 05/04/19 07:00 Sputum AFB Specimen Processing Tissue - Final Resulted 05/04/19 07:00 Sputum Acid Fast Bacilli Smear - Final Resulted 05/04/19 07:00 Sputum Acid Fast Bacilli Culture Pending Resulted Laboratory Tests 05/05/19 19:00: Urine Color Brown, Urine Appearance Clear, Urine pH 5, Urine Specific [place] 1.010, Urine Protein Negative, Urine Glucose (UA) Negative, Urine Ketones 1+H, Urine Blood 1+H, Urine Nitrite Negative, Urine Bilirubin Negative, Urine Urobilinogen Normal, Urine Leukocyte Esterase 2+H, Urine RBC 0-2, Urine WBC 2-4 , Urine Squamous Epithelial Cells Occasional, Urine Bacteria Occasional, Urine Mucus Occasional 05/06/19 06:35: White Blood Count 5.0, Red Blood Count 3.67L, Hemoglobin 11.8L, Hematocrit 35.1L , Mean Corpuscular Volume 96, Mean Corpuscular Hemoglobin 32.2H, Mean Corpuscular Hemoglobin Concent 33.7, Red Cell Distribution Width 10.7L, Platelet Count 182, Mean Platelet Volume 6.8, Neutrophils (%) (Auto) 55.6, Lymphocytes (%) (Auto) 33.6, Monocytes (%) (Auto) 7.9, Eosinophils (%) (Auto) 2.0, Basophils (%) (Auto) 0.9, Sodium Level 133L, Potassium Level 3.8, Chloride Level 98, Carbon Dioxide Level 29, Anion Gap 7, Blood Urea Nitrogen 22H, Creatinine 1.1, Estimat Glomerular Filtration Rate , Glucose Level 108H, Hemoglobin A1c 6.0, Uric Acid 15.3H, Calcium Level 8.8, Phosphorus Level 3.2, Magnesium Level 2.3, Total Bilirubin 0.5, Gamma Glutamyl Transpeptidase 29, Aspartate Amino Transf (AST/SGOT) 25, Alanine Aminotransferase (ALT/SGPT) 16, Alkaline Phosphatase 73, C-Reactive Protein, Quantitative < 0.4, Pro-B-Type Natriuretic Peptide 16, Total Protein 7.2, Albumin 3.6, Globulin 3.6, Albumin/ Globulin Ratio 1.0, Triglycerides Level 89, Cholesterol Level 107, LDL Cholesterol 51, HDL Cholesterol 47, Cholesterol/HDL Ratio 2.3L Current Medications Medications (Trade) Dose Ordered Sig/Darrion Route PRN Reason Start Time Stop Time Status Last Admin Dose Admin Artificial Tears (Akwa-Tears) 2 drop FOUR TIMES A DAY BOTH EYES 04/25/19 09:00 05/25/19 08:59 05/05/19 17:39 Dextrose (Dextrose 50%) 25 ml Q30M PRN IV Hypoglycemia 04/25/19 00:00 05/25/19 00:00 Dextrose (Dextrose 50%) 50 ml Q30M PRN IV Hypoglycemia 04/25/19 00:00 05/25/19 00:00 Enoxaparin Sodium (Lovenox) 40 mg DAILY SUBQ 04/25/19 09:00 05/25/19 08:59 05/06/19 10:08 Ethambutol HCl (Myambutol) 800 mg DAILY ORAL 05/01/19 15:30 05/31/19 15:29 05/06/19 10:08 Famotidine (Pepcid) 40 mg ACBREAKFAST ORAL 04/25/19 06:30 05/25/19 06:29 05/05/19 06:53 Fluoxetine HCl (PROzac) 40 mg DAILY ORAL 04/26/19 09:00 05/26/19 08:59 05/05/19 09:07 Folic Acid (Folate) 2 mg DAILY ORAL 05/05/19 15:30 06/04/19 15:29 Glipizide (GlipiZIDE XL) 2.5 mg QPM ORAL 04/26/19 16:30 05/26/19 16:29 05/04/19 16:55 Insulin Aspart (NovoLOG) BEFORE MEALS AND HS SUBQ 04/25/19 06:30 05/25/19 06:29 05/06/19 11:48 Isoniazid (Inh) 300 mg DAILY ORAL 05/01/19 15:30 05/31/19 15:29 05/06/19 10:08 Losartan Potassium (Cozaar) 25 mg DAILY ORAL 05/06/19 09:00 05/30/19 08:59 Metformin HCl (Glucophage) 500 mg TWICE A DAY ORAL 04/26/19 09:00 05/26/19 08:59 05/05/19 09:07 Ondansetron HCl (Zofran) 4 mg Q6H PRN IVP Nausea & Vomiting 05/05/19 09:45 06/04/19 09:44 05/06/19 09:24 Pyrazinamide (Pza) 1,000 mg DAILY ORAL 05/01/19 15:30 05/31/19 15:29 05/06/19 10:09 Pyridoxine HCl (Vitamin B6) 50 mg DAILY ORAL 05/04/19 09:00 06/03/19 08:59 05/06/19 10:08 Rifampin (Rifadin) 600 mg DAILY ORAL 05/01/19 15:30 05/31/19 15:29 05/06/19 10:08 Vitamin D (Vitamin D) 5,000 intlu DAILY ORAL 04/26/19 09:00 05/26/19 08:59 05/05/19 09:05 Sean Vaughn MD May 06, 2019 15:18
--- NOTE | 2019-05-06 15:31 | NUR ---
DISCHARGE PLANNING THIS PATIENT CANNOT BE DISCHARGE UNTIL WE HAVE WRITTEN CLEARANCE FORM THE HEALTH DEPARTMENT ONCE DISCHARGE ORDER IS WRITTEN MANAGER CASINO WILL THEN SUBMIT [id number] FORM THE HEALTH DEPARTMENT AND REQUEST PERMISSION FOR DISCHARGE DO NOT DISCHARGE UNTIL MANAGER CASINO GIVES THE GO AHEAD
[2019-05-06 16:00] VITALS: BP 126/57
--- NOTE | 2019-05-06 16:09 | Cardiac Electrophysiology PN ---
Assessment/Plan Assessment/Plan 1. Chest pain, No MD. Due to underlying lung lesion Outpatient stress test after TB treatment is completed 2. HTN only on Losartan 25 daily now BP dropped to 80s. Resolved after HCTZ and Amlodipine DCed 3. NIDDM 4. HLPD 5. Cavitary lung lesion, on resp isolation. AFB came back positive! on INH.RIF,ETB,PZA per Dr Kwan. Off iv Abx 6. Anemia DW RN Subjective Subjective In respiratory isolation in NSR in NAD. BP 82/53 resolved after DCing her BP meds. Objective Last 24 Hour Vital Signs Date Time Temp Pulse Resp B/P (MAP) Pulse Ox O2 Delivery O2 Flow Rate FiO2 05/06/19 12:00 60 05/06/19 12:00 98.5 63 19 114/62 (79) 94 05/06/19 09:00 96/62 05/06/19 09:00 Room Air 05/06/19 08:00 97.7 68 18 96/62 (73) 96 05/06/19 08:00 70 05/06/19 04:00 97.9 72 18 119/71 (87) 96 05/06/19 03:52 71 05/06/19 00:00 66 05/05/19 23:56 98.1 65 18 100/60 (73) 97 05/05/19 21:00 Room Air 05/05/19 20:00 98.0 64 18 101/65 (77) 98 05/05/19 20:00 74 Intake and Output 05/05/19 05/06/19 19:00 07:00 Intake Total 640 ml Balance 640 ml Intake Oral 640 ml # Voids 2 2 Laboratory Tests Test 05/05/19 19:00 05/06/19 06:35 Urine Color Brown Urine Appearance Clear Urine pH 5 (4.5-8.0) Urine Specific [place] 1.010 (1.005-1.035) Urine Protein Negative (NEGATIVE) Urine Glucose (UA) Negative (NEGATIVE) Urine Ketones 1+ (NEGATIVE) H Urine Blood 1+ (NEGATIVE) H Urine Nitrite Negative (NEGATIVE) Urine Bilirubin Negative (NEGATIVE) Urine Urobilinogen Normal MG/DL (0.0-1.0) Urine Leukocyte Esterase 2+ (NEGATIVE) H Urine RBC 0-2 /HPF (0 - 2) Urine WBC 2-4 /HPF (0 - 2) Urine Squamous Epithelial Cells Occasional /LPF Urine Bacteria Occasional /HPF (NONE) Urine Mucus Occasional /LPF White Blood Count 5.0 K/UL (4.8-10.8) Red Blood Count 3.67 M/UL (4.20-5.40) L Hemoglobin 11.8 G/DL (12.0-16.0) L Hematocrit 35.1 % (37.0-47.0) L Mean Corpuscular Volume 96 FL (80-99) Mean Corpuscular Hemoglobin 32.2 PG (27.0-31.0) H Mean Corpuscular Hemoglobin Concent 33.7 G/DL (32.0-36.0) Red Cell Distribution Width 10.7 % (11.6-14.8) L Platelet Count 182 K/UL (150-450) Mean Platelet Volume 6.8 FL (6.5-10.1) Neutrophils (%) (Auto) 55.6 % (45.0-75.0) Lymphocytes (%) (Auto) 33.6 % (20.0-45.0) Monocytes (%) (Auto) 7.9 % (1.0-10.0) Eosinophils (%) (Auto) 2.0 % (0.0-3.0) Basophils (%) (Auto) 0.9 % (0.0-2.0) Sodium Level 133 MMOL/L (136-145) L Potassium Level 3.8 MMOL/L (3.5-5.1) Chloride Level 98 MMOL/L (98-107) Carbon Dioxide Level 29 MMOL/L (21-32) Anion Gap 7 mmol/L (5-15) Blood Urea Nitrogen 22 mg/dL (7-18) H Creatinine 1.1 MG/DL (0.55-1.30) Estimat Glomerular Filtration Rate mL/min (>60) Glucose Level 108 MG/DL (74-106) H Hemoglobin A1c 6.0 % (4.3-6.0) Uric Acid 15.3 MG/DL (2.6-7.2) H Calcium Level 8.8 MG/DL (8.5-10.1) Phosphorus Level 3.2 MG/DL (2.5-4.9) Magnesium Level 2.3 MG/DL (1.8-2.4) Total Bilirubin 0.5 MG/DL (0.2-1.0) Gamma Glutamyl Transpeptidase 29 U/L (5-85) Aspartate Amino Transf (AST/SGOT) 25 U/L (15-37) Alanine Aminotransferase (ALT/SGPT) 16 U/L (12-78) Alkaline Phosphatase 73 U/L (46-116) C-Reactive Protein, Quantitative < 0.4 mg/dL (0.00-0.90) Pro-B-Type Natriuretic Peptide 16 pg/mL (0-125) Total Protein 7.2 G/DL (6.4-8.2) Albumin 3.6 G/DL (3.4-5.0) Globulin 3.6 g/dL Albumin/Globulin Ratio 1.0 (1.0-2.7) Triglycerides Level 89 MG/DL (30-150) Cholesterol Level 107 MG/DL (< 200) LDL Cholesterol 51 mg/dL (<100) HDL Cholesterol 47 MG/DL (40-60) Cholesterol/HDL Ratio 2.3 (3.3-4.4) L Microbiology Date/Time Source Procedure Growth Status 05/04/19 07:00 Sputum AFB Specimen Processing Tissue - Final Resulted 05/04/19 07:00 Sputum Acid Fast Bacilli Smear - Final Resulted 05/04/19 07:00 Sputum Acid Fast Bacilli Culture Pending Resulted Objective HEENT: No JVD Respiratory/Chest: Coarse rhonchi bilaterally Cardiovascular/Chest: normal peripheral pulses, normal rate, regular rhythm Abdomen: normal bowel sounds, non tender, soft, no organomegaly Extremities: normal range of motion, non-tender, normal inspection Matti Lakhani MD May 06, 2019 16:09
--- NOTE | 2019-05-06 17:01 | Nephrology Progress Note ---
Assessment/Plan Problem List: (1) Cavitary lesion of lung (2) HTN (hypertension) (3) Hypotensive episode (4) Hyperuricemia Assessment Hypotension: ? due to antihypertensives TB Plan Plan: Adjust BP meds NS bolous continue anti TB meds per orders Subjective ROS Limited/Unobtainable: No Constitutional: Reports: malaise Objective Objective Last 24 Hour Vital Signs Date Time Temp Pulse Resp B/P (MAP) Pulse Ox O2 Delivery O2 Flow Rate FiO2 05/06/19 16:00 98.9 68 17 126/57 (80) 95 05/06/19 16:00 67 05/06/19 12:00 60 05/06/19 12:00 98.5 63 19 114/62 (79) 94 05/06/19 09:00 96/62 05/06/19 09:00 Room Air 05/06/19 08:00 97.7 68 18 96/62 (73) 96 05/06/19 08:00 70 05/06/19 04:00 97.9 72 18 119/71 (87) 96 05/06/19 03:52 71 05/06/19 00:00 66 05/05/19 23:56 98.1 65 18 100/60 (73) 97 05/05/19 21:00 Room Air 05/05/19 20:00 98.0 64 18 101/65 (77) 98 05/05/19 20:00 74 Intake and Output 05/05/19 05/06/19 19:00 07:00 Intake Total 640 ml Balance 640 ml Intake Oral 640 ml # Voids 2 2 Laboratory Tests 05/05/19 19:00: Urine Color Brown, Urine Appearance Clear, Urine pH 5, Urine Specific [place] 1.010, Urine Protein Negative, Urine Glucose (UA) Negative, Urine Ketones 1+H, Urine Blood 1+H, Urine Nitrite Negative, Urine Bilirubin Negative, Urine Urobilinogen Normal, Urine Leukocyte Esterase 2+H, Urine RBC 0-2, Urine WBC 2-4 , Urine Squamous Epithelial Cells Occasional, Urine Bacteria Occasional, Urine Mucus Occasional 05/06/19 06:35: White Blood Count 5.0, Red Blood Count 3.67L, Hemoglobin 11.8L, Hematocrit 35.1L , Mean Corpuscular Volume 96, Mean Corpuscular Hemoglobin 32.2H, Mean Corpuscular Hemoglobin Concent 33.7, Red Cell Distribution Width 10.7L, Platelet Count 182, Mean Platelet Volume 6.8, Neutrophils (%) (Auto) 55.6, Lymphocytes (%) (Auto) 33.6, Monocytes (%) (Auto) 7.9, Eosinophils (%) (Auto) 2.0, Basophils (%) (Auto) 0.9, Sodium Level 133L, Potassium Level 3.8, Chloride Level 98, Carbon Dioxide Level 29, Anion Gap 7, Blood Urea Nitrogen 22H, Creatinine 1.1, Estimat Glomerular Filtration Rate , Glucose Level 108H, Hemoglobin A1c 6.0, Uric Acid 15.3H, Calcium Level 8.8, Phosphorus Level 3.2, Magnesium Level 2.3, Total Bilirubin 0.5, Gamma Glutamyl Transpeptidase 29, Aspartate Amino Transf (AST/SGOT) 25, Alanine Aminotransferase (ALT/SGPT) 16, Alkaline Phosphatase 73, C-Reactive Protein, Quantitative < 0.4, Pro-B-Type Natriuretic Peptide 16, Total Protein 7.2, Albumin 3.6, Globulin 3.6, Albumin/ Globulin Ratio 1.0, Triglycerides Level 89, Cholesterol Level 107, LDL Cholesterol 51, HDL Cholesterol 47, Cholesterol/HDL Ratio 2.3L Height (Feet): 5 Height (Inches): 2.00 Weight (Pounds): 134 General Appearance: no apparent distress Cardiovascular: normal rate Abdomen: soft Anriudh Garcia MD May 06, 2019 17:01
--- NOTE | 2019-05-06 19:39 | NUR ---
HAND-OFF: Report given to NOHEMI Luna. Plan of care endorsed.
--- NOTE | 2019-05-06 19:40 | NUR ---
NURSE NOTES: received pt from day shift nurse, no acute distress noted, no c/o pain. education provided to pt about using call light when needing help, pt verbalized understanding. safety precaution in place: bed locked and lowest position, bed side rail up x2, call light and personal belongings within reach, will continue to monitor for any change of condition.
[2019-05-06 20:00] VITALS: BP 118/67
--- NOTE | 2019-05-06 22:58 | General Progress Note ---
Assessment/Plan Problem List: (1) Cavitary lesion of lung ICD Codes: J98.4 - Other disorders of lung SNOMED: 851583370 (2) Granulomatous disease ICD Codes: D71 - Functional disorders of polymorphonuclear neutrophils SNOMED: 200903801 (3) HTN (hypertension) ICD Codes: I10 - Essential (primary) hypertension SNOMED: 12476724 (4) CAD (coronary artery disease) ICD Codes: I25.10 - Atherosclerotic heart disease of [place] coronary artery without angina pectoris SNOMED: 01056983 Status: stable, progressing Assessment/Plan: cavitary lesion hypotension is improved pna abx per id no wheezing nausea r/o tb afebrile Subjective ROS Limited/Unobtainable: Yes Allergies: Coded Allergies: No Known Allergies (Unverified , 06/27/17) Subjective cough Objective Last 24 Hour Vital Signs Date Time Temp Pulse Resp B/P (MAP) Pulse Ox O2 Delivery O2 Flow Rate FiO2 05/06/19 20:00 98.2 76 20 118/67 (84) 99 05/06/19 16:00 98.9 68 17 126/57 (80) 95 05/06/19 16:00 67 05/06/19 12:00 60 05/06/19 12:00 98.5 63 19 114/62 (79) 94 05/06/19 09:00 96/62 05/06/19 09:00 Room Air 05/06/19 08:00 97.7 68 18 96/62 (73) 96 05/06/19 08:00 70 05/06/19 04:00 97.9 72 18 119/71 (87) 96 05/06/19 03:52 71 05/06/19 00:00 66 05/05/19 23:56 98.1 65 18 100/60 (73) 97 Intake and Output 05/05/19 05/06/19 19:00 07:00 Intake Total 640 ml Balance 640 ml Intake Oral 640 ml # Voids 2 2 Laboratory Tests 05/06/19 06:35: White Blood Count 5.0, Red Blood Count 3.67L, Hemoglobin 11.8L, Hematocrit 35.1L , Mean Corpuscular Volume 96, Mean Corpuscular Hemoglobin 32.2H, Mean Corpuscular Hemoglobin Concent 33.7, Red Cell Distribution Width 10.7L, Platelet Count 182, Mean Platelet Volume 6.8, Neutrophils (%) (Auto) 55.6, Lymphocytes (%) (Auto) 33.6, Monocytes (%) (Auto) 7.9, Eosinophils (%) (Auto) 2.0, Basophils (%) (Auto) 0.9, Sodium Level 133L, Potassium Level 3.8, Chloride Level 98, Carbon Dioxide Level 29, Anion Gap 7, Blood Urea Nitrogen 22H, Creatinine 1.1, Estimat Glomerular Filtration Rate , Glucose Level 108H, Hemoglobin A1c 6.0, Uric Acid 15.3H, Calcium Level 8.8, Phosphorus Level 3.2, Magnesium Level 2.3, Total Bilirubin 0.5, Gamma Glutamyl Transpeptidase 29, Aspartate Amino Transf (AST/SGOT) 25, Alanine Aminotransferase (ALT/SGPT) 16, Alkaline Phosphatase 73, C-Reactive Protein, Quantitative < 0.4, Pro-B-Type Natriuretic Peptide 16, Total Protein 7.2, Albumin 3.6, Globulin 3.6, Albumin/ Globulin Ratio 1.0, Triglycerides Level 89, Cholesterol Level 107, LDL Cholesterol 51, HDL Cholesterol 47, Cholesterol/HDL Ratio 2.3L Height (Feet): 5 Height (Inches): 2.00 Weight (Pounds): 134 Cardiovascular: normal rate Respiratory/Chest: lungs clear Abdomen: soft Paula Nixon MD May 06, 2019 22:58
[2019-05-07] VITALS: BP 124/66
--- NOTE | 2019-05-07 | NUR ---
NURSE NOTES: pt sleeping, no change in condition, will continue to monitor for any change in condition.
[2019-05-07 04:00] VITALS: BP 127/78
--- NOTE | 2019-05-07 04:00 | NUR ---
NURSE NOTES: pt sleeping, no change in condition. will continue to monitor for any change in condition.
[2019-05-07] MEDS: NovoLOG Insulin Flexpen SUBQ SCH ×4 (05:52→21:11)
--- NOTE | 2019-05-07 06:42 | NUR ---
NURSE NOTES: pt remains stable, no acute distress, no change of condition. fall precaution in place: bed locked and lowest position, bedside rail x2, call light and personal belongings within reach. all needs met during my shift. will endorse plan of care to incoming nurse.
--- NOTE | 2019-05-07 07:37 | NUR ---
HAND-OFF: Report given to NOHEMI Hannah.
--- NOTE | 2019-05-07 08:07 | NUR ---
NURSE NOTES: pt is in be watching TV, AOx4. food tray on the side of bed. Pt on engine monitor, no signs of cardiac or respiratory distress. Bed is locked and in lowest position. Call light is within reach. Pt is on isolation for possible TB, 3rd sputum collection of sputum is pending. Will continue to monitor pt.
[2019-05-07 08:42] VITALS: BP 105/56
--- NOTE | 2019-05-07 08:59 | Pulmonology Progress Note ---
Assessment/Plan Problems: (1) Cavitary lesion of lung (2) Granulomatous disease (3) Chest pain (4) HTN (hypertension) (5) CAD (coronary artery disease) (6) Shingles Assessment/Plan ASSESSMENT: The patient is a 73-year-old female with a history of hypertension , hyperlipidemia, and diabetes, presenting with pleuritic chest pain in the setting of a recent respiratory illness. CT of the chest demonstrates intense bilateral reticulonodular opacities and a cavitary lesion. She is being ruled out for MTB. With respect to the etiology of her lesion, it is likely infectious/inflammatory, so the cavity has to be followed to rule out a neoplastic process. PROBLEM LIST: 1. Left lower lobe cavity thin-walled, likely infectious, inflammatory, ? doubt MTB, 1/3 AFB + but TST and CPR neg, ? ALIDA, started on RIPE 05/03 2. Scattered bilateral reticulonodular opacities, likely an infectious bronchiolitis. 3. Pleuritic chest pain, likely secondary to above. 4. Hypertension, hyperlipidemia, diabetes. TREATMENT PLAN: 1. Optimize pulmonary hygiene/mobilize as tolerated. 2. F/U final AFBs 3. RIPE per ID - would strongly consider discontinuing, doubt MTB, neg TST and PCR, maybe ALIDA? 4. Continue isolation 5. The patient will require short interval follow-up and then likely a bronchoscopy and biopsy if there is a persistent cavitary lesion. D/W Dr. Kwan, he is awaiting [facility] TB control to remove isolation prior to D/C' ing RIPE Subjective Allergies: Coded Allergies: No Known Allergies (Unverified , 06/27/17) Subjective AFVSS on RA No cough no CP No FC Objective Last 24 Hour Vital Signs Date Time Temp Pulse Resp B/P (MAP) Pulse Ox O2 Delivery O2 Flow Rate FiO2 05/07/19 08:47 Room Air 05/07/19 08:42 98.6 68 20 105/56 (72) 93 05/07/19 04:00 68 05/07/19 04:00 98.0 77 20 127/78 (94) 98 05/07/19 00:00 98.1 78 19 124/66 (85) 96 05/07/19 00:00 74 05/06/19 21:00 Room Air 05/06/19 20:00 98.2 76 20 118/67 (84) 99 05/06/19 20:00 72 05/06/19 16:00 98.9 68 17 126/57 (80) 95 05/06/19 16:00 67 05/06/19 12:00 60 05/06/19 12:00 98.5 63 19 114/62 (79) 94 05/06/19 09:00 96/62 05/06/19 09:00 Room Air Intake and Output 05/06/19 05/07/19 18:59 06:59 Intake Total 400 ml Balance 400 ml Intake Oral 400 ml # Voids 2 General Appearance: WD/WN, no acute distress HEENT: normocephalic, atraumatic, anicteric, mucous membranes moist Respiratory/Chest: chest wall non-tender, lungs clear, normal breath sounds, no respiratory distress, no accessory muscle use Cardiovascular: normal peripheral pulses, normal rate, regular rhythm Abdomen: normal bowel sounds, soft, non tender, no organomegaly, non distended , no mass Extremities: no cyanosis, no clubbing, no edema Current Medications Medications (Trade) Dose Ordered Sig/Darrion Route PRN Reason Start Time Stop Time Status Last Admin Dose Admin Artificial Tears (Akwa-Tears) 2 drop FOUR TIMES A DAY BOTH EYES 04/25/19 09:00 05/25/19 08:59 05/06/19 17:13 Dextrose (Dextrose 50%) 25 ml Q30M PRN IV Hypoglycemia 04/25/19 00:00 05/25/19 00:00 Dextrose (Dextrose 50%) 50 ml Q30M PRN IV Hypoglycemia 04/25/19 00:00 05/25/19 00:00 Enoxaparin Sodium (Lovenox) 40 mg DAILY SUBQ 04/25/19 09:00 05/25/19 08:59 05/06/19 10:08 Ethambutol HCl (Myambutol) 800 mg DAILY ORAL 05/01/19 15:30 05/31/19 15:29 05/06/19 10:08 Famotidine (Pepcid) 40 mg ACBREAKFAST ORAL 04/25/19 06:30 05/25/19 06:29 05/07/19 05:48 Fluoxetine HCl (PROzac) 40 mg DAILY ORAL 04/26/19 09:00 05/26/19 08:59 05/05/19 09:07 Folic Acid (Folate) 2 mg DAILY ORAL 05/05/19 15:30 06/04/19 15:29 Glipizide (GlipiZIDE XL) 2.5 mg QPM ORAL 04/26/19 16:30 05/26/19 16:29 05/06/19 17:13 Insulin Aspart (NovoLOG) BEFORE MEALS AND HS SUBQ 04/25/19 06:30 05/25/19 06:29 05/06/19 17:13 Isoniazid (Inh) 300 mg DAILY ORAL 05/01/19 15:30 05/31/19 15:29 05/06/19 10:08 Losartan Potassium (Cozaar) 25 mg DAILY ORAL 05/06/19 09:00 05/30/19 08:59 Metformin HCl (Glucophage) 500 mg TWICE A DAY ORAL 04/26/19 09:00 05/26/19 08:59 05/06/19 17:13 Ondansetron HCl (Zofran) 4 mg Q6H PRN IVP Nausea & Vomiting 05/05/19 09:45 06/04/19 09:44 05/06/19 09:24 Pyrazinamide (Pza) 1,000 mg DAILY ORAL 05/01/19 15:30 05/31/19 15:29 05/06/19 10:09 Pyridoxine HCl (Vitamin B6) 50 mg DAILY ORAL 05/04/19 09:00 06/03/19 08:59 05/06/19 10:08 Rifampin (Rifadin) 600 mg DAILY ORAL 05/01/19 15:30 05/31/19 15:29 05/06/19 10:08 Vitamin D (Vitamin D) 5,000 intlu DAILY ORAL 04/26/19 09:00 05/26/19 08:59 05/05/19 09:05 Sean Vaughn MD May 07, 2019 08:59
[2019-05-07] MEDS: Artificial Tears 1.4% Op Soln BOTH EYES SCH ×4 (09:00→21:05)
--- NOTE | 2019-05-07 09:49 | Hematology/Onc Progress Note ---
Assessment/Plan Assessment/Plan Assessment and Recs: # Cavitary lesion of lung on imaging seen on CT, ++ Olive afb as per pulm, at this time on ripe --> may dc ripe as per pulm/id --> per pulm recs --> r.o inflammatory cause/issues --> montior for resolution --> if persists may need biopsy/bronch --> tumor markers are neg --> consider reimage in several months --> pending placement ltach with tb control clearance # Anemia of chronic disease due to underlying chronic medical issues, multifactorial --> Anemia workup has been reviewed. Ferritin 133 --> No evidence of hemolysis is noted, peripheral smear has been reviewed. --> Hgb goal >7. Transfuse prn. --> Epogen or iron at this time is not particularly indicated --> Medications have been reviewed --> Hgb trend: 11.5-->12.1-->11.8 # Chest pain r/o acs v inflammatory disease of lung, bronchitis --> CT imaging of the chest was ordered which showed calcified mediastinal and hilar lymph nodes as well as mild cardiomegaly without pericardial effusion. There is some fluid impacting some of the left lower lobe bronchi posterior medially no pulmonary embolism or aortic aneurysm or dissection was seen --> Patient given IV antibiotics. --> as per cards recs --> trop and ekg x 2 ordered --> nitrog prn --> outpatient stress test # Granulomatous disease # HTN. sbp goal <140 The time the noted was written does not necessarily correspond to the time the patient was seen,. Subjective Constitutional: Denies: no symptoms, chills, fever, malaise, weakness, other HEENT: Denies: no symptoms, eye pain, blurred vision, tearing, double vision, ear pain, ear discharge, nose pain, nose congestion, throat pain, throat swelling, mouth pain, mouth swelling, other Cardiovascular: Denies: no symptoms, chest pain, edema, irregular heart rate, lightheadedness, palpitations, syncope, other Respiratory: Denies: no symptoms, cough, shortness of breath, SOB with excertion, SOB at rest, sputum, wheezing, other Gastrointestinal/Abdominal: Denies: no symptoms, abdomen distended, abdominal pain, black stools, tarry stools, blood in stool, constipated, diarrhea, difficulty swallowing, nausea, poor appetite, poor fluid intake, rectal bleeding , vomiting, other Genitourinary: Denies: no symptoms, burning, discharge, frequency, flank pain, hematuria, incontinence, pain, urgency, other Neurologic/Psychiatric: Denies: no symptoms, anxiety, depressed, emotional problems, headache, numbness, paresthesia, pre-existing deficit, seizure, tingling, tremors, weakness, other Endocrine: Denies: no symptoms, excessive sweating, flushing, intolerance to cold, intolerance to heat, increased hunger, increased thirst, increased urine, unexplained weight gain, unexplained weight loss, other Hematologic/Lymphatic: Denies: no symptoms, anemia, easy bleeding, easy bruising, adenopathy, other Allergies: Coded Allergies: No Known Allergies (Unverified , 06/27/17) Subjective 04/26: Pt is sitting in bed and having breakfast. No c/o pain. Labs reviewed. 04/27: no events, cp is better, seen by pulm, cards 04/28: no fevers or chills, no night sweats noted 04/30: Pt on [place] isolation, cough better with cough syrup. 05/01: no acute events, no bleeding reported. 05/02:no distress, VS reviewed, afebrile. 05/03: no events, oimaging reviewed, seen by pulm and id 05/04, unable to provide sputum, seen by psych, otherwise no changes 05/05: no events to report, tolerating ripe 05/06: no events, no fevers, ripe has been started 05/07: no events, a+o x4, seen by pulm, potentially consider dc ripe Objective Objective Current Medications Medications (Trade) Dose Ordered Sig/Darrion Route PRN Reason Start Time Stop Time Status Last Admin Dose Admin Artificial Tears (Akwa-Tears) 2 drop FOUR TIMES A DAY BOTH EYES 04/25/19 09:00 05/25/19 08:59 05/06/19 17:13 Dextrose (Dextrose 50%) 25 ml Q30M PRN IV Hypoglycemia 04/25/19 00:00 05/25/19 00:00 Dextrose (Dextrose 50%) 50 ml Q30M PRN IV Hypoglycemia 04/25/19 00:00 05/25/19 00:00 Enoxaparin Sodium (Lovenox) 40 mg DAILY SUBQ 04/25/19 09:00 05/25/19 08:59 05/06/19 10:08 Ethambutol HCl (Myambutol) 800 mg DAILY ORAL 05/01/19 15:30 05/31/19 15:29 05/06/19 10:08 Famotidine (Pepcid) 40 mg ACBREAKFAST ORAL 04/25/19 06:30 05/25/19 06:29 05/07/19 05:48 Fluoxetine HCl (PROzac) 40 mg DAILY ORAL 04/26/19 09:00 05/26/19 08:59 05/05/19 09:07 Folic Acid (Folate) 2 mg DAILY ORAL 05/05/19 15:30 06/04/19 15:29 Glipizide (GlipiZIDE XL) 2.5 mg QPM ORAL 04/26/19 16:30 05/26/19 16:29 05/06/19 17:13 Insulin Aspart (NovoLOG) BEFORE MEALS AND HS SUBQ 04/25/19 06:30 05/25/19 06:29 05/06/19 17:13 Isoniazid (Inh) 300 mg DAILY ORAL 05/01/19 15:30 05/31/19 15:29 05/06/19 10:08 Losartan Potassium (Cozaar) 25 mg DAILY ORAL 05/06/19 09:00 05/30/19 08:59 Metformin HCl (Glucophage) 500 mg TWICE A DAY ORAL 04/26/19 09:00 05/26/19 08:59 05/06/19 17:13 Ondansetron HCl (Zofran) 4 mg Q6H PRN IVP Nausea & Vomiting 05/05/19 09:45 06/04/19 09:44 05/06/19 09:24 Pyrazinamide (Pza) 1,000 mg DAILY ORAL 05/01/19 15:30 05/31/19 15:29 05/06/19 10:09 Pyridoxine HCl (Vitamin B6) 50 mg DAILY ORAL 05/04/19 09:00 06/03/19 08:59 05/06/19 10:08 Rifampin (Rifadin) 600 mg DAILY ORAL 05/01/19 15:30 05/31/19 15:29 05/06/19 10:08 Vitamin D (Vitamin D) 5,000 intlu DAILY ORAL 04/26/19 09:00 05/26/19 08:59 05/05/19 09:05 Last 24 Hour Vital Signs Date Time Temp Pulse Resp B/P (MAP) Pulse Ox O2 Delivery O2 Flow Rate FiO2 05/07/19 08:47 Room Air 05/07/19 08:42 98.6 68 20 105/56 (72) 93 05/07/19 04:00 68 05/07/19 04:00 98.0 77 20 127/78 (94) 98 05/07/19 00:00 98.1 78 19 124/66 (85) 96 05/07/19 00:00 74 05/06/19 21:00 Room Air 05/06/19 20:00 98.2 76 20 118/67 (84) 99 05/06/19 20:00 72 05/06/19 16:00 98.9 68 17 126/57 (80) 95 05/06/19 16:00 67 05/06/19 12:00 60 05/06/19 12:00 98.5 63 19 114/62 (79) 94 05/06/19 09:00 96/62 05/06/19 09:00 Room Air 05/06/19 08:00 97.7 68 18 96/62 (73) 96 05/06/19 08:00 70 05/06/19 04:00 97.9 72 18 119/71 (87) 96 05/06/19 03:52 71 05/06/19 00:00 66 05/05/19 23:56 98.1 65 18 100/60 (73) 97 05/05/19 21:00 Room Air 05/05/19 20:00 98.0 64 18 101/65 (77) 98 05/05/19 20:00 74 05/05/19 16:00 66 05/05/19 16:00 97.7 70 18 92/62 (72) 96 05/05/19 12:00 70 05/05/19 12:00 98.4 70 18 114/71 (85) 95 Intake and Output 05/06/19 05/07/19 19:00 07:00 Intake Total 400 ml Balance 400 ml Intake Oral 400 ml # Voids 2 Labs Test 05/05/19 19:00 05/06/19 06:35 Urine Color Brown Urine Appearance Clear Urine pH 5 (4.5-8.0) Urine Specific [place] 1.010 (1.005-1.035) Urine Protein Negative (NEGATIVE) Urine Glucose (UA) Negative (NEGATIVE) Urine Ketones 1+ (NEGATIVE) Urine Blood 1+ (NEGATIVE) Urine Nitrite Negative (NEGATIVE) Urine Bilirubin Negative (NEGATIVE) Urine Urobilinogen Normal MG/DL (0.0-1.0) Urine Leukocyte Esterase 2+ (NEGATIVE) Urine RBC 0-2 /HPF (0 - 2) Urine WBC 2-4 /HPF (0 - 2) Urine Squamous Epithelial Cells Occasional /LPF Urine Bacteria Occasional /HPF (NONE) Urine Mucus Occasional /LPF White Blood Count 5.0 K/UL (4.8-10.8) Red Blood Count 3.67 M/UL (4.20-5.40) Hemoglobin 11.8 G/DL (12.0-16.0) Hematocrit 35.1 % (37.0-47.0) Mean Corpuscular Volume 96 FL (80-99) Mean Corpuscular Hemoglobin 32.2 PG (27.0-31.0) Mean Corpuscular Hemoglobin Concent 33.7 G/DL (32.0-36.0) Red Cell Distribution Width 10.7 % (11.6-14.8) Platelet Count 182 K/UL (150-450) Mean Platelet Volume 6.8 FL (6.5-10.1) Neutrophils (%) (Auto) 55.6 % (45.0-75.0) Lymphocytes (%) (Auto) 33.6 % (20.0-45.0) Monocytes (%) (Auto) 7.9 % (1.0-10.0) Eosinophils (%) (Auto) 2.0 % (0.0-3.0) Basophils (%) (Auto) 0.9 % (0.0-2.0) Sodium Level 133 MMOL/L (136-145) Potassium Level 3.8 MMOL/L (3.5-5.1) Chloride Level 98 MMOL/L (98-107) Carbon Dioxide Level 29 MMOL/L (21-32) Anion Gap 7 mmol/L (5-15) Blood Urea Nitrogen 22 mg/dL (7-18) Creatinine 1.1 MG/DL (0.55-1.30) Estimat Glomerular Filtration Rate mL/min (>60) Glucose Level 108 MG/DL (74-106) Hemoglobin A1c 6.0 % (4.3-6.0) Uric Acid 15.3 MG/DL (2.6-7.2) Calcium Level 8.8 MG/DL (8.5-10.1) Phosphorus Level 3.2 MG/DL (2.5-4.9) Magnesium Level 2.3 MG/DL (1.8-2.4) Total Bilirubin 0.5 MG/DL (0.2-1.0) Gamma Glutamyl Transpeptidase 29 U/L (5-85) Aspartate Amino Transf (AST/SGOT) 25 U/L (15-37) Alanine Aminotransferase (ALT/SGPT) 16 U/L (12-78) Alkaline Phosphatase 73 U/L (46-116) C-Reactive Protein, Quantitative < 0.4 mg/dL (0.00-0.90) Pro-B-Type Natriuretic Peptide 16 pg/mL (0-125) Total Protein 7.2 G/DL (6.4-8.2) Albumin 3.6 G/DL (3.4-5.0) Globulin 3.6 g/dL Albumin/Globulin Ratio 1.0 (1.0-2.7) Triglycerides Level 89 MG/DL (30-150) Cholesterol Level 107 MG/DL (< 200) LDL Cholesterol 51 mg/dL (<100) HDL Cholesterol 47 MG/DL (40-60) Cholesterol/HDL Ratio 2.3 (3.3-4.4) Height (Feet): 5 Height (Inches): 2.00 Weight (Pounds): 134 General Appearance: alert Objective PHYSICAL EXAM General Appearance: normal inspection, well appearing, no apparent distress, alert, GCS 15 Head: atraumatic ENT: normal ENT inspection, hearing grossly normal, normal voice Neck: normal inspection, full range of motion, supple, no bony tend Respiratory: normal inspection, lungs clear, normal breath sounds, no respiratory distress, no retraction, no wheezing Cardiovascular: regular rate, rhythm, no edema Gastrointestinal: normal inspection, normal bowel sounds, non tender, soft, no guarding, no hernia Genitourinary: no CVA tenderness Musculoskeletal: normal inspection, back normal, normal range of motion Neurologic: normal inspection, alert, oriented x3, 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
[2019-05-07] MEDS: Losartan 50mg tab ORAL SCH (09:57)
[2019-05-07] MEDS: Vitamin D 1000 IU Tab ORAL SCH (09:57)
[2019-05-07] MEDS: metFORMIN 500mg tab ORAL SCH ×2 (09:59→17:01)
[2019-05-07] MEDS: Pyridoxine 50mg tab ORAL SCH (10:00)
[2019-05-07] MEDS: Isoniazid 300mg tab ORAL SCH (10:01)
[2019-05-07] MEDS: Enoxaparin 40mg Inj SUBQ SCH (10:04)
[2019-05-07 12:00] VITALS: BP 119/76
--- NOTE | 2019-05-07 12:06 | Infectious Diseases Prog Note ---
Assessment/Plan Assessment/Plan IMPRESSION: Pneumonia. Lung cavity, likely mycobacterial disease Diabetes mellitus, Hypertension, Major depression, History of asthma. RECOMMENDATION: TB PCR test in sputum is negative AFB smear X 1: 1+ positive Continue TB treatment with [facility] TST: negative Subjective ROS Limited/Unobtainable: Yes Respiratory: Reports: no symptoms Gastrointestinal/Abdominal: Reports: no symptoms Genitourinary: Reports: no symptoms Allergies: Coded Allergies: No Known Allergies (Unverified , 06/27/17) Objective Vital Signs Last 24 Hour Vital Signs Date Time Temp Pulse Resp B/P (MAP) Pulse Ox O2 Delivery O2 Flow Rate FiO2 05/07/19 09:57 108/56 05/07/19 08:47 Room Air 05/07/19 08:42 98.6 68 20 105/56 (72) 93 05/07/19 04:00 68 05/07/19 04:00 98.0 77 20 127/78 (94) 98 05/07/19 00:00 98.1 78 19 124/66 (85) 96 05/07/19 00:00 74 05/06/19 21:00 Room Air 05/06/19 20:00 98.2 76 20 118/67 (84) 99 05/06/19 20:00 72 05/06/19 16:00 98.9 68 17 126/57 (80) 95 05/06/19 16:00 67 Height (Feet): 5 Height (Inches): 2.00 Weight (Pounds): 134 General Appearance: no acute distress HEENT: mucous membranes moist Respiratory/Chest: lungs clear Cardiovascular: normal rate Abdomen: soft, non tender Extremities: no edema Neurologic/Psychiatric: alert, oriented x 3, responsive Current Medications Medications (Trade) Dose Ordered Sig/Darrion Route PRN Reason Start Time Stop Time Status Last Admin Dose Admin Artificial Tears (Akwa-Tears) 2 drop FOUR TIMES A DAY BOTH EYES 04/25/19 09:00 05/25/19 08:59 05/07/19 12:00 Dextrose (Dextrose 50%) 25 ml Q30M PRN IV Hypoglycemia 04/25/19 00:00 05/25/19 00:00 Dextrose (Dextrose 50%) 50 ml Q30M PRN IV Hypoglycemia 04/25/19 00:00 05/25/19 00:00 Enoxaparin Sodium (Lovenox) 40 mg DAILY SUBQ 6/30/19 09:00 05/25/19 08:59 05/07/19 10:04 Ethambutol HCl (Myambutol) 800 mg DAILY ORAL 05/01/19 15:30 05/31/19 15:29 05/07/19 10:01 Famotidine (Pepcid) 40 mg ACBREAKFAST ORAL 04/25/19 06:30 05/25/19 06:29 05/07/19 05:48 Fluoxetine HCl (PROzac) 40 mg DAILY ORAL 04/26/19 09:00 05/26/19 08:59 05/07/19 09:59 Folic Acid (Folate) 2 mg DAILY ORAL 05/05/19 15:30 06/04/19 15:29 05/07/19 09:59 Glipizide (GlipiZIDE XL) 2.5 mg QPM ORAL 04/26/19 16:30 05/26/19 16:29 05/06/19 17:13 Insulin Aspart (NovoLOG) BEFORE MEALS AND HS SUBQ 04/25/19 06:30 05/25/19 06:29 05/06/19 17:13 Isoniazid (Inh) 300 mg DAILY ORAL 05/01/19 15:30 05/31/19 15:29 05/07/19 10:01 Losartan Potassium (Cozaar) 25 mg DAILY ORAL 05/06/19 09:00 05/30/19 08:59 05/07/19 09:57 Metformin HCl (Glucophage) 500 mg TWICE A DAY ORAL 04/26/19 09:00 05/26/19 08:59 05/07/19 09:59 Ondansetron HCl (Zofran) 4 mg Q6H PRN IVP Nausea & Vomiting 05/05/19 09:45 06/04/19 09:44 05/06/19 09:24 Pyrazinamide (Pza) 1,000 mg DAILY ORAL 05/01/19 15:30 05/31/19 15:29 05/07/19 10:02 Pyridoxine HCl (Vitamin B6) 50 mg DAILY ORAL 05/04/19 09:00 06/03/19 08:59 05/07/19 10:00 Rifampin (Rifadin) 600 mg DAILY ORAL 05/01/19 15:30 8/5/19 15:29 05/07/19 10:01 Vitamin D (Vitamin D) 5,000 intlu DAILY ORAL 04/26/19 09:00 05/26/19 08:59 05/07/19 09:57 Carlos Kwan MD May 07, 2019 12:06
--- NOTE | 2019-05-07 12:18 | Nephrology Progress Note ---
Assessment/Plan Problem List: (1) Cavitary lesion of lung (2) HTN (hypertension) (3) Hypotensive episode (4) Hyperuricemia Assessment Hypotension: ? due to antihypertensives TB Plan Plan: Adjust BP meds NS bolous continue anti TB meds per orders Subjective ROS Limited/Unobtainable: No Constitutional: Reports: malaise Objective Objective Last 24 Hour Vital Signs Date Time Temp Pulse Resp B/P (MAP) Pulse Ox O2 Delivery O2 Flow Rate FiO2 05/07/19 12:00 97.9 69 18 119/76 (90) 97 05/07/19 09:57 108/56 05/07/19 08:47 Room Air 05/07/19 08:42 98.6 68 20 105/56 (72) 93 05/07/19 04:00 68 05/07/19 04:00 98.0 77 20 127/78 (94) 98 05/07/19 00:00 98.1 78 19 124/66 (85) 96 05/07/19 00:00 74 05/06/19 21:00 Room Air 05/06/19 20:00 98.2 76 20 118/67 (84) 99 05/06/19 20:00 72 05/06/19 16:00 98.9 68 17 126/57 (80) 95 05/06/19 16:00 67 Intake and Output 05/06/19 05/07/19 19:00 07:00 Intake Total 400 ml Balance 400 ml Intake Oral 400 ml # Voids 2 Height (Feet): 5 Height (Inches): 2.00 Weight (Pounds): 134 General Appearance: no apparent distress Objective no change Anirudh Garcia MD May 07, 2019 12:18
--- NOTE | 2019-05-07 15:41 | NUR ---
CASE MANAGEMENT:REVIEW 05/07/19 SI: CHEST PAIN D/T UNDERLYING LESION CAVITARY LUNG LESION....R/O Tb 97.9 69 18 119/76 97% ON RA IS: PYRIDOXINE 50MG PO QD RIFAMPIN 600MG PO QD INH 300MG PO QD MYAMBUTOL 800MG PO QD PZA 1,000MG PO QD COZAAR PO QD HCTZ PO QD NORVASC PO QD PROZAC PO QD LOVENOX SQ QD : TELEMETRY STATUS DCP; FROM HOME PLAN: RESPIRATORY ISOLATION 1 OF 4 AFB'S ARE POSITIVE T-SPOT ~ NEGATIVE MTB PCR ~ NEGATIVE HISTOPLASMA ANTIGEN ~ PENDING Tb MEDS STARTED ON FridayMAY 01
--- NOTE | 2019-05-07 15:48 | NUR ---
DISCHARGE PLANNING THIS PATIENT CANNOT BE DISCHARGE UNTIL WE HAVE WRITTEN CLEARANCE FORM THE HEALTH DEPARTMENT ONCE DISCHARGE ORDER IS WRITTEN DATABASE MODELER WILL THEN SUBMIT H-[id number] FORM TO THE HEALTH DEPARTMENT AND REQUEST PERMISSION FOR DISCHARGE DO NOT DISCHARGE UNTIL DATABASE MODELER GIVES THE GO AHEAD
[2019-05-07 16:00] VITALS: BP 111/83
--- NOTE | 2019-05-07 16:51 | Cardiac Electrophysiology PN ---
Assessment/Plan Assessment/Plan 1. Chest pain, No NE. Due to underlying lung lesion Outpatient stress test after TB treatment is completed 2. HTN only on Losartan 25 daily now Hypotension resolved after HCTZ and Amlodipine DCed 3. NIDDM 4. HLPD 5. Cavitary lung lesion, on resp isolation. AFB came back positive! on INH.RIF,ETB,PZA per Dr Kwan. Off iv Abx 6. Anemia DW RN Subjective Subjective In respiratory isolation, only on Losartan 25 daily due to recent hypotension. Objective Last 24 Hour Vital Signs Date Time Temp Pulse Resp B/P (MAP) Pulse Ox O2 Delivery O2 Flow Rate FiO2 05/07/19 16:00 78 05/07/19 16:00 98.1 80 18 111/83 (92) 95 05/07/19 12:00 97.9 69 18 119/76 (90) 97 05/07/19 12:00 65 05/07/19 09:57 108/56 05/07/19 08:47 Room Air 05/07/19 08:42 98.6 68 20 105/56 (72) 93 05/07/19 08:00 64 05/07/19 04:00 68 05/07/19 04:00 98.0 77 20 127/78 (94) 98 05/07/19 00:00 98.1 78 19 124/66 (85) 96 05/07/19 00:00 74 05/06/19 21:00 Room Air 05/06/19 20:00 98.2 76 20 118/67 (84) 99 05/06/19 20:00 72 Intake and Output 05/06/19 05/07/19 19:00 07:00 Intake Total 400 ml Balance 400 ml Intake Oral 400 ml # Voids 2 Objective HEENT: No JVD Respiratory/Chest: Coarse rhonchi bilaterally Cardiovascular/Chest: normal peripheral pulses, normal rate, regular rhythm Abdomen: normal bowel sounds, non tender, soft, no organomegaly Extremities: normal range of motion, non-tender, normal inspection Matti Lakhani MD May 07, 2019 16:51
--- NOTE | 2019-05-07 19:35 | NUR ---
NURSE NOTES: Report received from NOHEMI Hannah. Pt is in stable condition lying comfortably in bed. Bed in the lowest position, bed brakes engaged, side rails up x 3 and call light within reach. Will continue to monitor.
--- NOTE | 2019-05-07 19:57 | NUR ---
HAND-OFF: Report given to Jayashree SONG. pt is in stable condition.
[2019-05-07 20:00] VITALS: BP 117/78
--- NOTE | 2019-05-07 21:31 | General Progress Note ---
Assessment/Plan Problem List: (1) Cavitary lesion of lung ICD Codes: J98.4 - Other disorders of lung SNOMED: 076194095 (2) Granulomatous disease ICD Codes: D71 - Functional disorders of polymorphonuclear neutrophils SNOMED: 569013942 (3) HTN (hypertension) ICD Codes: I10 - Essential (primary) hypertension SNOMED: 77744842 (4) CAD (coronary artery disease) ICD Codes: I25.10 - Atherosclerotic heart disease of [place] coronary artery without angina pectoris SNOMED: 68843725 Status: stable, progressing Assessment/Plan: cavitary lesion hypotension is improved pna vitals stable needs clearance from public health afebrile Subjective ROS Limited/Unobtainable: Yes Allergies: Coded Allergies: No Known Allergies (Unverified , 06/27/17) Subjective cough Objective Last 24 Hour Vital Signs Date Time Temp Pulse Resp B/P (MAP) Pulse Ox O2 Delivery O2 Flow Rate FiO2 05/07/19 20:00 97.6 78 19 117/78 (91) 97 05/07/19 16:00 78 05/07/19 16:00 98.1 80 18 111/83 (92) 95 05/07/19 12:00 97.9 69 18 119/76 (90) 97 05/07/19 12:00 65 05/07/19 09:57 108/56 05/07/19 08:47 Room Air 05/07/19 08:42 98.6 68 20 105/56 (72) 93 05/07/19 08:00 64 05/07/19 04:00 68 05/07/19 04:00 98.0 77 20 127/78 (94) 98 05/07/19 00:00 98.1 78 19 124/66 (85) 96 05/07/19 00:00 74 Intake and Output 05/06/19 05/07/19 19:00 07:00 Intake Total 400 ml Balance 400 ml Intake Oral 400 ml # Voids 2 Height (Feet): 5 Height (Inches): 2.00 Weight (Pounds): 134 Cardiovascular: regular rhythm Respiratory/Chest: lungs clear Abdomen: non tender Paula Nixon MD May 07, 2019 21:31
[2019-05-08] VITALS: BP 110/71
[2019-05-08 04:00] VITALS: BP 156/81
[2019-05-08] MEDS: NovoLOG Insulin Flexpen SUBQ SCH ×4 (05:43→21:00)
[2019-05-08 07:16] LABS: BASOPHILS % (AUTO) 0.7 % (0.0-2.0); HEMATOCRIT 32.5 % (37.0-47.0); HEMOGLOBIN 10.9 G/DL (12.0-16.0); LYMPHOCYTES % (AUTO) 30.3 % (20.0-45.0); MEAN CORPUSCULAR VOLUME 96 FL (80-99); MONOCYTES % (AUTO) 6.9 % (1.0-10.0); NEUTROPHILS % (AUTO) 61.1 % (45.0-75.0); PLATELET COUNT 170 K/UL (150-450); RED BLOOD COUNT 3.38 M/UL (4.20-5.40); RED CELL DISTRIBUTION WIDTH 10.8 % (11.6-14.8); WHITE BLOOD COUNT 5.6 K/UL (4.8-10.8)
[2019-05-08 07:35] LABS: ALANINE AMINOTRANSFERASE 14 U/L (12-78); ALBUMIN 3.1 G/DL (3.4-5.0); ALBUMIN/GLOBULIN RATIO 0.8 (1.0-2.7); ALKALINE PHOSPHATASE 65 U/L (46-116); ANION GAP 8 mmol/L (5-15); ASPARTATE AMINO TRANSFERASE 29 U/L (15-37); BILIRUBIN,TOTAL 0.2 MG/DL (0.2-1.0); CALCIUM 8.7 MG/DL (8.5-10.1); CARBON DIOXIDE 28 MMOL/L (21-32); CHLORIDE 104 MMOL/L (98-107); CREATININE 0.9 MG/DL (0.55-1.30); POTASSIUM 3.3 MMOL/L (3.5-5.1); SODIUM 140 MMOL/L (136-145)
--- NOTE | 2019-05-08 07:43 | NUR ---
HAND-OFF: Report given to NOHEMI Hannah. Plan of care endorsed.
[2019-05-08 08:00] VITALS: BP 120/58
[2019-05-08 08:00] LABS: BLOOD UREA NITROGEN 14 mg/dL (7-18)
--- NOTE | 2019-05-08 08:16 | NUR ---
pt awake in bed. 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 Bed in lowest position and locked. Call light with in reach. Will continue to follow plan of care.
[2019-05-08] MEDS: Artificial Tears 1.4% Op Soln BOTH EYES SCH ×4 (09:45→21:00)
[2019-05-08] MEDS: metFORMIN 500mg tab ORAL SCH ×2 (09:46→17:31)
[2019-05-08] MEDS: Vitamin D 1000 IU Tab ORAL SCH (09:47)
[2019-05-08] MEDS: Enoxaparin 40mg Inj SUBQ SCH (09:48)
[2019-05-08] MEDS: Losartan 50mg tab ORAL SCH (09:49)
[2019-05-08] MEDS: Pyridoxine 50mg tab ORAL SCH (09:49)
[2019-05-08] MEDS: Isoniazid 300mg tab ORAL SCH (09:50)
--- NOTE | 2019-05-08 09:59 | Hematology/Onc Progress Note ---
Assessment/Plan Assessment/Plan Assessment and Recs: # Cavitary lesion of lung on imaging seen on CT, ++ Olive afb as per pulm, at this time on ripe, r/o inflammatory cause/issues --> may dc ripe as per pulm/id --> per pulm recs --> montior for resolution --> if persists may need biopsy/bronch --> tumor markers are neg --> consider reimage in several months --> pending placement ltach with tb control clearance # Anemia of chronic disease due to underlying chronic medical issues, multifactorial --> Anemia workup has been reviewed. Ferritin 133 --> No evidence of hemolysis is noted, peripheral smear has been reviewed. --> Hgb goal >7. Transfuse prn. --> Epogen or iron at this time is not particularly indicated --> Medications have been reviewed --> Hgb trend: 11.5-->12.1-->11.8-->10.9 # Chest pain r/o acs v inflammatory disease of lung, bronchitis --> CT imaging of the chest was ordered which showed calcified mediastinal and hilar lymph nodes as well as mild cardiomegaly without pericardial effusion. There is some fluid impacting some of the left lower lobe bronchi posterior medially no pulmonary embolism or aortic aneurysm or dissection was seen --> Patient given IV antibiotics. --> as per cards recs --> trop and ekg x 2 ordered --> nitrog prn --> outpatient stress test # Granulomatous disease # HTN. sbp goal <140 The time the noted was written does not necessarily correspond to the time the patient was seen,. Subjective Constitutional: Denies: no symptoms, chills, fever, malaise, weakness, other HEENT: Denies: no symptoms, eye pain, blurred vision, tearing, double vision, ear pain, ear discharge, nose pain, nose congestion, throat pain, throat swelling, mouth pain, mouth swelling, other Respiratory: Denies: no symptoms, cough, shortness of breath, SOB with excertion, SOB at rest, sputum, wheezing, other Gastrointestinal/Abdominal: Denies: no symptoms, abdomen distended, abdominal pain, black stools, tarry stools, blood in stool, constipated, diarrhea, difficulty swallowing, nausea, poor appetite, poor fluid intake, rectal bleeding , vomiting, other Genitourinary: Denies: no symptoms, burning, discharge, frequency, flank pain, hematuria, incontinence, pain, urgency, other Neurologic/Psychiatric: Denies: no symptoms, anxiety, depressed, emotional problems, headache, numbness, paresthesia, pre-existing deficit, seizure, tingling, tremors, weakness, other Endocrine: Denies: no symptoms, excessive sweating, flushing, intolerance to cold, intolerance to heat, increased hunger, increased thirst, increased urine, unexplained weight gain, unexplained weight loss, other Hematologic/Lymphatic: Denies: no symptoms, anemia, easy bleeding, easy bruising, adenopathy, other Allergies: Coded Allergies: No Known Allergies (Unverified , 06/27/17) Subjective 04/26: Pt is sitting in bed and having breakfast. No c/o pain. Labs reviewed. 04/27: no events, cp is better, seen by pulm, cards 04/28: no fevers or chills, no night sweats noted 04/30: Pt on [place] isolation, cough better with cough syrup. 05/01: no acute events, no bleeding reported. 05/02:no distress, VS reviewed, afebrile. 05/03: no events, oimaging reviewed, seen by pulm and id 05/04, unable to provide sputum, seen by psych, otherwise no changes 05/05: no events to report, tolerating ripe 05/06: no events, no fevers, ripe has been started 05/07: no events, a+o x4, seen by pulm, potentially consider dc ripe 05/08: no events overnight, uric acid is still high, seen by renal Objective Objective Current Medications Medications (Trade) Dose Ordered Sig/Darrion Route PRN Reason Start Time Stop Time Status Last Admin Dose Admin Artificial Tears (Akwa-Tears) 2 drop FOUR TIMES A DAY BOTH EYES 04/25/19 09:00 05/25/19 08:59 05/08/19 09:45 Dextrose (Dextrose 50%) 25 ml Q30M PRN IV Hypoglycemia 04/25/19 00:00 05/25/19 00:00 Dextrose (Dextrose 50%) 50 ml Q30M PRN IV Hypoglycemia 04/25/19 00:00 05/25/19 00:00 Enoxaparin Sodium (Lovenox) 40 mg DAILY SUBQ 04/25/19 09:00 05/25/19 08:59 05/08/19 09:48 Ethambutol HCl (Myambutol) 800 mg DAILY ORAL 05/01/19 15:30 05/31/19 15:29 05/08/19 09:48 Famotidine (Pepcid) 40 mg ACBREAKFAST ORAL 04/25/19 06:30 05/25/19 06:29 05/08/19 05:36 Fluoxetine HCl (PROzac) 40 mg DAILY ORAL 04/26/19 09:00 05/26/19 08:59 05/08/19 09:46 Folic Acid (Folate) 2 mg DAILY ORAL 05/05/19 15:30 06/04/19 15:29 05/08/19 09:51 Glipizide (GlipiZIDE XL) 2.5 mg QPM ORAL 04/26/19 16:30 05/26/19 16:29 05/07/19 17:01 Insulin Aspart (NovoLOG) BEFORE MEALS AND HS SUBQ 04/25/19 06:30 05/25/19 06:29 05/08/19 05:43 Isoniazid (Inh) 300 mg DAILY ORAL 05/01/19 15:30 05/31/19 15:29 05/08/19 09:50 Losartan Potassium (Cozaar) 25 mg DAILY ORAL 05/06/19 09:00 05/30/19 08:59 05/08/19 09:49 Magnesium Sulfate 100 ml @ 100 mls/hr Q1H IVPB 05/08/19 09:45 05/08/19 11:44 Metformin HCl (Glucophage) 500 mg TWICE A DAY ORAL 04/26/19 09:00 05/26/19 08:59 05/08/19 09:46 Ondansetron HCl (Zofran) 4 mg Q6H PRN IVP Nausea & Vomiting 05/05/19 09:45 06/04/19 09:44 05/06/19 09:24 Potassium Chloride (K-Dur) 40 meq DAILY ORAL 05/08/19 09:45 06/07/19 09:44 Pyrazinamide (Pza) 1,000 mg DAILY ORAL 05/01/19 15:30 05/31/19 15:29 05/08/19 09:48 Pyridoxine HCl (Vitamin B6) 50 mg DAILY ORAL 05/04/19 09:00 06/03/19 08:59 05/08/19 09:49 Rifampin (Rifadin) 600 mg DAILY ORAL 05/01/19 15:30 05/31/19 15:29 05/08/19 09:47 Vitamin D (Vitamin D) 5,000 intlu DAILY ORAL 04/26/19 09:00 05/26/19 08:59 05/08/19 09:47 Last 24 Hour Vital Signs Date Time Temp Pulse Resp B/P (MAP) Pulse Ox O2 Delivery O2 Flow Rate FiO2 05/08/19 09:49 120/58 05/08/19 08:00 98.1 77 18 120/58 (78) 94 05/08/19 04:00 98.1 79 18 156/81 (106) 98 05/08/19 04:00 81 05/08/19 00:00 98.1 79 19 110/71 (84) 95 05/08/19 00:00 73 05/07/19 21:00 Room Air 05/07/19 20:00 97.6 78 19 117/78 (91) 97 05/07/19 20:00 97 05/07/19 16:00 78 05/07/19 16:00 98.1 80 18 111/83 (92) 95 05/07/19 12:00 97.9 69 18 119/76 (90) 97 05/07/19 12:00 65 05/07/19 09:57 108/56 05/07/19 08:47 Room Air 05/07/19 08:42 98.6 68 20 105/56 (72) 93 05/07/19 08:00 64 05/07/19 04:00 68 05/07/19 04:00 98.0 77 20 127/78 (94) 98 05/07/19 00:00 98.1 78 19 124/66 (85) 96 05/07/19 00:00 74 05/06/19 21:00 Room Air 05/06/19 20:00 98.2 76 20 118/67 (84) 99 05/06/19 20:00 72 05/06/19 16:00 98.9 68 17 126/57 (80) 95 05/06/19 16:00 67 05/06/19 12:00 60 05/06/19 12:00 98.5 63 19 114/62 (79) 94 Intake and Output 05/07/19 05/08/19 18:59 06:59 Intake Total 480 ml Balance 480 ml Intake Oral 480 ml # Voids 2 2 Labs Test 05/05/19 19:00 05/06/19 06:35 05/08/19 05:29 Urine Color Brown Urine Appearance Clear Urine pH 5 (4.5-8.0) Urine Specific [place] 1.010 (1.005-1.035) Urine Protein Negative (NEGATIVE) Urine Glucose (UA) Negative (NEGATIVE) Urine Ketones 1+ (NEGATIVE) Urine Blood 1+ (NEGATIVE) Urine Nitrite Negative (NEGATIVE) Urine Bilirubin Negative (NEGATIVE) Urine Urobilinogen Normal MG/DL (0.0-1.0) Urine Leukocyte Esterase 2+ (NEGATIVE) Urine RBC 0-2 /HPF (0 - 2) Urine WBC 2-4 /HPF (0 - 2) Urine Squamous Epithelial Cells Occasional /LPF Urine Bacteria Occasional /HPF (NONE) Urine Mucus Occasional /LPF White Blood Count 5.0 K/UL (4.8-10.8) 5.6 K/UL (4.8-10.8) Red Blood Count 3.67 M/UL (4.20-5.40) 3.38 M/UL (4.20-5.40) Hemoglobin 11.8 G/DL (12.0-16.0) 10.9 G/DL (12.0-16.0) Hematocrit 35.1 % (37.0-47.0) 32.5 % (37.0-47.0) Mean Corpuscular Volume 96 FL (80-99) 96 FL (80-99) Mean Corpuscular Hemoglobin 32.2 PG (27.0-31.0) 32.2 PG (27.0-31.0) Mean Corpuscular Hemoglobin Concent 33.7 G/DL (32.0-36.0) 33.6 G/DL (32.0-36.0) Red Cell Distribution Width 10.7 % (11.6-14.8) 10.8 % (11.6-14.8) Platelet Count 182 K/UL (150-450) 170 K/UL (150-450) Mean Platelet Volume 6.8 FL (6.5-10.1) 6.2 FL (6.5-10.1) Neutrophils (%) (Auto) 55.6 % (45.0-75.0) 61.1 % (45.0-75.0) Lymphocytes (%) (Auto) 33.6 % (20.0-45.0) 30.3 % (20.0-45.0) Monocytes (%) (Auto) 7.9 % (1.0-10.0) 6.9 % (1.0-10.0) Eosinophils (%) (Auto) 2.0 % (0.0-3.0) 1.0 % (0.0-3.0) Basophils (%) (Auto) 0.9 % (0.0-2.0) 0.7 % (0.0-2.0) Sodium Level 133 MMOL/L (136-145) 140 MMOL/L (136-145) Potassium Level 3.8 MMOL/L (3.5-5.1) 3.3 MMOL/L (3.5-5.1) Chloride Level 98 MMOL/L (98-107) 104 MMOL/L (98-107) Carbon Dioxide Level 29 MMOL/L (21-32) 28 MMOL/L (21-32) Anion Gap 7 mmol/L (5-15) 8 mmol/L (5-15) Blood Urea Nitrogen 22 mg/dL (7-18) 14 mg/dL (7-18) Creatinine 1.1 MG/DL (0.55-1.30) 0.9 MG/DL (0.55-1.30) Estimat Glomerular Filtration Rate mL/min (>60) mL/min (>60) Glucose Level 108 MG/DL (74-106) 154 MG/DL (74-106) Hemoglobin A1c 6.0 % (4.3-6.0) Uric Acid 15.3 MG/DL (2.6-7.2) 12.8 MG/DL (2.6-7.2) Calcium Level 8.8 MG/DL (8.5-10.1) 8.7 MG/DL (8.5-10.1) Phosphorus Level 3.2 MG/DL (2.5-4.9) Magnesium Level 2.3 MG/DL (1.8-2.4) 1.7 MG/DL (1.8-2.4) Total Bilirubin 0.5 MG/DL (0.2-1.0) 0.2 MG/DL (0.2-1.0) Gamma Glutamyl Transpeptidase 29 U/L (5-85) Aspartate Amino Transf (AST/SGOT) 25 U/L (15-37) 29 U/L (15-37) Alanine Aminotransferase (ALT/SGPT) 16 U/L (12-78) 14 U/L (12-78) Alkaline Phosphatase 73 U/L (46-116) 65 U/L (46-116) C-Reactive Protein, Quantitative < 0.4 mg/dL (0.00-0.90) < 0.4 mg/dL (0.00-0.90) Pro-B-Type Natriuretic Peptide 16 pg/mL (0-125) Total Protein 7.2 G/DL (6.4-8.2) 6.8 G/DL (6.4-8.2) Albumin 3.6 G/DL (3.4-5.0) 3.1 G/DL (3.4-5.0) Globulin 3.6 g/dL 3.7 g/dL Albumin/Globulin Ratio 1.0 (1.0-2.7) 0.8 (1.0-2.7) Triglycerides Level 89 MG/DL (30-150) Cholesterol Level 107 MG/DL (< 200) LDL Cholesterol 51 mg/dL (<100) HDL Cholesterol 47 MG/DL (40-60) Cholesterol/HDL Ratio 2.3 (3.3-4.4) Height (Feet): 5 Height (Inches): 2.00 Weight (Pounds): 134 Objective PHYSICAL EXAM General Appearance: normal inspection, well appearing, no apparent distress, alert, GCS 15 Head: atraumatic ENT: normal ENT inspection, hearing grossly normal, normal voice Neck: normal inspection, full range of motion, supple, no bony tend Respiratory: normal inspection, lungs clear, normal breath sounds, no respiratory distress, no retraction, no wheezing Cardiovascular: regular rate, rhythm, no edema Gastrointestinal: normal inspection, normal bowel sounds, non tender, soft, no guarding, no hernia Genitourinary: no CVA tenderness Musculoskeletal: normal inspection, back normal, normal range of motion Neurologic: normal inspection, alert, oriented x3, responsive, mirror polisher III-XII nml as tested, speech normal Psychiatric: normal inspection, judgement/insight normal, mood/affect normal Alden Kohler MD May 08, 2019 09:59
--- NOTE | 2019-05-08 11:28 | Infectious Diseases Prog Note ---
Assessment/Plan Assessment/Plan IMPRESSION: Pneumonia. Lung cavity, likely mycobacterial disease Diabetes mellitus, Hypertension, Major depression, History of asthma. RECOMMENDATION: TB PCR test in sputum is negative AFB smear X 1: 1+ positive 7 AFB culture + Continue TB treatment with [facility] TST: negative Subjective ROS Limited/Unobtainable: Yes Constitutional: Reports: no symptoms Respiratory: Reports: no symptoms Gastrointestinal/Abdominal: Reports: nausea Allergies: Coded Allergies: No Known Allergies (Unverified , 06/27/17) Objective Vital Signs Last 24 Hour Vital Signs Date Time Temp Pulse Resp B/P (MAP) Pulse Ox O2 Delivery O2 Flow Rate FiO2 05/08/19 09:49 120/58 05/08/19 08:00 98.1 77 18 120/58 (78) 94 05/08/19 04:00 98.1 79 18 156/81 (106) 98 05/08/19 04:00 81 05/08/19 00:00 98.1 79 19 110/71 (84) 95 05/08/19 00:00 73 05/07/19 21:00 Room Air 05/07/19 20:00 97.6 78 19 117/78 (91) 97 05/07/19 20:00 97 05/07/19 16:00 78 05/07/19 16:00 98.1 80 18 111/83 (92) 95 05/07/19 12:00 97.9 69 18 119/76 (90) 97 05/07/19 12:00 65 Height (Feet): 5 Height (Inches): 2.00 Weight (Pounds): 134 HEENT: mucous membranes moist Respiratory/Chest: lungs clear Cardiovascular: normal rate Abdomen: soft, non tender Extremities: no edema Neurologic/Psychiatric: alert, oriented x 3, responsive Laboratory Tests Test 05/08/19 05:29 White Blood Count 5.6 K/UL (4.8-10.8) Red Blood Count 3.38 M/UL (4.20-5.40) L Hemoglobin 10.9 G/DL (12.0-16.0) L Hematocrit 32.5 % (37.0-47.0) L Mean Corpuscular Volume 96 FL (80-99) Mean Corpuscular Hemoglobin 32.2 PG (27.0-31.0) H Mean Corpuscular Hemoglobin Concent 33.6 G/DL (32.0-36.0) Red Cell Distribution Width 10.8 % (11.6-14.8) L Platelet Count 170 K/UL (150-450) Mean Platelet Volume 6.2 FL (6.5-10.1) L Neutrophils (%) (Auto) 61.1 % (45.0-75.0) Lymphocytes (%) (Auto) 30.3 % (20.0-45.0) Monocytes (%) (Auto) 6.9 % (1.0-10.0) Eosinophils (%) (Auto) 1.0 % (0.0-3.0) Basophils (%) (Auto) 0.7 % (0.0-2.0) Sodium Level 140 MMOL/L (136-145) Potassium Level 3.3 MMOL/L (3.5-5.1) L Chloride Level 104 MMOL/L (98-107) Carbon Dioxide Level 28 MMOL/L (21-32) Anion Gap 8 mmol/L (5-15) Blood Urea Nitrogen 14 mg/dL (7-18) Creatinine 0.9 MG/DL (0.55-1.30) Estimat Glomerular Filtration Rate mL/min (>60) Glucose Level 154 MG/DL (74-106) H Uric Acid 12.8 MG/DL (2.6-7.2) H Calcium Level 8.7 MG/DL (8.5-10.1) Magnesium Level 1.7 MG/DL (1.8-2.4) L Total Bilirubin 0.2 MG/DL (0.2-1.0) Aspartate Amino Transf (AST/SGOT) 29 U/L (15-37) Alanine Aminotransferase (ALT/SGPT) 14 U/L (12-78) Alkaline Phosphatase 65 U/L (46-116) C-Reactive Protein, Quantitative < 0.4 mg/dL (0.00-0.90) Total Protein 6.8 G/DL (6.4-8.2) Albumin 3.1 G/DL (3.4-5.0) L Globulin 3.7 g/dL Albumin/Globulin Ratio 0.8 (1.0-2.7) L Current Medications Medications (Trade) Dose Ordered Sig/Darrion Route PRN Reason Start Time Stop Time Status Last Admin Dose Admin Artificial Tears (Akwa-Tears) 2 drop FOUR TIMES A DAY BOTH EYES 04/25/19 09:00 05/25/19 08:59 05/08/19 09:45 Dextrose (Dextrose 50%) 25 ml Q30M PRN IV Hypoglycemia 04/25/19 00:00 05/25/19 00:00 Dextrose (Dextrose 50%) 50 ml Q30M PRN IV Hypoglycemia 04/25/19 00:00 05/25/19 00:00 Enoxaparin Sodium (Lovenox) 40 mg DAILY SUBQ 04/25/19 09:00 05/25/19 08:59 05/08/19 09:48 Ethambutol HCl (Myambutol) 800 mg DAILY ORAL 05/01/19 15:30 05/31/19 15:29 05/08/19 09:48 Famotidine (Pepcid) 40 mg ACBREAKFAST ORAL 04/25/19 06:30 05/25/19 06:29 05/08/19 05:36 Fluoxetine HCl (PROzac) 40 mg DAILY ORAL 04/26/19 09:00 05/26/19 08:59 05/08/19 09:46 Folic Acid (Folate) 2 mg DAILY ORAL 05/05/19 15:30 06/04/19 15:29 05/08/19 09:51 Glipizide (GlipiZIDE XL) 2.5 mg QPM ORAL 04/26/19 16:30 05/26/19 16:29 05/07/19 17:01 Insulin Aspart (NovoLOG) BEFORE MEALS AND HS SUBQ 04/25/19 06:30 05/25/19 06:29 05/08/19 05:43 Isoniazid (Inh) 300 mg DAILY ORAL 05/01/19 15:30 05/31/19 15:29 05/08/19 09:50 Losartan Potassium (Cozaar) 25 mg DAILY ORAL 05/06/19 09:00 05/30/19 08:59 05/08/19 09:49 Magnesium Sulfate 100 ml @ 100 mls/hr Q1H IVPB 05/08/19 09:45 05/08/19 11:44 05/08/19 11:12 Metformin HCl (Glucophage) 500 mg TWICE A DAY ORAL 04/26/19 09:00 05/26/19 08:59 05/08/19 09:46 Ondansetron HCl (Zofran) 4 mg Q6H PRN IVP Nausea & Vomiting 05/05/19 09:45 06/04/19 09:44 05/08/19 11:12 Potassium Chloride (K-Dur) 40 meq DAILY ORAL 05/08/19 09:45 06/07/19 09:44 05/08/19 10:01 Pyrazinamide (Pza) 1,000 mg DAILY ORAL 05/01/19 15:30 05/31/19 15:29 05/08/19 09:48 Pyridoxine HCl (Vitamin B6) 50 mg DAILY ORAL 05/04/19 09:00 06/03/19 08:59 05/08/19 09:49 Rifampin (Rifadin) 600 mg DAILY ORAL 05/01/19 15:30 05/31/19 15:29 05/08/19 09:47 Vitamin D (Vitamin D) 5,000 intlu DAILY ORAL 04/26/19 09:00 05/26/19 08:59 05/08/19 09:47 Carlos Kwan MD May 08, 2019 11:28
[2019-05-08 12:00] VITALS: BP 115/73
--- NOTE | 2019-05-08 14:12 | Cardiac Electrophysiology PN ---
Assessment/Plan Assessment/Plan 1. Chest pain, No AR. Due to underlying lung lesion 2. HTN only on Losartan 25 daily 3. NIDDM 4. HLPD 5. Cavitary lung lesion, on resp isolation. AFB came back positive! on INH.RIF,ETB,PZA per Dr Kwan. Off iv Abx 6. Anemia DW RN Subjective Subjective In respiratory isolation, Awaiting [facility] of Health for clearance. RN at bedside Objective Last 24 Hour Vital Signs Date Time Temp Pulse Resp B/P (MAP) Pulse Ox O2 Delivery O2 Flow Rate FiO2 05/08/19 12:00 65 05/08/19 09:49 120/58 05/08/19 08:00 69 05/08/19 08:00 98.1 77 18 120/58 (78) 94 05/08/19 04:00 98.1 79 18 156/81 (106) 98 05/08/19 04:00 81 05/08/19 00:00 98.1 79 19 110/71 (84) 95 05/08/19 00:00 73 05/07/19 21:00 Room Air 05/07/19 20:00 97.6 78 19 117/78 (91) 97 05/07/19 20:00 97 05/07/19 16:00 78 05/07/19 16:00 98.1 80 18 111/83 (92) 95 Intake and Output 05/07/19 05/08/19 19:00 07:00 Intake Total 480 ml Balance 480 ml Intake Oral 480 ml # Voids 2 2 Laboratory Tests Test 05/08/19 05:29 White Blood Count 5.6 K/UL (4.8-10.8) Red Blood Count 3.38 M/UL (4.20-5.40) L Hemoglobin 10.9 G/DL (12.0-16.0) L Hematocrit 32.5 % (37.0-47.0) L Mean Corpuscular Volume 96 FL (80-99) Mean Corpuscular Hemoglobin 32.2 PG (27.0-31.0) H Mean Corpuscular Hemoglobin Concent 33.6 G/DL (32.0-36.0) Red Cell Distribution Width 10.8 % (11.6-14.8) L Platelet Count 170 K/UL (150-450) Mean Platelet Volume 6.2 FL (6.5-10.1) L Neutrophils (%) (Auto) 61.1 % (45.0-75.0) Lymphocytes (%) (Auto) 30.3 % (20.0-45.0) Monocytes (%) (Auto) 6.9 % (1.0-10.0) Eosinophils (%) (Auto) 1.0 % (0.0-3.0) Basophils (%) (Auto) 0.7 % (0.0-2.0) Sodium Level 140 MMOL/L (136-145) Potassium Level 3.3 MMOL/L (3.5-5.1) L Chloride Level 104 MMOL/L (98-107) Carbon Dioxide Level 28 MMOL/L (21-32) Anion Gap 8 mmol/L (5-15) Blood Urea Nitrogen 14 mg/dL (7-18) Creatinine 0.9 MG/DL (0.55-1.30) Estimat Glomerular Filtration Rate mL/min (>60) Glucose Level 154 MG/DL (74-106) H Uric Acid 12.8 MG/DL (2.6-7.2) H Calcium Level 8.7 MG/DL (8.5-10.1) Magnesium Level 1.7 MG/DL (1.8-2.4) L Total Bilirubin 0.2 MG/DL (0.2-1.0) Aspartate Amino Transf (AST/SGOT) 29 U/L (15-37) Alanine Aminotransferase (ALT/SGPT) 14 U/L (12-78) Alkaline Phosphatase 65 U/L (46-116) C-Reactive Protein, Quantitative < 0.4 mg/dL (0.00-0.90) Total Protein 6.8 G/DL (6.4-8.2) Albumin 3.1 G/DL (3.4-5.0) L Globulin 3.7 g/dL Albumin/Globulin Ratio 0.8 (1.0-2.7) L Objective HEENT: No JVD Respiratory/Chest: Coarse rhonchi Cardiovascular/Chest: normal peripheral pulses, normal rate, regular rhythm Abdomen: normal bowel sounds, non tender, soft, no organomegaly Extremities: normal range of motion, non-tender, normal inspection Matti Lakhani MD May 08, 2019 14:12
--- NOTE | 2019-05-08 14:17 | Nephrology Progress Note ---
Assessment/Plan Problem List: (1) Cavitary lesion of lung (2) HTN (hypertension) (3) Hypotensive episode (4) Hyperuricemia Assessment Hypotension: ? due to antihypertensives TB Plan Plan: Adjust BP meds NS bolous continue anti TB meds per orders Subjective ROS Limited/Unobtainable: No Constitutional: Reports: malaise Objective Objective Last 24 Hour Vital Signs Date Time Temp Pulse Resp B/P (MAP) Pulse Ox O2 Delivery O2 Flow Rate FiO2 05/08/19 12:00 65 05/08/19 09:49 120/58 05/08/19 08:00 69 05/08/19 08:00 98.1 77 18 120/58 (78) 94 05/08/19 04:00 98.1 79 18 156/81 (106) 98 05/08/19 04:00 81 05/08/19 00:00 98.1 79 19 110/71 (84) 95 05/08/19 00:00 73 05/07/19 21:00 Room Air 05/07/19 20:00 97.6 78 19 117/78 (91) 97 05/07/19 20:00 97 05/07/19 16:00 78 05/07/19 16:00 98.1 80 18 111/83 (92) 95 Intake and Output 05/07/19 05/08/19 19:00 07:00 Intake Total 480 ml Balance 480 ml Intake Oral 480 ml # Voids 2 2 Laboratory Tests 05/08/19 05:29: White Blood Count 5.6, Red Blood Count 3.38L, Hemoglobin 10.9L, Hematocrit 32.5L , Mean Corpuscular Volume 96, Mean Corpuscular Hemoglobin 32.2H, Mean Corpuscular Hemoglobin Concent 33.6, Red Cell Distribution Width 10.8L, Platelet Count 170, Mean Platelet Volume 6.2L, Neutrophils (%) (Auto) 61.1, Lymphocytes (%) (Auto) 30.3, Monocytes (%) (Auto) 6.9, Eosinophils (%) (Auto) 1.0, Basophils (%) (Auto) 0.7, Sodium Level 140, Potassium Level 3.3L, Chloride Level 104, Carbon Dioxide Level 28, Anion Gap 8, Blood Urea Nitrogen 14, Creatinine 0.9, Estimat Glomerular Filtration Rate , Glucose Level 154H, Uric Acid 12.8H, Calcium Level 8.7, Magnesium Level 1.7L, Total Bilirubin 0.2, Aspartate Amino Transf (AST/SGOT) 29, Alanine Aminotransferase (ALT/SGPT) 14, Alkaline Phosphatase 65, C-Reactive Protein, Quantitative < 0.4, Total Protein 6.8, Albumin 3.1L, Globulin 3.7, Albumin/Globulin Ratio 0.8L Height (Feet): 5 Height (Inches): 2.00 Weight (Pounds): 134 General Appearance: no apparent distress Cardiovascular: normal rate Objective no change Anirudh Garcia MD May 08, 2019 14:17
--- NOTE | 2019-05-08 15:01 | Pulmonology Progress Note ---
Assessment/Plan Problems: (1) Cavitary lesion of lung (2) Granulomatous disease (3) Chest pain (4) HTN (hypertension) (5) CAD (coronary artery disease) (6) Shingles Assessment/Plan ASSESSMENT: The patient is a 73-year-old female with a history of hypertension , hyperlipidemia, and diabetes, presenting with pleuritic chest pain in the setting of a recent respiratory illness. CT of the chest demonstrates intense bilateral reticulonodular opacities and a cavitary lesion. She is being ruled out for MTB. With respect to the etiology of her lesion, it is likely infectious/inflammatory, so the cavity has to be followed to rule out a neoplastic process. PROBLEM LIST: 1. Left lower lobe cavity thin-walled, likely infectious, inflammatory, ? doubt MTB, / AFB + but TST and CPR neg, ? ALIDA, started on RIPE 05/03 2. Scattered bilateral reticulonodular opacities, likely an infectious bronchiolitis. 3. Pleuritic chest pain, likely secondary to above. 4. Hypertension, hyperlipidemia, diabetes. TREATMENT PLAN: 1. Optimize pulmonary hygiene/mobilize as tolerated. 2. F/U final AFBs 3. This is very unlikely to be MTB, likely atypical mycobacterial infection, i, e ALIDA. I feel strongly that RIPE should be discontinued, patient is experiencing significant side effects. Although she has to remain in airborne isolation until [facility] TB control removes isolation there is no reason why she has to be on TB therapy. 4. Continue isolation 5. The patient will require short interval follow-up and then likely a bronchoscopy and biopsy if there is a persistent cavitary lesion. Message left for Dr. Kwan. D/W Dr. Garcia Subjective Allergies: Coded Allergies: No Known Allergies (Unverified , 06/27/17) Subjective AFVSS on RA No cough no CP No FC + N no V Objective Last 24 Hour Vital Signs Date Time Temp Pulse Resp B/P (MAP) Pulse Ox O2 Delivery O2 Flow Rate FiO2 05/08/19 12:00 65 05/08/19 09:49 120/58 05/08/19 08:00 69 05/08/19 08:00 98.1 77 18 120/58 (78) 94 05/08/19 04:00 98.1 79 18 156/81 (106) 98 7/13/19 04:00 81 05/08/19 00:00 98.1 79 19 110/71 (84) 95 05/08/19 00:00 73 05/07/19 21:00 Room Air 05/07/19 20:00 97.6 78 19 117/78 (91) 97 05/07/19 20:00 97 05/07/19 16:00 78 05/07/19 16:00 98.1 80 18 111/83 (92) 95 Intake and Output 05/07/19 05/08/19 19:00 07:00 Intake Total 480 ml Balance 480 ml Intake Oral 480 ml # Voids 2 2 General Appearance: WD/WN, no acute distress HEENT: normocephalic, atraumatic, anicteric, mucous membranes moist Respiratory/Chest: chest wall non-tender, lungs clear, normal breath sounds, no respiratory distress, no accessory muscle use Cardiovascular: normal peripheral pulses, normal rate, regular rhythm Abdomen: normal bowel sounds, soft, non tender, no organomegaly, non distended , no mass Extremities: no cyanosis, no clubbing, no edema Laboratory Tests 05/08/19 05:29: White Blood Count 5.6, Red Blood Count 3.38L, Hemoglobin 10.9L, Hematocrit 32.5L , Mean Corpuscular Volume 96, Mean Corpuscular Hemoglobin 32.2H, Mean Corpuscular Hemoglobin Concent 33.6, Red Cell Distribution Width 10.8L, Platelet Count 170, Mean Platelet Volume 6.2L, Neutrophils (%) (Auto) 61.1, Lymphocytes (%) (Auto) 30.3, Monocytes (%) (Auto) 6.9, Eosinophils (%) (Auto) 1.0, Basophils (%) (Auto) 0.7, Sodium Level 140, Potassium Level 3.3L, Chloride Level 104, Carbon Dioxide Level 28, Anion Gap 8, Blood Urea Nitrogen 14, Creatinine 0.9, Estimat Glomerular Filtration Rate , Glucose Level 154H, Uric Acid 12.8H, Calcium Level 8.7, Magnesium Level 1.7L, Total Bilirubin 0.2, Aspartate Amino Transf (AST/SGOT) 29, Alanine Aminotransferase (ALT/SGPT) 14, Alkaline Phosphatase 65, C-Reactive Protein, Quantitative < 0.4, Total Protein 6.8, Albumin 3.1L, Globulin 3.7, Albumin/Globulin Ratio 0.8L Current Medications Medications (Trade) Dose Ordered Sig/Darrion Route PRN Reason Start Time Stop Time Status Last Admin Dose Admin Artificial Tears (Akwa-Tears) 2 drop FOUR TIMES A DAY BOTH EYES 04/25/19 09:00 05/25/19 08:59 05/08/19 12:35 Dextrose (Dextrose 50%) 25 ml Q30M PRN IV Hypoglycemia 04/25/19 00:00 05/25/19 00:00 Dextrose (Dextrose 50%) 50 ml Q30M PRN IV Hypoglycemia 04/25/19 00:00 05/25/19 00:00 Enoxaparin Sodium (Lovenox) 40 mg DAILY SUBQ 04/25/19 09:00 05/25/19 08:59 05/08/19 09:48 Ethambutol HCl (Myambutol) 800 mg DAILY ORAL 05/01/19 15:30 05/31/19 15:29 05/08/19 09:48 Famotidine (Pepcid) 40 mg ACBREAKFAST ORAL 04/25/19 06:30 05/25/19 06:29 05/08/19 05:36 Fluoxetine HCl (PROzac) 40 mg DAILY ORAL 04/26/19 09:00 05/26/19 08:59 05/08/19 09:46 Folic Acid (Folate) 2 mg DAILY ORAL 05/05/19 15:30 06/04/19 15:29 05/08/19 09:51 Glipizide (GlipiZIDE XL) 2.5 mg QPM ORAL 04/26/19 16:30 05/26/19 16:29 05/07/19 17:01 Insulin Aspart (NovoLOG) BEFORE MEALS AND HS SUBQ 04/25/19 06:30 05/25/19 06:29 05/08/19 12:28 Isoniazid (Inh) 300 mg DAILY ORAL 05/01/19 15:30 05/31/19 15:29 05/08/19 09:50 Losartan Potassium (Cozaar) 25 mg BID ORAL 05/08/19 18:00 05/30/19 08:59 Metformin HCl (Glucophage) 500 mg TWICE A DAY ORAL 04/26/19 09:00 05/26/19 08:59 05/08/19 09:46 Ondansetron HCl (Zofran) 4 mg Q6H PRN IVP Nausea & Vomiting 05/05/19 09:45 06/04/19 09:44 05/08/19 11:12 Potassium Chloride (K-Dur) 40 meq DAILY ORAL 05/08/19 09:45 06/07/19 09:44 05/08/19 10:01 Pyrazinamide (Pza) 1,000 mg DAILY ORAL 05/01/19 15:30 05/31/19 15:29 05/08/19 09:48 Pyridoxine HCl (Vitamin B6) 50 mg DAILY ORAL 05/04/19 09:00 06/03/19 08:59 05/08/19 09:49 Rifampin (Rifadin) 600 mg DAILY ORAL 05/01/19 15:30 05/31/19 15:29 05/08/19 09:47 Sodium Chloride 500 ml @ 999 mls/hr Q31M ONCE IV 05/08/19 14:30 05/08/19 15:00 Vitamin D (Vitamin D) 5,000 intlu DAILY ORAL 04/26/19 09:00 05/26/19 08:59 05/08/19 09:47 Sean Vaughn MD May 08, 2019 15:01
[2019-05-08 16:00] VITALS: BP 117/47
--- NOTE | 2019-05-08 16:02 | NUR ---
per T/o from Doctor Marlne Kwan DC all Tuberculosis meds. plus Vit B6.
[2019-05-08] MEDS: Losartan 25mg tab ORAL SCH (17:32)
--- NOTE | 2019-05-08 18:05 | General Progress Note ---
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 SNOMED: 174619543 (3) HTN (hypertension) ICD Codes: I10 - Essential (primary) hypertension SNOMED: 11835382 (4) CAD (coronary artery disease) ICD Codes: I25.10 - Atherosclerotic heart disease of [place] coronary artery without angina pectoris SNOMED: 44156667 Status: stable, progressing Assessment/Plan: pna afebrile cavitary lesion htn vitals stable Subjective ROS Limited/Unobtainable: Yes Allergies: Coded Allergies: No Known Allergies (Unverified , 06/27/17) Subjective cough Objective Last 24 Hour Vital Signs Date Time Temp Pulse Resp B/P (MAP) Pulse Ox O2 Delivery O2 Flow Rate FiO2 05/08/19 17:32 117/47 05/08/19 16:00 98.0 66 18 117/47 (70) 95 05/08/19 12:00 97.5 65 18 115/73 (87) 97 05/08/19 12:00 65 05/08/19 09:49 120/58 05/08/19 09:00 Room Air 05/08/19 08:00 69 05/08/19 08:00 98.1 77 18 120/58 (78) 94 05/08/19 04:00 98.1 79 18 156/81 (106) 98 05/08/19 04:00 81 05/08/19 00:00 98.1 79 19 110/71 (84) 95 05/08/19 00:00 73 05/07/19 21:00 Room Air 05/07/19 20:00 97.6 78 19 117/78 (91) 97 05/07/19 20:00 97 Intake and Output 05/07/19 05/08/19 19:00 07:00 Intake Total 480 ml Balance 480 ml Intake Oral 480 ml # Voids 2 2 Laboratory Tests 05/08/19 05:29: White Blood Count 5.6, Red Blood Count 3.38L, Hemoglobin 10.9L, Hematocrit 32.5L , Mean Corpuscular Volume 96, Mean Corpuscular Hemoglobin 32.2H, Mean Corpuscular Hemoglobin Concent 33.6, Red Cell Distribution Width 10.8L, Platelet Count 170, Mean Platelet Volume 6.2L, Neutrophils (%) (Auto) 61.1, Lymphocytes (%) (Auto) 30.3, Monocytes (%) (Auto) 6.9, Eosinophils (%) (Auto) 1.0, Basophils (%) (Auto) 0.7, Sodium Level 140, Potassium Level 3.3L, Chloride Level 104, Carbon Dioxide Level 28, Anion Gap 8, Blood Urea Nitrogen 14, Creatinine 0.9, Estimat Glomerular Filtration Rate , Glucose Level 154H, Uric Acid 12.8H, Calcium Level 8.7, Magnesium Level 1.7L, Total Bilirubin 0.2, Aspartate Amino Transf (AST/SGOT) 29, Alanine Aminotransferase (ALT/SGPT) 14, Alkaline Phosphatase 65, C-Reactive Protein, Quantitative < 0.4, Total Protein 6.8, Albumin 3.1L, Globulin 3.7, Albumin/Globulin Ratio 0.8L Height (Feet): 5 Height (Inches): 2.00 Weight (Pounds): 134 Neck: supple Cardiovascular: normal rate Respiratory/Chest: lungs clear Paula Nixon MD May 08, 2019 18:05
--- NOTE | 2019-05-08 19:35 | NUR ---
HAND-OFF: Report given to Cheryl Lopez pt in stable condition.
--- NOTE | 2019-05-08 19:40 | NUR ---
NURSE NOTES: pt in bed watching tv. no acute distress noted, no c/o pain. fall precaution in place: bed locked and lowest position, call light and personal belonging within reach, will continue to monitor pt for any change in condition.
[2019-05-08 20:00] VITALS: BP 120/72
[2019-05-09] VITALS: BP 117/98
--- NOTE | 2019-05-09 00:23 | NUR ---
NURSE NOTES: pt sleeping, no change in condition. will continue to monitor for any change in condition.
[2019-05-09 04:00] VITALS: BP 119/80
--- NOTE | 2019-05-09 04:00 | NUR ---
NURSE NOTES: pt stable, no change in condition. will continue to monitor for any change in condition.
[2019-05-09] MEDS: NovoLOG Insulin Flexpen SUBQ SCH ×4 (05:56→20:15)
--- NOTE | 2019-05-09 06:53 | NUR ---
NURSE NOTES: pt remains stable, no change in condition. fall precautions in place: bed locked and lowest position. bedside rail up x 2, call light and personal belongings within pt's reach. all needs met during my shift. will endorse plan of care to incoming nurse.
--- NOTE | 2019-05-09 07:11 | NUR ---
HAND-OFF: Report given to NOHEMI Hannah.
--- NOTE | 2019-05-09 07:32 | NUR ---
NURSE NOTES: pt refused hospital breakfast but is eating outside food that was brought to her. Pt is on cardiac catheterization technologist no signs of cardiac or respiratory distress. AOx4, explained to her that all TB medication has been DC. Bed in lowest position and locked. Call light next to her. Will continue to follow plan of care.
[2019-05-09 08:00] VITALS: BP 128/75
[2019-05-09] MEDS: Artificial Tears 1.4% Op Soln BOTH EYES SCH ×4 (09:49→20:14)
[2019-05-09] MEDS: Vitamin D 1000 IU Tab ORAL SCH (09:50)
[2019-05-09] MEDS: Losartan 25mg tab ORAL SCH ×2 (09:51→17:18)
[2019-05-09] MEDS: metFORMIN 500mg tab ORAL SCH ×2 (09:51→17:18)
[2019-05-09] MEDS: Enoxaparin 40mg Inj SUBQ SCH (09:53)
[2019-05-09] MEDS ORDERED: Sodium Chloride for KCL Premix x 2hrs IV SCH (11:00)
[2019-05-09 12:00] VITALS: BP 127/80
--- NOTE | 2019-05-09 12:05 | NUR ---
NURSE NOTES: Pt having pain while potassium was infusing. Iv was stopped and a new IV was inserted. New IV R F/A 22g.
--- NOTE | 2019-05-09 12:32 | Pulmonology Progress Note ---
Assessment/Plan Problems: (1) Cavitary lesion of lung (2) Granulomatous disease (3) Chest pain (4) HTN (hypertension) (5) CAD (coronary artery disease) (6) Shingles Assessment/Plan ASSESSMENT: The patient is a 73-year-old female with a history of hypertension , hyperlipidemia, and diabetes, presenting with pleuritic chest pain in the setting of a recent respiratory illness. CT of the chest demonstrates intense bilateral reticulonodular opacities and a cavitary lesion. She is being ruled out for MTB. With respect to the etiology of her lesion, it is likely infectious/inflammatory, so the cavity has to be followed to rule out a neoplastic process. PROBLEM LIST: 1. Left lower lobe cavity thin-walled, likely infectious, inflammatory, ? doubt MTB, / AFB + but TST and CPR neg, ? ALIDA, started on RIPE 05/03, D/C'd 05/09 2. Scattered bilateral reticulonodular opacities, likely an infectious bronchiolitis. 3. Pleuritic chest pain, likely secondary to above. 4. Hypertension, hyperlipidemia, diabetes. TREATMENT PLAN: 1. Optimize pulmonary hygiene/mobilize as tolerated. 2. F/U final AFBs 3. This is very unlikely to be MTB, likely atypical mycobacterial infection, i, e ALIDA. 4. Continue isolation until cleared by [facility] 5. The patient will require short interval follow-up and then likely a bronchoscopy and biopsy if there is a persistent cavitary lesion. Subjective Allergies: Coded Allergies: No Known Allergies (Unverified , 06/27/17) Subjective AFVSS on RA No cough no CP No FC No NV RIPE D/C'd Objective Last 24 Hour Vital Signs Date Time Temp Pulse Resp B/P (MAP) Pulse Ox O2 Delivery O2 Flow Rate FiO2 05/09/19 09:51 128/75 05/09/19 09:00 Room Air 05/09/19 08:00 72 05/09/19 08:00 98.2 70 20 128/75 (92) 97 05/09/19 04:00 98.2 79 19 119/80 (93) 96 05/09/19 04:00 65 05/09/19 00:00 98.2 77 19 117/98 (104) 93 05/09/19 00:00 75 05/08/19 21:00 Room Air 05/08/19 20:00 75 05/08/19 20:00 98.0 78 19 120/72 (88) 97 05/08/19 17:32 117/47 05/08/19 16:00 69 05/08/19 16:00 98.0 66 18 117/47 (70) 95 Intake and Output 05/08/19 05/09/19 18:59 06:59 Intake Total 360 ml Balance 360 ml Intake Oral 360 ml # Voids 3 4 General Appearance: WD/WN, no acute distress HEENT: normocephalic, atraumatic, anicteric, mucous membranes moist Respiratory/Chest: chest wall non-tender, lungs clear, normal breath sounds, no respiratory distress, no accessory muscle use Cardiovascular: normal peripheral pulses, normal rate, regular rhythm Abdomen: normal bowel sounds, soft, non tender, no organomegaly, non distended , no mass Extremities: no cyanosis, no clubbing, no edema Current Medications Medications (Trade) Dose Ordered Sig/Darrion Route PRN Reason Start Time Stop Time Status Last Admin Dose Admin Artificial Tears (Akwa-Tears) 2 drop FOUR TIMES A DAY BOTH EYES 04/25/19 09:00 05/25/19 08:59 05/09/19 09:49 Dextrose (Dextrose 50%) 25 ml Q30M PRN IV Hypoglycemia 04/25/19 00:00 05/25/19 00:00 Dextrose (Dextrose 50%) 50 ml Q30M PRN IV Hypoglycemia 04/25/19 00:00 05/25/19 00:00 Enoxaparin Sodium (Lovenox) 40 mg DAILY SUBQ 04/25/19 09:00 05/25/19 08:59 05/09/19 09:53 Famotidine (Pepcid) 40 mg ACBREAKFAST ORAL 04/25/19 06:30 05/25/19 06:29 05/08/19 05:36 Fluoxetine HCl (PROzac) 40 mg DAILY ORAL 04/26/19 09:00 05/26/19 08:59 05/09/19 09:51 Folic Acid (Folate) 2 mg DAILY ORAL 05/05/19 15:30 06/04/19 15:29 05/09/19 09:50 Glipizide (GlipiZIDE XL) 2.5 mg QPM ORAL 04/26/19 16:30 05/26/19 16:29 05/08/19 17:32 Insulin Aspart (NovoLOG) BEFORE MEALS AND HS SUBQ 04/25/19 06:30 05/25/19 06:29 05/08/19 17:31 Losartan Potassium (Cozaar) 25 mg BID ORAL 05/08/19 18:00 05/30/19 08:59 05/09/19 09:51 Metformin HCl (Glucophage) 500 mg TWICE A DAY ORAL 04/26/19 09:00 05/26/19 08:59 05/09/19 09:51 Ondansetron HCl (Zofran) 4 mg Q6H PRN IVP Nausea & Vomiting 05/05/19 09:45 06/04/19 09:44 05/08/19 11:12 Potassium Chloride 100 ml @ 100 mls/hr Q1HR IVPB 05/09/19 11:00 05/09/19 12:59 05/09/19 11:47 Potassium Chloride (K-Dur) 40 meq DAILY ORAL 05/08/19 09:45 06/07/19 09:44 05/09/19 09:51 Sodium Chloride 200 ml @ 100 mls/hr Q2H IV 05/09/19 11:00 05/09/19 12:59 05/09/19 11:00 Vitamin D (Vitamin D) 5,000 intlu DAILY ORAL 04/26/19 09:00 05/26/19 08:59 05/09/19 09:50 Sean Vaughn MD May 09, 2019 12:32
--- NOTE | 2019-05-09 13:37 | Nephrology Progress Note ---
Assessment/Plan Problem List: (1) Cavitary lesion of lung (2) HTN (hypertension) (3) Hypotensive episode (4) Hyperuricemia Assessment Hypotension: ? due to antihypertensives TB Plan Plan: Adjust BP meds NS bolous anti TB meds WAS DISCONTINUED per orders Subjective ROS Limited/Unobtainable: No Constitutional: Reports: malaise, weakness Objective Objective Last 24 Hour Vital Signs Date Time Temp Pulse Resp B/P (MAP) Pulse Ox O2 Delivery O2 Flow Rate FiO2 05/09/19 12:00 98.2 67 18 127/80 (96) 94 05/09/19 09:51 128/75 05/09/19 09:00 Room Air 05/09/19 08:00 72 05/09/19 08:00 98.2 70 20 128/75 (92) 97 05/09/19 04:00 98.2 79 19 119/80 (93) 96 05/09/19 04:00 65 05/09/19 00:00 98.2 77 19 117/98 (104) 93 05/09/19 00:00 75 05/08/19 21:00 Room Air 05/08/19 20:00 75 05/08/19 20:00 98.0 78 19 120/72 (88) 97 05/08/19 17:32 117/47 05/08/19 16:00 69 05/08/19 16:00 98.0 66 18 117/47 (70) 95 Intake and Output 05/08/19 05/09/19 18:59 06:59 Intake Total 360 ml Balance 360 ml Intake Oral 360 ml # Voids 3 4 Current Medications Medications (Trade) Dose Ordered Sig/Darrino Route PRN Reason Start Time Stop Time Status Last Admin Dose Admin Artificial Tears (Akwa-Tears) 2 drop FOUR TIMES A DAY BOTH EYES 04/25/19 09:00 05/25/19 08:59 05/09/19 09:49 Dextrose (Dextrose 50%) 25 ml Q30M PRN IV Hypoglycemia 04/25/19 00:00 05/25/19 00:00 Dextrose (Dextrose 50%) 50 ml Q30M PRN IV Hypoglycemia 04/25/19 00:00 05/25/19 00:00 Enoxaparin Sodium (Lovenox) 40 mg DAILY SUBQ 04/25/19 09:00 05/25/19 08:59 05/09/19 09:53 Famotidine (Pepcid) 40 mg ACBREAKFAST ORAL 04/25/19 06:30 05/25/19 06:29 05/08/19 05:36 Fluoxetine HCl (PROzac) 40 mg DAILY ORAL 04/26/19 09:00 05/26/19 08:59 05/09/19 09:51 Folic Acid (Folate) 2 mg DAILY ORAL 05/05/19 15:30 06/04/19 15:29 05/09/19 09:50 Glipizide (GlipiZIDE XL) 2.5 mg QPM ORAL 04/26/19 16:30 05/26/19 16:29 05/08/19 17:32 Insulin Aspart (NovoLOG) BEFORE MEALS AND HS SUBQ 04/25/19 06:30 05/25/19 06:29 05/08/19 17:31 Losartan Potassium (Cozaar) 25 mg BID ORAL 05/08/19 18:00 05/30/19 08:59 05/09/19 09:51 Metformin HCl (Glucophage) 500 mg TWICE A DAY ORAL 04/26/19 09:00 05/26/19 08:59 05/09/19 09:51 Ondansetron HCl (Zofran) 4 mg Q6H PRN IVP Nausea & Vomiting 05/05/19 09:45 06/04/19 09:44 05/08/19 11:12 Potassium Chloride (K-Dur) 40 meq DAILY ORAL 05/08/19 09:45 06/07/19 09:44 05/09/19 09:51 Sodium Chloride 500 ml @ 999 mls/hr Q31M ONCE IV 05/09/19 13:45 05/09/19 14:15 UNV Vitamin D (Vitamin D) 5,000 intlu DAILY ORAL 04/26/19 09:00 05/26/19 08:59 05/09/19 09:50 Height (Feet): 5 Height (Inches): 2.00 Weight (Pounds): 134 General Appearance: no apparent distress Cardiovascular: normal rate Respiratory/Chest: decreased breath sounds Abdomen: distended Objective no change Anirudh Garcia MD May 09, 2019 13:37
[2019-05-09 16:00] VITALS: BP 122/75
--- NOTE | 2019-05-09 19:02 | Cardiac Electrophysiology PN ---
Assessment/Plan Assessment/Plan 1. Chest pain, No CA. Due to underlying lung lesion 2. HTN on Losartan 25 daily 3. NIDDM 4. HLPD 5. Cavitary lung lesion, on resp isolation. AFB came back positive! on INH.RIF,ETB,PZA per Dr Kwan. Off iv Abx 6. Anemia DW RN Subjective Subjective In respiratory isolation. RN at bedside. Awaiting 3 more AFBs to result Objective Last 24 Hour Vital Signs Date Time Temp Pulse Resp B/P (MAP) Pulse Ox O2 Delivery O2 Flow Rate FiO2 05/09/19 17:18 127/80 05/09/19 12:00 98.2 67 18 127/80 (96) 94 05/09/19 12:00 68 05/09/19 09:51 128/75 05/09/19 09:00 Room Air 05/09/19 08:00 72 05/09/19 08:00 98.2 70 20 128/75 (92) 97 05/09/19 04:00 98.2 79 19 119/80 (93) 96 05/09/19 04:00 65 05/09/19 00:00 98.2 77 19 117/98 (104) 93 05/09/19 00:00 75 05/08/19 21:00 Room Air 05/08/19 20:00 75 05/08/19 20:00 98.0 78 19 120/72 (88) 97 Intake and Output 05/08/19 05/09/19 19:00 07:00 Intake Total 360 ml Balance 360 ml Intake Oral 360 ml # Voids 3 4 Objective HEENT: No JVD Respiratory/Chest: Coarse rhonchi Cardiovascular/Chest: normal peripheral pulses, normal rate, regular rhythm Abdomen: normal bowel sounds, non tender, soft, no organomegaly Extremities: normal range of motion, non-tender, normal inspection Matti Lakhani MD May 09, 2019 19:02
--- NOTE | 2019-05-09 19:03 | General Progress Note ---
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 SNOMED: 357226764 (3) HTN (hypertension) ICD Codes: I10 - Essential (primary) hypertension SNOMED: 74840708 (4) CAD (coronary artery disease) ICD Codes: I25.10 - Atherosclerotic heart disease of [place] coronary artery without angina pectoris SNOMED: 00112351 Status: stable, progressing Assessment/Plan: pna afebrile cavitary lesion w/u per heme/onc and pulmonary needs country clearance htn vitals stable r/o Tb bronch per pulmonary Subjective ROS Limited/Unobtainable: Yes Allergies: Coded Allergies: No Known Allergies (Unverified , 06/27/17) Subjective cough Objective Last 24 Hour Vital Signs Date Time Temp Pulse Resp B/P (MAP) Pulse Ox O2 Delivery O2 Flow Rate FiO2 05/09/19 17:18 127/80 05/09/19 12:00 98.2 67 18 127/80 (96) 94 05/09/19 12:00 68 05/09/19 09:51 128/75 05/09/19 09:00 Room Air 05/09/19 08:00 72 05/09/19 08:00 98.2 70 20 128/75 (92) 97 05/09/19 04:00 98.2 79 19 119/80 (93) 96 05/09/19 04:00 65 05/09/19 00:00 98.2 77 19 117/98 (104) 93 05/09/19 00:00 75 05/08/19 21:00 Room Air 05/08/19 20:00 75 05/08/19 20:00 98.0 78 19 120/72 (88) 97 Intake and Output 05/08/19 05/09/19 19:00 07:00 Intake Total 360 ml Balance 360 ml Intake Oral 360 ml # Voids 3 4 Height (Feet): 5 Height (Inches): 2.00 Weight (Pounds): 134 Cardiovascular: normal rate Respiratory/Chest: lungs clear Abdomen: soft Paula Nixon MD May 09, 2019 19:03
--- NOTE | 2019-05-09 19:25 | NUR ---
NURSE NOTES: Received report from NOHEMI Rinaldi. patient seen in bed in semi galindo position in room air with no respiratory distress noted. Alert, verbally responsive, able to make needs known. Denies any pain at this time. IV site is to right forearm and is intact. bed is in lowest position. Call light is within easy reach while in bed. will continue to monitor.
--- NOTE | 2019-05-09 19:50 | NUR ---
HAND-OFF: Report given to Mary SONG.
[2019-05-09 20:00] VITALS: BP 128/70
[2019-05-10] VITALS: BP 141/80
[2019-05-10 04:00] VITALS: BP 138/82
[2019-05-10] MEDS: NovoLOG Insulin Flexpen SUBQ SCH ×4 (05:51→22:37)
[2019-05-10 06:35] LABS: BASOPHILS % (AUTO) 1.1 % (0.0-2.0); EOSINOPHILS % (AUTO) 2.3 % (0.0-3.0); HEMATOCRIT 32.2 % (37.0-47.0); HEMOGLOBIN 10.9 G/DL (12.0-16.0); LYMPHOCYTES % (AUTO) 44.3 % (20.0-45.0); MEAN CORPUSCULAR VOLUME 96 FL (80-99); MONOCYTES % (AUTO) 7.5 % (1.0-10.0); NEUTROPHILS % (AUTO) 44.7 % (45.0-75.0); PLATELET COUNT 176 K/UL (150-450); RED BLOOD COUNT 3.34 M/UL (4.20-5.40); RED CELL DISTRIBUTION WIDTH 10.8 % (11.6-14.8); WHITE BLOOD COUNT 4.4 K/UL (4.8-10.8)
[2019-05-10 06:50] LABS: ALANINE AMINOTRANSFERASE 21 U/L (12-78); ALBUMIN 3.4 G/DL (3.4-5.0); ALKALINE PHOSPHATASE 65 U/L (46-116); ANION GAP 7 mmol/L (5-15); ASPARTATE AMINO TRANSFERASE 49 U/L (15-37); BILIRUBIN,TOTAL 0.1 MG/DL (0.2-1.0); BLOOD UREA NITROGEN 8 mg/dL (7-18); CARBON DIOXIDE 27 MMOL/L (21-32); CHLORIDE 104 MMOL/L (98-107); CREATININE 0.8 MG/DL (0.55-1.30); PHOSPHORUS 3.4 MG/DL (2.5-4.9); POTASSIUM 4.1 MMOL/L (3.5-5.1); SODIUM 138 MMOL/L (136-145)
--- NOTE | 2019-05-10 07:20 | NUR ---
NURSE NOTES: Received report from Jessica/RN, Patient asleep, Lying semi-galindo, no acute distress/SOB noted. Checked IV, patent and intact, no bleeding or infiltration noted. Bed in lowest position and locked, Call light within reach. Will continue plan of care.
--- NOTE | 2019-05-10 07:20 | NUR ---
NURSE NOTES: Report given to NOHEMI Gee
[2019-05-10 08:00] VITALS: BP 140/86
--- NOTE | 2019-05-10 09:21 | Hematology/Onc Progress Note ---
Assessment/Plan Assessment/Plan Assessment and Recs: # Cavitary lesion of lung on imaging seen on CT, ++ Olive afb as per pulm, at this time on ripe, r/o inflammatory cause/issues --> may dc ripe as per pulm/id --> per pulm recs --> montior for resolution --> if persists may need biopsy/bronch --> tumor markers are neg --> consider reimage in several months --> pending placement ltach with tb control clearance # Anemia of chronic disease due to underlying chronic medical issues, multifactorial --> Anemia workup has been reviewed. Ferritin 133 --> No evidence of hemolysis is noted, peripheral smear has been reviewed. --> Hgb goal >7. Transfuse prn. --> Epogen or iron at this time is not particularly indicated --> Medications have been reviewed --> Hgb trend: 11.5-->12.1-->11.8-->10.9 # Leukopenia with range 3-5k --> hepatitis and hiv are neg --> us of the abdomen is negative, no cirrhosis and hsm # Chest pain r/o acs v inflammatory disease of lung, bronchitis --> CT imaging of the chest was ordered which showed calcified mediastinal and hilar lymph nodes as well as mild cardiomegaly without pericardial effusion. There is some fluid impacting some of the left lower lobe bronchi posterior medially no pulmonary embolism or aortic aneurysm or dissection was seen --> Patient given IV antibiotics. --> as per cards recs --> trop and ekg x 2 ordered --> nitrog prn --> outpatient stress test # Granulomatous disease # HTN. sbp goal <140 The time the noted was written does not necessarily correspond to the time the patient was seen,. Subjective HEENT: Denies: no symptoms, eye pain, blurred vision, tearing, double vision, ear pain, ear discharge, nose pain, nose congestion, throat pain, throat swelling, mouth pain, mouth swelling, other Cardiovascular: Denies: no symptoms, chest pain, edema, irregular heart rate, lightheadedness, palpitations, syncope, other Respiratory: Denies: no symptoms, cough, shortness of breath, SOB with excertion, SOB at rest, sputum, wheezing, other Gastrointestinal/Abdominal: Denies: no symptoms, abdomen distended, abdominal pain, black stools, tarry stools, blood in stool, constipated, diarrhea, difficulty swallowing, nausea, poor appetite, poor fluid intake, rectal bleeding , vomiting, other Genitourinary: Denies: no symptoms, burning, discharge, frequency, flank pain, hematuria, incontinence, pain, urgency, other Neurologic/Psychiatric: Denies: no symptoms, anxiety, depressed, emotional problems, headache, numbness, paresthesia, pre-existing deficit, seizure, tingling, tremors, weakness, other Endocrine: Denies: no symptoms, excessive sweating, flushing, intolerance to cold, intolerance to heat, increased hunger, increased thirst, increased urine, unexplained weight gain, unexplained weight loss, other Hematologic/Lymphatic: Denies: no symptoms, anemia, easy bleeding, easy bruising, adenopathy, other Allergies: Coded Allergies: No Known Allergies (Unverified , 06/27/17) Subjective 04/26: Pt is sitting in bed and having breakfast. No c/o pain. Labs reviewed. 04/27: no events, cp is better, seen by pulm, cards 04/28: no fevers or chills, no night sweats noted 04/30: Pt on [place] isolation, cough better with cough syrup. 05/01: no acute events, no bleeding reported. 05/02:no distress, VS reviewed, afebrile. 05/03: no events, oimaging reviewed, seen by pulm and id 05/04, unable to provide sputum, seen by psych, otherwise no changes 05/05: no events to report, tolerating ripe 05/06: no events, no fevers, ripe has been started 05/07: no events, a+o x4, seen by pulm, potentially consider dc ripe 05/08: no events overnight, uric acid is still high, seen by renal 05/10: in resp isolation, no events noted, no f/c Objective Objective Current Medications Medications (Trade) Dose Ordered Sig/Darrion Route PRN Reason Start Time Stop Time Status Last Admin Dose Admin Artificial Tears (Akwa-Tears) 2 drop FOUR TIMES A DAY BOTH EYES 04/25/19 09:00 05/25/19 08:59 05/09/19 20:14 Dextrose (Dextrose 50%) 25 ml Q30M PRN IV Hypoglycemia 04/25/19 00:00 05/25/19 00:00 Dextrose (Dextrose 50%) 50 ml Q30M PRN IV Hypoglycemia 04/25/19 00:00 05/25/19 00:00 Enoxaparin Sodium (Lovenox) 40 mg DAILY SUBQ 04/25/19 09:00 05/25/19 08:59 05/09/19 09:53 Famotidine (Pepcid) 40 mg ACBREAKFAST ORAL 04/25/19 06:30 05/25/19 06:29 05/10/19 05:51 Fluoxetine HCl (PROzac) 40 mg DAILY ORAL 04/26/19 09:00 05/26/19 08:59 05/09/19 09:51 Folic Acid (Folate) 2 mg DAILY ORAL 05/05/19 15:30 06/04/19 15:29 05/09/19 09:50 Glipizide (GlipiZIDE XL) 2.5 mg QPM ORAL 04/26/19 16:30 05/26/19 16:29 05/09/19 17:18 Insulin Aspart (NovoLOG) BEFORE MEALS AND HS SUBQ 04/25/19 06:30 05/25/19 06:29 05/09/19 20:15 Losartan Potassium (Cozaar) 25 mg BID ORAL 05/08/19 18:00 05/30/19 08:59 05/09/19 17:18 Metformin HCl (Glucophage) 500 mg TWICE A DAY ORAL 04/26/19 09:00 05/26/19 08:59 05/09/19 17:18 Ondansetron HCl (Zofran) 4 mg Q6H PRN IVP Nausea & Vomiting 05/05/19 09:45 06/04/19 09:44 05/08/19 11:12 Potassium Chloride (K-Dur) 40 meq DAILY ORAL 05/08/19 09:45 06/07/19 09:44 05/09/19 09:51 Vitamin D (Vitamin D) 5,000 intlu DAILY ORAL 04/26/19 09:00 05/26/19 08:59 05/09/19 09:50 Last 24 Hour Vital Signs Date Time Temp Pulse Resp B/P (MAP) Pulse Ox O2 Delivery O2 Flow Rate FiO2 05/10/19 08:00 98.1 74 18 140/86 (104) 95 7/15/19 04:00 98.6 81 18 138/82 (100) 98 05/10/19 03:41 62 05/10/19 00:00 98.1 76 18 141/80 (100) 97 05/09/19 23:29 67 05/09/19 21:00 Room Air 05/09/19 20:03 65 05/09/19 20:00 98.2 65 18 128/70 (89) 97 05/09/19 17:18 127/80 05/09/19 16:00 69 05/09/19 16:00 98.1 69 18 122/75 (91) 95 05/09/19 12:00 98.2 67 18 127/80 (96) 94 05/09/19 12:00 68 05/09/19 09:51 128/75 05/09/19 09:00 Room Air 05/09/19 08:00 72 05/09/19 08:00 98.2 70 20 128/75 (92) 97 05/09/19 04:00 98.2 79 19 119/80 (93) 96 05/09/19 04:00 65 05/09/19 00:00 98.2 77 19 117/98 (104) 93 05/09/19 00:00 75 05/08/19 21:00 Room Air 05/08/19 20:00 75 05/08/19 20:00 98.0 78 19 120/72 (88) 97 05/08/19 17:32 117/47 05/08/19 16:00 69 05/08/19 16:00 98.0 66 18 117/47 (70) 95 05/08/19 12:00 97.5 65 18 115/73 (87) 97 05/08/19 12:00 65 05/08/19 09:49 120/58 Intake and Output 05/09/19 05/10/19 19:00 07:00 Intake Total 260 ml 240 ml Balance 260 ml 240 ml Intake Oral 260 ml 240 ml # Voids 3 3 Labs Test 05/08/19 05:29 05/10/19 06:05 White Blood Count 5.6 K/UL (4.8-10.8) 4.4 K/UL (4.8-10.8) Red Blood Count 3.38 M/UL (4.20-5.40) 3.34 M/UL (4.20-5.40) Hemoglobin 10.9 G/DL (12.0-16.0) 10.9 G/DL (12.0-16.0) Hematocrit 32.5 % (37.0-47.0) 32.2 % (37.0-47.0) Mean Corpuscular Volume 96 FL (80-99) 96 FL (80-99) Mean Corpuscular Hemoglobin 32.2 PG (27.0-31.0) 32.7 PG (27.0-31.0) Mean Corpuscular Hemoglobin Concent 33.6 G/DL (32.0-36.0) 33.9 G/DL (32.0-36.0) Red Cell Distribution Width 10.8 % (11.6-14.8) 10.8 % (11.6-14.8) Platelet Count 170 K/UL (150-450) 176 K/UL (150-450) Mean Platelet Volume 6.2 FL (6.5-10.1) 6.1 FL (6.5-10.1) Neutrophils (%) (Auto) 61.1 % (45.0-75.0) 44.7 % (45.0-75.0) Lymphocytes (%) (Auto) 30.3 % (20.0-45.0) 44.3 % (20.0-45.0) Monocytes (%) (Auto) 6.9 % (1.0-10.0) 7.5 % (1.0-10.0) Eosinophils (%) (Auto) 1.0 % (0.0-3.0) 2.3 % (0.0-3.0) Basophils (%) (Auto) 0.7 % (0.0-2.0) 1.1 % (0.0-2.0) Sodium Level 140 MMOL/L (136-145) 138 MMOL/L (136-145) Potassium Level 3.3 MMOL/L (3.5-5.1) 4.1 MMOL/L (3.5-5.1) Chloride Level 104 MMOL/L (98-107) 104 MMOL/L (98-107) Carbon Dioxide Level 28 MMOL/L (21-32) 27 MMOL/L (21-32) Anion Gap 8 mmol/L (5-15) 7 mmol/L (5-15) Blood Urea Nitrogen 14 mg/dL (7-18) 8 mg/dL (7-18) Creatinine 0.9 MG/DL (0.55-1.30) 0.8 MG/DL (0.55-1.30) Estimat Glomerular Filtration Rate mL/min (>60) mL/min (>60) Glucose Level 154 MG/DL (74-106) 91 MG/DL (74-106) Uric Acid 12.8 MG/DL (2.6-7.2) 8.0 MG/DL (2.6-7.2) Calcium Level 8.7 MG/DL (8.5-10.1) 9.0 MG/DL (8.5-10.1) Magnesium Level 1.7 MG/DL (1.8-2.4) 1.8 MG/DL (1.8-2.4) Total Bilirubin 0.2 MG/DL (0.2-1.0) 0.1 MG/DL (0.2-1.0) Aspartate Amino Transf (AST/SGOT) 29 U/L (15-37) 49 U/L (15-37) Alanine Aminotransferase (ALT/SGPT) 14 U/L (12-78) 21 U/L (12-78) Alkaline Phosphatase 65 U/L (46-116) 65 U/L (46-116) C-Reactive Protein, Quantitative < 0.4 mg/dL (0.00-0.90) < 0.4 mg/dL (0.00-0.90) Total Protein 6.8 G/DL (6.4-8.2) 6.8 G/DL (6.4-8.2) Albumin 3.1 G/DL (3.4-5.0) 3.4 G/DL (3.4-5.0) Globulin 3.7 g/dL 3.4 g/dL Albumin/Globulin Ratio 0.8 (1.0-2.7) 1.0 (1.0-2.7) Erythrocyte Sedimentation Rate 64 MM/HR (0-30) Phosphorus Level 3.4 MG/DL (2.5-4.9) Height (Feet): 5 Height (Inches): 2.00 Weight (Pounds): 134 Objective PHYSICAL EXAM General Appearance: normal inspection, well appearing, no apparent distress, alert, GCS 15 Head: atraumatic ENT: normal ENT inspection, hearing grossly normal, normal voice Neck: normal inspection, full range of motion, supple, no bony tend Respiratory: normal inspection, lungs clear, normal breath sounds, no respiratory distress, no retraction, no wheezing Cardiovascular: regular rate, rhythm, no edema Gastrointestinal: normal inspection, normal bowel sounds, non tender, soft, no guarding, no hernia Genitourinary: no CVA tenderness Musculoskeletal: normal inspection, back normal, normal range of motion Neurologic: normal inspection, alert, oriented x3, responsive, quick technician III-XII nml as tested, speech normal Psychiatric: normal inspection, judgement/insight normal, mood/affect normal Alden Kohler MD May 10, 2019 09:21
[2019-05-10] MEDS: Artificial Tears 1.4% Op Soln BOTH EYES SCH ×4 (09:26→22:31)
[2019-05-10] MEDS: Losartan 25mg tab ORAL SCH (09:27)
[2019-05-10] MEDS: metFORMIN 500mg tab ORAL SCH ×2 (09:27→17:41)
[2019-05-10] MEDS: Vitamin D 1000 IU Tab ORAL SCH (09:28)
[2019-05-10] MEDS: Enoxaparin 40mg Inj SUBQ SCH (09:29)
--- NOTE | 2019-05-10 10:57 | Infectious Diseases Prog Note ---
Assessment/Plan Assessment/Plan antibiotics : none A 1. cavitary pneumonia 2. r/o TB, sputum AFB + 3. diabetes mellitus 4. hypertension P 1. consider restarting TB medications as per TB control 2. will follow up cultures Subjective ROS Limited/Unobtainable: Yes Allergies: Coded Allergies: No Known Allergies (Unverified , 06/27/17) Objective Vital Signs Last 24 Hour Vital Signs Date Time Temp Pulse Resp B/P (MAP) Pulse Ox O2 Delivery O2 Flow Rate FiO2 05/10/19 09:27 140/86 05/10/19 08:00 98.1 74 18 140/86 (104) 95 05/10/19 04:00 98.6 81 18 138/82 (100) 98 05/10/19 03:41 62 05/10/19 00:00 98.1 76 18 141/80 (100) 97 05/09/19 23:29 67 05/09/19 21:00 Room Air 05/09/19 20:03 65 05/09/19 20:00 98.2 65 18 128/70 (89) 97 05/09/19 17:18 127/80 05/09/19 16:00 69 05/09/19 16:00 98.1 69 18 122/75 (91) 95 05/09/19 12:00 98.2 67 18 127/80 (96) 94 05/09/19 12:00 68 Height (Feet): 5 Height (Inches): 2.00 Weight (Pounds): 134 Respiratory/Chest: lungs clear Cardiovascular: normal rate, regular rhythm, no gallop/murmur Abdomen: soft, non tender Extremities: no edema Laboratory Tests Test 05/10/19 06:05 White Blood Count 4.4 K/UL (4.8-10.8) L Red Blood Count 3.34 M/UL (4.20-5.40) L Hemoglobin 10.9 G/DL (12.0-16.0) L Hematocrit 32.2 % (37.0-47.0) L Mean Corpuscular Volume 96 FL (80-99) Mean Corpuscular Hemoglobin 32.7 PG (27.0-31.0) H Mean Corpuscular Hemoglobin Concent 33.9 G/DL (32.0-36.0) Red Cell Distribution Width 10.8 % (11.6-14.8) L Platelet Count 176 K/UL (150-450) Mean Platelet Volume 6.1 FL (6.5-10.1) L Neutrophils (%) (Auto) 44.7 % (45.0-75.0) L Lymphocytes (%) (Auto) 44.3 % (20.0-45.0) Monocytes (%) (Auto) 7.5 % (1.0-10.0) Eosinophils (%) (Auto) 2.3 % (0.0-3.0) Basophils (%) (Auto) 1.1 % (0.0-2.0) Erythrocyte Sedimentation Rate 64 MM/HR (0-30) H Sodium Level 138 MMOL/L (136-145) Potassium Level 4.1 MMOL/L (3.5-5.1) Chloride Level 104 MMOL/L (98-107) Carbon Dioxide Level 27 MMOL/L (21-32) Anion Gap 7 mmol/L (5-15) Blood Urea Nitrogen 8 mg/dL (7-18) Creatinine 0.8 MG/DL (0.55-1.30) Estimat Glomerular Filtration Rate mL/min (>60) Glucose Level 91 MG/DL (74-106) Uric Acid 8.0 MG/DL (2.6-7.2) H Calcium Level 9.0 MG/DL (8.5-10.1) Phosphorus Level 3.4 MG/DL (2.5-4.9) Magnesium Level 1.8 MG/DL (1.8-2.4) Total Bilirubin 0.1 MG/DL (0.2-1.0) L Aspartate Amino Transf (AST/SGOT) 49 U/L (15-37) H Alanine Aminotransferase (ALT/SGPT) 21 U/L (12-78) Alkaline Phosphatase 65 U/L (46-116) C-Reactive Protein, Quantitative < 0.4 mg/dL (0.00-0.90) Total Protein 6.8 G/DL (6.4-8.2) Albumin 3.4 G/DL (3.4-5.0) Globulin 3.4 g/dL Albumin/Globulin Ratio 1.0 (1.0-2.7) Current Medications Medications (Trade) Dose Ordered Sig/Darrion Route PRN Reason Start Time Stop Time Status Last Admin Dose Admin Artificial Tears (Akwa-Tears) 2 drop FOUR TIMES A DAY BOTH EYES 04/25/19 09:00 05/25/19 08:59 05/10/19 09:26 Dextrose (Dextrose 50%) 25 ml Q30M PRN IV Hypoglycemia 04/25/19 00:00 05/25/19 00:00 Dextrose (Dextrose 50%) 50 ml Q30M PRN IV Hypoglycemia 04/25/19 00:00 05/25/19 00:00 Enoxaparin Sodium (Lovenox) 40 mg DAILY SUBQ 04/25/19 09:00 05/25/19 08:59 05/10/19 09:29 Famotidine (Pepcid) 40 mg ACBREAKFAST ORAL 04/25/19 06:30 05/25/19 06:29 05/10/19 05:51 Fluoxetine HCl (PROzac) 40 mg DAILY ORAL 04/26/19 09:00 05/26/19 08:59 05/10/19 09:27 Folic Acid (Folate) 2 mg DAILY ORAL 05/05/19 15:30 06/04/19 15:29 05/10/19 09:27 Glipizide (GlipiZIDE XL) 2.5 mg QPM ORAL 04/26/19 16:30 05/26/19 16:29 05/09/19 17:18 Insulin Aspart (NovoLOG) BEFORE MEALS AND HS SUBQ 04/25/19 06:30 05/25/19 06:29 05/09/19 20:15 Losartan Potassium (Cozaar) 25 mg BID ORAL 05/08/19 18:00 05/30/19 08:59 05/10/19 09:27 Metformin HCl (Glucophage) 500 mg TWICE A DAY ORAL 04/26/19 09:00 05/26/19 08:59 05/10/19 09:27 Ondansetron HCl (Zofran) 4 mg Q6H PRN IVP Nausea & Vomiting 05/05/19 09:45 06/04/19 09:44 05/08/19 11:12 Potassium Chloride (K-Dur) 40 meq DAILY ORAL 05/08/19 09:45 06/07/19 09:44 05/10/19 09:27 Vitamin D (Vitamin D) 5,000 intlu DAILY ORAL 7/1/19 09:00 05/26/19 08:59 05/10/19 09:28 Rafita Lopez MD May 10, 2019 10:57
--- NOTE | 2019-05-10 11:13 | Nephrology Progress Note ---
Assessment/Plan Problem List: (1) Cavitary lesion of lung (2) HTN (hypertension) (3) Hypotensive episode (4) Hyperuricemia Assessment Hypotension: ? due to antihypertensives TB Plan Plan: Adjust BP meds- BP stable now anti TB meds WAS DISCONTINUED per orders Subjective ROS Limited/Unobtainable: No Objective Objective Last 24 Hour Vital Signs Date Time Temp Pulse Resp B/P (MAP) Pulse Ox O2 Delivery O2 Flow Rate FiO2 05/10/19 09:27 140/86 05/10/19 09:00 Room Air 05/10/19 08:00 63 05/10/19 08:00 98.1 74 18 140/86 (104) 95 05/10/19 04:00 98.6 81 18 138/82 (100) 98 05/10/19 03:41 62 05/10/19 00:00 98.1 76 18 141/80 (100) 97 05/09/19 23:29 67 05/09/19 21:00 Room Air 05/09/19 20:03 65 05/09/19 20:00 98.2 65 18 128/70 (89) 97 05/09/19 17:18 127/80 05/09/19 16:00 69 05/09/19 16:00 98.1 69 18 122/75 (91) 95 05/09/19 12:00 98.2 67 18 127/80 (96) 94 05/09/19 12:00 68 Intake and Output 05/09/19 05/10/19 19:00 07:00 Intake Total 260 ml 240 ml Balance 260 ml 240 ml Intake Oral 260 ml 240 ml # Voids 3 3 Laboratory Tests 05/10/19 06:05: White Blood Count 4.4L, Red Blood Count 3.34L, Hemoglobin 10.9L, Hematocrit 32.2L, Mean Corpuscular Volume 96, Mean Corpuscular Hemoglobin 32.7H, Mean Corpuscular Hemoglobin Concent 33.9, Red Cell Distribution Width 10.8L, Platelet Count 176, Mean Platelet Volume 6.1L, Neutrophils (%) (Auto) 44.7L, Lymphocytes (%) (Auto) 44.3, Monocytes (%) (Auto) 7.5, Eosinophils (%) (Auto) 2.3, Basophils (%) (Auto) 1.1, Erythrocyte Sedimentation Rate 64H, Sodium Level 138, Potassium Level 4.1, Chloride Level 104, Carbon Dioxide Level 27, Anion Gap 7, Blood Urea Nitrogen 8, Creatinine 0.8, Estimat Glomerular Filtration Rate , Glucose Level 91, Uric Acid 8.0H, Calcium Level 9.0, Phosphorus Level 3.4 , Magnesium Level 1.8, Total Bilirubin 0.1L, Aspartate Amino Transf (AST/SGOT) 49H, Alanine Aminotransferase (ALT/SGPT) 21, Alkaline Phosphatase 65, C- Reactive Protein, Quantitative < 0.4, Total Protein 6.8, Albumin 3.4, Globulin 3.4, Albumin/Globulin Ratio 1.0 Height (Feet): 5 Height (Inches): 2.00 Weight (Pounds): 134 General Appearance: no apparent distress Objective no change Anirudh Garcia MD May 10, 2019 11:13
--- NOTE | 2019-05-10 11:43 | NUR ---
CASE MANAGEMENT:REVIEW 05/10/19 SI: CAVITARY LESION OF LUNG R/O Tb. [place] 98.1 74 18 140/86 95% ON RA H/H-10.9/32.2 IS: COZAAR PO BID K-DUR PO QD FOLATE PO QD PROZAC PO QD LOVENOX SQ QD : TELEMETRY STATUS DCP: PATIENT IS FROM HOME PLAN: DISCHARGE PLANNING DR VASQUEZ RECOMMENDED [facility]...PATIENT AND HER SON WANT HER TO RETURN HOME
[2019-05-10 12:00] VITALS: BP 126/84
--- NOTE | 2019-05-10 12:02 | Pulmonology Progress Note ---
Assessment/Plan Problems: (1) Cavitary lesion of lung (2) Granulomatous disease (3) Chest pain (4) HTN (hypertension) (5) CAD (coronary artery disease) (6) Shingles Assessment/Plan ASSESSMENT: The patient is a 73-year-old female with a history of hypertension , hyperlipidemia, and diabetes, presenting with pleuritic chest pain in the setting of a recent respiratory illness. CT of the chest demonstrates intense bilateral reticulonodular opacities and a cavitary lesion. She is being ruled out for MTB. With respect to the etiology of her lesion, it is likely infectious/inflammatory, so the cavity has to be followed to rule out a neoplastic process. PROBLEM LIST: 1. Left lower lobe cavity thin-walled, likely infectious, inflammatory, ? doubt MTB, / AFB + but TST and CPR neg, ? ALIDA, started on [place] 05/03, D/C'd 05/09 2. Scattered bilateral reticulonodular opacities, likely an infectious bronchiolitis. 3. Pleuritic chest pain, likely secondary to above. 4. Hypertension, hyperlipidemia, diabetes. TREATMENT PLAN: 1. Optimize pulmonary hygiene/mobilize as tolerated. 2. F/U final AFBs 3. Defer decision Re: Anti-TB therapy to ID and TB control, d/w Dr. Lopez who will contact TB control 4. Continue isolation until cleared by [facility] 5. The patient will require short interval follow-up and then likely a bronchoscopy and biopsy if there is a persistent cavitary lesion. Subjective Allergies: Coded Allergies: No Known Allergies (Unverified , 06/27/17) Subjective AFVSS on RA No cough no CP No FC No NV Objective Last 24 Hour Vital Signs Date Time Temp Pulse Resp B/P (MAP) Pulse Ox O2 Delivery O2 Flow Rate FiO2 05/10/19 09:27 140/86 05/10/19 09:00 Room Air 05/10/19 08:00 63 05/10/19 08:00 98.1 74 18 140/86 (104) 95 05/10/19 04:00 98.6 81 18 138/82 (100) 98 05/10/19 03:41 62 05/10/19 00:00 98.1 76 18 141/80 (100) 97 05/09/19 23:29 67 05/09/19 21:00 Room Air 05/09/19 20:03 65 05/09/19 20:00 98.2 65 18 128/70 (89) 97 05/09/19 17:18 127/80 05/09/19 16:00 69 05/09/19 16:00 98.1 69 18 122/75 (91) 95 Intake and Output 05/09/19 05/10/19 19:00 07:00 Intake Total 260 ml 240 ml Balance 260 ml 240 ml Intake Oral 260 ml 240 ml # Voids 3 3 General Appearance: WD/WN, no acute distress HEENT: normocephalic, atraumatic, anicteric, mucous membranes moist Respiratory/Chest: chest wall non-tender, lungs clear, normal breath sounds, no respiratory distress, no accessory muscle use Cardiovascular: normal peripheral pulses, normal rate, regular rhythm Abdomen: normal bowel sounds, soft, non tender, no organomegaly, non distended Extremities: no cyanosis, no clubbing, no edema Laboratory Tests 05/10/19 06:05: White Blood Count 4.4L, Red Blood Count 3.34L, Hemoglobin 10.9L, Hematocrit 32.2L, Mean Corpuscular Volume 96, Mean Corpuscular Hemoglobin 32.7H, Mean Corpuscular Hemoglobin Concent 33.9, Red Cell Distribution Width 10.8L, Platelet Count 176, Mean Platelet Volume 6.1L, Neutrophils (%) (Auto) 44.7L, Lymphocytes (%) (Auto) 44.3, Monocytes (%) (Auto) 7.5, Eosinophils (%) (Auto) 2.3, Basophils (%) (Auto) 1.1, Erythrocyte Sedimentation Rate 64H, Sodium Level 138, Potassium Level 4.1, Chloride Level 104, Carbon Dioxide Level 27, Anion Gap 7, Blood Urea Nitrogen 8, Creatinine 0.8, Estimat Glomerular Filtration Rate , Glucose Level 91, Uric Acid 8.0H, Calcium Level 9.0, Phosphorus Level 3.4 , Magnesium Level 1.8, Total Bilirubin 0.1L, Aspartate Amino Transf (AST/SGOT) 49H, Alanine Aminotransferase (ALT/SGPT) 21, Alkaline Phosphatase 65, C- Reactive Protein, Quantitative < 0.4, Total Protein 6.8, Albumin 3.4, Globulin 3.4, Albumin/Globulin Ratio 1.0 Current Medications Medications (Trade) Dose Ordered Sig/Darrion Route PRN Reason Start Time Stop Time Status Last Admin Dose Admin Artificial Tears (Akwa-Tears) 2 drop FOUR TIMES A DAY BOTH EYES 04/25/19 09:00 05/25/19 08:59 05/10/19 09:26 Dextrose (Dextrose 50%) 25 ml Q30M PRN IV Hypoglycemia 04/25/19 00:00 05/25/19 00:00 Dextrose (Dextrose 50%) 50 ml Q30M PRN IV Hypoglycemia 04/25/19 00:00 05/25/19 00:00 Enoxaparin Sodium (Lovenox) 40 mg DAILY SUBQ 04/25/19 09:00 05/25/19 08:59 05/10/19 09:29 Famotidine (Pepcid) 40 mg ACBREAKFAST ORAL 04/25/19 06:30 05/25/19 06:29 05/10/19 05:51 Fluoxetine HCl (PROzac) 40 mg DAILY ORAL 04/26/19 09:00 05/26/19 08:59 05/10/19 09:27 Folic Acid (Folate) 2 mg DAILY ORAL 05/05/19 15:30 06/04/19 15:29 05/10/19 09:27 Glipizide (GlipiZIDE XL) 2.5 mg QPM ORAL 04/26/19 16:30 05/26/19 16:29 05/09/19 17:18 Insulin Aspart (NovoLOG) BEFORE MEALS AND HS SUBQ 04/25/19 06:30 05/25/19 06:29 05/09/19 20:15 Losartan Potassium (Cozaar) 50 mg BID ORAL 05/10/19 18:00 06/09/19 17:59 Metformin HCl (Glucophage) 500 mg TWICE A DAY ORAL 04/26/19 09:00 05/26/19 08:59 05/10/19 09:27 Ondansetron HCl (Zofran) 4 mg Q6H PRN IVP Nausea & Vomiting 05/05/19 09:45 06/04/19 09:44 05/08/19 11:12 Potassium Chloride (K-Dur) 40 meq DAILY ORAL 05/08/19 09:45 06/07/19 09:44 05/10/19 09:27 Vitamin D (Vitamin D) 5,000 intlu DAILY ORAL 04/26/19 09:00 05/26/19 08:59 05/10/19 09:28 Sean Vaughn MD May 10, 2019 12:02
--- NOTE | 2019-05-10 12:06 | NUR ---
DISCHARGE PLANNING DISCHARGE DISCUSSED DISCHARGE WITH DR VASQUEZ HE WOULD LIKE PATIENT REFERRED TO [place] SPOKE WITH PATIENT'S SON WHO STATED BOTH HE AND HIS MOTHER WANT HER TO RETURN HOME UPON DISCHARGE MESSAGE LEFT FOR DR VASQUEZ....AWAITING A RESPONSE
[2019-05-10] MEDS: Pyridoxine 50mg tab ORAL SCH (13:20)
[2019-05-10] MEDS: Isoniazid 300mg tab ORAL SCH (13:20)
--- NOTE | 2019-05-10 15:24 | NUR ---
Social Service Note Patient with prolonged hospitalization due to Public Health clearance for TB. Public Health needs to complete home visit. CM working with public health nurse for clearance and follow up care. SW intervention was not indicated.
[2019-05-10 16:00] VITALS: BP 132/84
[2019-05-10] MEDS: Losartan 50mg tab ORAL SCH (17:41)
--- NOTE | 2019-05-10 17:45 | Cardiac Electrophysiology PN ---
Assessment/Plan Assessment/Plan 1. Chest pain, No OR. Due to underlying lung lesion 2. HTN on Losartan 25 daily 3. NIDDM 4. HLPD 5. Cavitary lung lesion, off respi isoplation. on INH.RIF,ETB,PZA per Dr Kwan. 6. Anemia DW RN Subjective Subjective Now off respiratory isolation. RN at bedside.No CP or SOB Objective Last 24 Hour Vital Signs Date Time Temp Pulse Resp B/P (MAP) Pulse Ox O2 Delivery O2 Flow Rate FiO2 05/10/19 12:00 73 05/10/19 12:00 98.4 81 20 126/84 (98) 95 05/10/19 09:27 140/86 05/10/19 09:00 Room Air 05/10/19 08:00 63 05/10/19 08:00 98.1 74 18 140/86 (104) 95 05/10/19 04:00 98.6 81 18 138/82 (100) 98 05/10/19 03:41 62 05/10/19 00:00 98.1 76 18 141/80 (100) 97 05/09/19 23:29 67 05/09/19 21:00 Room Air 05/09/19 20:03 65 05/09/19 20:00 98.2 65 18 128/70 (89) 97 Intake and Output 05/09/19 05/10/19 18:59 06:59 Intake Total 260 ml 240 ml Balance 260 ml 240 ml Intake Oral 260 ml 240 ml # Voids 3 3 Laboratory Tests Test 05/10/19 06:05 White Blood Count 4.4 K/UL (4.8-10.8) L Red Blood Count 3.34 M/UL (4.20-5.40) L Hemoglobin 10.9 G/DL (12.0-16.0) L Hematocrit 32.2 % (37.0-47.0) L Mean Corpuscular Volume 96 FL (80-99) Mean Corpuscular Hemoglobin 32.7 PG (27.0-31.0) H Mean Corpuscular Hemoglobin Concent 33.9 G/DL (32.0-36.0) Red Cell Distribution Width 10.8 % (11.6-14.8) L Platelet Count 176 K/UL (150-450) Mean Platelet Volume 6.1 FL (6.5-10.1) L Neutrophils (%) (Auto) 44.7 % (45.0-75.0) L Lymphocytes (%) (Auto) 44.3 % (20.0-45.0) Monocytes (%) (Auto) 7.5 % (1.0-10.0) Eosinophils (%) (Auto) 2.3 % (0.0-3.0) Basophils (%) (Auto) 1.1 % (0.0-2.0) Erythrocyte Sedimentation Rate 64 MM/HR (0-30) H Sodium Level 138 MMOL/L (136-145) Potassium Level 4.1 MMOL/L (3.5-5.1) Chloride Level 104 MMOL/L (98-107) Carbon Dioxide Level 27 MMOL/L (21-32) Anion Gap 7 mmol/L (5-15) Blood Urea Nitrogen 8 mg/dL (7-18) Creatinine 0.8 MG/DL (0.55-1.30) Estimat Glomerular Filtration Rate mL/min (>60) Glucose Level 91 MG/DL (74-106) Uric Acid 8.0 MG/DL (2.6-7.2) H Calcium Level 9.0 MG/DL (8.5-10.1) Phosphorus Level 3.4 MG/DL (2.5-4.9) Magnesium Level 1.8 MG/DL (1.8-2.4) Total Bilirubin 0.1 MG/DL (0.2-1.0) L Aspartate Amino Transf (AST/SGOT) 49 U/L (15-37) H Alanine Aminotransferase (ALT/SGPT) 21 U/L (12-78) Alkaline Phosphatase 65 U/L (46-116) C-Reactive Protein, Quantitative < 0.4 mg/dL (0.00-0.90) Total Protein 6.8 G/DL (6.4-8.2) Albumin 3.4 G/DL (3.4-5.0) Globulin 3.4 g/dL Albumin/Globulin Ratio 1.0 (1.0-2.7) Objective HEENT: No JVD Respiratory/Chest: Coarse rhonchi Cardiovascular/Chest: normal peripheral pulses, normal rate, regular rhythm Abdomen: normal bowel sounds, non tender, soft, no organomegaly Extremities: normal range of motion, non-tender, normal inspection Matti Lakhani MD 15, 2019 17:45
--- NOTE | 2019-05-10 17:45 | NUR ---
HAND-OFF: Report given to Rhys/RN, Patient is in stable condition. Endorsed plan of care.
--- NOTE | 2019-05-10 19:35 | NUR ---
NURSE NOTES: Received report from NOHEMI Conrad. Patient in bed awake showing no signs of acute distress. Respiration even and non labored on room air. No sob noted. Negative pressure airborne isolation observed. IV patent and intact at right FA 22g SL. All needs attended and met. Will continue plan of care.
[2019-05-10 20:00] VITALS: BP 138/92
--- NOTE | 2019-05-10 22:12 | General Progress Note ---
Assessment/Plan Problem List: (1) Cavitary lesion of lung ICD Codes: J98.4 - Other disorders of lung SNOMED: 356298433 (2) Granulomatous disease ICD Codes: D71 - Functional disorders of polymorphonuclear neutrophils SNOMED: 982542680 (3) HTN (hypertension) ICD Codes: I10 - Essential (primary) hypertension SNOMED: 59305356 (4) CAD (coronary artery disease) ICD Codes: I25.10 - Atherosclerotic heart disease of [place] coronary artery without angina pectoris SNOMED: 21473936 Status: stable, progressing Assessment/Plan: pna pt and family want to go home so will dc home once clearance is obtained cavitary lesion w/u per heme/onc and pulmonary needs country clearance htn vi r/o Tb bronch per pulmonary Subjective ROS Limited/Unobtainable: Yes Allergies: Coded Allergies: No Known Allergies (Unverified , 06/27/17) Subjective cough Objective Last 24 Hour Vital Signs Date Time Temp Pulse Resp B/P (MAP) Pulse Ox O2 Delivery O2 Flow Rate FiO2 05/10/19 17:41 132/84 05/10/19 16:00 98.6 75 20 132/84 (100) 97 05/10/19 16:00 70 05/10/19 12:00 73 05/10/19 12:00 98.4 81 20 126/84 (98) 95 05/10/19 09:27 140/86 05/10/19 09:00 Room Air 05/10/19 08:00 63 05/10/19 08:00 98.1 74 18 140/86 (104) 95 05/10/19 04:00 98.6 81 18 138/82 (100) 98 05/10/19 03:41 62 05/10/19 00:00 98.1 76 18 141/80 (100) 97 05/09/19 23:29 67 Intake and Output 05/09/19 05/10/19 19:00 07:00 Intake Total 260 ml 240 ml Balance 260 ml 240 ml Intake Oral 260 ml 240 ml # Voids 3 3 Laboratory Tests 05/10/19 06:05: White Blood Count 4.4L, Red Blood Count 3.34L, Hemoglobin 10.9L, Hematocrit 32.2L, Mean Corpuscular Volume 96, Mean Corpuscular Hemoglobin 32.7H, Mean Corpuscular Hemoglobin Concent 33.9, Red Cell Distribution Width 10.8L, Platelet Count 176, Mean Platelet Volume 6.1L, Neutrophils (%) (Auto) 44.7L, Lymphocytes (%) (Auto) 44.3, Monocytes (%) (Auto) 7.5, Eosinophils (%) (Auto) 2.3, Basophils (%) (Auto) 1.1, Erythrocyte Sedimentation Rate 64H, Sodium Level 138, Potassium Level 4.1, Chloride Level 104, Carbon Dioxide Level 27, Anion Gap 7, Blood Urea Nitrogen 8, Creatinine 0.8, Estimat Glomerular Filtration Rate , Glucose Level 91, Uric Acid 8.0H, Calcium Level 9.0, Phosphorus Level 3.4 , Magnesium Level 1.8, Total Bilirubin 0.1L, Aspartate Amino Transf (AST/SGOT) 49H, Alanine Aminotransferase (ALT/SGPT) 21, Alkaline Phosphatase 65, C- Reactive Protein, Quantitative < 0.4, Total Protein 6.8, Albumin 3.4, Globulin 3.4, Albumin/Globulin Ratio 1.0 Height (Feet): 5 Height (Inches): 2.00 Weight (Pounds): 134 Neck: supple Cardiovascular: normal rate Respiratory/Chest: lungs clear Abdomen: soft Paula Nixon MD May 10, 2019 22:12
[2019-05-11] VITALS: BP 126/87
[2019-05-11 04:00] VITALS: BP 158/74
[2019-05-11] MEDS: NovoLOG Insulin Flexpen SUBQ SCH ×4 (06:08→20:56)
--- NOTE | 2019-05-11 07:16 | NUR ---
HAND-OFF: Report given to NOHEMI Conrad.
--- NOTE | 2019-05-11 07:20 | NUR ---
NURSE NOTES: Received report from Rhys/RN, Patient asleep, Lying semi-galindo, no acute distress/SOB noted. Hungarian speaking, Checked IV, patent and intact, no bleeding or infiltration noted. Bed in lowest position and locked, Call light within reach. Will continue plan of care.
[2019-05-11 08:00] VITALS: BP 119/85
--- NOTE | 2019-05-11 08:21 | Hematology/Onc Progress Note ---
Assessment/Plan Assessment/Plan Assessment and Recs: # Cavitary lesion of lung on imaging seen on CT, ++ Olive afb as per pulm, at this time on ripe, r/o inflammatory cause/issues --> may dc ripe as per pulm/id --> per pulm recs --> montior for resolution --> if persists may need biopsy/bronch --> tumor markers are neg --> consider reimage in several months --> pending placement ltach with tb control clearance # Anemia of chronic disease due to underlying chronic medical issues, multifactorial --> Anemia workup has been reviewed. Ferritin 133 --> No evidence of hemolysis is noted, peripheral smear has been reviewed. --> Hgb goal >7. Transfuse prn. --> Epogen or iron at this time is not particularly indicated --> Medications have been reviewed --> Hgb trend: 11.5-->12.1-->11.8-->10.9 # Leukopenia with range 3-5k --> hepatitis and hiv are neg --> us of the abdomen is negative, no cirrhosis and hsm # Chest pain r/o acs v inflammatory disease of lung, bronchitis --> CT imaging of the chest was ordered which showed calcified mediastinal and hilar lymph nodes as well as mild cardiomegaly without pericardial effusion. There is some fluid impacting some of the left lower lobe bronchi posterior medially no pulmonary embolism or aortic aneurysm or dissection was seen --> Patient given IV antibiotics. --> as per cards recs --> trop and ekg x 2 ordered --> nitrog prn --> outpatient stress test # Granulomatous disease # HTN. sbp goal <140 --> per cards The time the noted was written does not necessarily correspond to the time the patient was seen,. Subjective HEENT: Denies: no symptoms, eye pain, blurred vision, tearing, double vision, ear pain, ear discharge, nose pain, nose congestion, throat pain, throat swelling, mouth pain, mouth swelling, other Cardiovascular: Denies: no symptoms, chest pain, edema, irregular heart rate, lightheadedness, palpitations, syncope, other Respiratory: Denies: no symptoms, cough, shortness of breath, SOB with excertion, SOB at rest, sputum, wheezing, other Gastrointestinal/Abdominal: Denies: no symptoms, abdomen distended, abdominal pain, black stools, tarry stools, blood in stool, constipated, diarrhea, difficulty swallowing, nausea, poor appetite, poor fluid intake, rectal bleeding , vomiting, other Genitourinary: Denies: no symptoms, burning, discharge, frequency, flank pain, hematuria, incontinence, pain, urgency, other Neurologic/Psychiatric: Denies: no symptoms, anxiety, depressed, emotional problems, headache, numbness, paresthesia, pre-existing deficit, seizure, tingling, tremors, weakness, other Endocrine: Denies: no symptoms, excessive sweating, flushing, intolerance to cold, intolerance to heat, increased hunger, increased thirst, increased urine, unexplained weight gain, unexplained weight loss, other Hematologic/Lymphatic: Denies: no symptoms, anemia, easy bleeding, easy bruising, adenopathy, other Allergies: Coded Allergies: No Known Allergies (Unverified , 06/27/17) Subjective 04/26: Pt is sitting in bed and having breakfast. No c/o pain. Labs reviewed. 04/27: no events, cp is better, seen by pulm, cards 04/28: no fevers or chills, no night sweats noted 04/30: Pt on airbourne isolation, cough better with cough syrup. 05/01: no acute events, no bleeding reported. 05/02:no distress, VS reviewed, afebrile. 05/03: no events, oimaging reviewed, seen by pulm and id 05/04, unable to provide sputum, seen by psych, otherwise no changes 05/05: no events to report, tolerating ripe 05/06: no events, no fevers, ripe has been started 05/07: no events, a+o x4, seen by pulm, potentially consider dc ripe 05/08: no events overnight, uric acid is still high, seen by renal 05/10: in resp isolation, no events noted, no f/c 05/11: no events, seen by pulm, cbc reviewed Objective Objective Current Medications Medications (Trade) Dose Ordered Sig/Darrion Route PRN Reason Start Time Stop Time Status Last Admin Dose Admin Artificial Tears (Akwa-Tears) 2 drop FOUR TIMES A DAY BOTH EYES 04/25/19 09:00 05/25/19 08:59 05/10/19 22:31 Dextrose (Dextrose 50%) 25 ml Q30M PRN IV Hypoglycemia 04/25/19 00:00 05/25/19 00:00 Dextrose (Dextrose 50%) 50 ml Q30M PRN IV Hypoglycemia 04/25/19 00:00 05/25/19 00:00 Enoxaparin Sodium (Lovenox) 40 mg DAILY SUBQ 04/25/19 09:00 05/25/19 08:59 05/10/19 09:29 Ethambutol HCl (Myambutol) 800 mg DAILY ORAL 05/10/19 13:00 06/09/19 12:59 05/10/19 13:19 Famotidine (Pepcid) 40 mg ACBREAKFAST ORAL 04/25/19 06:30 05/25/19 06:29 05/11/19 06:04 Fluoxetine HCl (PROzac) 40 mg DAILY ORAL 04/26/19 09:00 05/26/19 08:59 05/10/19 09:27 Folic Acid (Folate) 2 mg DAILY ORAL 05/05/19 15:30 06/04/19 15:29 05/10/19 09:27 Glipizide (GlipiZIDE XL) 2.5 mg QPM ORAL 04/26/19 16:30 05/26/19 16:29 05/10/19 17:41 Insulin Aspart (NovoLOG) BEFORE MEALS AND HS SUBQ 04/25/19 06:30 05/25/19 06:29 05/11/19 06:08 Isoniazid (Inh) 300 mg DAILY ORAL 05/10/19 13:00 06/09/19 12:59 05/10/19 13:20 Losartan Potassium (Cozaar) 50 mg BID ORAL 05/10/19 18:00 06/09/19 17:59 05/10/19 17:41 Metformin HCl (Glucophage) 500 mg TWICE A DAY ORAL 04/26/19 09:00 05/26/19 08:59 05/10/19 17:41 Ondansetron HCl (Zofran) 4 mg Q6H PRN IVP Nausea & Vomiting 05/05/19 09:45 06/04/19 09:44 05/08/19 11:12 Potassium Chloride (K-Dur) 40 meq DAILY ORAL 05/08/19 09:45 06/07/19 09:44 05/10/19 09:27 Pyrazinamide (Pza) 1,000 mg DAILY ORAL 05/10/19 13:00 06/09/19 12:59 05/10/19 13:19 Pyridoxine HCl (Vitamin B6) 50 mg DAILY ORAL 05/10/19 13:00 06/09/19 12:59 05/10/19 13:20 Rifampin (Rifadin) 600 mg DAILY ORAL 05/10/19 13:00 06/09/19 12:59 05/10/19 13:20 Vitamin D (Vitamin D) 5,000 intlu DAILY ORAL 04/26/19 09:00 05/26/19 08:59 05/10/19 09:28 Last 24 Hour Vital Signs Date Time Temp Pulse Resp B/P (MAP) Pulse Ox O2 Delivery O2 Flow Rate FiO2 05/11/19 04:00 98.1 73 16 158/74 (102) 95 05/11/19 04:00 65 05/11/19 00:00 97.7 77 16 126/87 (100) 95 05/10/19 21:00 Room Air 05/10/19 20:00 74 05/10/19 20:00 98.4 74 18 138/92 (107) 95 05/10/19 17:41 132/84 05/10/19 16:00 98.6 75 20 132/84 (100) 97 05/10/19 16:00 70 05/10/19 12:00 73 05/10/19 12:00 98.4 81 20 126/84 (98) 95 05/10/19 09:27 140/86 05/10/19 09:00 Room Air 05/10/19 08:00 63 05/10/19 08:00 98.1 74 18 140/86 (104) 95 05/10/19 04:00 98.6 81 18 138/82 (100) 98 05/10/19 03:41 62 05/10/19 00:00 98.1 76 18 141/80 (100) 97 05/09/19 23:29 67 05/09/19 21:00 Room Air 05/09/19 20:03 65 05/09/19 20:00 98.2 65 18 128/70 (89) 97 05/09/19 17:18 127/80 05/09/19 16:00 69 05/09/19 16:00 98.1 69 18 122/75 (91) 95 05/09/19 12:00 98.2 67 18 127/80 (96) 94 05/09/19 12:00 68 05/09/19 09:51 128/75 05/09/19 09:00 Room Air Intake and Output 05/10/19 05/11/19 19:00 07:00 Intake Total 600 ml 240 ml Balance 600 ml 240 ml Intake Oral 600 ml 240 ml # Voids 3 2 Labs Test 05/10/19 06:05 White Blood Count 4.4 K/UL (4.8-10.8) Red Blood Count 3.34 M/UL (4.20-5.40) Hemoglobin 10.9 G/DL (12.0-16.0) Hematocrit 32.2 % (37.0-47.0) Mean Corpuscular Volume 96 FL (80-99) Mean Corpuscular Hemoglobin 32.7 PG (27.0-31.0) Mean Corpuscular Hemoglobin Concent 33.9 G/DL (32.0-36.0) Red Cell Distribution Width 10.8 % (11.6-14.8) Platelet Count 176 K/UL (150-450) Mean Platelet Volume 6.1 FL (6.5-10.1) Neutrophils (%) (Auto) 44.7 % (45.0-75.0) Lymphocytes (%) (Auto) 44.3 % (20.0-45.0) Monocytes (%) (Auto) 7.5 % (1.0-10.0) Eosinophils (%) (Auto) 2.3 % (0.0-3.0) Basophils (%) (Auto) 1.1 % (0.0-2.0) Erythrocyte Sedimentation Rate 64 MM/HR (0-30) Sodium Level 138 MMOL/L (136-145) Potassium Level 4.1 MMOL/L (3.5-5.1) Chloride Level 104 MMOL/L (98-107) Carbon Dioxide Level 27 MMOL/L (21-32) Anion Gap 7 mmol/L (5-15) Blood Urea Nitrogen 8 mg/dL (7-18) Creatinine 0.8 MG/DL (0.55-1.30) Estimat Glomerular Filtration Rate mL/min (>60) Glucose Level 91 MG/DL (74-106) Uric Acid 8.0 MG/DL (2.6-7.2) Calcium Level 9.0 MG/DL (8.5-10.1) Phosphorus Level 3.4 MG/DL (2.5-4.9) Magnesium Level 1.8 MG/DL (1.8-2.4) Total Bilirubin 0.1 MG/DL (0.2-1.0) Aspartate Amino Transf (AST/SGOT) 49 U/L (15-37) Alanine Aminotransferase (ALT/SGPT) 21 U/L (12-78) Alkaline Phosphatase 65 U/L (46-116) C-Reactive Protein, Quantitative < 0.4 mg/dL (0.00-0.90) Total Protein 6.8 G/DL (6.4-8.2) Albumin 3.4 G/DL (3.4-5.0) Globulin 3.4 g/dL Albumin/Globulin Ratio 1.0 (1.0-2.7) Height (Feet): 5 Height (Inches): 2.00 Weight (Pounds): 134 Objective PHYSICAL EXAM General Appearance: normal inspection, well appearing, no apparent distress, alert, GCS 15 Head: atraumatic ENT: normal ENT inspection, hearing grossly normal, normal voice Neck: normal inspection, full range of motion, supple, no bony tend Respiratory: normal inspection, lungs clear, normal breath sounds, no respiratory distress, no retraction, no wheezing Cardiovascular: regular rate, rhythm, no edema Gastrointestinal: normal inspection, normal bowel sounds, non tender, soft, no guarding, no hernia Genitourinary: no CVA tenderness Musculoskeletal: normal inspection, back normal, normal range of motion Neurologic: normal inspection, alert, oriented x3, responsive, black top roller III-XII nml as tested, speech normal Psychiatric: normal inspection, judgement/insight normal, mood/affect normal Alden Kohler MD May 11, 2019 08:21
[2019-05-11] MEDS: Losartan 50mg tab ORAL SCH ×2 (09:48→17:13)
[2019-05-11] MEDS: Vitamin D 1000 IU Tab ORAL SCH (09:48)
[2019-05-11] MEDS: Artificial Tears 1.4% Op Soln BOTH EYES SCH ×4 (09:49→20:51)
[2019-05-11] MEDS: Pyridoxine 50mg tab ORAL SCH (09:49)
[2019-05-11] MEDS: Isoniazid 300mg tab ORAL SCH (09:50)
[2019-05-11] MEDS: metFORMIN 500mg tab ORAL SCH ×2 (09:50→17:12)
[2019-05-11] MEDS: Enoxaparin 40mg Inj SUBQ SCH (09:51)
--- NOTE | 2019-05-11 10:06 | NUR ---
NURSE NOTES: Patient refused Rifampin, Isoniazid, Ethambutol, and Pyrazinamide. Patient stated it makes her vomit.
--- NOTE | 2019-05-11 10:30 | Nephrology Progress Note ---
Assessment/Plan Problem List: (1) Cavitary lesion of lung (2) HTN (hypertension) (3) Hypotensive episode (4) Hyperuricemia Assessment Hypotension: ? due to antihypertensives TB Plan Plan: Adjust BP meds- BP stable now anti TB meds WAS DISCONTINUED per orders ? DC Subjective ROS Limited/Unobtainable: No Constitutional: Reports: malaise Objective Objective Last 24 Hour Vital Signs Date Time Temp Pulse Resp B/P (MAP) Pulse Ox O2 Delivery O2 Flow Rate FiO2 05/11/19 09:48 119/85 05/11/19 08:00 97.9 62 18 119/85 (96) 95 05/11/19 04:00 98.1 73 16 158/74 (102) 95 05/11/19 04:00 65 05/11/19 00:00 97.7 77 16 126/87 (100) 95 05/10/19 21:00 Room Air 05/10/19 20:00 74 05/10/19 20:00 98.4 74 18 138/92 (107) 95 05/10/19 17:41 132/84 05/10/19 16:00 98.6 75 20 132/84 (100) 97 05/10/19 16:00 70 05/10/19 12:00 73 05/10/19 12:00 98.4 81 20 126/84 (98) 95 Intake and Output 05/10/19 05/11/19 19:00 07:00 Intake Total 600 ml 240 ml Balance 600 ml 240 ml Intake Oral 600 ml 240 ml # Voids 3 2 Height (Feet): 5 Height (Inches): 2.00 Weight (Pounds): 134 General Appearance: no apparent distress Objective no change Anirudh Garcia MD May 11, 2019 10:30
--- NOTE | 2019-05-11 10:45 | NUR ---
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
--- NOTE | 2019-05-11 11:41 | NUR ---
DISCHARGE PLANNING RECEIVED CALL FROM MARINA WHO PROVIDED SCHEDULED F/U APPOINTMENT UPON DISCHARGE PATIENT IS TO FOLLOW UP WITH DR ESPINOZA [id number] [facility] [id number] [place] T: [phone] April @ 3:30 PM POWDER AND PRIMER CANNING LEADER HAS FAXED P-448 FORM REQUEST TO HEALTH DEPARTMENT FOR DISCHARGE
[2019-05-11 12:00] VITALS: BP 121/82
--- NOTE | 2019-05-11 12:10 | Cardiac Electrophysiology PN ---
Assessment/Plan Assessment/Plan 1. Chest pain, No DC. Due to underlying lung lesion 2. HTN on Losartan 25 daily 3. NIDDM 4. HLPD 5. Cavitary lung lesion, off respi isoplation. on INH.RIF,ETB,PZA per Dr Kwan. 6. Anemia DW RN and daughter at bedside Awaiting [facility] for DC Subjective Subjective Off respiratory isolation. Daughter at bedside.No CP or SOB Objective Last 24 Hour Vital Signs Date Time Temp Pulse Resp B/P (MAP) Pulse Ox O2 Delivery O2 Flow Rate FiO2 05/11/19 09:48 119/85 05/11/19 09:00 Room Air 05/11/19 08:00 67 05/11/19 08:00 97.9 62 18 119/85 (96) 95 05/11/19 04:00 98.1 73 16 158/74 (102) 95 05/11/19 04:00 65 05/11/19 00:00 97.7 77 16 126/87 (100) 95 05/10/19 21:00 Room Air 05/10/19 20:00 74 05/10/19 20:00 98.4 74 18 138/92 (107) 95 05/10/19 17:41 132/84 05/10/19 16:00 98.6 75 20 132/84 (100) 97 05/10/19 16:00 70 Intake and Output 05/10/19 05/11/19 19:00 07:00 Intake Total 600 ml 240 ml Balance 600 ml 240 ml Intake Oral 600 ml 240 ml # Voids 3 2 Objective HEENT: No JVD Respiratory/Chest: Coarse rhonchi Cardiovascular/Chest: Normal peripheral pulses, normal rate, regular rhythm Abdomen: Normal bowel sounds, non tender, soft, no organomegaly Extremities: normal range of motion, non-tender, normal inspection Matti Lakhani MD May 11, 2019 12:10
--- NOTE | 2019-05-11 12:16 | Pulmonology Progress Note ---
Assessment/Plan Problems: (1) Cavitary lesion of lung (2) Granulomatous disease (3) Chest pain (4) HTN (hypertension) (5) CAD (coronary artery disease) (6) Shingles Assessment/Plan ASSESSMENT: The patient is a 73-year-old female with a history of hypertension , hyperlipidemia, and diabetes, presenting with pleuritic chest pain in the setting of a recent respiratory illness. CT of the chest demonstrates intense bilateral reticulonodular opacities and a cavitary lesion. She is being ruled out for MTB. With respect to the etiology of her lesion, it is likely infectious/inflammatory, so the cavity has to be followed to rule out a neoplastic process. PROBLEM LIST: 1. Left lower lobe cavity thin-walled, likely infectious, inflammatory, ? doubt MTB, / AFB + but TST and CPR neg, ? ALIDA, started on RIPE 05/03, D/C'd 05/09 2. Scattered bilateral reticulonodular opacities, likely an infectious bronchiolitis. 3. Pleuritic chest pain, likely secondary to above. 4. Hypertension, hyperlipidemia, diabetes. TREATMENT PLAN: 1. Optimize pulmonary hygiene/mobilize as tolerated. 2. F/U final AFBs 3. Defer decision Re: Anti-TB therapy to ID and TB control 4. Continue isolation until cleared by [facility] 5. The patient will require short interval follow-up and then likely a bronchoscopy and biopsy if there is a persistent cavitary lesion. 6. Needs to F/U with me in 1-2 weeks Subjective Allergies: Coded Allergies: No Known Allergies (Unverified , 06/27/17) Subjective AFVSS on RA No cough no CP No FC No NV RIPE resumed per ID Objective Last 24 Hour Vital Signs Date Time Temp Pulse Resp B/P (MAP) Pulse Ox O2 Delivery O2 Flow Rate FiO2 05/11/19 09:48 119/85 05/11/19 09:00 Room Air 05/11/19 08:00 67 05/11/19 08:00 97.9 62 18 119/85 (96) 95 05/11/19 04:00 98.1 73 16 158/74 (102) 95 05/11/19 04:00 65 05/11/19 00:00 97.7 77 16 126/87 (100) 95 05/10/19 21:00 Room Air 05/10/19 20:00 74 05/10/19 20:00 98.4 74 18 138/92 (107) 95 05/10/19 17:41 132/84 05/10/19 16:00 98.6 75 20 132/84 (100) 97 05/10/19 16:00 70 Intake and Output 05/10/19 05/11/19 19:00 07:00 Intake Total 600 ml 240 ml Balance 600 ml 240 ml Intake Oral 600 ml 240 ml # Voids 3 2 General Appearance: WD/WN, no acute distress HEENT: normocephalic, atraumatic, anicteric, mucous membranes moist Respiratory/Chest: chest wall non-tender, lungs clear, normal breath sounds, no respiratory distress, no accessory muscle use Cardiovascular: normal peripheral pulses, normal rate, regular rhythm Abdomen: normal bowel sounds, soft, non tender, no organomegaly, non distended , no mass Extremities: no cyanosis, no clubbing, no edema Current Medications Medications (Trade) Dose Ordered Sig/Darrion Route PRN Reason Start Time Stop Time Status Last Admin Dose Admin Artificial Tears (Akwa-Tears) 2 drop FOUR TIMES A DAY BOTH EYES 04/25/19 09:00 05/25/19 08:59 05/11/19 09:49 Dextrose (Dextrose 50%) 25 ml Q30M PRN IV Hypoglycemia 04/25/19 00:00 05/25/19 00:00 Dextrose (Dextrose 50%) 50 ml Q30M PRN IV Hypoglycemia 04/25/19 00:00 05/25/19 00:00 Enoxaparin Sodium (Lovenox) 40 mg DAILY SUBQ 04/25/19 09:00 05/25/19 08:59 05/11/19 09:51 Ethambutol HCl (Myambutol) 800 mg DAILY ORAL 05/10/19 13:00 06/09/19 12:59 05/10/19 13:19 Famotidine (Pepcid) 40 mg ACBREAKFAST ORAL 04/25/19 06:30 05/25/19 06:29 05/11/19 06:04 Fluoxetine HCl (PROzac) 40 mg DAILY ORAL 04/26/19 09:00 05/26/19 08:59 05/11/19 09:50 Folic Acid (Folate) 2 mg DAILY ORAL 05/05/19 15:30 06/04/19 15:29 05/11/19 09:48 Glipizide (GlipiZIDE XL) 2.5 mg QPM ORAL 04/26/19 16:30 05/26/19 16:29 05/10/19 17:41 Insulin Aspart (NovoLOG) BEFORE MEALS AND HS SUBQ 04/25/19 06:30 05/25/19 06:29 05/11/19 06:08 Isoniazid (Inh) 300 mg DAILY ORAL 05/10/19 13:00 06/09/19 12:59 05/10/19 13:20 Losartan Potassium (Cozaar) 50 mg BID ORAL 05/10/19 18:00 06/09/19 17:59 05/11/19 09:48 Metformin HCl (Glucophage) 500 mg TWICE A DAY ORAL 04/26/19 09:00 05/26/19 08:59 05/11/19 09:50 Ondansetron HCl (Zofran) 4 mg Q6H PRN IVP Nausea & Vomiting 05/05/19 09:45 06/04/19 09:44 05/08/19 11:12 Potassium Chloride (K-Dur) 40 meq DAILY ORAL 05/08/19 09:45 06/07/19 09:44 05/11/19 09:49 Pyrazinamide (Pza) 1,000 mg DAILY ORAL 05/10/19 13:00 06/09/19 12:59 05/10/19 13:19 Pyridoxine HCl (Vitamin B6) 50 mg DAILY ORAL 05/10/19 13:00 06/09/19 12:59 05/11/19 09:49 Rifampin (Rifadin) 600 mg DAILY ORAL 05/10/19 13:00 06/09/19 12:59 05/10/19 13:20 Vitamin D (Vitamin D) 5,000 intlu DAILY ORAL 04/26/19 09:00 05/26/19 08:59 05/11/19 09:48 Sean Vaughn MD May 11, 2019 12:16
--- NOTE | 2019-05-11 15:36 | NUR ---
NOT CLEARED FOR DISCHARGE RECEIVED CALL FROM HEALTH DEPARTMENT, DARA. SHE IS NOT GIVING CLEARANCE FOR DISCHARGE AT THIS TIME HEALTH DEPARTMENT IS REQUESTING 2 MORE AFB'S AND THE COMPLETION OF 14 DAYS OF ANTIBIOTICS BEFORE THEY WILL GIVE CLEARANCE ADDITIONAL AFB'S WILL BE ORDERED CONTINUE TB MEDS
[2019-05-11 16:00] VITALS: BP 119/82
--- NOTE | 2019-05-11 19:41 | NUR ---
HAND-OFF: Report given to Rhys/RN, Endorsed plan of care.
--- NOTE | 2019-05-11 19:45 | NUR ---
NURSE NOTES: Received report from NOHEMI Conrad. Patient in bed awake showing no signs of acute distress. Respiration even and non labored on room air. No sob noted. Negative air pressure airborne isolation observed. IV patent and intact at right FA 22g SL. All needs attended and met. Will continue plan of care.
[2019-05-11 20:00] VITALS: BP 114/76
--- NOTE | 2019-05-11 22:24 | General Progress Note ---
Assessment/Plan Problem List: (1) Cavitary lesion of lung ICD Codes: J98.4 - Other disorders of lung SNOMED: 033091482 (2) Granulomatous disease ICD Codes: D71 - Functional disorders of polymorphonuclear neutrophils SNOMED: 051023756 (3) HTN (hypertension) ICD Codes: I10 - Essential (primary) hypertension SNOMED: 23029500 (4) CAD (coronary artery disease) ICD Codes: I25.10 - Atherosclerotic heart disease of tribal coronary artery without angina pectoris SNOMED: 32146830 Status: stable, progressing Assessment/Plan: home w HH per dpoa they refuse snf afebrile cavitary lesion w/u per heme/onc and pulmonary needs country clearance htn vi r/o Tb bronch per pulmonary Subjective ROS Limited/Unobtainable: Yes Allergies: Coded Allergies: No Known Allergies (Unverified , 06/27/17) Subjective cough Objective Last 24 Hour Vital Signs Date Time Temp Pulse Resp B/P (MAP) Pulse Ox O2 Delivery O2 Flow Rate FiO2 05/11/19 20:00 71 05/11/19 20:00 98.4 71 16 114/76 (89) 95 05/11/19 17:13 119/82 05/11/19 16:00 98.0 79 18 119/82 (94) 96 05/11/19 16:00 76 05/11/19 12:00 97.8 71 18 121/82 (95) 96 05/11/19 12:00 61 05/11/19 09:48 119/85 05/11/19 09:00 Room Air 05/11/19 08:00 67 05/11/19 08:00 97.9 62 18 119/85 (96) 95 05/11/19 04:00 98.1 73 16 158/74 (102) 95 05/11/19 04:00 65 05/11/19 00:00 97.7 77 16 126/87 (100) 95 Intake and Output 05/10/19 05/11/19 18:59 06:59 Intake Total 600 ml 240 ml Balance 600 ml 240 ml Intake Oral 600 ml 240 ml # Voids 3 2 Height (Feet): 5 Height (Inches): 2.00 Weight (Pounds): 134 Neck: supple Cardiovascular: normal rate Respiratory/Chest: lungs clear Abdomen: soft Paula Nixon MD May 11, 2019 22:24
[2019-05-12] VITALS: BP 121/77
[2019-05-12 04:00] VITALS: BP 109/76
[2019-05-12] MEDS: NovoLOG Insulin Flexpen SUBQ SCH ×4 (06:30→21:21)
--- NOTE | 2019-05-12 07:33 | NUR ---
NURSE NOTES: Report received from Rhys SONG. Pt awake eating breakfast. Alert and oriented. No c/o pain. No signs of distress noted. IV site [id number] SL intact and asymptomatic. Bed in its lowest position and locked. On room air. No SOB noted. 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 Will continue to plan of care.
--- NOTE | 2019-05-12 07:33 | NUR ---
HAND-OFF: Report given to NOHEMI Bautista.
[2019-05-12 08:00] VITALS: BP 107/70
[2019-05-12] MEDS: Vitamin D 1000 IU Tab ORAL SCH (08:24)
[2019-05-12] MEDS: metFORMIN 500mg tab ORAL SCH ×2 (08:24→18:22)
[2019-05-12] MEDS: Losartan 50mg tab ORAL SCH ×2 (08:25→18:00)
[2019-05-12] MEDS: Artificial Tears 1.4% Op Soln BOTH EYES SCH ×4 (08:27→21:17)
[2019-05-12] MEDS: Isoniazid 300mg tab ORAL SCH (08:27)
[2019-05-12] MEDS: Pyridoxine 50mg tab ORAL SCH (08:27)
[2019-05-12] MEDS: Enoxaparin 40mg Inj SUBQ SCH (08:42)
--- NOTE | 2019-05-12 11:14 | Infectious Diseases Prog Note ---
Assessment/Plan Assessment/Plan antibiotics : isoniazid, rifampin, ethambutol, pyrazinamide, pyridoxine A 1. cavitary pneumonia 2. r/o TB, sputum AFB + 3. diabetes mellitus 4. hypertension P 1. continue TB medications per TB control 2. will follow up cultures 3. sputum AFB 4. continue respiratory isolation Subjective Constitutional: Denies: fever, chills Respiratory: Denies: shortness of breath, dry cough Gastrointestinal/Abdominal: Denies: nausea, vomiting, diarrhea Musculoskeletal: Denies: pain Allergies: Coded Allergies: No Known Allergies (Unverified , 06/27/17) Objective Vital Signs Last 24 Hour Vital Signs Date Time Temp Pulse Resp B/P (MAP) Pulse Ox O2 Delivery O2 Flow Rate FiO2 05/12/19 09:00 Room Air 05/12/19 08:25 107/70 05/12/19 08:00 98.5 73 18 107/70 (82) 97 05/12/19 08:00 75 05/12/19 04:00 98.0 75 16 109/76 (87) 96 05/12/19 04:00 72 05/12/19 00:00 68 05/12/19 00:00 98.4 75 16 121/77 (92) 96 05/11/19 21:00 Room Air 05/11/19 20:00 71 05/11/19 20:00 98.4 71 16 114/76 (89) 95 05/11/19 17:13 119/82 05/11/19 16:00 98.0 79 18 119/82 (94) 96 05/11/19 16:00 76 05/11/19 12:00 97.8 71 18 121/82 (95) 96 05/11/19 12:00 61 Height (Feet): 5 Height (Inches): 2.00 Weight (Pounds): 133 Respiratory/Chest: lungs clear Cardiovascular: normal rate, regular rhythm, no gallop/murmur Abdomen: soft, non tender Extremities: no edema Current Medications Medications (Trade) Dose Ordered Sig/Darrion Route PRN Reason Start Time Stop Time Status Last Admin Dose Admin Artificial Tears (Akwa-Tears) 2 drop FOUR TIMES A DAY BOTH EYES 04/25/19 09:00 05/25/19 08:59 05/12/19 08:27 Dextrose (Dextrose 50%) 25 ml Q30M PRN IV Hypoglycemia 04/25/19 00:00 05/25/19 00:00 Dextrose (Dextrose 50%) 50 ml Q30M PRN IV Hypoglycemia 04/25/19 00:00 05/25/19 00:00 Enoxaparin Sodium (Lovenox) 40 mg DAILY SUBQ 04/25/19 09:00 05/25/19 08:59 05/12/19 08:42 Ethambutol HCl (Myambutol) 800 mg DAILY ORAL 05/10/19 13:00 06/09/19 12:59 05/12/19 08:27 Famotidine (Pepcid) 40 mg ACBREAKFAST ORAL 04/25/19 06:30 05/25/19 06:29 05/12/19 06:32 Fluoxetine HCl (PROzac) 40 mg DAILY ORAL 04/26/19 09:00 05/26/19 08:59 05/12/19 08:26 Folic Acid (Folate) 2 mg DAILY ORAL 05/05/19 15:30 06/04/19 15:29 05/12/19 08:26 Glipizide (GlipiZIDE XL) 2.5 mg QPM ORAL 04/26/19 16:30 05/26/19 16:29 05/11/19 17:12 Insulin Aspart (NovoLOG) BEFORE MEALS AND HS SUBQ 04/25/19 06:30 05/25/19 06:29 05/11/19 20:56 Isoniazid (Inh) 300 mg DAILY ORAL 05/10/19 13:00 06/09/19 12:59 05/12/19 08:27 Losartan Potassium (Cozaar) 50 mg BID ORAL 05/10/19 18:00 06/09/19 17:59 05/11/19 17:13 Metformin HCl (Glucophage) 500 mg TWICE A DAY ORAL 04/26/19 09:00 05/26/19 08:59 05/12/19 08:24 Ondansetron HCl (Zofran) 4 mg Q6H PRN IVP Nausea & Vomiting 05/05/19 09:45 06/04/19 09:44 05/12/19 08:24 Potassium Chloride (K-Dur) 40 meq DAILY ORAL 05/08/19 09:45 06/07/19 09:44 05/12/19 08:25 Pyrazinamide (Pza) 1,000 mg DAILY ORAL 05/10/19 13:00 06/09/19 12:59 05/12/19 08:24 Pyridoxine HCl (Vitamin B6) 50 mg DAILY ORAL 05/10/19 13:00 06/09/19 12:59 05/12/19 08:27 Rifampin (Rifadin) 600 mg DAILY ORAL 05/10/19 13:00 06/09/19 12:59 05/12/19 08:26 Vitamin D (Vitamin D) 5,000 intlu DAILY ORAL 04/26/19 09:00 05/26/19 08:59 05/12/19 08:24 Rafita Lopez MD May 12, 2019 11:14
[2019-05-12 12:00] VITALS: BP 108/73
--- NOTE | 2019-05-12 12:52 | Hematology/Onc Progress Note ---
Assessment/Plan Assessment/Plan Assessment and Recs: # Cavitary lesion of lung on imaging seen on CT, ++ Olive afb as per pulm, at this time on ripe, r/o inflammatory cause/issues --> may dc ripe as per pulm/id --> per pulm recs --> monitor for resolution --> if persists may need biopsy/bronch --> tumor markers are neg --> consider reimage in several months --> pending placement ltach with tb control clearance # Anemia of chronic disease due to underlying chronic medical issues, multifactorial --> Anemia workup has been reviewed. Ferritin 133 --> No evidence of hemolysis is noted, peripheral smear has been reviewed. --> Hgb goal >7. Transfuse prn. --> Epogen or iron at this time is not particularly indicated --> Medications have been reviewed --> Hgb trend: 11.5-->12.1-->11.8-->10.9 # Leukopenia with range 3-5k --> hepatitis and hiv are neg --> us of the abdomen is negative, no cirrhosis and hsm # Chest pain r/o acs v inflammatory disease of lung, bronchitis --> CT imaging of the chest was ordered which showed calcified mediastinal and hilar lymph nodes as well as mild cardiomegaly without pericardial effusion. There is some fluid impacting some of the left lower lobe bronchi posterior medially no pulmonary embolism or aortic aneurysm or dissection was seen --> Patient given IV antibiotics. --> as per cards recs --> nitrog prn --> outpatient stress test # Granulomatous disease # HTN. sbp goal <140 --> per cards The time the noted was written does not necessarily correspond to the time the patient was seen,. Subjective HEENT: Denies: no symptoms, eye pain, blurred vision, tearing, double vision, ear pain, ear discharge, nose pain, nose congestion, throat pain, throat swelling, mouth pain, mouth swelling, other Cardiovascular: Denies: no symptoms, chest pain, edema, irregular heart rate, lightheadedness, palpitations, syncope, other Respiratory: Denies: no symptoms, cough, shortness of breath, SOB with excertion, SOB at rest, sputum, wheezing, other Gastrointestinal/Abdominal: Denies: no symptoms, abdomen distended, abdominal pain, black stools, tarry stools, blood in stool, constipated, diarrhea, difficulty swallowing, nausea, poor appetite, poor fluid intake, rectal bleeding , vomiting, other Neurologic/Psychiatric: Denies: no symptoms, anxiety, depressed, emotional problems, headache, numbness, paresthesia, pre-existing deficit, seizure, tingling, tremors, weakness, other Endocrine: Denies: no symptoms, excessive sweating, flushing, intolerance to cold, intolerance to heat, increased hunger, increased thirst, increased urine, unexplained weight gain, unexplained weight loss, other Hematologic/Lymphatic: Denies: no symptoms, anemia, easy bleeding, easy bruising, adenopathy, other Allergies: Coded Allergies: No Known Allergies (Unverified , 06/27/17) Subjective 04/26: Pt is sitting in bed and having breakfast. No c/o pain. Labs reviewed. 04/27: no events, cp is better, seen by pulm, cards 04/28: no fevers or chills, no night sweats noted 04/30: Pt on airbourne isolation, cough better with cough syrup. 05/01: no acute events, no bleeding reported. 05/02:no distress, VS reviewed, afebrile. 05/03: no events, oimaging reviewed, seen by pulm and id 05/04, unable to provide sputum, seen by psych, otherwise no changes 05/05: no events to report, tolerating ripe 05/06: no events, no fevers, ripe has been started 05/07: no events, a+o x4, seen by pulm, potentially consider dc ripe 05/08: no events overnight, uric acid is still high, seen by renal 05/10: in resp isolation, no events noted, no f/c 05/11: no events, seen by pulm, cbc reviewed 05/12: no bleeding, no chills, no fevers, no changes, cbc reviewed Objective Objective Current Medications Medications (Trade) Dose Ordered Sig/Darrion Route PRN Reason Start Time Stop Time Status Last Admin Dose Admin Artificial Tears (Akwa-Tears) 2 drop FOUR TIMES A DAY BOTH EYES 04/25/19 09:00 05/25/19 08:59 05/12/19 12:14 Dextrose (Dextrose 50%) 25 ml Q30M PRN IV Hypoglycemia 04/25/19 00:00 05/25/19 00:00 Dextrose (Dextrose 50%) 50 ml Q30M PRN IV Hypoglycemia 04/25/19 00:00 05/25/19 00:00 Enoxaparin Sodium (Lovenox) 40 mg DAILY SUBQ 04/25/19 09:00 05/25/19 08:59 05/12/19 08:42 Ethambutol HCl (Myambutol) 800 mg DAILY ORAL 05/10/19 13:00 06/09/19 12:59 05/12/19 08:27 Famotidine (Pepcid) 40 mg ACBREAKFAST ORAL 04/25/19 06:30 05/25/19 06:29 05/12/19 06:32 Fluoxetine HCl (PROzac) 40 mg DAILY ORAL 04/26/19 09:00 05/26/19 08:59 05/12/19 08:26 Folic Acid (Folate) 2 mg DAILY ORAL 05/05/19 15:30 06/04/19 15:29 05/12/19 08:26 Glipizide (GlipiZIDE XL) 2.5 mg QPM ORAL 04/26/19 16:30 05/26/19 16:29 05/11/19 17:12 Insulin Aspart (NovoLOG) BEFORE MEALS AND HS SUBQ 04/25/19 06:30 05/25/19 06:29 05/11/19 20:56 Isoniazid (Inh) 300 mg DAILY ORAL 05/10/19 13:00 06/09/19 12:59 05/12/19 08:27 Losartan Potassium (Cozaar) 50 mg BID ORAL 05/10/19 18:00 06/09/19 17:59 05/11/19 17:13 Metformin HCl (Glucophage) 500 mg TWICE A DAY ORAL 04/26/19 09:00 05/26/19 08:59 05/12/19 08:24 Ondansetron HCl (Zofran) 4 mg Q6H PRN IVP Nausea & Vomiting 05/05/19 09:45 06/04/19 09:44 05/12/19 08:24 Potassium Chloride (K-Dur) 40 meq DAILY ORAL 05/08/19 09:45 06/07/19 09:44 05/12/19 08:25 Pyrazinamide (Pza) 1,000 mg DAILY ORAL 05/10/19 13:00 06/09/19 12:59 05/12/19 08:24 Pyridoxine HCl (Vitamin B6) 50 mg DAILY ORAL 05/10/19 13:00 06/09/19 12:59 05/12/19 08:27 Rifampin (Rifadin) 600 mg DAILY ORAL 05/10/19 13:00 06/09/19 12:59 05/12/19 08:26 Vitamin D (Vitamin D) 5,000 intlu DAILY ORAL 04/26/19 09:00 05/26/19 08:59 05/12/19 08:24 Last 24 Hour Vital Signs Date Time Temp Pulse Resp B/P (MAP) Pulse Ox O2 Delivery O2 Flow Rate FiO2 05/12/19 09:00 Room Air 05/12/19 08:25 107/70 05/12/19 08:00 98.5 73 18 107/70 (82) 97 05/12/19 08:00 75 05/12/19 04:00 98.0 75 16 109/76 (87) 96 05/12/19 04:00 72 05/12/19 00:00 68 05/12/19 00:00 98.4 75 16 121/77 (92) 96 05/11/19 21:00 Room Air 05/11/19 20:00 71 05/11/19 20:00 98.4 71 16 114/76 (89) 95 05/11/19 17:13 119/82 05/11/19 16:00 98.0 79 18 119/82 (94) 96 05/11/19 16:00 76 05/11/19 12:00 97.8 71 18 121/82 (95) 96 05/11/19 12:00 61 05/11/19 09:48 119/85 05/11/19 09:00 Room Air 05/11/19 08:00 67 05/11/19 08:00 97.9 62 18 119/85 (96) 95 05/11/19 04:00 98.1 73 16 158/74 (102) 95 05/11/19 04:00 65 05/11/19 00:00 97.7 77 16 126/87 (100) 95 05/10/19 21:00 Room Air 05/10/19 20:00 74 05/10/19 20:00 98.4 74 18 138/92 (107) 95 05/10/19 17:41 132/84 05/10/19 16:00 98.6 75 20 132/84 (100) 97 05/10/19 16:00 70 Intake and Output 05/11/19 05/12/19 19:00 07:00 Intake Total 600 ml 240 ml Balance 600 ml 240 ml Intake Oral 240 ml Other 600 ml # Voids 2 Labs Test 05/10/19 06:05 White Blood Count 4.4 K/UL (4.8-10.8) Red Blood Count 3.34 M/UL (4.20-5.40) Hemoglobin 10.9 G/DL (12.0-16.0) Hematocrit 32.2 % (37.0-47.0) Mean Corpuscular Volume 96 FL (80-99) Mean Corpuscular Hemoglobin 32.7 PG (27.0-31.0) Mean Corpuscular Hemoglobin Concent 33.9 G/DL (32.0-36.0) Red Cell Distribution Width 10.8 % (11.6-14.8) Platelet Count 176 K/UL (150-450) Mean Platelet Volume 6.1 FL (6.5-10.1) Neutrophils (%) (Auto) 44.7 % (45.0-75.0) Lymphocytes (%) (Auto) 44.3 % (20.0-45.0) Monocytes (%) (Auto) 7.5 % (1.0-10.0) Eosinophils (%) (Auto) 2.3 % (0.0-3.0) Basophils (%) (Auto) 1.1 % (0.0-2.0) Erythrocyte Sedimentation Rate 64 MM/HR (0-30) Sodium Level 138 MMOL/L (136-145) Potassium Level 4.1 MMOL/L (3.5-5.1) Chloride Level 104 MMOL/L (98-107) Carbon Dioxide Level 27 MMOL/L (21-32) Anion Gap 7 mmol/L (5-15) Blood Urea Nitrogen 8 mg/dL (7-18) Creatinine 0.8 MG/DL (0.55-1.30) Estimat Glomerular Filtration Rate mL/min (>60) Glucose Level 91 MG/DL (74-106) Uric Acid 8.0 MG/DL (2.6-7.2) Calcium Level 9.0 MG/DL (8.5-10.1) Phosphorus Level 3.4 MG/DL (2.5-4.9) Magnesium Level 1.8 MG/DL (1.8-2.4) Total Bilirubin 0.1 MG/DL (0.2-1.0) Aspartate Amino Transf (AST/SGOT) 49 U/L (15-37) Alanine Aminotransferase (ALT/SGPT) 21 U/L (12-78) Alkaline Phosphatase 65 U/L (46-116) C-Reactive Protein, Quantitative < 0.4 mg/dL (0.00-0.90) Total Protein 6.8 G/DL (6.4-8.2) Albumin 3.4 G/DL (3.4-5.0) Globulin 3.4 g/dL Albumin/Globulin Ratio 1.0 (1.0-2.7) Height (Feet): 5 Height (Inches): 2.00 Weight (Pounds): 133 Objective PHYSICAL EXAM General Appearance: normal inspection, well appearing, no apparent distress, alert, GCS 15 Head: atraumatic ENT: normal ENT inspection, hearing grossly normal, normal voice Neck: normal inspection, full range of motion, supple, no bony tend Respiratory: normal inspection, lungs clear, normal breath sounds, no respiratory distress, no retraction, no wheezing Cardiovascular: regular rate, rhythm, no edema Gastrointestinal: normal inspection, normal bowel sounds, non tender, soft, no guarding, no hernia Genitourinary: no CVA tenderness Musculoskeletal: normal inspection, back normal, normal range of motion Neurologic: normal inspection, alert, oriented x3, responsive, facilities and grounds director III-XII nml as tested, speech normal Psychiatric: normal inspection, judgement/insight normal, mood/affect normal Alden Kohler MD May 12, 2019 12:52
--- NOTE | 2019-05-12 12:59 | Cardiac Electrophysiology PN ---
Assessment/Plan Assessment/Plan 1. Chest pain, No FL. Due to underlying lung lesion 2. HTN on Losartan 25 daily 3. NIDDM 4. HLPD 5. Cavitary lung lesion, back on respiratory isolation. on INH.RIF,ETB,PZA per Dr Kwan. FU Dr. Stroud as well 6. Anemia DW RN and Dr Lopez Awaiting [facility] for clearance DC tele Subjective Subjective Back on respiratory isolation today.No CP or SOB Objective Last 24 Hour Vital Signs Date Time Temp Pulse Resp B/P (MAP) Pulse Ox O2 Delivery O2 Flow Rate FiO2 05/12/19 09:00 Room Air 05/12/19 08:25 107/70 05/12/19 08:00 98.5 73 18 107/70 (82) 97 05/12/19 08:00 75 05/12/19 04:00 98.0 75 16 109/76 (87) 96 05/12/19 04:00 72 05/12/19 00:00 68 05/12/19 00:00 98.4 75 16 121/77 (92) 96 05/11/19 21:00 Room Air 05/11/19 20:00 71 05/11/19 20:00 98.4 71 16 114/76 (89) 95 05/11/19 17:13 119/82 05/11/19 16:00 98.0 79 18 119/82 (94) 96 05/11/19 16:00 76 Intake and Output 05/11/19 05/12/19 19:00 07:00 Intake Total 600 ml 240 ml Balance 600 ml 240 ml Intake Oral 240 ml Other 600 ml # Voids 2 Objective HEENT: No JVD Respiratory/Chest: Coarse rhonchi Cardiovascular/Chest: Normal peripheral pulses, normal rate, regular rhythm Abdomen: Normal bowel sounds, non tender, soft, no organomegaly Extremities: Normal range of motion, non-tender, normal inspection Matti Lakahni MD May 12, 2019 12:59
--- NOTE | 2019-05-12 13:14 | Pulmonology Progress Note ---
Assessment/Plan Problems: (1) Cavitary lesion of lung (2) Granulomatous disease (3) Chest pain (4) HTN (hypertension) (5) CAD (coronary artery disease) (6) Shingles Assessment/Plan ASSESSMENT: The patient is a 73-year-old female with a history of hypertension , hyperlipidemia, and diabetes, presenting with pleuritic chest pain in the setting of a recent respiratory illness. CT of the chest demonstrates intense bilateral reticulonodular opacities and a cavitary lesion. She is being ruled out for MTB. With respect to the etiology of her lesion, it is likely infectious/inflammatory, so the cavity has to be followed to rule out a neoplastic process. PROBLEM LIST: 1. Left lower lobe cavity thin-walled, likely infectious, inflammatory, ? doubt MTB, / AFB + but TST and CPR neg, ? ALIDA, started on RIPE 05/03, D/C'd 05/09 2. Scattered bilateral reticulonodular opacities, likely an infectious bronchiolitis. 3. Pleuritic chest pain, likely secondary to above. 4. Hypertension, hyperlipidemia, diabetes. TREATMENT PLAN: 1. Optimize pulmonary hygiene/mobilize as tolerated. 2. Additional AFB's ordered as requested by TB control 3. Defer decision Re: Anti-TB therapy to ID and TB control 4. Continue isolation until cleared by [facility] 5. The patient will require short interval follow-up and then likely a bronchoscopy and biopsy if there is a persistent cavitary lesion. 6. Needs to F/U with me in 1-2 weeks after DC Subjective Allergies: Coded Allergies: No Known Allergies (Unverified , 06/27/17) Subjective AFVSS on RA No cough no CP No FC No NV TB control requesting additional AFB's Objective Last 24 Hour Vital Signs Date Time Temp Pulse Resp B/P (MAP) Pulse Ox O2 Delivery O2 Flow Rate FiO2 05/12/19 12:00 98.3 72 16 108/73 (85) 96 05/12/19 09:00 Room Air 05/12/19 08:25 107/70 05/12/19 08:00 98.5 73 18 107/70 (82) 97 05/12/19 08:00 75 05/12/19 04:00 98.0 75 16 109/76 (87) 96 05/12/19 04:00 72 05/12/19 00:00 68 05/12/19 00:00 98.4 75 16 121/77 (92) 96 05/11/19 21:00 Room Air 05/11/19 20:00 71 05/11/19 20:00 98.4 71 16 114/76 (89) 95 05/11/19 17:13 119/82 05/11/19 16:00 98.0 79 18 119/82 (94) 96 05/11/19 16:00 76 Intake and Output 05/11/19 05/12/19 19:00 07:00 Intake Total 600 ml 240 ml Balance 600 ml 240 ml Intake Oral 240 ml Other 600 ml # Voids 2 General Appearance: WD/WN, no acute distress HEENT: normocephalic, atraumatic, anicteric, mucous membranes moist Respiratory/Chest: chest wall non-tender, lungs clear, normal breath sounds, no respiratory distress, no accessory muscle use Cardiovascular: normal peripheral pulses, normal rate, regular rhythm Abdomen: normal bowel sounds, soft, non tender, no organomegaly, non distended , no mass Extremities: no cyanosis, no clubbing, no edema Current Medications Medications (Trade) Dose Ordered Sig/Darrion Route PRN Reason Start Time Stop Time Status Last Admin Dose Admin Artificial Tears (Akwa-Tears) 2 drop FOUR TIMES A DAY BOTH EYES 04/25/19 09:00 05/25/19 08:59 05/12/19 12:14 Dextrose (Dextrose 50%) 25 ml Q30M PRN IV Hypoglycemia 04/25/19 00:00 05/25/19 00:00 Dextrose (Dextrose 50%) 50 ml Q30M PRN IV Hypoglycemia 04/25/19 00:00 05/25/19 00:00 Enoxaparin Sodium (Lovenox) 40 mg DAILY SUBQ 04/25/19 09:00 05/25/19 08:59 05/12/19 08:42 Ethambutol HCl (Myambutol) 800 mg DAILY ORAL 05/10/19 13:00 06/09/19 12:59 05/12/19 08:27 Famotidine (Pepcid) 40 mg ACBREAKFAST ORAL 04/25/19 06:30 05/25/19 06:29 05/12/19 06:32 Fluoxetine HCl (PROzac) 40 mg DAILY ORAL 04/26/19 09:00 05/26/19 08:59 05/12/19 08:26 Folic Acid (Folate) 2 mg DAILY ORAL 05/05/19 15:30 06/04/19 15:29 05/12/19 08:26 Glipizide (GlipiZIDE XL) 2.5 mg QPM ORAL 04/26/19 16:30 05/26/19 16:29 05/11/19 17:12 Insulin Aspart (NovoLOG) BEFORE MEALS AND HS SUBQ 04/25/19 06:30 05/25/19 06:29 05/11/19 20:56 Isoniazid (Inh) 300 mg DAILY ORAL 05/10/19 13:00 06/09/19 12:59 05/12/19 08:27 Losartan Potassium (Cozaar) 50 mg BID ORAL 05/10/19 18:00 06/09/19 17:59 05/11/19 17:13 Metformin HCl (Glucophage) 500 mg TWICE A DAY ORAL 04/26/19 09:00 05/26/19 08:59 05/12/19 08:24 Ondansetron HCl (Zofran) 4 mg Q6H PRN IVP Nausea & Vomiting 05/05/19 09:45 06/04/19 09:44 05/12/19 08:24 Potassium Chloride (K-Dur) 40 meq DAILY ORAL 05/08/19 09:45 06/07/19 09:44 05/12/19 08:25 Pyrazinamide (Pza) 1,000 mg DAILY ORAL 05/10/19 13:00 06/09/19 12:59 05/12/19 08:24 Pyridoxine HCl (Vitamin B6) 50 mg DAILY ORAL 05/10/19 13:00 06/09/19 12:59 05/12/19 08:27 Rifampin (Rifadin) 600 mg DAILY ORAL 05/10/19 13:00 06/09/19 12:59 05/12/19 08:26 Vitamin D (Vitamin D) 5,000 intlu DAILY ORAL 04/26/19 09:00 05/26/19 08:59 05/12/19 08:24 Sean Vaughn MD May 12, 2019 13:14
--- NOTE | 2019-05-12 15:00 | NUR ---
DISCHARGE PLANNING PATIENT'S DAUGHTER HARDEEP USUALLY VISITS HER MOTHER TWICE A WEEK BUT IS WILLING TO VISIT MORE FREQUENTLY IF NEEDED. HARDEEP HELPS WITH GROCERIES AND SHOPPING HARDEEP WAS EXPOSED TO HER MOTHER ON EITHER APRIL 08 OR PRIOR TO HER HOSPITALIZATION HARDEEP T: [phone] (DAUGHTER) ONLY SPEAK BELARUSIAN MAYRA KERLINE T: [phone] (SON) SPEAKS KAZAKH FLUENTLY LEFT [facility] FOR [facility] CONTROLLER DARA AND WAITING FOR CALL BACK WITH ADDITIONAL INSTRUCTIONS
--- NOTE | 2019-05-12 15:12 | Nephrology Progress Note ---
Assessment/Plan Problem List: (1) Cavitary lesion of lung (2) HTN (hypertension) (3) Hypotensive episode (4) Hyperuricemia Assessment Hypotension: ? due to antihypertensives TB Plan Plan: Adjust BP meds- BP stable now anti TB meds WAS DISCONTINUED per orders ? DC Subjective ROS Limited/Unobtainable: No Objective Objective Last 24 Hour Vital Signs Date Time Temp Pulse Resp B/P (MAP) Pulse Ox O2 Delivery O2 Flow Rate FiO2 05/12/19 12:00 98.3 72 16 108/73 (85) 96 05/12/19 12:00 71 05/12/19 09:00 Room Air 05/12/19 08:25 107/70 05/12/19 08:00 98.5 73 18 107/70 (82) 97 05/12/19 08:00 75 05/12/19 04:00 98.0 75 16 109/76 (87) 96 05/12/19 04:00 72 05/12/19 00:00 68 05/12/19 00:00 98.4 75 16 121/77 (92) 96 05/11/19 21:00 Room Air 05/11/19 20:00 71 05/11/19 20:00 98.4 71 16 114/76 (89) 95 05/11/19 17:13 119/82 05/11/19 16:00 98.0 79 18 119/82 (94) 96 05/11/19 16:00 76 Intake and Output 05/11/19 05/12/19 19:00 07:00 Intake Total 600 ml 240 ml Balance 600 ml 240 ml Intake Oral 240 ml Other 600 ml # Voids 2 Height (Feet): 5 Height (Inches): 2.00 Weight (Pounds): 133 General Appearance: no apparent distress Objective no change Anirudh Garcia MD May 12, 2019 15:12
[2019-05-12] MEDS ORDERED: D5NS 1000ml IV ONE (15:29)
[2019-05-12] MEDS ORDERED: NS 500ML ONE (15:29)
[2019-05-12 16:00] VITALS: BP 112/75
--- NOTE | 2019-05-12 19:20 | NUR ---
HAND-OFF: Report given to josefina SONG. Pt remains stable.
--- NOTE | 2019-05-12 19:21 | NUR ---
NURSE NOTES: Received pt from NOHEMI Snell. Pt is awake and resting in bed. IV site intact. Bed locked in lowest position, call light within reach. Will continue with plan of care. Addendum: 05/12/19 at 2304 by DIONY MORGAN RN Received pt from NOHEMI Bautista.
[2019-05-12 20:00] VITALS: BP 106/73
--- NOTE | 2019-05-12 22:12 | General Progress Note ---
Assessment/Plan Problem List: (1) Cavitary lesion of lung ICD Codes: J98.4 - Other disorders of lung SNOMED: 034391658 (2) Granulomatous disease ICD Codes: D71 - Functional disorders of polymorphonuclear neutrophils SNOMED: 402855853 (3) HTN (hypertension) ICD Codes: I10 - Essential (primary) hypertension SNOMED: 94532429 (4) CAD (coronary artery disease) ICD Codes: I25.10 - Atherosclerotic heart disease of [place] coronary artery without angina pectoris SNOMED: 40286298 Status: stable, progressing Assessment/Plan: home w HH per dpoa they refuse snf r/o tb pna abx per id afebrile no acute events no sob bronch per pulmonary Subjective ROS Limited/Unobtainable: Yes Allergies: Coded Allergies: No Known Allergies (Unverified , 06/27/17) Subjective cough Objective Last 24 Hour Vital Signs Date Time Temp Pulse Resp B/P (MAP) Pulse Ox O2 Delivery O2 Flow Rate FiO2 05/12/19 18:00 112/75 05/12/19 16:00 98.8 68 18 112/75 (87) 97 05/12/19 12:00 98.3 72 16 108/73 (85) 96 05/12/19 12:00 71 05/12/19 09:00 Room Air 05/12/19 08:25 107/70 05/12/19 08:00 98.5 73 18 107/70 (82) 97 05/12/19 08:00 75 05/12/19 04:00 98.0 75 16 109/76 (87) 96 05/12/19 04:00 72 05/12/19 00:00 68 05/12/19 00:00 98.4 75 16 121/77 (92) 96 Intake and Output 05/11/19 05/12/19 18:59 06:59 Intake Total 600 ml 240 ml Balance 600 ml 240 ml Intake Oral 240 ml Other 600 ml # Voids 2 Height (Feet): 5 Height (Inches): 2.00 Weight (Pounds): 133 Cardiovascular: regular rhythm Respiratory/Chest: lungs clear Paula Nixon MD May 12, 2019 22:12
[2019-05-13] VITALS: BP 110/77
[2019-05-13 04:00] VITALS: BP 130/79
[2019-05-13] MEDS: NovoLOG Insulin Flexpen SUBQ SCH ×4 (05:59→21:00)
--- NOTE | 2019-05-13 07:00 | NUR ---
NURSE NOTES: Report received from Ashwin SONG. Alert and oriented. No c/o pain. No signs of distress noted. IV site RFA 22G SL patent and asymptomatic. Bed in lowest position and locked. call light within easy reach. Will continue to plan of care.
--- NOTE | 2019-05-13 07:00 | NUR ---
HAND-OFF: Report given to NOHEMI Bautista. Pt is resting in bed in no acute distress. Endorsed plan of care.
[2019-05-13 07:17] LABS: BASOPHILS % (AUTO) 0.9 % (0.0-2.0); EOSINOPHILS % (AUTO) 1.8 % (0.0-3.0); HEMATOCRIT 33.8 % (37.0-47.0); HEMOGLOBIN 11.4 G/DL (12.0-16.0); LYMPHOCYTES % (AUTO) 33.8 % (20.0-45.0); MEAN CORPUSCULAR VOLUME 96 FL (80-99); MONOCYTES % (AUTO) 9.2 % (1.0-10.0); NEUTROPHILS % (AUTO) 54.4 % (45.0-75.0); PLATELET COUNT 168 K/UL (150-450); RED CELL DISTRIBUTION WIDTH 10.9 % (11.6-14.8); WHITE BLOOD COUNT 4.3 K/UL (4.8-10.8)
[2019-05-13 07:40] LABS: ALANINE AMINOTRANSFERASE 29 U/L (12-78); ALBUMIN 3.5 G/DL (3.4-5.0); ALKALINE PHOSPHATASE 62 U/L (46-116); ANION GAP 9 mmol/L (5-15); ASPARTATE AMINO TRANSFERASE 43 U/L (15-37); BILIRUBIN,TOTAL 0.3 MG/DL (0.2-1.0); BLOOD UREA NITROGEN 13 mg/dL (7-18); CARBON DIOXIDE 28 MMOL/L (21-32); CHLORIDE 101 MMOL/L (98-107); CREATININE 0.9 MG/DL (0.55-1.30); SODIUM 138 MMOL/L (136-145)
[2019-05-13 08:00] VITALS: BP 118/68
[2019-05-13] MEDS: Isoniazid 300mg tab ORAL SCH (08:54)
[2019-05-13] MEDS: Pyridoxine 50mg tab ORAL SCH (08:55)
[2019-05-13] MEDS: Vitamin D 1000 IU Tab ORAL SCH (08:55)
[2019-05-13] MEDS: Losartan 50mg tab ORAL SCH ×2 (08:55→17:23)
[2019-05-13] MEDS: metFORMIN 500mg tab ORAL SCH ×2 (08:55→17:22)
[2019-05-13] MEDS: Artificial Tears 1.4% Op Soln BOTH EYES SCH ×4 (08:56→21:28)
[2019-05-13] MEDS: Enoxaparin 40mg Inj SUBQ SCH (08:58)
--- NOTE | 2019-05-13 09:29 | Hematology/Onc Progress Note ---
Assessment/Plan Assessment/Plan Assessment and Recs: # Cavitary lesion of lung on imaging seen on CT, ++ jonathan afb as per pulm, at this time on ripe, r/o inflammatory cause/issues --> may dc ripe as per pulm/id --> per pulm recs, monitor for resolution --> if persists may need biopsy/bronch --> tumor markers are neg --> consider re-image in several months --> pending placement ltach with tb control clearance # Anemia of chronic disease due to underlying chronic medical issues, multifactorial --> Anemia workup has been reviewed. Ferritin 133 --> No evidence of hemolysis is noted, peripheral smear has been reviewed --> Hgb goal >7. Transfuse prn. --> Epogen or iron at this time is not particularly indicated --> Medications have been reviewed --> Hgb trend: 11.5-->12.1-->11.8-->10.9-->11.3 # Leukopenia with range 3-5k --> hepatitis and hiv neg --> us of the abdomen is negative, no cirrhosis and hsm # Chest pain r/o acs v inflammatory disease of lung, bronchitis --> CT imaging of the chest was ordered which showed calcified mediastinal and hilar lymph nodes as well as mild cardiomegaly without pericardial effusion. There is some fluid impacting some of the left lower lobe bronchi posterior medially no pulmonary embolism or aortic aneurysm or dissection was seen --> Patient given IV antibiotics --> as per cards recs --> nitrog prn --> outpatient stress test # Granulomatous disease # HTN. sbp goal <140 --> per cards The time the noted was written does not necessarily correspond to the time the patient was seen,. Subjective Constitutional: Denies: no symptoms, chills, fever, malaise, weakness, other HEENT: Reports: mouth pain; Denies: no symptoms, eye pain, blurred vision, tearing, double vision, ear pain, ear discharge, nose pain, nose congestion, throat pain, throat swelling, mouth swelling, other Cardiovascular: Denies: no symptoms, chest pain, edema, irregular heart rate, lightheadedness, palpitations, syncope, other Gastrointestinal/Abdominal: Denies: no symptoms, abdomen distended, abdominal pain, black stools, tarry stools, blood in stool, constipated, diarrhea, difficulty swallowing, nausea, poor appetite, poor fluid intake, rectal bleeding , vomiting, other Genitourinary: Denies: no symptoms, burning, discharge, frequency, flank pain, hematuria, incontinence, pain, urgency, other Neurologic/Psychiatric: Denies: no symptoms, anxiety, depressed, emotional problems, headache, numbness, paresthesia, pre-existing deficit, seizure, tingling, tremors, weakness, other Endocrine: Denies: no symptoms, excessive sweating, flushing, intolerance to cold, intolerance to heat, increased hunger, increased thirst, increased urine, unexplained weight gain, unexplained weight loss, other Hematologic/Lymphatic: Denies: no symptoms, anemia, easy bleeding, easy bruising, adenopathy, other Allergies: Coded Allergies: No Known Allergies (Unverified , 06/27/17) Subjective 04/26: Pt is sitting in bed and having breakfast. No c/o pain. Labs reviewed. 04/27: no events, cp is better, seen by pulm, cards 04/28: no fevers or chills, no night sweats noted 04/30: Pt on [place] isolation, cough better with cough syrup. 05/01: no acute events, no bleeding reported. 05/02:no distress, VS reviewed, afebrile. 05/03: no events, oimaging reviewed, seen by pulm and id 05/04, unable to provide sputum, seen by psych, otherwise no changes 05/05: no events to report, tolerating ripe 05/06: no events, no fevers, ripe has been started 05/07: no events, a+o x4, seen by pulm, potentially consider dc ripe 05/08: no events overnight, uric acid is still high, seen by renal 05/10: in resp isolation, no events noted, no f/c 05/11: no events, seen by pulm, cbc reviewed 05/12: no bleeding, no chills, no fevers, no changes, cbc reviewed 05/13: no fevers,or chills, no events noted, no bleeding Objective Objective Current Medications Medications (Trade) Dose Ordered Sig/Darrion Route PRN Reason Start Time Stop Time Status Last Admin Dose Admin Artificial Tears (Akwa-Tears) 2 drop FOUR TIMES A DAY BOTH EYES 6/30/19 09:00 05/25/19 08:59 05/13/19 08:56 Dextrose (Dextrose 50%) 25 ml Q30M PRN IV Hypoglycemia 04/25/19 00:00 05/25/19 00:00 Dextrose (Dextrose 50%) 50 ml Q30M PRN IV Hypoglycemia 04/25/19 00:00 05/25/19 00:00 Enoxaparin Sodium (Lovenox) 40 mg DAILY SUBQ 04/25/19 09:00 05/25/19 08:59 05/13/19 08:58 Ethambutol HCl (Myambutol) 800 mg DAILY ORAL 05/10/19 13:00 06/09/19 12:59 05/13/19 08:56 Famotidine (Pepcid) 40 mg ACBREAKFAST ORAL 04/25/19 06:30 05/25/19 06:29 05/13/19 05:56 Fluoxetine HCl (PROzac) 40 mg DAILY ORAL 04/26/19 09:00 05/26/19 08:59 05/13/19 08:56 Folic Acid (Folate) 2 mg DAILY ORAL 05/05/19 15:30 06/04/19 15:29 05/13/19 08:55 Glipizide (GlipiZIDE XL) 2.5 mg QPM ORAL 04/26/19 16:30 05/26/19 16:29 05/12/19 18:21 Insulin Aspart (NovoLOG) BEFORE MEALS AND HS SUBQ 04/25/19 06:30 05/25/19 06:29 05/12/19 21:21 Isoniazid (Inh) 300 mg DAILY ORAL 05/10/19 13:00 06/09/19 12:59 05/13/19 08:54 Losartan Potassium (Cozaar) 50 mg BID ORAL 05/10/19 18:00 06/09/19 17:59 05/13/19 08:55 Magnesium Sulfate 100 ml @ 100 mls/hr Q1H IVPB 05/13/19 09:00 05/13/19 10:59 05/13/19 08:54 Metformin HCl (Glucophage) 500 mg TWICE A DAY ORAL 04/26/19 09:00 05/26/19 08:59 05/13/19 08:55 Ondansetron HCl (Zofran) 4 mg Q6H PRN IVP Nausea & Vomiting 05/05/19 09:45 06/04/19 09:44 05/13/19 08:54 Potassium Chloride (K-Dur) 40 meq DAILY ORAL 05/08/19 09:45 06/07/19 09:44 05/13/19 08:56 Pyrazinamide (Pza) 1,000 mg DAILY ORAL 05/10/19 13:00 06/09/19 12:59 05/13/19 08:55 Pyridoxine HCl (Vitamin B6) 50 mg DAILY ORAL 05/10/19 13:00 06/09/19 12:59 05/13/19 08:55 Rifampin (Rifadin) 600 mg DAILY ORAL 05/10/19 13:00 06/09/19 12:59 05/13/19 08:54 Vitamin D (Vitamin D) 5,000 intlu DAILY ORAL 04/26/19 09:00 05/26/19 08:59 05/13/19 08:55 Last 24 Hour Vital Signs Date Time Temp Pulse Resp B/P (MAP) Pulse Ox O2 Delivery O2 Flow Rate FiO2 05/13/19 08:55 118/68 05/13/19 08:00 98.5 61 20 118/68 (85) 96 05/13/19 04:00 98.0 62 18 130/79 (96) 99 05/13/19 00:00 98.1 75 18 110/77 (88) 97 05/12/19 21:00 Room Air 05/12/19 20:00 98.6 73 17 106/73 (84) 95 05/12/19 18:00 112/75 05/12/19 16:00 98.8 68 18 112/75 (87) 97 05/12/19 12:00 98.3 72 16 108/73 (85) 96 05/12/19 12:00 71 05/12/19 09:00 Room Air 05/12/19 08:25 107/70 05/12/19 08:00 98.5 73 18 107/70 (82) 97 05/12/19 08:00 75 05/12/19 04:00 98.0 75 16 109/76 (87) 96 05/12/19 04:00 72 05/12/19 00:00 68 05/12/19 00:00 98.4 75 16 121/77 (92) 96 05/11/19 21:00 Room Air 05/11/19 20:00 71 05/11/19 20:00 98.4 71 16 114/76 (89) 95 05/11/19 17:13 119/82 05/11/19 16:00 98.0 79 18 119/82 (94) 96 05/11/19 16:00 76 05/11/19 12:00 97.8 71 18 121/82 (95) 96 05/11/19 12:00 61 05/11/19 09:48 119/85 Intake and Output 05/12/19 05/13/19 19:00 07:00 Intake Total 940 ml 120 ml Balance 940 ml 120 ml Intake Oral 240 ml 120 ml Other 700 ml # Voids 5 1 Labs Test 05/13/19 06:34 White Blood Count 4.3 K/UL (4.8-10.8) Red Blood Count 3.50 M/UL (4.20-5.40) Hemoglobin 11.4 G/DL (12.0-16.0) Hematocrit 33.8 % (37.0-47.0) Mean Corpuscular Volume 96 FL (80-99) Mean Corpuscular Hemoglobin 32.6 PG (27.0-31.0) Mean Corpuscular Hemoglobin Concent 33.8 G/DL (32.0-36.0) Red Cell Distribution Width 10.9 % (11.6-14.8) Platelet Count 168 K/UL (150-450) Mean Platelet Volume 6.1 FL (6.5-10.1) Neutrophils (%) (Auto) 54.4 % (45.0-75.0) Lymphocytes (%) (Auto) 33.8 % (20.0-45.0) Monocytes (%) (Auto) 9.2 % (1.0-10.0) Eosinophils (%) (Auto) 1.8 % (0.0-3.0) Basophils (%) (Auto) 0.9 % (0.0-2.0) Sodium Level 138 MMOL/L (136-145) Potassium Level 4.0 MMOL/L (3.5-5.1) Chloride Level 101 MMOL/L (98-107) Carbon Dioxide Level 28 MMOL/L (21-32) Anion Gap 9 mmol/L (5-15) Blood Urea Nitrogen 13 mg/dL (7-18) Creatinine 0.9 MG/DL (0.55-1.30) Estimat Glomerular Filtration Rate mL/min (>60) Glucose Level 90 MG/DL (74-106) Uric Acid 9.6 MG/DL (2.6-7.2) Calcium Level 9.0 MG/DL (8.5-10.1) Phosphorus Level 5.0 MG/DL (2.5-4.9) Magnesium Level 1.7 MG/DL (1.8-2.4) Total Bilirubin 0.3 MG/DL (0.2-1.0) Aspartate Amino Transf (AST/SGOT) 43 U/L (15-37) Alanine Aminotransferase (ALT/SGPT) 29 U/L (12-78) Alkaline Phosphatase 62 U/L (46-116) Total Protein 6.9 G/DL (6.4-8.2) Albumin 3.5 G/DL (3.4-5.0) Globulin 3.4 g/dL Albumin/Globulin Ratio 1.0 (1.0-2.7) Height (Feet): 5 Height (Inches): 2.00 Weight (Pounds): 133 General Appearance: no apparent distress Objective PHYSICAL EXAM General Appearance: normal inspection, well appearing, no apparent distress, alert, GCS 15 Head: atraumatic ENT: normal ENT inspection, hearing grossly normal, normal voice Neck: normal inspection, full range of motion, supple, no bony tend Respiratory: normal inspection, lungs clear, normal breath sounds, no respiratory distress, no retraction, no wheezing Cardiovascular: regular rate, rhythm, no edema Gastrointestinal: normal inspection, normal bowel sounds, non tender, soft, no guarding, no hernia Genitourinary: no CVA tenderness Musculoskeletal: normal inspection, back normal, normal range of motion Neurologic: normal inspection, alert, oriented x3, responsive, business risk consultant III-XII nml as tested, speech normal Psychiatric: normal inspection, judgement/insight normal, mood/affect normal Alden Kohler MD May 13, 2019 09:29
--- NOTE | 2019-05-13 10:50 | Infectious Diseases Prog Note ---
Assessment/Plan Assessment/Plan IMPRESSION: Pneumonia. Lung cavity, likely mycobacterial disease Diabetes mellitus, Hypertension, Major depression, History of asthma. RECOMMENDATION: TB PCR test in sputum is negative AFB smear X 1: 1+ positive 04/28 AFB culture + Continue TB treatment with RIPE TST: negative Case was D/W infectious control patient will go home with TB medications Subjective ROS Limited/Unobtainable: Yes Constitutional: Reports: no symptoms Respiratory: Reports: no symptoms Allergies: Coded Allergies: No Known Allergies (Unverified , 06/27/17) Objective Vital Signs Last 24 Hour Vital Signs Date Time Temp Pulse Resp B/P (MAP) Pulse Ox O2 Delivery O2 Flow Rate FiO2 05/13/19 09:00 Room Air 05/13/19 08:55 118/68 05/13/19 08:00 98.5 61 20 118/68 (85) 96 05/13/19 04:00 98.0 62 18 130/79 (96) 99 05/13/19 00:00 98.1 75 18 110/77 (88) 97 05/12/19 21:00 Room Air 05/12/19 20:00 98.6 73 17 106/73 (84) 95 05/12/19 18:00 112/75 05/12/19 16:00 98.8 68 18 112/75 (87) 97 05/12/19 12:00 98.3 72 16 108/73 (85) 96 05/12/19 12:00 71 Height (Feet): 5 Height (Inches): 2.00 Weight (Pounds): 133 General Appearance: no acute distress HEENT: mucous membranes moist Respiratory/Chest: lungs clear Cardiovascular: normal rate Abdomen: soft, non tender Extremities: no edema Neurologic/Psychiatric: alert, oriented x 3, responsive Laboratory Tests Test 05/13/19 06:34 White Blood Count 4.3 K/UL (4.8-10.8) L Red Blood Count 3.50 M/UL (4.20-5.40) L Hemoglobin 11.4 G/DL (12.0-16.0) L Hematocrit 33.8 % (37.0-47.0) L Mean Corpuscular Volume 96 FL (80-99) Mean Corpuscular Hemoglobin 32.6 PG (27.0-31.0) H Mean Corpuscular Hemoglobin Concent 33.8 G/DL (32.0-36.0) Red Cell Distribution Width 10.9 % (11.6-14.8) L Platelet Count 168 K/UL (150-450) Mean Platelet Volume 6.1 FL (6.5-10.1) L Neutrophils (%) (Auto) 54.4 % (45.0-75.0) Lymphocytes (%) (Auto) 33.8 % (20.0-45.0) Monocytes (%) (Auto) 9.2 % (1.0-10.0) Eosinophils (%) (Auto) 1.8 % (0.0-3.0) Basophils (%) (Auto) 0.9 % (0.0-2.0) Sodium Level 138 MMOL/L (136-145) Potassium Level 4.0 MMOL/L (3.5-5.1) Chloride Level 101 MMOL/L (98-107) Carbon Dioxide Level 28 MMOL/L (21-32) Anion Gap 9 mmol/L (5-15) Blood Urea Nitrogen 13 mg/dL (7-18) Creatinine 0.9 MG/DL (0.55-1.30) Estimat Glomerular Filtration Rate mL/min (>60) Glucose Level 90 MG/DL (74-106) Uric Acid 9.6 MG/DL (2.6-7.2) H Calcium Level 9.0 MG/DL (8.5-10.1) Phosphorus Level 5.0 MG/DL (2.5-4.9) H Magnesium Level 1.7 MG/DL (1.8-2.4) L Total Bilirubin 0.3 MG/DL (0.2-1.0) Aspartate Amino Transf (AST/SGOT) 43 U/L (15-37) H Alanine Aminotransferase (ALT/SGPT) 29 U/L (12-78) Alkaline Phosphatase 62 U/L (46-116) Total Protein 6.9 G/DL (6.4-8.2) Albumin 3.5 G/DL (3.4-5.0) Globulin 3.4 g/dL Albumin/Globulin Ratio 1.0 (1.0-2.7) Current Medications Medications (Trade) Dose Ordered Sig/Darrion Route PRN Reason Start Time Stop Time Status Last Admin Dose Admin Artificial Tears (Akwa-Tears) 2 drop FOUR TIMES A DAY BOTH EYES 04/25/19 09:00 05/25/19 08:59 05/13/19 08:56 Dextrose (Dextrose 50%) 25 ml Q30M PRN IV Hypoglycemia 04/25/19 00:00 05/25/19 00:00 Dextrose (Dextrose 50%) 50 ml Q30M PRN IV Hypoglycemia 04/25/19 00:00 05/25/19 00:00 Enoxaparin Sodium (Lovenox) 40 mg DAILY SUBQ 04/25/19 09:00 05/25/19 08:59 05/13/19 08:58 Ethambutol HCl (Myambutol) 800 mg DAILY ORAL 05/10/19 13:00 06/09/19 12:59 05/13/19 08:56 Famotidine (Pepcid) 40 mg ACBREAKFAST ORAL 04/25/19 06:30 05/25/19 06:29 05/13/19 05:56 Fluoxetine HCl (PROzac) 40 mg DAILY ORAL 04/26/19 09:00 05/26/19 08:59 05/13/19 08:56 Folic Acid (Folate) 2 mg DAILY ORAL 05/05/19 15:30 06/04/19 15:29 05/13/19 08:55 Glipizide (GlipiZIDE XL) 2.5 mg QPM ORAL 04/26/19 16:30 05/26/19 16:29 05/12/19 18:21 Insulin Aspart (NovoLOG) BEFORE MEALS AND HS SUBQ 04/25/19 06:30 05/25/19 06:29 05/12/19 21:21 Isoniazid (Inh) 300 mg DAILY ORAL 05/10/19 13:00 06/09/19 12:59 05/13/19 08:54 Losartan Potassium (Cozaar) 50 mg BID ORAL 05/10/19 18:00 06/09/19 17:59 05/13/19 08:55 Magnesium Sulfate 100 ml @ 100 mls/hr Q1H IVPB 05/13/19 09:00 05/13/19 10:59 05/13/19 10:29 Metformin HCl (Glucophage) 500 mg TWICE A DAY ORAL 04/26/19 09:00 05/26/19 08:59 05/13/19 08:55 Ondansetron HCl (Zofran) 4 mg Q6H PRN IVP Nausea & Vomiting 05/05/19 09:45 06/04/19 09:44 05/13/19 08:54 Potassium Chloride (K-Dur) 40 meq DAILY ORAL 05/08/19 09:45 06/07/19 09:44 05/13/19 08:56 Pyrazinamide (Pza) 1,000 mg DAILY ORAL 05/10/19 13:00 06/09/19 12:59 05/13/19 08:55 Pyridoxine HCl (Vitamin B6) 50 mg DAILY ORAL 05/10/19 13:00 06/09/19 12:59 05/13/19 08:55 Rifampin (Rifadin) 600 mg DAILY ORAL 05/10/19 13:00 06/09/19 12:59 05/13/19 08:54 Vitamin D (Vitamin D) 5,000 intlu DAILY ORAL 04/26/19 09:00 05/26/19 08:59 05/13/19 08:55 Carlos Kwan MD May 13, 2019 10:50
[2019-05-13 11:57] VITALS: BP 139/75
--- NOTE | 2019-05-13 12:09 | Pulmonology Progress Note ---
Assessment/Plan Problems: (1) Cavitary lesion of lung (2) Granulomatous disease (3) Chest pain (4) HTN (hypertension) (5) CAD (coronary artery disease) (6) Shingles Assessment/Plan ASSESSMENT: The patient is a 73-year-old female with a history of hypertension , hyperlipidemia, and diabetes, presenting with pleuritic chest pain in the setting of a recent respiratory illness. CT of the chest demonstrates intense bilateral reticulonodular opacities and a cavitary lesion. She is being ruled out for MTB. With respect to the etiology of her lesion, it is likely infectious/inflammatory, so the cavity has to be followed to rule out a neoplastic process. PROBLEM LIST: 1. Left lower lobe cavity thin-walled, likely infectious, inflammatory, ? doubt MTB, / AFB + but TST and CPR neg, ? AL[place], started on RIPE 05/03, D/C'd 05/09 2. Scattered bilateral reticulonodular opacities, likely an infectious bronchiolitis. 3. Pleuritic chest pain, likely secondary to above. 4. Hypertension, hyperlipidemia, diabetes. TREATMENT PLAN: 1. CXR 2. Optimize pulmonary hygiene/mobilize as tolerated. 3. Additional AFB's ordered as requested by TB control 4. Defer decision Re: Anti-TB therapy to ID and TB control 5. Continue isolation until cleared by [facility] 6. The patient will require short interval follow-up and then likely a bronchoscopy and biopsy if there is a persistent cavitary lesion. 7. Needs to F/U with me in 1-2 weeks after DC --> will repeat CT in 4 weeks. The importance of this discussed with patient as well as the possibility of an underlying neoplasm Subjective Allergies: Coded Allergies: No Known Allergies (Unverified , 06/27/17) Subjective AFVSS on RA No cough no CP No FC No NV Awaiting additional AFB's Objective Last 24 Hour Vital Signs Date Time Temp Pulse Resp B/P (MAP) Pulse Ox O2 Delivery O2 Flow Rate FiO2 05/13/19 11:57 97.6 76 18 139/75 (96) 99 05/13/19 09:00 Room Air 05/13/19 08:55 118/68 05/13/19 08:00 98.5 61 20 118/68 (85) 96 05/13/19 04:00 98.0 62 18 130/79 (96) 99 05/13/19 00:00 98.1 75 18 110/77 (88) 97 05/12/19 21:00 Room Air 05/12/19 20:00 98.6 73 17 106/73 (84) 95 05/12/19 18:00 112/75 05/12/19 16:00 98.8 68 18 112/75 (87) 97 Intake and Output 05/12/19 05/13/19 19:00 07:00 Intake Total 940 ml 120 ml Balance 940 ml 120 ml Intake Oral 240 ml 120 ml Other 700 ml # Voids 5 1 General Appearance: WD/WN, no acute distress HEENT: normocephalic, atraumatic, anicteric, mucous membranes moist Respiratory/Chest: chest wall non-tender, lungs clear, normal breath sounds, no respiratory distress, no accessory muscle use Cardiovascular: normal peripheral pulses, normal rate, regular rhythm Abdomen: normal bowel sounds, soft, non tender, no organomegaly, non distended , no mass Extremities: no cyanosis, no clubbing, no edema Laboratory Tests 05/13/19 06:34: White Blood Count 4.3L, Red Blood Count 3.50L, Hemoglobin 11.4L, Hematocrit 33.8L, Mean Corpuscular Volume 96, Mean Corpuscular Hemoglobin 32.6H, Mean Corpuscular Hemoglobin Concent 33.8, Red Cell Distribution Width 10.9L, Platelet Count 168, Mean Platelet Volume 6.1L, Neutrophils (%) (Auto) 54.4, Lymphocytes (%) (Auto) 33.8, Monocytes (%) (Auto) 9.2, Eosinophils (%) (Auto) 1.8, Basophils (%) (Auto) 0.9, Sodium Level 138, Potassium Level 4.0, Chloride Level 101, Carbon Dioxide Level 28, Anion Gap 9, Blood Urea Nitrogen 13, Creatinine 0.9, Estimat Glomerular Filtration Rate , Glucose Level 90, Uric Acid 9.6H, Calcium Level 9.0, Phosphorus Level 5.0H, Magnesium Level 1.7L, Total Bilirubin 0.3, Aspartate Amino Transf (AST/SGOT) 43H, Alanine Aminotransferase (ALT/SGPT) 29, Alkaline Phosphatase 62, Total Protein 6.9, Albumin 3.5, Globulin 3.4, Albumin/Globulin Ratio 1.0 Current Medications Medications (Trade) Dose Ordered Sig/Darrion Route PRN Reason Start Time Stop Time Status Last Admin Dose Admin Artificial Tears (Akwa-Tears) 2 drop FOUR TIMES A DAY BOTH EYES 04/25/19 09:00 05/25/19 08:59 05/13/19 08:56 Dextrose (Dextrose 50%) 25 ml Q30M PRN IV Hypoglycemia 04/25/19 00:00 05/25/19 00:00 Dextrose (Dextrose 50%) 50 ml Q30M PRN IV Hypoglycemia 04/25/19 00:00 05/25/19 00:00 Enoxaparin Sodium (Lovenox) 40 mg DAILY SUBQ 04/25/19 09:00 05/25/19 08:59 05/13/19 08:58 Ethambutol HCl (Myambutol) 800 mg DAILY ORAL 05/10/19 13:00 06/09/19 12:59 05/13/19 08:56 Famotidine (Pepcid) 40 mg ACBREAKFAST ORAL 04/25/19 06:30 05/25/19 06:29 05/13/19 05:56 Fluoxetine HCl (PROzac) 40 mg DAILY ORAL 04/26/19 09:00 05/26/19 08:59 05/13/19 08:56 Folic Acid (Folate) 2 mg DAILY ORAL 05/05/19 15:30 06/04/19 15:29 05/13/19 08:55 Glipizide (GlipiZIDE XL) 2.5 mg QPM ORAL 04/26/19 16:30 05/26/19 16:29 05/12/19 18:21 Insulin Aspart (NovoLOG) BEFORE MEALS AND HS SUBQ 04/25/19 06:30 05/25/19 06:29 05/12/19 21:21 Isoniazid (Inh) 300 mg DAILY ORAL 05/10/19 13:00 06/09/19 12:59 05/13/19 08:54 Losartan Potassium (Cozaar) 50 mg BID ORAL 05/10/19 18:00 06/09/19 17:59 05/13/19 08:55 Metformin HCl (Glucophage) 500 mg TWICE A DAY ORAL 04/26/19 09:00 05/26/19 08:59 05/13/19 08:55 Ondansetron HCl (Zofran) 4 mg Q6H PRN IVP Nausea & Vomiting 05/05/19 09:45 06/04/19 09:44 05/13/19 08:54 Potassium Chloride (K-Dur) 40 meq DAILY ORAL 05/08/19 09:45 06/07/19 09:44 05/13/19 08:56 Pyrazinamide (Pza) 1,000 mg DAILY ORAL 05/10/19 13:00 06/09/19 12:59 05/13/19 08:55 Pyridoxine HCl (Vitamin B6) 50 mg DAILY ORAL 05/14/19 09:00 06/13/19 08:59 Rifampin (Rifadin) 600 mg DAILY ORAL 05/10/19 13:00 06/09/19 12:59 05/13/19 08:54 Vitamin D (Vitamin D) 5,000 intlu DAILY ORAL 04/26/19 09:00 05/26/19 08:59 05/13/19 08:55 Sean Vaughn MD May 13, 2019 12:09
--- NOTE | 2019-05-13 13:26 | Diagnostic Imaging Report ---
Indication: Dyspnea Comparison: 04/24/2019 A single view chest radiograph was obtained. Findings: No definite infiltrate or pulmonary vascular congestion identified. The heart is enlarged on this exam but the projection angle is lordotic. The aorta is mildly enlarged consistent with atherosclerotic vascular disease. The bones are osteopenic. Impression: No acute disease
--- NOTE | 2019-05-13 13:39 | NUR ---
RADIOLOGY DEPT., CHEST X-RAY DONE.-P.DYE
--- NOTE | 2019-05-13 14:41 | Nephrology Progress Note ---
Assessment/Plan Problem List: (1) Cavitary lesion of lung (2) HTN (hypertension) (3) Hypotensive episode (4) Hyperuricemia Assessment Hypotension: ? due to antihypertensives TB Plan Plan: Adjust BP meds- BP stable now anti TB meds WAS DISCONTINUED per orders ? DC Subjective ROS Limited/Unobtainable: No Constitutional: Reports: malaise Objective Objective Last 24 Hour Vital Signs Date Time Temp Pulse Resp B/P (MAP) Pulse Ox O2 Delivery O2 Flow Rate FiO2 05/13/19 11:57 97.6 76 18 139/75 (96) 99 05/13/19 09:00 Room Air 05/13/19 08:55 118/68 05/13/19 08:00 98.5 61 20 118/68 (85) 96 05/13/19 04:00 98.0 62 18 130/79 (96) 99 05/13/19 00:00 98.1 75 18 110/77 (88) 97 05/12/19 21:00 Room Air 05/12/19 20:00 98.6 73 17 106/73 (84) 95 05/12/19 18:00 112/75 05/12/19 16:00 98.8 68 18 112/75 (87) 97 Intake and Output 05/12/19 05/13/19 19:00 07:00 Intake Total 940 ml 120 ml Balance 940 ml 120 ml Intake Oral 240 ml 120 ml Other 700 ml # Voids 5 1 Laboratory Tests 05/13/19 06:34: White Blood Count 4.3L, Red Blood Count 3.50L, Hemoglobin 11.4L, Hematocrit 33.8L, Mean Corpuscular Volume 96, Mean Corpuscular Hemoglobin 32.6H, Mean Corpuscular Hemoglobin Concent 33.8, Red Cell Distribution Width 10.9L, Platelet Count 168, Mean Platelet Volume 6.1L, Neutrophils (%) (Auto) 54.4, Lymphocytes (%) (Auto) 33.8, Monocytes (%) (Auto) 9.2, Eosinophils (%) (Auto) 1.8, Basophils (%) (Auto) 0.9, Sodium Level 138, Potassium Level 4.0, Chloride Level 101, Carbon Dioxide Level 28, Anion Gap 9, Blood Urea Nitrogen 13, Creatinine 0.9, Estimat Glomerular Filtration Rate , Glucose Level 90, Uric Acid 9.6H, Calcium Level 9.0, Phosphorus Level 5.0H, Magnesium Level 1.7L, Total Bilirubin 0.3, Aspartate Amino Transf (AST/SGOT) 43H, Alanine Aminotransferase (ALT/SGPT) 29, Alkaline Phosphatase 62, Total Protein 6.9, Albumin 3.5, Globulin 3.4, Albumin/Globulin Ratio 1.0 Height (Feet): 5 Height (Inches): 2.00 Weight (Pounds): 133 General Appearance: no apparent distress Objective no change Anirudh Garcia MD May 13, 2019 14:41
--- NOTE | 2019-05-13 15:58 | NUR ---
NURSE NOTES: CHELE rn collected 3rd AFB and sent it down to lab, received LAB Emiliano fax results of 05-11 is negative and placed in charge Addendum: 05/13/19 at 1601 by MAYTE ALCANTARA RN chart
[2019-05-13 16:00] VITALS: BP_SYST 101; BP_SYST 143; BP_DIAS 69; BP_DIAS 95
--- NOTE | 2019-05-13 16:28 | Cardiac Electrophysiology PN ---
Assessment/Plan Assessment/Plan 1. Chest pain, No MD. Due to underlying lung lesion 2. HTN on Losartan 25 daily 3. NIDDM 4. HLPD 5. Cavitary lung lesion, back on respiratory isolation. on INH.RIF,ETB,PZA per Dr Kwan. FU Dr. Stroud as well 6. Anemia DW RN Awaiting MERLENE for clearance Subjective Subjective Still on respiratory isolation.No CP or SOB Objective Last 24 Hour Vital Signs Date Time Temp Pulse Resp B/P (MAP) Pulse Ox O2 Delivery O2 Flow Rate FiO2 05/13/19 11:57 97.6 76 18 139/75 (96) 99 05/13/19 09:00 Room Air 05/13/19 08:55 118/68 05/13/19 08:00 98.5 61 20 118/68 (85) 96 05/13/19 04:00 98.0 62 18 130/79 (96) 99 05/13/19 00:00 98.1 75 18 110/77 (88) 97 05/12/19 21:00 Room Air 05/12/19 20:00 98.6 73 17 106/73 (84) 95 05/12/19 18:00 112/75 Intake and Output 05/12/19 05/13/19 19:00 07:00 Intake Total 940 ml 120 ml Balance 940 ml 120 ml Intake Oral 240 ml 120 ml Other 700 ml # Voids 5 1 Laboratory Tests Test 05/13/19 06:34 White Blood Count 4.3 K/UL (4.8-10.8) L Red Blood Count 3.50 M/UL (4.20-5.40) L Hemoglobin 11.4 G/DL (12.0-16.0) L Hematocrit 33.8 % (37.0-47.0) L Mean Corpuscular Volume 96 FL (80-99) Mean Corpuscular Hemoglobin 32.6 PG (27.0-31.0) H Mean Corpuscular Hemoglobin Concent 33.8 G/DL (32.0-36.0) Red Cell Distribution Width 10.9 % (11.6-14.8) L Platelet Count 168 K/UL (150-450) Mean Platelet Volume 6.1 FL (6.5-10.1) L Neutrophils (%) (Auto) 54.4 % (45.0-75.0) Lymphocytes (%) (Auto) 33.8 % (20.0-45.0) Monocytes (%) (Auto) 9.2 % (1.0-10.0) Eosinophils (%) (Auto) 1.8 % (0.0-3.0) Basophils (%) (Auto) 0.9 % (0.0-2.0) Sodium Level 138 MMOL/L (136-145) Potassium Level 4.0 MMOL/L (3.5-5.1) Chloride Level 101 MMOL/L (98-107) Carbon Dioxide Level 28 MMOL/L (21-32) Anion Gap 9 mmol/L (5-15) Blood Urea Nitrogen 13 mg/dL (7-18) Creatinine 0.9 MG/DL (0.55-1.30) Estimat Glomerular Filtration Rate mL/min (>60) Glucose Level 90 MG/DL (74-106) Uric Acid 9.6 MG/DL (2.6-7.2) H Calcium Level 9.0 MG/DL (8.5-10.1) Phosphorus Level 5.0 MG/DL (2.5-4.9) H Magnesium Level 1.7 MG/DL (1.8-2.4) L Total Bilirubin 0.3 MG/DL (0.2-1.0) Aspartate Amino Transf (AST/SGOT) 43 U/L (15-37) H Alanine Aminotransferase (ALT/SGPT) 29 U/L (12-78) Alkaline Phosphatase 62 U/L (46-116) Total Protein 6.9 G/DL (6.4-8.2) Albumin 3.5 G/DL (3.4-5.0) Globulin 3.4 g/dL Albumin/Globulin Ratio 1.0 (1.0-2.7) Microbiology Date/Time Source Procedure Growth Status 05/11/19 06:00 Sputum AFB Specimen Processing Tissue - Final Resulted 05/11/19 06:00 Sputum Acid Fast Bacilli Smear - Final Resulted 05/11/19 06:00 Sputum Acid Fast Bacilli Culture Pending Resulted Objective HEENT: No JVD Respiratory/Chest: Coarse rhonchi Cardiovascular/Chest: Normal peripheral pulses, normal rate, regular rhythm Abdomen: Normal bowel sounds, non tender, soft, no organomegaly Extremities: Normal range of motion, non-tender, normal inspection Toluie,Matti MD May 13, 2019 16:28
--- NOTE | 2019-05-13 19:20 | NUR ---
HAND-OFF: Report given to Eva SONG. Pt remains stable.
[2019-05-13 20:00] VITALS: BP 108/77
--- NOTE | 2019-05-13 21:51 | General Progress Note ---
Assessment/Plan Problem List: (1) Cavitary lesion of lung ICD Codes: J98.4 - Other disorders of lung SNOMED: 732650068 (2) Granulomatous disease ICD Codes: D71 - Functional disorders of polymorphonuclear neutrophils SNOMED: 052230488 (3) HTN (hypertension) ICD Codes: I10 - Essential (primary) hypertension SNOMED: 29627698 (4) CAD (coronary artery disease) ICD Codes: I25.10 - Atherosclerotic heart disease of [place] coronary artery without angina pectoris SNOMED: 17481898 Status: stable, progressing Assessment/Plan: awaiting clearance for public health htn cavitary lesions sepsis reveiwed chart and labs Subjective ROS Limited/Unobtainable: Yes Allergies: Coded Allergies: No Known Allergies (Unverified , 06/27/17) Subjective cough Objective Last 24 Hour Vital Signs Date Time Temp Pulse Resp B/P (MAP) Pulse Ox O2 Delivery O2 Flow Rate FiO2 05/13/19 21:00 Room Air 05/13/19 20:49 71 05/13/19 20:00 97.4 75 20 108/77 (87) 98 05/13/19 17:23 101/69 05/13/19 16:00 98.9 76 20 101/69 (80) 96 05/13/19 11:57 97.6 76 18 139/75 (96) 99 05/13/19 09:00 Room Air 05/13/19 08:55 118/68 05/13/19 08:00 98.5 61 20 118/68 (85) 96 05/13/19 04:00 98.0 62 18 130/79 (96) 99 05/13/19 00:00 98.1 75 18 110/77 (88) 97 Intake and Output 05/12/19 05/13/19 18:59 06:59 Intake Total 940 ml Balance 940 ml Intake Oral 240 ml Other 700 ml # Voids 5 1 Laboratory Tests 05/13/19 06:34: White Blood Count 4.3L, Red Blood Count 3.50L, Hemoglobin 11.4L, Hematocrit 33.8L, Mean Corpuscular Volume 96, Mean Corpuscular Hemoglobin 32.6H, Mean Corpuscular Hemoglobin Concent 33.8, Red Cell Distribution Width 10.9L, Platelet Count 168, Mean Platelet Volume 6.1L, Neutrophils (%) (Auto) 54.4, Lymphocytes (%) (Auto) 33.8, Monocytes (%) (Auto) 9.2, Eosinophils (%) (Auto) 1.8, Basophils (%) (Auto) 0.9, Sodium Level 138, Potassium Level 4.0, Chloride Level 101, Carbon Dioxide Level 28, Anion Gap 9, Blood Urea Nitrogen 13, Creatinine 0.9, Estimat Glomerular Filtration Rate , Glucose Level 90, Uric Acid 9.6H, Calcium Level 9.0, Phosphorus Level 5.0H, Magnesium Level 1.7L, Total Bilirubin 0.3, Aspartate Amino Transf (AST/SGOT) 43H, Alanine Aminotransferase (ALT/SGPT) 29, Alkaline Phosphatase 62, Total Protein 6.9, Albumin 3.5, Globulin 3.4, Albumin/Globulin Ratio 1.0 Height (Feet): 5 Height (Inches): 2.00 Weight (Pounds): 133 Cardiovascular: regular rhythm Respiratory/Chest: lungs clear Abdomen: soft Paula Nixon MD May 13, 2019 21:51
[2019-05-14] VITALS: BP 111/71
[2019-05-14] MEDS ORDERED: Isoniazid 300mg tab ORAL SCH
[2019-05-14 04:00] VITALS: BP 107/69
[2019-05-14] MEDS: NovoLOG Insulin Flexpen SUBQ SCH ×4 (06:29→22:31)
[2019-05-14 08:00] VITALS: BP 113/77
--- NOTE | 2019-05-14 08:07 | NUR ---
NURSE NOTES: Patient is alert and oriented. No s/s of distress. Patient is eating breakfast. Side rails are up x2, bed is locked, in lowest position, and call light is within reach. Will continue to monitor.
[2019-05-14] MEDS: Isoniazid 300mg tab ORAL SCH (08:54)
[2019-05-14] MEDS: metFORMIN 500mg tab ORAL SCH ×2 (08:55→17:13)
[2019-05-14] MEDS: Losartan 50mg tab ORAL SCH ×2 (08:55→17:10)
[2019-05-14] MEDS: Vitamin D 1000 IU Tab ORAL SCH (08:56)
[2019-05-14] MEDS: Artificial Tears 1.4% Op Soln BOTH EYES SCH ×4 (08:56→22:26)
[2019-05-14] MEDS: Enoxaparin 40mg Inj SUBQ SCH (08:59)
[2019-05-14] MEDS ORDERED: Pyridoxine 50mg tab ORAL SCH ×2 (09:00)
--- NOTE | 2019-05-14 10:32 | General Progress Note ---
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 - Functional disorders of polymorphonuclear neutrophils SNOMED: 304993193 (3) HTN (hypertension) ICD Codes: I10 - Essential (primary) hypertension SNOMED: 30329418 (4) CAD (coronary artery disease) ICD Codes: I25.10 - Atherosclerotic heart disease of [place] coronary artery without angina pectoris SNOMED: 35770518 Status: stable, progressing Assessment/Plan: awaiting clearance for public health htn cavitary lesions no change afebrile vitals stable not hypoxic Subjective ROS Limited/Unobtainable: Yes Allergies: Coded Allergies: No Known Allergies (Unverified , 06/27/17) Subjective cough Objective Last 24 Hour Vital Signs Date Time Temp Pulse Resp B/P (MAP) Pulse Ox O2 Delivery O2 Flow Rate FiO2 05/14/19 08:55 113/77 05/14/19 08:30 Room Air 05/14/19 08:00 97.5 65 18 113/77 (89) 94 05/14/19 04:00 96.6 73 18 107/69 (82) 97 05/14/19 00:00 96.9 66 18 111/71 (84) 97 05/13/19 21:00 Room Air 05/13/19 20:49 71 05/13/19 20:00 97.4 75 20 108/77 (87) 98 05/13/19 17:23 101/69 05/13/19 16:00 98.9 76 20 101/69 (80) 96 05/13/19 11:57 97.6 76 18 139/75 (96) 99 Intake and Output 05/13/19 05/14/19 19:00 07:00 Intake Total 240 ml Output Total 3 ml Balance 237 ml Intake Oral 240 ml Output Urine Total 3 ml # Voids 3 Height (Feet): 5 Height (Inches): 2.00 Weight (Pounds): 133 Cardiovascular: normal rate Respiratory/Chest: lungs clear Paula Nixon MD May 14, 2019 10:32
--- NOTE | 2019-05-14 11:34 | Nephrology Progress Note ---
Assessment/Plan Problem List: (1) Cavitary lesion of lung (2) HTN (hypertension) (3) Hypotensive episode (4) Hyperuricemia Assessment Hypotension: ? due to antihypertensives TB Plan Plan: Adjust BP meds- BP stable now anti TB meds WAS DISCONTINUED per orders ? DC Subjective ROS Limited/Unobtainable: No Constitutional: Reports: malaise Objective Objective Last 24 Hour Vital Signs Date Time Temp Pulse Resp B/P (MAP) Pulse Ox O2 Delivery O2 Flow Rate FiO2 05/14/19 08:55 113/77 05/14/19 08:30 Room Air 05/14/19 08:00 97.5 65 18 113/77 (89) 94 05/14/19 04:00 96.6 73 18 107/69 (82) 97 05/14/19 00:00 96.9 66 18 111/71 (84) 97 05/13/19 21:00 Room Air 05/13/19 20:49 71 05/13/19 20:00 97.4 75 20 108/77 (87) 98 05/13/19 17:23 101/69 05/13/19 16:00 98.9 76 20 101/69 (80) 96 05/13/19 11:57 97.6 76 18 139/75 (96) 99 Intake and Output 05/13/19 05/14/19 19:00 07:00 Intake Total 240 ml Output Total 3 ml Balance 237 ml Intake Oral 240 ml Output Urine Total 3 ml # Voids 3 Height (Feet): 5 Height (Inches): 2.00 Weight (Pounds): 133 Objective no change Anirudh Garcia MD May 14, 2019 11:34
--- NOTE | 2019-05-14 11:59 | NUR ---
RD ASSESSMENT & RECOMMENDATIONS SEE CARE ACTIVITY FOR COMPLETE ASSESSMENT DAILY ESTIMATED NEEDS: Needs based on DM, cardiac 61.7kg 25-30 kcals/kg 3197-4374 total kcals 1-1.5 g protein/kg 62-93 g total protein Fluid per MD, on diuretics NUTRITION DIAGNOSIS: Altered nutrition related lab values r/t diabetes as evidenced by A1C 6.0, elev fasting BG (108 115) and POC (91 143 120 90), pt on oral and IM hypoglycemics. (CURRENT DIET:Regular) PO DIET RECOMMENDATIONS--->>> DIET CHANGE TO CCHO LOW ADDITIONAL RECOMMENDATIONS: 1) Obtain an A1C as able for eval -> 6.0 2) Calibrated bed scale wt - est 58.5kg 3) Monitor phos (5.0), need for dietary restriction.
[2019-05-14 12:00] VITALS: BP 104/76
--- NOTE | 2019-05-14 12:13 | Infectious Diseases Prog Note ---
Assessment/Plan Assessment/Plan IMPRESSION: Pneumonia. Atypical mycobacterial disease of lung, MAC Diabetes mellitus, Hypertension, Major depression, History of asthma. RECOMMENDATION: TB PCR test in sputum is negative AFB smear X 1: 1+ positive 04/28 AFB culture : MAC Continue Rifampin & Ethambutol, add Azithromycin Discontinue INH, PZA & Pyridoxin TST: negative Case was D/W infectious control Subjective ROS Limited/Unobtainable: Yes Constitutional: Reports: no symptoms Allergies: Coded Allergies: No Known Allergies (Unverified , 06/27/17) Objective Vital Signs Last 24 Hour Vital Signs Date Time Temp Pulse Resp B/P (MAP) Pulse Ox O2 Delivery O2 Flow Rate FiO2 05/14/19 08:55 113/77 05/14/19 08:30 Room Air 05/14/19 08:00 97.5 65 18 113/77 (89) 94 05/14/19 04:00 96.6 73 18 107/69 (82) 97 05/14/19 00:00 96.9 66 18 111/71 (84) 97 05/13/19 21:00 Room Air 05/13/19 20:49 71 05/13/19 20:00 97.4 75 20 108/77 (87) 98 05/13/19 17:23 101/69 05/13/19 16:00 98.9 76 20 101/69 (80) 96 Height (Feet): 5 Height (Inches): 2.00 Weight (Pounds): 133 General Appearance: no acute distress HEENT: mucous membranes moist Respiratory/Chest: lungs clear Cardiovascular: normal rate Abdomen: soft, non tender Extremities: no edema Neurologic/Psychiatric: alert, oriented x 3, responsive Current Medications Medications (Trade) Dose Ordered Sig/Darrion Route PRN Reason Start Time Stop Time Status Last Admin Dose Admin Artificial Tears (Akwa-Tears) 2 drop FOUR TIMES A DAY BOTH EYES 04/25/19 09:00 05/25/19 08:59 05/14/19 08:56 Dextrose (Dextrose 50%) 25 ml Q30M PRN IV Hypoglycemia 04/25/19 00:00 05/25/19 00:00 Dextrose (Dextrose 50%) 50 ml Q30M PRN IV Hypoglycemia 04/25/19 00:00 05/25/19 00:00 Enoxaparin Sodium (Lovenox) 40 mg DAILY SUBQ 04/25/19 09:00 05/25/19 08:59 05/14/19 08:59 Ethambutol HCl (Myambutol) 800 mg DAILY ORAL 05/10/19 13:00 06/09/19 12:59 05/14/19 08:54 Famotidine (Pepcid) 40 mg ACBREAKFAST ORAL 04/25/19 06:30 05/25/19 06:29 05/14/19 06:32 Fluoxetine HCl (PROzac) 40 mg DAILY ORAL 04/26/19 09:00 05/26/19 08:59 05/14/19 08:54 Folic Acid (Folate) 2 mg DAILY ORAL 05/05/19 15:30 06/04/19 15:29 05/14/19 08:55 Glipizide (GlipiZIDE XL) 2.5 mg QPM ORAL 04/26/19 16:30 05/26/19 16:29 05/13/19 17:22 Insulin Aspart (NovoLOG) BEFORE MEALS AND HS SUBQ 04/25/19 06:30 05/25/19 06:29 05/12/19 21:21 Isoniazid (Inh) 300 mg DAILY ORAL 05/10/19 13:00 06/09/19 12:59 05/14/19 08:54 Losartan Potassium (Cozaar) 50 mg BID ORAL 05/10/19 18:00 06/09/19 17:59 05/13/19 08:55 Metformin HCl (Glucophage) 500 mg TWICE A DAY ORAL 04/26/19 09:00 05/26/19 08:59 05/14/19 08:55 Ondansetron HCl (Zofran) 4 mg Q6H PRN IVP Nausea & Vomiting 05/05/19 09:45 06/04/19 09:44 05/14/19 07:43 Potassium Chloride (K-Dur) 40 meq DAILY ORAL 05/08/19 09:45 06/07/19 09:44 05/14/19 08:54 Pyrazinamide (Pza) 1,000 mg DAILY ORAL 05/10/19 13:00 06/09/19 12:59 05/14/19 08:55 Pyridoxine HCl (Vitamin B6) 50 mg DAILY ORAL 05/14/19 09:00 06/13/19 08:59 05/14/19 08:56 Rifampin (Rifadin) 600 mg DAILY ORAL 05/10/19 13:00 06/09/19 12:59 05/14/19 08:55 Vitamin D (Vitamin D) 5,000 intlu DAILY ORAL 04/26/19 09:00 05/26/19 08:59 05/14/19 08:56 Carlos Kwan MD May 14, 2019 12:13
--- NOTE | 2019-05-14 12:14 | NUR ---
CASE MANAGEMENT:REVIEW 05/13/19 SI: CAVITARY LESION OF LUNG R/O Tb. ROLFGLM[place] 97.5 65 18 113/77 94% ON RA H/H-11.4/33.8 MAG-1.7 IS: COZAAR PO BID PYRIDOXINE PO QD MYAMBUTOL PO QD INH PO QD PZA PO QD RIFAMPIN PO QD LOVENOX SQ QD : TELEMETRY STATUS DCP: PATIENT IS FROM HOME PLAN: DISCHARGE HOME ONCE CLEARED BY HEALTH DEPARTMENT
--- NOTE | 2019-05-14 12:18 | NUR ---
DISCHARGE PLANNING SECOND REQUEST HAS BEEN MADE TO [facility] DEPARTMENT FOR DISCHARGE CLEARANCE FAXED [id number] FORM WAITING FOR CLEARANCE Addendum: 05/14/19 at 1449 by HERMAN KAMINSKI LVN LVN RECEIVED MESSAGE FROM LORAINE VALERA WITH TB CONTROL REQUESTING ADDITIONAL DOCUMENTATION FAXED THE FOLLOWING: CHEST XRAY AFTER 04/24/19 LABS AFTER 05/10/19 CURRENT NOTES LORAINE VALERA T: [phone] F: [phone] AWAIT WRITTEN CLEARANCE
[2019-05-14] MEDS: Azithromycin 250mg tab ORAL SCH (12:30)
--- NOTE | 2019-05-14 13:48 | Cardiac Electrophysiology PN ---
Assessment/Plan Assessment/Plan 1. Chest pain, No DE. Due to underlying lung lesion 2. HTN on Losartan 25 daily 3. NIDDM 4. HLPD 5. Cavitary lung lesion, back on respiratory isolation. on INH.RIF,ETB,PZA per Dr Kwan and Dr. Vaughn as well 6. Anemia DW RN Subjective Subjective Still on respiratory isolation.No CP or SOB. Awaiting another AFB negative sputum. Objective Last 24 Hour Vital Signs Date Time Temp Pulse Resp B/P (MAP) Pulse Ox O2 Delivery O2 Flow Rate FiO2 05/14/19 12:00 97.5 71 18 104/76 (85) 94 05/14/19 08:55 113/77 05/14/19 08:30 Room Air 05/14/19 08:00 97.5 65 18 113/77 (89) 94 05/14/19 04:00 96.6 73 18 107/69 (82) 97 05/14/19 00:00 96.9 66 18 111/71 (84) 97 05/13/19 21:00 Room Air 05/13/19 20:49 71 05/13/19 20:00 97.4 75 20 108/77 (87) 98 05/13/19 17:23 101/69 05/13/19 16:00 98.9 76 20 101/69 (80) 96 Intake and Output 05/13/19 05/14/19 19:00 07:00 Intake Total 240 ml Output Total 3 ml Balance 237 ml Intake Oral 240 ml Output Urine Total 3 ml # Voids 3 Microbiology Date/Time Source Procedure Growth Status 05/13/19 12:25 Sputum AFB Specimen Processing Tissue - Final Resulted 05/13/19 12:25 Sputum Acid Fast Bacilli Smear - Final Resulted 05/13/19 12:25 Sputum Acid Fast Bacilli Culture Pending Resulted 05/12/19 20:00 Sputum AFB Specimen Processing Tissue - Final Resulted 05/12/19 20:00 Sputum Acid Fast Bacilli Smear - Final Resulted 05/12/19 20:00 Sputum Acid Fast Bacilli Culture Pending Resulted Objective HEENT: No JVD Respiratory/Chest: Coarse rhonchi Cardiovascular/Chest: Normal peripheral pulses, normal rate, regular rhythm Abdomen: Normal bowel sounds, non tender, soft, no organomegaly Extremities: Normal range of motion, non-tender, normal inspection Matti Lakhani MD May 14, 2019 13:48
--- NOTE | 2019-05-14 15:27 | Hematology/Onc Progress Note ---
Assessment/Plan Assessment/Plan Assessment and Recs: # Cavitary lesion of lung on imaging seen on CT, ++ jonathan afb as per pulm, at this time on ripe, r/o inflammatory cause/issues --> may dc ripe as per pulm/id --> per pulm recs, monitor for resolution --> if persists may need biopsy/bronch --> tumor markers are neg --> consider re-image in several months --> pending placement ltach with tb control clearance # Anemia of chronic disease due to underlying chronic medical issues, multifactorial --> Anemia workup has been reviewed. Ferritin 133 --> No evidence of hemolysis is noted, peripheral smear has been reviewed --> Hgb goal >7. Transfuse prn. --> Cont po folic acid --> Epogen or iron at this time is not particularly indicated --> Medications have been reviewed --> Hgb trend: 11.5-->12.1-->11.8-->10.9-->11.3 # Leukopenia with range 3-5k --> hepatitis and hiv neg --> us of the abdomen is negative, no cirrhosis and hsm # Chest pain r/o acs v inflammatory disease of lung, bronchitis --> CT imaging of the chest was ordered which showed calcified mediastinal and hilar lymph nodes as well as mild cardiomegaly without pericardial effusion. There is some fluid impacting some of the left lower lobe bronchi posterior medially no pulmonary embolism or aortic aneurysm or dissection was seen --> Patient given IV antibiotics --> as per cards recs --> nitrog prn --> outpatient stress test # Granulomatous disease # HTN. sbp goal <140 --> per cards The time the noted was written does not necessarily correspond to the time the patient was seen,. Subjective Hematologic/Lymphatic: Reports: anemia Allergies: Coded Allergies: No Known Allergies (Unverified , 06/27/17) All Systems: reviewed and negative except above Subjective 04/26: Pt is sitting in bed and having breakfast. No c/o pain. Labs reviewed. 04/27: no events, cp is better, seen by pulm, cards 04/28: no fevers or chills, no night sweats noted 04/30: Pt on airbourne isolation, cough better with cough syrup. 05/01: no acute events, no bleeding reported. 05/02:no distress, VS reviewed, afebrile. 05/03: no events, oimaging reviewed, seen by pulm and id 05/04, unable to provide sputum, seen by psych, otherwise no changes 05/05: no events to report, tolerating ripe 05/06: no events, no fevers, ripe has been started 05/07: no events, a+o x4, seen by pulm, potentially consider dc ripe 05/08: no events overnight, uric acid is still high, seen by renal 05/10: in resp isolation, no events noted, no f/c 05/11: no events, seen by pulm, cbc reviewed 05/12: no bleeding, no chills, no fevers, no changes, cbc reviewed 05/13: no fevers,or chills, no events noted, no bleeding 05/14: awake and alert, dc planning. vs stable. Objective Objective Current Medications Medications (Trade) Dose Ordered Sig/Darrion Route PRN Reason Start Time Stop Time Status Last Admin Dose Admin Artificial Tears (Akwa-Tears) 2 drop FOUR TIMES A DAY BOTH EYES 04/25/19 09:00 05/25/19 08:59 05/14/19 12:30 Azithromycin (Zithromax) 500 mg DAILY ORAL 05/14/19 12:15 05/21/19 12:14 05/14/19 12:30 Dextrose (Dextrose 50%) 25 ml Q30M PRN IV Hypoglycemia 04/25/19 00:00 05/25/19 00:00 Dextrose (Dextrose 50%) 50 ml Q30M PRN IV Hypoglycemia 04/25/19 00:00 05/25/19 00:00 Enoxaparin Sodium (Lovenox) 40 mg DAILY SUBQ 04/25/19 09:00 05/25/19 08:59 05/14/19 08:59 Ethambutol HCl (Myambutol) 800 mg DAILY ORAL 05/10/19 13:00 06/09/19 12:59 05/14/19 08:54 Famotidine (Pepcid) 40 mg ACBREAKFAST ORAL 04/25/19 06:30 05/25/19 06:29 05/14/19 06:32 Fluoxetine HCl (PROzac) 40 mg DAILY ORAL 04/26/19 09:00 05/26/19 08:59 05/14/19 08:54 Folic Acid (Folate) 2 mg DAILY ORAL 05/05/19 15:30 06/04/19 15:29 05/14/19 08:55 Glipizide (GlipiZIDE XL) 2.5 mg QPM ORAL 04/26/19 16:30 05/26/19 16:29 05/13/19 17:22 Insulin Aspart (NovoLOG) BEFORE MEALS AND HS SUBQ 04/25/19 06:30 05/25/19 06:29 05/12/19 21:21 Losartan Potassium (Cozaar) 50 mg BID ORAL 05/10/19 18:00 06/09/19 17:59 05/13/19 08:55 Metformin HCl (Glucophage) 500 mg TWICE A DAY ORAL 04/26/19 09:00 05/26/19 08:59 05/14/19 08:55 Ondansetron HCl (Zofran) 4 mg Q6H PRN IVP Nausea & Vomiting 05/05/19 09:45 06/04/19 09:44 05/14/19 07:43 Potassium Chloride (K-Dur) 40 meq DAILY ORAL 05/08/19 09:45 06/07/19 09:44 05/14/19 08:54 Rifampin (Rifadin) 600 mg DAILY ORAL 05/10/19 13:00 06/09/19 12:59 05/14/19 08:55 Vitamin D (Vitamin D) 5,000 intlu DAILY ORAL 04/26/19 09:00 05/26/19 08:59 05/14/19 08:56 Last 24 Hour Vital Signs Date Time Temp Pulse Resp B/P (MAP) Pulse Ox O2 Delivery O2 Flow Rate FiO2 05/14/19 12:00 97.5 71 18 104/76 (85) 94 05/14/19 08:55 113/77 05/14/19 08:30 Room Air 05/14/19 08:00 97.5 65 18 113/77 (89) 94 05/14/19 04:00 96.6 73 18 107/69 (82) 97 05/14/19 00:00 96.9 66 18 111/71 (84) 97 05/13/19 21:00 Room Air 05/13/19 20:49 71 05/13/19 20:00 97.4 75 20 108/77 (87) 98 05/13/19 17:23 101/69 05/13/19 16:00 98.9 76 20 101/69 (80) 96 05/13/19 11:57 97.6 76 18 139/75 (96) 99 05/13/19 09:00 Room Air 05/13/19 08:55 118/68 05/13/19 08:00 98.5 61 20 118/68 (85) 96 05/13/19 04:00 98.0 62 18 130/79 (96) 99 05/13/19 00:00 98.1 75 18 110/77 (88) 97 05/12/19 21:00 Room Air 05/12/19 20:00 98.6 73 17 106/73 (84) 95 05/12/19 18:00 112/75 05/12/19 16:00 98.8 68 18 112/75 (87) 97 Intake and Output 05/13/19 05/14/19 19:00 07:00 Intake Total 240 ml Output Total 3 ml Balance 237 ml Intake Oral 240 ml Output Urine Total 3 ml # Voids 3 Labs Test 05/13/19 06:34 White Blood Count 4.3 K/UL (4.8-10.8) Red Blood Count 3.50 M/UL (4.20-5.40) Hemoglobin 11.4 G/DL (12.0-16.0) Hematocrit 33.8 % (37.0-47.0) Mean Corpuscular Volume 96 FL (80-99) Mean Corpuscular Hemoglobin 32.6 PG (27.0-31.0) Mean Corpuscular Hemoglobin Concent 33.8 G/DL (32.0-36.0) Red Cell Distribution Width 10.9 % (11.6-14.8) Platelet Count 168 K/UL (150-450) Mean Platelet Volume 6.1 FL (6.5-10.1) Neutrophils (%) (Auto) 54.4 % (45.0-75.0) Lymphocytes (%) (Auto) 33.8 % (20.0-45.0) Monocytes (%) (Auto) 9.2 % (1.0-10.0) Eosinophils (%) (Auto) 1.8 % (0.0-3.0) Basophils (%) (Auto) 0.9 % (0.0-2.0) Sodium Level 138 MMOL/L (136-145) Potassium Level 4.0 MMOL/L (3.5-5.1) Chloride Level 101 MMOL/L (98-107) Carbon Dioxide Level 28 MMOL/L (21-32) Anion Gap 9 mmol/L (5-15) Blood Urea Nitrogen 13 mg/dL (7-18) Creatinine 0.9 MG/DL (0.55-1.30) Estimat Glomerular Filtration Rate mL/min (>60) Glucose Level 90 MG/DL (74-106) Uric Acid 9.6 MG/DL (2.6-7.2) Calcium Level 9.0 MG/DL (8.5-10.1) Phosphorus Level 5.0 MG/DL (2.5-4.9) Magnesium Level 1.7 MG/DL (1.8-2.4) Total Bilirubin 0.3 MG/DL (0.2-1.0) Aspartate Amino Transf (AST/SGOT) 43 U/L (15-37) Alanine Aminotransferase (ALT/SGPT) 29 U/L (12-78) Alkaline Phosphatase 62 U/L (46-116) Total Protein 6.9 G/DL (6.4-8.2) Albumin 3.5 G/DL (3.4-5.0) Globulin 3.4 g/dL Albumin/Globulin Ratio 1.0 (1.0-2.7) Height (Feet): 5 Height (Inches): 2.00 Weight (Pounds): 133 Objective PHYSICAL EXAM General Appearance: normal inspection, well appearing, no apparent distress, alert, GCS 15 Head: atraumatic ENT: normal ENT inspection, hearing grossly normal, normal voice Neck: normal inspection, full range of motion, supple, no bony tend Respiratory: normal inspection, lungs clear, normal breath sounds, no respiratory distress, no retraction, no wheezing Cardiovascular: regular rate, rhythm, no edema Gastrointestinal: normal inspection, normal bowel sounds, non tender, soft, no guarding, no hernia Genitourinary: no CVA tenderness Musculoskeletal: normal inspection, back normal, normal range of motion Neurologic: normal inspection, alert, oriented x3, responsive, christian counselor III-XII nml as tested, speech normal Psychiatric: normal inspection, judgement/insight normal, mood/affect normal Alden Kohler MD May 14, 2019 15:27
[2019-05-14 16:00] VITALS: BP 102/70
--- NOTE | 2019-05-14 16:10 | NUR ---
NURSE NOTES: Dr. Kwan ID called nurse's station. New order received.
--- NOTE | 2019-05-14 18:22 | NUR ---
Social Service Note SW received the H-[id number], indicating Discharge approved 05/14/19. 7 days of TB medication provided by pharmacy. 4 boxes of surgical masks provided by nursing. Follow up appointments: [facility] 05/20/19 at 8am PH Nurse Emilia Gant [phone] [address] [facility] [address] [facility] [address] [place] [address] T: [phone] April @ 3:30 PM SW discussed with primary nurse and TB documentation provided.
[2019-05-14] MEDS ORDERED: PYRAZINAMIDE500 MG PO (19:03)
[2019-05-14] MEDS ORDERED: INH300 MG ORAL (19:04)
[2019-05-14] MEDS ORDERED: RIFADIN150 MG ORAL (19:04)
[2019-05-14] MEDS ORDERED: PYRIDOXINE HCL50 MG ORAL (19:05)
[2019-05-14] MEDS ORDERED: ETHAMBUTOL HCL100 MG ORAL (19:06)
--- NOTE | 2019-05-14 19:44 | NUR ---
NURSE NOTES: RN received call from social media content specialist indicating that patient can be discharged home with isolation, according to public health department. Dr. Kohler notified. New order received for medication reconciliation upon discharge. Patient to be discharged with Home Health. Patient provided with TB medication for 7 days with educational information. Follow up appointment made with Dr. Vaughn and Department of Public Health. Information given to patient. Information explained to ruel Hardy [phone] by RN who speaks Tuvaluan.
--- NOTE | 2019-05-14 19:49 | NUR ---
HAND-OFF: Report given to NOHEMI Blanc.
[2019-05-14 20:00] VITALS: BP 118/82
--- NOTE | 2019-05-14 20:12 | NUR ---
NURSE NOTES: Report received from NOHEMI Noel. Pt is in stable condition resting comfortably in bed. Bed in the lowest position, bed brakes engaged, side rails up x3 and call light within reach. Will continue to monitor.
--- NOTE | 2019-05-14 21:05 | NUR ---
NURSE NOTES: Pt was scheduled for discharge tonight per MD order. Tele CN expressed concern since pt on airborne precautions and r/o TB. Called Kae West, mortgage loan coordinator regarding patient's situation. She verbalized pt needs clearance from [facility] before she can be discharged. Per Case Management notes, still pending clearance at this time. Daughter-in law present and I spoke with son on phone, Nemesio, both verbalized understanding. RN Jayashree paged and waiting for call back.
[2019-05-15] VITALS: BP 109/73
[2019-05-15 04:00] VITALS: BP 112/70
[2019-05-15] MEDS: NovoLOG Insulin Flexpen SUBQ SCH ×4 (06:01→21:00)
--- NOTE | 2019-05-15 07:27 | NUR ---
HAND-OFF: Report given to NOHEMI Conrad. Plan of care endorsed.
--- NOTE | 2019-05-15 07:30 | NUR ---
NURSE NOTES: Received report from Jayashree/RN, Patient is awake and alert, eating breakfast. Denies any pain at this time. Setswana speaking. Checked IV, Patent, no bleeding or infiltration noted at this time. Bed in lowest position and locked, Call light within reach. All personal belonging within reach. Will continue plan of care.
[2019-05-15 08:00] VITALS: BP 109/76
[2019-05-15] MEDS ORDERED: Isoniazid 300mg tab ORAL SCH (09:00)
[2019-05-15] MEDS: Losartan 50mg tab ORAL SCH ×2 (09:00→18:07)
[2019-05-15] MEDS: metFORMIN 500mg tab ORAL SCH ×2 (09:11→18:06)
[2019-05-15] MEDS: Vitamin D 1000 IU Tab ORAL SCH (09:14)
[2019-05-15] MEDS: Azithromycin 250mg tab ORAL SCH (09:15)
[2019-05-15] MEDS: Artificial Tears 1.4% Op Soln BOTH EYES SCH ×4 (09:16→21:10)
[2019-05-15] MEDS: Enoxaparin 40mg Inj SUBQ SCH (09:24)
[2019-05-15 12:00] VITALS: BP 114/71
--- NOTE | 2019-05-15 12:08 | Hematology/Onc Progress Note ---
Assessment/Plan Assessment/Plan HEME/ONC PROGRESS NOTE Assessment and Recs: # Cavitary lesion of lung on imaging seen on CT, ++ jonathan afb as per pulm, at this time on ripe, r/o inflammatory cause/issues --> may dc ripe as per pulm/id --> per pulm recs, monitor for resolution --> if persists may need biopsy/bronch --> tumor markers are neg --> consider re-image in several months --> pending placement ltach with tb control clearance # Anemia of chronic disease due to underlying chronic medical issues, multifactorial --> Anemia workup has been reviewed. Ferritin 133 --> No evidence of hemolysis is noted, peripheral smear has been reviewed --> Hgb goal >7. Transfuse prn. --> Cont po folic acid --> Epogen or iron at this time is not particularly indicated --> Medications have been reviewed --> Hgb trend: 11.5-->12.1-->11.8-->10.9-->11.3 # Leukopenia with range 3-5k --> hepatitis and hiv neg --> us of the abdomen is negative, no cirrhosis and hsm # Chest pain r/o acs v inflammatory disease of lung, bronchitis --> CT imaging of the chest was ordered which showed calcified mediastinal and hilar lymph nodes as well as mild cardiomegaly without pericardial effusion. There is some fluid impacting some of the left lower lobe bronchi posterior medially no pulmonary embolism or aortic aneurysm or dissection was seen --> Patient given IV antibiotics --> as per cards recs --> nitrog prn --> outpatient stress test # Granulomatous disease # HTN. sbp goal <140 --> per cards The time the noted was written does not necessarily correspond to the time the patient was seen,. Subjective Allergies: Coded Allergies: No Known Allergies (Unverified , 06/27/17) All Systems: reviewed and negative except above Subjective 04/26: Pt is sitting in bed and having breakfast. No c/o pain. Labs reviewed. 04/27: no events, cp is better, seen by pulm, cards 04/28: no fevers or chills, no night sweats noted 04/30: Pt on airbourne isolation, cough better with cough syrup. 05/01: no acute events, no bleeding reported. 05/02:no distress, VS reviewed, afebrile. 05/03: no events, oimaging reviewed, seen by pulm and id 05/04, unable to provide sputum, seen by psych, otherwise no changes 05/05: no events to report, tolerating ripe 05/06: no events, no fevers, ripe has been started 05/07: no events, a+o x4, seen by pulm, potentially consider dc ripe 05/08: no events overnight, uric acid is still high, seen by renal 05/10: in resp isolation, no events noted, no f/c 05/11: no events, seen by pulm, cbc reviewed 05/12: no bleeding, no chills, no fevers, no changes, cbc reviewed 05/13: no fevers,or chills, no events noted, no bleeding 05/14: awake and alert, dc planning. vs stable. 05/15: was scheduled for dc last night, needs clearance from [facility] before she can be discharged. Objective Objective Current Medications Medications (Trade) Dose Ordered Sig/Darrion Route PRN Reason Start Time Stop Time Status Last Admin Dose Admin Artificial Tears (Akwa-Tears) 2 drop FOUR TIMES A DAY BOTH EYES 04/25/19 09:00 05/25/19 08:59 05/15/19 09:16 Azithromycin (Zithromax) 500 mg DAILY ORAL 05/14/19 12:15 05/21/19 12:14 05/15/19 09:15 Dextrose (Dextrose 50%) 25 ml Q30M PRN IV Hypoglycemia 04/25/19 00:00 05/25/19 00:00 Dextrose (Dextrose 50%) 50 ml Q30M PRN IV Hypoglycemia 04/25/19 00:00 05/25/19 00:00 Enoxaparin Sodium (Lovenox) 40 mg DAILY SUBQ 04/25/19 09:00 05/25/19 08:59 05/15/19 09:24 Ethambutol HCl (Myambutol) 800 mg DAILY ORAL 05/10/19 13:00 06/09/19 12:59 05/15/19 09:14 Ethambutol HCl (Myambutol) 800 mg DAILY ORAL 05/14/19 00:00 05/20/19 23:59 No refill Famotidine (Pepcid) 40 mg ACBREAKFAST ORAL 04/25/19 06:30 05/25/19 06:29 05/15/19 06:01 Fluoxetine HCl (PROzac) 40 mg DAILY ORAL 04/26/19 09:00 05/26/19 08:59 05/15/19 09:11 Folic Acid (Folate) 2 mg DAILY ORAL 05/05/19 15:30 06/04/19 15:29 05/15/19 09:14 Glipizide (GlipiZIDE XL) 2.5 mg QPM ORAL 04/26/19 16:30 05/26/19 16:29 05/14/19 17:13 Insulin Aspart (NovoLOG) BEFORE MEALS AND HS SUBQ 04/25/19 06:30 05/25/19 06:29 05/14/19 22:31 Isoniazid (Inh) 300 mg DAILY ORAL 05/14/19 00:00 05/20/19 23:59 No refill Isoniazid (Inh) 300 mg DAILY ORAL 05/15/19 09:00 06/14/19 08:59 05/15/19 09:12 Losartan Potassium (Cozaar) 50 mg BID ORAL 05/10/19 18:00 06/09/19 17:59 05/13/19 08:55 Metformin HCl (Glucophage) 500 mg TWICE A DAY ORAL 04/26/19 09:00 05/26/19 08:59 05/15/19 09:11 Ondansetron HCl (Zofran) 4 mg Q6H PRN IVP Nausea & Vomiting 05/05/19 09:45 06/04/19 09:44 05/14/19 07:43 Potassium Chloride (K-Dur) 40 meq DAILY ORAL 05/08/19 09:45 06/07/19 09:44 05/15/19 09:15 Pyrazinamide (Pza) 1,000 mg DAILY ORAL 05/14/19 00:00 05/20/19 23:59 No refill Pyridoxine HCl (Vitamin B6) 50 mg DAILY ORAL 05/14/19 00:00 05/20/19 23:59 No refill Rifampin (Rifadin) 600 mg DAILY ORAL 05/10/19 13:00 06/09/19 12:59 05/15/19 09:14 Rifampin (Rifadin) 600 mg DAILY ORAL 05/14/19 00:00 05/20/19 23:59 No refill Vitamin D (Vitamin D) 5,000 intlu DAILY ORAL 04/26/19 09:00 05/26/19 08:59 05/15/19 09:14 Last 24 Hour Vital Signs Date Time Temp Pulse Resp B/P (MAP) Pulse Ox O2 Delivery O2 Flow Rate FiO2 05/15/19 09:00 112/70 05/15/19 09:00 Room Air 05/15/19 08:00 98.1 80 16 109/76 (87) 98 05/15/19 04:00 98.2 80 18 112/70 (84) 97 05/15/19 00:00 98.2 74 16 109/73 (85) 97 05/14/19 21:00 Room Air 05/14/19 20:00 97.9 80 18 118/82 (94) 97 05/14/19 17:10 102/70 05/14/19 16:00 98.1 74 18 102/70 (81) 96 05/14/19 12:00 97.5 71 18 104/76 (85) 94 05/14/19 08:55 113/77 05/14/19 08:30 Room Air 05/14/19 08:00 97.5 65 18 113/77 (89) 94 05/14/19 04:00 96.6 73 18 107/69 (82) 97 05/14/19 00:00 96.9 66 18 111/71 (84) 97 05/13/19 21:00 Room Air 05/13/19 20:49 71 05/13/19 20:00 97.4 75 20 108/77 (87) 98 05/13/19 17:23 101/69 05/13/19 16:00 98.9 76 20 101/69 (80) 96 Intake and Output 05/14/19 05/15/19 19:00 07:00 Intake Total 550 ml Balance 550 ml Intake Oral 550 ml # Voids 3 2 Labs Test 05/13/19 06:34 White Blood Count 4.3 K/UL (4.8-10.8) Red Blood Count 3.50 M/UL (4.20-5.40) Hemoglobin 11.4 G/DL (12.0-16.0) Hematocrit 33.8 % (37.0-47.0) Mean Corpuscular Volume 96 FL (80-99) Mean Corpuscular Hemoglobin 32.6 PG (27.0-31.0) Mean Corpuscular Hemoglobin Concent 33.8 G/DL (32.0-36.0) Red Cell Distribution Width 10.9 % (11.6-14.8) Platelet Count 168 K/UL (150-450) Mean Platelet Volume 6.1 FL (6.5-10.1) Neutrophils (%) (Auto) 54.4 % (45.0-75.0) Lymphocytes (%) (Auto) 33.8 % (20.0-45.0) Monocytes (%) (Auto) 9.2 % (1.0-10.0) Eosinophils (%) (Auto) 1.8 % (0.0-3.0) Basophils (%) (Auto) 0.9 % (0.0-2.0) Sodium Level 138 MMOL/L (136-145) Potassium Level 4.0 MMOL/L (3.5-5.1) Chloride Level 101 MMOL/L (98-107) Carbon Dioxide Level 28 MMOL/L (21-32) Anion Gap 9 mmol/L (5-15) Blood Urea Nitrogen 13 mg/dL (7-18) Creatinine 0.9 MG/DL (0.55-1.30) Estimat Glomerular Filtration Rate mL/min (>60) Glucose Level 90 MG/DL (74-106) Uric Acid 9.6 MG/DL (2.6-7.2) Calcium Level 9.0 MG/DL (8.5-10.1) Phosphorus Level 5.0 MG/DL (2.5-4.9) Magnesium Level 1.7 MG/DL (1.8-2.4) Total Bilirubin 0.3 MG/DL (0.2-1.0) Aspartate Amino Transf (AST/SGOT) 43 U/L (15-37) Alanine Aminotransferase (ALT/SGPT) 29 U/L (12-78) Alkaline Phosphatase 62 U/L (46-116) Total Protein 6.9 G/DL (6.4-8.2) Albumin 3.5 G/DL (3.4-5.0) Globulin 3.4 g/dL Albumin/Globulin Ratio 1.0 (1.0-2.7) Height (Feet): 5 Height (Inches): 2.00 Weight (Pounds): 133 Objective PHYSICAL EXAM General Appearance: normal inspection, well appearing, no apparent distress, alert, GCS 15 Head: atraumatic ENT: normal ENT inspection, hearing grossly normal, normal voice Neck: normal inspection, full range of motion, supple, no bony tend Respiratory: normal inspection, lungs clear, normal breath sounds, no respiratory distress, no retraction, no wheezing Cardiovascular: regular rate, rhythm, no edema Gastrointestinal: normal inspection, normal bowel sounds, non tender, soft, no guarding, no hernia Genitourinary: no CVA tenderness Musculoskeletal: normal inspection, back normal, normal range of motion Neurologic: normal inspection, alert, oriented x3, responsive, accounts payable processor III-XII nml as tested, speech normal Psychiatric: normal inspection, judgement/insight normal, mood/affect normal Alden Kohler MD May 15, 2019 12:08
--- NOTE | 2019-05-15 12:42 | General Progress Note ---
Assessment/Plan Problem List: (1) CAD (coronary artery disease) ICD Codes: I25.10 - Atherosclerotic heart disease of [place] coronary artery without angina pectoris SNOMED: 96602201 (2) HTN (hypertension) ICD Codes: I10 - Essential (primary) hypertension SNOMED: 07719564 (3) Chest pain ICD Codes: R07.9 - Chest pain, unspecified SNOMED: 91303993 Status: stable, progressing Assessment/Plan: pt diet abx cbc bmp am Subjective Constitutional: Reports: weakness Allergies: Coded Allergies: No Known Allergies (Unverified , 06/27/17) All Systems: reviewed and negative except above Subjective sitting on bed calm Objective Last 24 Hour Vital Signs Date Time Temp Pulse Resp B/P (MAP) Pulse Ox O2 Delivery O2 Flow Rate FiO2 05/15/19 09:00 112/70 05/15/19 09:00 Room Air 05/15/19 08:00 98.1 80 16 109/76 (87) 98 05/15/19 04:00 98.2 80 18 112/70 (84) 97 05/15/19 00:00 98.2 74 16 109/73 (85) 97 05/14/19 21:00 Room Air 05/14/19 20:00 97.9 80 18 118/82 (94) 97 05/14/19 17:10 102/70 05/14/19 16:00 98.1 74 18 102/70 (81) 96 Intake and Output 05/14/19 05/15/19 19:00 07:00 Intake Total 550 ml Balance 550 ml Intake Oral 550 ml # Voids 3 2 Height (Feet): 5 Height (Inches): 2.00 Weight (Pounds): 133 General Appearance: lethargic EENT: normal ENT inspection Neck: normal alignment Cardiovascular: normal peripheral pulses, normal rate, regular rhythm Respiratory/Chest: chest wall non-tender, lungs clear, normal breath sounds Abdomen: normal bowel sounds, non tender, soft Extremities: normal inspection Edema: no edema noted Arm (L), no edema noted Arm (R), no edema noted Leg (L), no edema noted Leg (R), no edema noted Pedal (L), no edema noted Pedal (R), no edema noted Generalized Neurologic: motor weakness Skin: normal pigmentation, warm/dry Reyes Girard DO May 15, 2019 12:42
--- NOTE | 2019-05-15 13:07 | Cardiac Electrophysiology PN ---
Assessment/Plan Assessment/Plan 1. Chest pain, No [place]. Due to underlying lung lesion 2. HTN on Losartan 25 daily 3. NIDDM 4. HLPD 5. Cavitary lung lesion, on respiratory isolation. on INH.RIF,ETB,PZA per Dr Kwan and Dr. Vaughn as well AFB negative on 05/12 and 6. Anemia DW RN Subjective Subjective Still on respiratory isolation.No CP or SOB. Awaiting another AFB sputum. Objective Last 24 Hour Vital Signs Date Time Temp Pulse Resp B/P (MAP) Pulse Ox O2 Delivery O2 Flow Rate FiO2 05/15/19 12:00 97.9 78 17 114/71 (85) 98 05/15/19 09:00 112/70 05/15/19 09:00 Room Air 05/15/19 08:00 98.1 80 16 109/76 (87) 98 05/15/19 04:00 98.2 80 18 112/70 (84) 97 05/15/19 00:00 98.2 74 16 109/73 (85) 97 05/14/19 21:00 Room Air 05/14/19 20:00 97.9 80 18 118/82 (94) 97 05/14/19 17:10 102/70 05/14/19 16:00 98.1 74 18 102/70 (81) 96 Intake and Output 05/14/19 05/15/19 19:00 07:00 Intake Total 550 ml Balance 550 ml Intake Oral 550 ml # Voids 3 2 Microbiology Date/Time Source Procedure Growth Status 05/13/19 12:25 Sputum AFB Specimen Processing Tissue - Final Resulted 05/13/19 12:25 Sputum Acid Fast Bacilli Smear - Final Resulted 05/13/19 12:25 Sputum Acid Fast Bacilli Culture Pending Resulted 05/12/19 20:00 Sputum AFB Specimen Processing Tissue - Final Resulted 05/12/19 20:00 Sputum Acid Fast Bacilli Smear - Final Resulted 05/12/19 20:00 Sputum Acid Fast Bacilli Culture Pending Resulted Objective HEENT: No JVD Respiratory/Chest: Coarse rhonchi Cardiovascular/Chest: Normal peripheral pulses, normal rate, regular rhythm Abdomen: Normal bowel sounds, non tender, soft, no organomegaly Extremities: Normal range of motion, non-tender, normal inspection Matti Lakhani MD May 15, 2019 13:07
--- NOTE | 2019-05-15 14:00 | NUR ---
NURSE NOTES: Patient transfer to [facility] 3E, and report given to Emilia/Charge nurse. Patient is in stable condition, Vital signs are stable. No distress/SOB at this time. Belonging check done with primary nurse Haylee/RN.
--- NOTE | 2019-05-15 14:15 | NUR ---
NURSE NOTES: Patient is in bed awake and able to verbalize needs. Stable. Denies pain or SOB. Patient oriented to room, call light and unit. Patient encouraged to use call light for assistance, verbalized understanding. Patient is in bed in locked and lowest position with call light within reach. All belongings transferred with patient. Skin clean, dry, and intact . Patient is upset about not being able to discharge but is aware of pending clearance from health department. Patient is unhappy and wants to go home. Will continue to monitor.
--- NOTE | 2019-05-15 15:34 | Nephrology Progress Note ---
Assessment/Plan Problem List: (1) Cavitary lesion of lung (2) HTN (hypertension) (3) Hypotensive episode (4) Hyperuricemia Assessment Hypotension: ? due to antihypertensives TB Plan Plan: Adjust BP meds- BP stable now anti TB meds WAS DISCONTINUED per orders ? DC Subjective ROS Limited/Unobtainable: No Objective Objective Last 24 Hour Vital Signs Date Time Temp Pulse Resp B/P (MAP) Pulse Ox O2 Delivery O2 Flow Rate FiO2 05/15/19 12:00 97.9 78 17 114/71 (85) 98 05/15/19 09:00 112/70 05/15/19 09:00 Room Air 05/15/19 08:00 98.1 80 16 109/76 (87) 98 05/15/19 04:00 98.2 80 18 112/70 (84) 97 05/15/19 00:00 98.2 74 16 109/73 (85) 97 05/14/19 21:00 Room Air 05/14/19 20:00 97.9 80 18 118/82 (94) 97 05/14/19 17:10 102/70 05/14/19 16:00 98.1 74 18 102/70 (81) 96 Intake and Output 05/14/19 05/15/19 19:00 07:00 Intake Total 550 ml Balance 550 ml Intake Oral 550 ml # Voids 3 2 Height (Feet): 5 Height (Inches): 2.00 Weight (Pounds): 133 General Appearance: no apparent distress Cardiovascular: normal rate Respiratory/Chest: decreased breath sounds Abdomen: distended Objective no change Anirudh Garcia MD May 15, 2019 15:34
[2019-05-15 16:23] VITALS: BP 113/75
--- NOTE | 2019-05-15 18:01 | Pulmonology Progress Note ---
Assessment/Plan Assessment/Plan Assessment/Plan ASSESSMENT: The patient is a 73-year-old female with a history of hypertension , hyperlipidemia, and diabetes, presenting with pleuritic chest pain in the setting of a recent respiratory illness. CT of the chest demonstrates intense bilateral reticulonodular opacities and a cavitary lesion. She is being ruled out for MTB. With respect to the etiology of her lesion, it is likely infectious/inflammatory, so the cavity has to be followed to rule out a neoplastic process. PROBLEM LIST: 1. Left lower lobe cavity thin-walled, likely infectious, inflammatory, ? doubt MTB, 10/29 AFB + but TST and CPR neg, ? ALIDA, started on [place] 05/03, D/C'd 05/09 2. Scattered bilateral reticulonodular opacities, likely an infectious bronchiolitis. 3. Pleuritic chest pain, likely secondary to above. 4. Hypertension, hyperlipidemia, diabetes. TREATMENT PLAN: 1. CXR 2. Optimize pulmonary hygiene/mobilize as tolerated. 3. Additional AFB's ordered as requested by TB control 4. Defer decision Re: Anti-TB therapy to ID and TB control 5. Continue isolation until cleared by [facility] 6. The patient will require short interval follow-up and then likely a bronchoscopy and biopsy if there is a persistent cavitary lesion. 7. Needs to F/U with me in 1-2 weeks after DC --> will repeat CT in 4 weeks. The importance of this discussed with patient as well as the possibility of an underlying neoplasm Subjective Allergies: Coded Allergies: No Known Allergies (Unverified , 06/27/17) Subjective doign well no hemoptysis on ra no distress minimal po tolerated Objective Last 24 Hour Vital Signs Date Time Temp Pulse Resp B/P (MAP) Pulse Ox O2 Delivery O2 Flow Rate FiO2 05/15/19 16:23 98.2 72 20 113/75 (88) 96 05/15/19 12:00 97.9 78 17 114/71 (85) 98 05/15/19 09:00 112/70 05/15/19 09:00 Room Air 05/15/19 08:00 98.1 80 16 109/76 (87) 98 05/15/19 04:00 98.2 80 18 112/70 (84) 97 05/15/19 00:00 98.2 74 16 109/73 (85) 97 05/14/19 21:00 Room Air 05/14/19 20:00 97.9 80 18 118/82 (94) 97 Intake and Output 05/14/19 05/15/19 19:00 07:00 Intake Total 550 ml Balance 550 ml Intake Oral 550 ml # Voids 3 2 General Appearance: WD/WN Respiratory/Chest: lungs clear, normal breath sounds Cardiovascular: normal rate, regular rhythm Abdomen: no organomegaly, non distended Skin: no rash Neurologic/Psychiatric: alert, oriented x 3 Lymphatic: no neck adenopathy Microbiology Date/Time Source Procedure Growth Status 05/14/19 09:14 Sputum AFB Specimen Processing Tissue - Final Resulted 05/14/19 09:14 Sputum Acid Fast Bacilli Smear - Final Resulted 05/14/19 09:14 Sputum Acid Fast Bacilli Culture Pending Resulted 05/13/19 12:25 Sputum AFB Specimen Processing Tissue - Final Resulted 05/13/19 12:25 Sputum Acid Fast Bacilli Smear - Final Resulted 05/13/19 12:25 Sputum Acid Fast Bacilli Culture Pending Resulted 05/12/19 20:00 Sputum AFB Specimen Processing Tissue - Final Resulted 05/12/19 20:00 Sputum Acid Fast Bacilli Smear - Final Resulted 05/12/19 20:00 Sputum Acid Fast Bacilli Culture Pending Resulted Current Medications Medications (Trade) Dose Ordered Sig/Darrion Route PRN Reason Start Time Stop Time Status Last Admin Dose Admin Artificial Tears (Akwa-Tears) 2 drop FOUR TIMES A DAY BOTH EYES 05/15/19 18:00 05/25/19 08:59 Azithromycin (Zithromax) 500 mg DAILY ORAL 05/16/19 09:00 05/21/19 12:14 UNV Dextrose (Dextrose 50%) 25 ml Q30M PRN IV Hypoglycemia 05/15/19 14:30 05/25/19 00:00 Dextrose (Dextrose 50%) 50 ml Q30M PRN IV Hypoglycemia 05/15/19 14:30 05/25/19 00:00 Enoxaparin Sodium (Lovenox) 40 mg DAILY SUBQ 05/16/19 09:00 05/25/19 08:59 Ethambutol HCl (Myambutol) 800 mg DAILY ORAL 05/16/19 09:00 06/09/19 12:59 UNV Famotidine (Pepcid) 40 mg ACBREAKFAST ORAL 05/16/19 06:30 05/25/19 06:29 Fluoxetine HCl (PROzac) 40 mg DAILY ORAL 05/16/19 09:00 05/26/19 08:59 Folic Acid (Folate) 2 mg DAILY ORAL 05/16/19 09:00 06/04/19 15:29 Glipizide (GlipiZIDE XL) 2.5 mg QPM ORAL 05/15/19 16:30 05/26/19 16:29 05/15/19 17:20 Insulin Aspart (NovoLOG) BEFORE MEALS AND HS SUBQ 05/15/19 16:30 05/25/19 06:29 05/15/19 17:22 Isoniazid (Inh) 300 mg DAILY ORAL 05/16/19 09:00 05/20/19 23:59 UNV Losartan Potassium (Cozaar) 50 mg BID ORAL 05/15/19 18:00 06/09/19 17:59 Metformin HCl (Glucophage) 500 mg TWICE A DAY ORAL 05/15/19 18:00 05/26/19 08:59 Ondansetron HCl (Zofran) 4 mg Q6H PRN IVP Nausea & Vomiting 05/15/19 15:45 06/04/19 09:44 Potassium Chloride (K-Dur) 40 meq DAILY ORAL 05/16/19 09:00 06/07/19 09:44 Pyrazinamide (Pza) 1,000 mg DAILY ORAL 05/16/19 09:00 05/20/19 23:59 UNV Pyridoxine HCl (Vitamin B6) 50 mg DAILY ORAL 05/16/19 09:00 05/20/19 23:59 UNV Rifampin (Rifadin) 600 mg DAILY ORAL 05/16/19 09:00 06/09/19 12:59 UNV Vitamin D (Vitamin D) 5,000 intlu DAILY ORAL 05/16/19 09:00 05/26/19 08:59 Yesenia Conner DO May 15, 2019 18:01
--- NOTE | 2019-05-15 19:30 | NUR ---
HAND-OFF: Report given to Go RN. Patient is stable.
--- NOTE | 2019-05-15 19:40 | NUR ---
NURSE NOTES: Receive a report from NOHEMI Leach. Done rounds. Pt is awake and alert. No acute distress noted. NO chest pain/ no SOB noted. Pt is waiting for order for discharge and update for notification from Department of Health for clearance. Pt verbalizes understanding. Will continue to monitor.
[2019-05-15 20:00] VITALS: BP 114/79
[2019-05-16] VITALS: BP 114/79
[2019-05-16 04:50] VITALS: BP 114/75
[2019-05-16] MEDS: NovoLOG Insulin Flexpen SUBQ SCH (06:23)
--- NOTE | 2019-05-16 07:30 | NUR ---
CHARGE NURSE NOTES:Received report form mary Cabrera that pt relayed to the RN Oh that she received a call from the department of health last Friday that she's cleared for discharge. Will call Infection nurse for clarification.
--- NOTE | 2019-05-16 07:30 | NUR ---
HAND-OFF: Report given to NOHEMI Leach.
[2019-05-16 07:45] LABS: BASOPHILS % (AUTO) 0.7 % (0.0-2.0); EOSINOPHILS % (AUTO) 2.3 % (0.0-3.0); HEMATOCRIT 34.9 % (37.0-47.0); HEMOGLOBIN 11.6 G/DL (12.0-16.0); LYMPHOCYTES % (AUTO) 35.5 % (20.0-45.0); MEAN CORPUSCULAR VOLUME 96 FL (80-99); MONOCYTES % (AUTO) 9.4 % (1.0-10.0); NEUTROPHILS % (AUTO) 52.1 % (45.0-75.0); PLATELET COUNT 174 K/UL (150-450); RED BLOOD COUNT 3.63 M/UL (4.20-5.40); RED CELL DISTRIBUTION WIDTH 10.7 % (11.6-14.8); WHITE BLOOD COUNT 4.3 K/UL (4.8-10.8)
--- NOTE | 2019-05-16 07:45 | NUR ---
NURSE NOTES: Patient is in AOx4 in isolation room. Stable. Denies pain or SOB. patient encouraged to use call light for assistance. Patient is in bed. All safety measures provided. Will continue to monitor.
[2019-05-16 08:00] VITALS: BP 112/70
[2019-05-16 08:16] LABS: ALANINE AMINOTRANSFERASE 24 U/L (12-78); ALBUMIN 3.4 G/DL (3.4-5.0); ALBUMIN/GLOBULIN RATIO 0.9 (1.0-2.7); ALKALINE PHOSPHATASE 61 U/L (46-116); ANION GAP 9 mmol/L (5-15); ASPARTATE AMINO TRANSFERASE 34 U/L (15-37); BILIRUBIN,TOTAL 0.3 MG/DL (0.2-1.0); BLOOD UREA NITROGEN 12 mg/dL (7-18); CALCIUM 9.1 MG/DL (8.5-10.1); CARBON DIOXIDE 27 MMOL/L (21-32); CHLORIDE 101 MMOL/L (98-107); CREATININE 0.9 MG/DL (0.55-1.30); PHOSPHORUS 3.1 MG/DL (2.5-4.9); POTASSIUM 4.3 MMOL/L (3.5-5.1); SODIUM 137 MMOL/L (136-145)
[2019-05-16] MEDS: metFORMIN 500mg tab ORAL SCH (08:48)
[2019-05-16] MEDS: Losartan 50mg tab ORAL SCH (08:50)
[2019-05-16] MEDS: Artificial Tears 1.4% Op Soln BOTH EYES SCH (08:58)
[2019-05-16] MEDS ORDERED: Enoxaparin 40mg Inj SUBQ SCH (09:00)
[2019-05-16] MEDS ORDERED: Pyridoxine 50mg tab ORAL SCH (09:00)
[2019-05-16] MEDS ORDERED: Vitamin D 1000 IU Tab ORAL SCH (09:00)
[2019-05-16] MEDS ORDERED: Isoniazid 300mg tab ORAL SCH ×2 (09:00)
[2019-05-16] MEDS ORDERED: Azithromycin 250mg tab ORAL SCH (09:00)
--- NOTE | 2019-05-16 09:21 | General Progress Note ---
Assessment/Plan Problem List: (1) CAD (coronary artery disease) ICD Codes: I25.10 - Atherosclerotic heart disease of [place] coronary artery without angina pectoris SNOMED: 69545625 (2) HTN (hypertension) ICD Codes: I10 - Essential (primary) hypertension SNOMED: 04501258 (3) Chest pain ICD Codes: R07.9 - Chest pain, unspecified SNOMED: 09864813 Status: stable, progressing Assessment/Plan: pt diet abx cbc bmp am Subjective Constitutional: Reports: weakness Allergies: Coded Allergies: No Known Allergies (Unverified , 06/27/17) All Systems: reviewed and negative except above Subjective sleepy calm Objective Last 24 Hour Vital Signs Date Time Temp Pulse Resp B/P (MAP) Pulse Ox O2 Delivery O2 Flow Rate FiO2 05/16/19 08:00 Room Air 05/16/19 04:50 97.8 77 18 114/75 (88) 97 05/16/19 00:00 98.2 79 17 114/79 (91) 93 78 05/15/19 21:00 Room Air 05/15/19 20:00 98.7 78 17 114/79 (91) 93 05/15/19 18:07 120/78 05/15/19 16:23 98.2 72 20 113/75 (88) 96 05/15/19 12:00 97.9 78 17 114/71 (85) 98 Intake and Output 05/15/19 05/16/19 18:59 06:59 Intake Total 100 ml Balance 100 ml Intake Oral 100 ml # Voids 2 Laboratory Tests 05/16/19 06:14: White Blood Count 4.3L, Red Blood Count 3.63L, Hemoglobin 11.6L, Hematocrit 34.9L, Mean Corpuscular Volume 96, Mean Corpuscular Hemoglobin 32.0H, Mean Corpuscular Hemoglobin Concent 33.3, Red Cell Distribution Width 10.7L, Platelet Count 174, Mean Platelet Volume 5.9L, Neutrophils (%) (Auto) 52.1, Lymphocytes (%) (Auto) 35.5, Monocytes (%) (Auto) 9.4, Eosinophils (%) (Auto) 2.3, Basophils (%) (Auto) 0.7, Sodium Level 137, Potassium Level 4.3, Chloride Level 101, Carbon Dioxide Level 27, Anion Gap 9, Blood Urea Nitrogen 12, Creatinine 0.9, Estimat Glomerular Filtration Rate , Glucose Level 98, Calcium Level 9.1, Phosphorus Level 3.1, Magnesium Level 1.9, Total Bilirubin 0.3, Aspartate Amino Transf (AST/SGOT) 34, Alanine Aminotransferase (ALT/SGPT) 24, Alkaline Phosphatase 61, C-Reactive Protein, Quantitative < 0.4, Pro-B-Type Natriuretic Peptide 35, Total Protein 7.2, Albumin 3.4, Globulin 3.8, Albumin/ Globulin Ratio 0.9L Height (Feet): 5 Height (Inches): 2.00 Weight (Pounds): 133 General Appearance: lethargic EENT: normal ENT inspection Neck: normal alignment Cardiovascular: normal peripheral pulses, normal rate, regular rhythm Respiratory/Chest: chest wall non-tender, lungs clear, normal breath sounds Abdomen: normal bowel sounds, non tender, soft Extremities: normal inspection Edema: no edema noted Arm (L), no edema noted Arm (R), no edema noted Leg (L), no edema noted Leg (R), no edema noted Pedal (L), no edema noted Pedal (R), no edema noted Generalized Neurologic: motor weakness Skin: normal pigmentation, warm/dry Reyes Girard DO May 16, 2019 09:21
--- NOTE | 2019-05-16 10:00 | NUR ---
CHARGE NURSE NOTES: Left message to Kae West, infection nurse. Spoke w/ Dr Marcio Kwan as well. Per , he spoke w/ the Department of Health of doctor last Friday & pt was cleared for discharge & this message is relayed to the RN assigned. did'nt document the conversation last friday. So I asked MD to document it today that pt is cleared for discharge. meds Prescriptions requested.
--- NOTE | 2019-05-16 10:04 | Infectious Diseases Prog Note ---
Assessment/Plan Assessment/Plan IMPRESSION: Pneumonia. Atypical mycobacterial disease of lung, MAC Diabetes mellitus, Hypertension, Major depression, History of asthma. RECOMMENDATION: TB PCR test in sputum is negative AFB smear X 1: 1+ positive 04/28 AFB culture : MAC Continue Rifampin & Ethambutol, add Azithromycin continue INH, & Pyridoxin TST: negative Case was D/W Dr Tatum([phone]) in department of adi Department agrees with discharge with home isolation Continuing of 3 TB medications Follow [facility] Subjective ROS Limited/Unobtainable: Yes Constitutional: Reports: no symptoms Respiratory: Reports: no symptoms Gastrointestinal/Abdominal: Reports: no symptoms Allergies: Coded Allergies: No Known Allergies (Unverified , 06/27/17) Objective Vital Signs Last 24 Hour Vital Signs Date Time Temp Pulse Resp B/P (MAP) Pulse Ox O2 Delivery O2 Flow Rate FiO2 05/16/19 08:00 Room Air 05/16/19 04:50 97.8 77 18 114/75 (88) 97 05/16/19 00:00 98.2 79 17 114/79 (91) 93 78 05/15/19 21:00 Room Air 05/15/19 20:00 98.7 78 17 114/79 (91) 93 05/15/19 18:07 120/78 05/15/19 16:23 98.2 72 20 113/75 (88) 96 05/15/19 12:00 97.9 78 17 114/71 (85) 98 Height (Feet): 5 Height (Inches): 2.00 Weight (Pounds): 133 General Appearance: no acute distress HEENT: mucous membranes moist Respiratory/Chest: lungs clear Cardiovascular: normal rate Abdomen: soft, non tender Extremities: no edema Neurologic/Psychiatric: alert, oriented x 3, responsive Microbiology Date/Time Source Procedure Growth Status 05/14/19 09:14 Sputum AFB Specimen Processing Tissue - Final Resulted 05/14/19 09:14 Sputum Acid Fast Bacilli Smear - Final Resulted 05/14/19 09:14 Sputum Acid Fast Bacilli Culture Pending Resulted 05/13/19 12:25 Sputum AFB Specimen Processing Tissue - Final Resulted 05/13/19 12:25 Sputum Acid Fast Bacilli Smear - Final Resulted 05/13/19 12:25 Sputum Acid Fast Bacilli Culture Pending Resulted Laboratory Tests Test 05/16/19 06:14 White Blood Count 4.3 K/UL (4.8-10.8) L Red Blood Count 3.63 M/UL (4.20-5.40) L Hemoglobin 11.6 G/DL (12.0-16.0) L Hematocrit 34.9 % (37.0-47.0) L Mean Corpuscular Volume 96 FL (80-99) Mean Corpuscular Hemoglobin 32.0 PG (27.0-31.0) H Mean Corpuscular Hemoglobin Concent 33.3 G/DL (32.0-36.0) Red Cell Distribution Width 10.7 % (11.6-14.8) L Platelet Count 174 K/UL (150-450) Mean Platelet Volume 5.9 FL (6.5-10.1) L Neutrophils (%) (Auto) 52.1 % (45.0-75.0) Lymphocytes (%) (Auto) 35.5 % (20.0-45.0) Monocytes (%) (Auto) 9.4 % (1.0-10.0) Eosinophils (%) (Auto) 2.3 % (0.0-3.0) Basophils (%) (Auto) 0.7 % (0.0-2.0) Sodium Level 137 MMOL/L (136-145) Potassium Level 4.3 MMOL/L (3.5-5.1) Chloride Level 101 MMOL/L (98-107) Carbon Dioxide Level 27 MMOL/L (21-32) Anion Gap 9 mmol/L (5-15) Blood Urea Nitrogen 12 mg/dL (7-18) Creatinine 0.9 MG/DL (0.55-1.30) Estimat Glomerular Filtration Rate mL/min (>60) Glucose Level 98 MG/DL (74-106) Calcium Level 9.1 MG/DL (8.5-10.1) Phosphorus Level 3.1 MG/DL (2.5-4.9) Magnesium Level 1.9 MG/DL (1.8-2.4) Total Bilirubin 0.3 MG/DL (0.2-1.0) Aspartate Amino Transf (AST/SGOT) 34 U/L (15-37) Alanine Aminotransferase (ALT/SGPT) 24 U/L (12-78) Alkaline Phosphatase 61 U/L (46-116) C-Reactive Protein, Quantitative < 0.4 mg/dL (0.00-0.90) Pro-B-Type Natriuretic Peptide 35 pg/mL (0-125) Total Protein 7.2 G/DL (6.4-8.2) Albumin 3.4 G/DL (3.4-5.0) Globulin 3.8 g/dL Albumin/Globulin Ratio 0.9 (1.0-2.7) L Current Medications Medications (Trade) Dose Ordered Sig/Darrion Route PRN Reason Start Time Stop Time Status Last Admin Dose Admin Artificial Tears (Akwa-Tears) 2 drop FOUR TIMES A DAY BOTH EYES 05/15/19 18:00 05/25/19 08:59 05/16/19 08:58 Azithromycin (Zithromax) 500 mg DAILY ORAL 05/16/19 09:00 05/21/19 12:14 05/16/19 08:48 Dextrose (Dextrose 50%) 25 ml Q30M PRN IV Hypoglycemia 05/15/19 14:30 05/25/19 00:00 Dextrose (Dextrose 50%) 50 ml Q30M PRN IV Hypoglycemia 05/15/19 14:30 05/25/19 00:00 Enoxaparin Sodium (Lovenox) 40 mg DAILY SUBQ 05/16/19 09:00 05/25/19 08:59 05/16/19 08:51 Ethambutol HCl (Myambutol) 800 mg DAILY ORAL 05/16/19 09:00 06/09/19 12:59 05/16/19 08:45 Famotidine (Pepcid) 40 mg ACBREAKFAST ORAL 05/16/19 06:30 05/25/19 06:29 05/16/19 06:18 Fluoxetine HCl (PROzac) 40 mg DAILY ORAL 05/16/19 09:00 05/26/19 08:59 05/16/19 08:48 Folic Acid (Folate) 2 mg DAILY ORAL 05/16/19 09:00 06/04/19 15:29 05/16/19 08:48 Glipizide (GlipiZIDE XL) 2.5 mg QPM ORAL 05/15/19 16:30 05/26/19 16:29 05/15/19 17:20 Insulin Aspart (NovoLOG) BEFORE MEALS AND HS SUBQ 05/15/19 16:30 05/25/19 06:29 05/15/19 17:22 Isoniazid (Inh) 300 mg DAILY ORAL 05/16/19 09:00 05/20/19 23:59 05/16/19 08:49 Losartan Potassium (Cozaar) 50 mg BID ORAL 05/15/19 18:00 06/09/19 17:59 05/15/19 18:07 Metformin HCl (Glucophage) 500 mg TWICE A DAY ORAL 05/15/19 18:00 05/26/19 08:59 05/16/19 08:48 Ondansetron HCl (Zofran) 4 mg Q6H PRN IVP Nausea & Vomiting 05/15/19 15:45 06/04/19 09:44 Potassium Chloride (K-Dur) 40 meq DAILY ORAL 05/16/19 09:00 06/07/19 09:44 05/16/19 08:48 Pyrazinamide (Pza) 1,000 mg DAILY ORAL 05/16/19 09:00 05/20/19 23:59 UNV Pyridoxine HCl (Vitamin B6) 50 mg DAILY ORAL 05/16/19 09:00 05/20/19 23:59 UNV Rifampin (Rifadin) 600 mg DAILY ORAL 05/16/19 09:00 06/09/19 12:59 05/16/19 08:47 Vitamin D (Vitamin D) 5,000 intlu DAILY ORAL 05/16/19 09:00 05/26/19 08:59 05/16/19 08:45 Carlos Kwan MD May 16, 2019 10:04
--- NOTE | 2019-05-16 10:16 | Pulmonology Progress Note ---
Assessment/Plan Assessment/Plan Assessment/Plan ASSESSMENT: The patient is a 73-year-old female with a history of hypertension , hyperlipidemia, and diabetes, presenting with pleuritic chest pain in the setting of a recent respiratory illness. CT of the chest demonstrates intense bilateral reticulonodular opacities and a cavitary lesion. She is being ruled out for MTB. With respect to the etiology of her lesion, it is likely infectious/inflammatory, so the cavity has to be followed to rule out a neoplastic process. PROBLEM LIST: 1. Left lower lobe cavity thin-walled, likely infectious, inflammatory, ? doubt MTB, 10/29 AFB + but TST and CPR neg, ? ALIDA, started on [place] 05/03, D/C'd 05/09 2. Scattered bilateral reticulonodular opacities, likely an infectious bronchiolitis. 3. Pleuritic chest pain, likely secondary to above. 4. Hypertension, hyperlipidemia, diabetes. TREATMENT PLAN: 1. CXR am ordered 2. Optimize pulmonary hygiene/mobilize as tolerated. 3. Additional AFB's ordered as requested by TB control 4. Defer decision Re: Anti-TB therapy to ID and TB control 5. Continue isolation until cleared by [facility] 6. The patient will require short interval follow-up and then likely a bronchoscopy and biopsy if there is a persistent cavitary lesion. 7. Needs to F/U with me in 1-2 weeks after DC --> will repeat CT in 4 weeks. The importance of this discussed with patient as well as the possibility of an underlying neoplasm Subjective Constitutional: Reports: no symptoms HEENT: Repors: no symptoms Respiratory: Reports: no symptoms Cardiovascular: Reports: no symptoms Gastrointestinal/Abdominal: Reports: no symptoms Allergies: Coded Allergies: No Known Allergies (Unverified , 06/27/17) Subjective no events noted overnight doing well no hemoptysis on ra no distress minimal po tolerated OOB Objective Last 24 Hour Vital Signs Date Time Temp Pulse Resp B/P (MAP) Pulse Ox O2 Delivery O2 Flow Rate FiO2 05/16/19 08:00 Room Air 05/16/19 04:50 97.8 77 18 114/75 (88) 97 05/16/19 00:00 98.2 79 17 114/79 (91) 93 78 05/15/19 21:00 Room Air 05/15/19 20:00 98.7 78 17 114/79 (91) 93 7/20/19 18:07 120/78 05/15/19 16:23 98.2 72 20 113/75 (88) 96 05/15/19 12:00 97.9 78 17 114/71 (85) 98 Intake and Output 05/15/19 05/16/19 18:59 06:59 Intake Total 100 ml Balance 100 ml Intake Oral 100 ml # Voids 2 General Appearance: WD/WN Respiratory/Chest: rhonchi - scant Cardiovascular: normal rate, regular rhythm Abdomen: soft, non tender, no organomegaly, non distended Neurologic/Psychiatric: alert, oriented x 3 Microbiology Date/Time Source Procedure Growth Status 05/14/19 09:14 Sputum AFB Specimen Processing Tissue - Final Resulted 05/14/19 09:14 Sputum Acid Fast Bacilli Smear - Final Resulted 05/14/19 09:14 Sputum Acid Fast Bacilli Culture Pending Resulted 05/13/19 12:25 Sputum AFB Specimen Processing Tissue - Final Resulted 05/13/19 12:25 Sputum Acid Fast Bacilli Smear - Final Resulted 05/13/19 12:25 Sputum Acid Fast Bacilli Culture Pending Resulted Laboratory Tests 05/16/19 06:14: White Blood Count 4.3L, Red Blood Count 3.63L, Hemoglobin 11.6L, Hematocrit 34.9L, Mean Corpuscular Volume 96, Mean Corpuscular Hemoglobin 32.0H, Mean Corpuscular Hemoglobin Concent 33.3, Red Cell Distribution Width 10.7L, Platelet Count 174, Mean Platelet Volume 5.9L, Neutrophils (%) (Auto) 52.1, Lymphocytes (%) (Auto) 35.5, Monocytes (%) (Auto) 9.4, Eosinophils (%) (Auto) 2.3, Basophils (%) (Auto) 0.7, Sodium Level 137, Potassium Level 4.3, Chloride Level 101, Carbon Dioxide Level 27, Anion Gap 9, Blood Urea Nitrogen 12, Creatinine 0.9, Estimat Glomerular Filtration Rate , Glucose Level 98, Calcium Level 9.1, Phosphorus Level 3.1, Magnesium Level 1.9, Total Bilirubin 0.3, Aspartate Amino Transf (AST/SGOT) 34, Alanine Aminotransferase (ALT/SGPT) 24, Alkaline Phosphatase 61, C-Reactive Protein, Quantitative < 0.4, Pro-B-Type Natriuretic Peptide 35, Total Protein 7.2, Albumin 3.4, Globulin 3.8, Albumin/ Globulin Ratio 0.9L Current Medications Medications (Trade) Dose Ordered Sig/Darrion Route PRN Reason Start Time Stop Time Status Last Admin Dose Admin Artificial Tears (Akwa-Tears) 2 drop FOUR TIMES A DAY BOTH EYES 05/15/19 18:00 05/25/19 08:59 05/16/19 08:58 Azithromycin (Zithromax) 500 mg DAILY ORAL 05/16/19 09:00 05/21/19 12:14 05/16/19 08:48 Dextrose (Dextrose 50%) 25 ml Q30M PRN IV Hypoglycemia 05/15/19 14:30 05/25/19 00:00 Dextrose (Dextrose 50%) 50 ml Q30M PRN IV Hypoglycemia 05/15/19 14:30 05/25/19 00:00 Enoxaparin Sodium (Lovenox) 40 mg DAILY SUBQ 05/16/19 09:00 05/25/19 08:59 05/16/19 08:51 Ethambutol HCl (Myambutol) 800 mg DAILY ORAL 05/16/19 09:00 06/09/19 12:59 05/16/19 08:45 Famotidine (Pepcid) 40 mg ACBREAKFAST ORAL 05/16/19 06:30 05/25/19 06:29 05/16/19 06:18 Fluoxetine HCl (PROzac) 40 mg DAILY ORAL 05/16/19 09:00 05/26/19 08:59 05/16/19 08:48 Folic Acid (Folate) 2 mg DAILY ORAL 05/16/19 09:00 06/04/19 15:29 05/16/19 08:48 Glipizide (GlipiZIDE XL) 2.5 mg QPM ORAL 05/15/19 16:30 05/26/19 16:29 05/15/19 17:20 Insulin Aspart (NovoLOG) BEFORE MEALS AND HS SUBQ 05/15/19 16:30 05/25/19 06:29 05/15/19 17:22 Isoniazid (Inh) 300 mg DAILY ORAL 05/16/19 09:00 05/20/19 23:59 05/16/19 08:49 Losartan Potassium (Cozaar) 50 mg BID ORAL 05/15/19 18:00 06/09/19 17:59 05/15/19 18:07 Metformin HCl (Glucophage) 500 mg TWICE A DAY ORAL 05/15/19 18:00 05/26/19 08:59 05/16/19 08:48 Ondansetron HCl (Zofran) 4 mg Q6H PRN IVP Nausea & Vomiting 05/15/19 15:45 06/04/19 09:44 Potassium Chloride (K-Dur) 40 meq DAILY ORAL 05/16/19 09:00 06/07/19 09:44 05/16/19 08:48 Pyrazinamide (Pza) 1,000 mg DAILY ORAL 05/16/19 09:00 05/20/19 23:59 UNV Pyridoxine HCl (Vitamin B6) 50 mg DAILY ORAL 05/16/19 09:00 05/20/19 23:59 UNV Rifampin (Rifadin) 600 mg DAILY ORAL 05/16/19 09:00 06/09/19 12:59 05/16/19 08:47 Vitamin D (Vitamin D) 5,000 intlu DAILY ORAL 05/16/19 09:00 05/26/19 08:59 05/16/19 08:45 Yesenia Conner DO May 16, 2019 10:15
--- NOTE | 2019-05-16 10:26 | NUR ---
CHARGE NURSE NOTES: sPOKE W/ Janeen Stout, INFECTION nurse about the incident. Pt can be discharge today. Relayed to NOHEMI richter.
--- NOTE | 2019-05-16 11:30 | NUR ---
NURSE NOTES: Patient's son Nemesio told RN that he will take patient to follow up appointments with pulmo and health department. Patient has all contact information and follow up days.
--- NOTE | 2019-05-16 11:40 | NUR ---
NURSE NOTES: Patient discharged home as ordered. Stable. Denies pain or SOB. Patient and patient's son Nemesio given thorough discharge instructions, patient's son verbalized understanding. Patient's son has prescriptions and verbalized that he will get the medication filled at the pharmacy. Patient and patient's son are aware of importance of following medication regime. Patient and patient's son aware of side effects associated with prescribed medication, both verbalized that they will continue to take medication as prescribed. Patient has all belongings. No IV access. Skin is clean, dry, and intact. Patient assisted into private vehicle by RN without incident.
--- NOTE | 2019-05-16 14:37 | Hematology/Onc Progress Note ---
Assessment/Plan Assessment/Plan HEME/ONC PROGRESS NOTE Assessment and Recs: # Cavitary lesion of lung on imaging seen on CT, ++ jonathan afb as per pulm, at this time on ripe, r/o inflammatory cause/issues --> may dc ripe as per pulm/id --> per pulm recs, monitor for resolution --> if persists may need biopsy/bronch --> tumor markers are neg --> consider re-image in several months --> pending placement ltach with tb control clearance # Anemia of chronic disease due to underlying chronic medical issues, multifactorial --> Anemia workup has been reviewed. Ferritin 133 --> No evidence of hemolysis is noted, peripheral smear has been reviewed --> Hgb goal >7. Transfuse prn. --> Cont po folic acid --> Epogen or iron at this time is not particularly indicated --> Medications have been reviewed --> Hgb trend: 11.5-->12.1-->11.8-->10.9-->11.3 # Leukopenia with range 3-5k --> hepatitis and hiv neg --> us of the abdomen is negative, no cirrhosis and hsm # Chest pain r/o acs v inflammatory disease of lung, bronchitis --> CT imaging of the chest was ordered which showed calcified mediastinal and hilar lymph nodes as well as mild cardiomegaly without pericardial effusion. There is some fluid impacting some of the left lower lobe bronchi posterior medially no pulmonary embolism or aortic aneurysm or dissection was seen --> Patient given IV antibiotics --> as per cards recs --> nitrog prn --> outpatient stress test # Granulomatous disease # HTN. sbp goal <140 --> per cards The time the noted was written does not necessarily correspond to the time the patient was seen,. Subjective Hematologic/Lymphatic: Reports: anemia Allergies: Coded Allergies: No Known Allergies (Unverified , 06/27/17) All Systems: reviewed and negative except above Subjective 04/26: Pt is sitting in bed and having breakfast. No c/o pain. Labs reviewed. 04/27: no events, cp is better, seen by pulm, cards 04/28: no fevers or chills, no night sweats noted 04/30: Pt on [place] isolation, cough better with cough syrup. 05/01: no acute events, no bleeding reported. 05/02:no distress, VS reviewed, afebrile. 05/03: no events, oimaging reviewed, seen by pulm and id 05/04, unable to provide sputum, seen by psych, otherwise no changes 05/05: no events to report, tolerating ripe 05/06: no events, no fevers, ripe has been started 05/07: no events, a+o x4, seen by pulm, potentially consider dc ripe 05/08: no events overnight, uric acid is still high, seen by renal 05/10: in resp isolation, no events noted, no f/c 05/11: no events, seen by pulm, cbc reviewed 05/12: no bleeding, no chills, no fevers, no changes, cbc reviewed 05/13: no fevers,or chills, no events noted, no bleeding 05/14: awake and alert, dc planning. vs stable. 05/15: was scheduled for dc last night, needs clearance [facility] before she can be discharged. 05/16: awake and alert, hgb stable, denies pain or discomfort, dc planned for today Objective Objective Last 24 Hour Vital Signs Date Time Temp Pulse Resp B/P (MAP) Pulse Ox O2 Delivery O2 Flow Rate FiO2 05/16/19 08:00 98.2 80 19 112/70 (84) 95 05/16/19 08:00 Room Air 05/16/19 04:50 97.8 77 18 114/75 (88) 97 05/16/19 00:00 98.2 79 17 114/79 (91) 93 78 05/15/19 21:00 Room Air 05/15/19 20:00 98.7 78 17 114/79 (91) 93 05/15/19 18:07 120/78 05/15/19 16:23 98.2 72 20 113/75 (88) 96 05/15/19 12:00 97.9 78 17 114/71 (85) 98 05/15/19 09:00 112/70 05/15/19 09:00 Room Air 05/15/19 08:00 98.1 80 16 109/76 (87) 98 05/15/19 04:00 98.2 80 18 112/70 (84) 97 05/15/19 00:00 98.2 74 16 109/73 (85) 97 05/14/19 21:00 Room Air 05/14/19 20:00 97.9 80 18 118/82 (94) 97 05/14/19 17:10 102/70 05/14/19 16:00 98.1 74 18 102/70 (81) 96 Intake and Output 05/15/19 05/16/19 19:00 07:00 Intake Total 100 ml Balance 100 ml Intake Oral 100 ml # Voids 2 Labs Test 05/16/19 06:14 White Blood Count 4.3 K/UL (4.8-10.8) Red Blood Count 3.63 M/UL (4.20-5.40) Hemoglobin 11.6 G/DL (12.0-16.0) Hematocrit 34.9 % (37.0-47.0) Mean Corpuscular Volume 96 FL (80-99) Mean Corpuscular Hemoglobin 32.0 PG (27.0-31.0) Mean Corpuscular Hemoglobin Concent 33.3 G/DL (32.0-36.0) Red Cell Distribution Width 10.7 % (11.6-14.8) Platelet Count 174 K/UL (150-450) Mean Platelet Volume 5.9 FL (6.5-10.1) Neutrophils (%) (Auto) 52.1 % (45.0-75.0) Lymphocytes (%) (Auto) 35.5 % (20.0-45.0) Monocytes (%) (Auto) 9.4 % (1.0-10.0) Eosinophils (%) (Auto) 2.3 % (0.0-3.0) Basophils (%) (Auto) 0.7 % (0.0-2.0) Sodium Level 137 MMOL/L (136-145) Potassium Level 4.3 MMOL/L (3.5-5.1) Chloride Level 101 MMOL/L (98-107) Carbon Dioxide Level 27 MMOL/L (21-32) Anion Gap 9 mmol/L (5-15) Blood Urea Nitrogen 12 mg/dL (7-18) Creatinine 0.9 MG/DL (0.55-1.30) Estimat Glomerular Filtration Rate mL/min (>60) Glucose Level 98 MG/DL (74-106) Calcium Level 9.1 MG/DL (8.5-10.1) Phosphorus Level 3.1 MG/DL (2.5-4.9) Magnesium Level 1.9 MG/DL (1.8-2.4) Total Bilirubin 0.3 MG/DL (0.2-1.0) Aspartate Amino Transf (AST/SGOT) 34 U/L (15-37) Alanine Aminotransferase (ALT/SGPT) 24 U/L (12-78) Alkaline Phosphatase 61 U/L (46-116) C-Reactive Protein, Quantitative < 0.4 mg/dL (0.00-0.90) Pro-B-Type Natriuretic Peptide 35 pg/mL (0-125) Total Protein 7.2 G/DL (6.4-8.2) Albumin 3.4 G/DL (3.4-5.0) Globulin 3.8 g/dL Albumin/Globulin Ratio 0.9 (1.0-2.7) Height (Feet): 5 Height (Inches): 2.00 Weight (Pounds): 133 Objective PHYSICAL EXAM General Appearance: normal inspection, well appearing, no apparent distress, alert, GCS 15 Head: atraumatic ENT: normal ENT inspection, hearing grossly normal, normal voice Neck: normal inspection, full range of motion, supple, no bony tend Respiratory: normal inspection, lungs clear, normal breath sounds, no respiratory distress, no retraction, no wheezing Cardiovascular: regular rate, rhythm, no edema Gastrointestinal: normal inspection, normal bowel sounds, non tender, soft, no guarding, no hernia Genitourinary: no CVA tenderness Musculoskeletal: normal inspection, back normal, normal range of motion Neurologic: normal inspection, alert, oriented x3, responsive, manufacturing industrial engineer III-XII nml as tested, speech normal Psychiatric: normal inspection, judgement/insight normal, mood/affect normal Alden Kohler MD May 16, 2019 14:37
--- NOTE | 2019-05-17 13:32 | Discharge Summary ---
Discharge Summary Discharge Summary _ DATE OF ADMISSION: 04/24/2019 DATE OF DISCHARGE: 05/16/2019 DISCHARGED BY: Dr. Nixon REASON FOR ADMISSION: 73 years old female with past medical history of diabetes mellitus, hypertension , high cholesterol, asthma, history of TB treated 20 years ago, depression, presented to emergency department with pleuritic chest pain with associated nonproductive cough. Chest pain was worse with deep breathing, but did not change with exertion. She denied fever and chills. Patient denied history of smoking. No cardiac history. No leg pain or swelling. No vomiting , no diarrhea. Upon evaluation vital signs were stable. Laboratory work-up revealed no leukocytosis , hemoglobin 11.7, hematocrit 33.9, platelet count 218. Stable electrolytes and renal parameters. Glucose 104. Stable LFT. Troponin negative, pro BNP 33. EKG revealed sinus rhythm, no acute ischemic changes. Chest x-ray demonstrated mild bibasilar opacity, possibly representing atelectasis. Component of pneumonia was not entirely excluded. Cavitation in the left midlung with mild wall thickening noted. CT of the chest the thorax revealed no pulmonary emboli. No aortic aneurysm or dissection. Reticulonodular densities and patchy consolidations in the posteromedial left upper lobe. Reticulonodular densities in the right upper lobe and adjacent to the cavitation/cystic change in the left lower lobe. Cavitation/cystic changes in the left lower lobe with mild wall thickening and trace fluid in the cavitations. Findings were concerning for an infectious/inflammatory process. Patient subsequently was admitted to medical surgical floor for further management. CONSULTANTS: clay machine operator Dr. Dailey pulmonary ID specialist Dr. Mayo addressing machine operator Dr. Garcia internet marketing executive/oncologist Dr. Kohler psychiatrist [facility] COURSE: Patient admitted to medical surgical floor. Harness Puller seen patient for the chest pain. Troponin was negative. EKG revealed no acute ischemic changes. Patient was ruled out for acute CA. Lipid panel was stable. Blood pressure was managed with Cozaar and hydrochlorothiazide. Blood pressure remained stable. Infectious disease specialist and paperhanger apprentice closely followed. Supplemental oxygen titrated to keep pulse oximetry above 92%. Pulmonary toilet with bronchodilator provided. Patient started on treatment for pneumonia with azithromycin and ceftriaxone. Patient was placed in respiratory isolation to rule out mycobacterial tuberculosis . Serial sputum for AFB x3 were followed. First 2 smear for AFB were negative, but the next AFB smear was positive. Tuberculin skin test was negative. Patient started on the TB treatment medications with RIPE. Blood cultures were negative. BEBETO screen was negative. Rheumatoid factor was negative. Hepatitis panel was negative. HIV test was nonreactive. TB test was negative. TB by PCR negative. Respiratory isolation was continued . 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 Patient was continued on rifampin , ethambutol, isoniazid and pyridoxine. Azithromycin was added. Case was discussed with the Department of Public [facility], who was in agreement to discontinue respiratory isolation and discharge to home with isolation on 3 TB medication. Patient need to follow-up on May 20 with Department of Public [facility]. Supplemental oxygen was on board as needed to keep pulse oximetry above 92%. Prior to discharge pulse oximetry was stable on room air. Hand held nebulizing therapy with bronchodilator provided as needed. Pain management was addressed. Per paperhanger apprentice , scattered bilateral reticular nodular opacities seen on the CT scan, likely represent infectious bronchiolitis. DVT prophylaxis provided. Patient to follow-up with paperhanger apprentice on May 26. CT scan will be repeated in 4 weeks. If cavitary lesion persist, the patient likely will need bronchoscopy with biopsy. Importance of follow-up was discussed with the patient as well as the possibility of underlying neoplasm. Blood sugar was managed with metformin, glipizide, and sliding scale of insulin as needed. Hemoglobin A1c 6.0, at goal. Patient was counseled on low-fat low- cholesterol diabetic diet. Renal parameters and electrolytes were closely monitored, electrolytes corrected as needed, and nephrotoxins were avoided. Hemoglobin and hematocrit where closely monitored with goal to keep hemoglobin above 7. Anemia work-up was consistent with anemia of chronic disease, due to underlying chronic medical issue. Hemoglobin hematocrit remained in the baseline prior to discharge hemoglobin 11.6, hematocrit 34.9. Patient was discharged home . Follow-up with appointments with Department Health and paperhanger apprentice as scheduled. FINAL DIAGNOSES: Pleuritic chest pain Pneumonia Atypical mycobacterial disease of lung, MAC Cavitary lesion of lung Likely infectious bronchiolitis Granulomatous disease Diabetes mellitus Hypertension Hyperlipidemia History of asthma Anemia of chronic disease Major depression DISCHARGE MEDICATIONS: See Medication Reconciliation list. Prescription for treatment for MAC infection provided to patient's son to fill in pharmacy . DISCHARGE INSTRUCTIONS: Patient was discharged with home isolation. Follow up with Department of Public Health 05/20 and paperhanger apprentice 05/26 I have been assigned to dictate discharge summary for this account. I was not involved in the patient's management. Simona Cedillo NP May 17, 2019 13:32
--- NOTE | 2019-05-18 18:20 | NUR ---
HOME HEALTH PATIENT HAS BEEN REFERRED TO [facility] T:[phone] F: [phone] SPOKE WITH JUANA WHO WILL CONFIRM ACCEPTANCE
== END 2019-05-16 11:40 | disposition home or self-care (01) | DRG 178 ==
LOC: EMR 15:26 → 2E 18:15 → EDBEDREQ 19:00 → 3E 05-15 14:00
DX: A31.0 Pulmonary mycobacterial infection (principal); J21.9 Acute bronchiolitis, unspecified; J18.8 Other pneumonia, unspecified organism; D71 Functional disorders of polymorphonuclear neutrophils; I89.8 Other specified noninfective disorders of lymphatic vessels and lymph nodes; I95.9 Hypotension, unspecified; J98.4 Other disorders of lung; E11.9 Type 2 diabetes mellitus without complications; E78.5 Hyperlipidemia, unspecified; D64.9 Anemia, unspecified; F32.9 Major depressive disorder, single episode, unspecified; D72.819 Decreased white blood cell count, unspecified; I25.10 Atherosclerotic heart disease of native coronary artery without angina pectoris; E79.0 Hyperuricemia without signs of inflammatory arthritis and tophaceous disease; Z86.11 Personal history of tuberculosis; B02.9 Zoster without complications
CPT/HCPCS: 36415; 71045; 71275; 80048; 80053; 80061; 81001; 82378; 82550; 82553; 82607; 82728; 82746; 82962; 82977; 83036; 83540; 83550; 83605; 83615; 83690; 83735; 83880; 84100; 84443; 84484; 84550; 85007; 85025; 85044; 85060; 85610; 85651; 86021; 86039; 86140; 86200; 86431; 86635; 86703; 86705; 86709; 86803; 87040; 87116; 87340; 87385; 87556; 93005; 94640; 94664; 96365; 96368; 96375; 99285; J1815; J2405; J7620; J8499